=== PATIENT | male | born 1980 | race Two or more races ===

== ENCOUNTER 2017-07-24 03:05 | Emergency (ER) | payer MEDICAID ==
[2017-07-24] MEDS ORDERED: Ketorolac 60 MG/2 ML SDV IM ONE (04:07)
--- NOTE | 2017-07-24 04:10 | EDM.PDOC ---
<OfficerSean - Last Filed: 07/24/17 06:59> ED HPI GENERAL MEDICAL PROBLEM - General Chief Complaint: Lower Extremity Injury/Pain Stated Complaint: R HIP/GROIN/LOW BACK PAIN Time Seen by Provider: 07/24/17 04:04 Source of Information: Reports: Patient, RN Notes Reviewed History Limitations: Reports: No Limitations - History of Present Illness INITIAL COMMENTS - FREE TEXT/NARRATIVE: 36-year-old gentleman presents emergency department today complaint of right hip pain he does have a history of chronic hip pain he uses hydrocodone for pain control he does admit to doing a lot of walking recently however he woke up this morning out of sleep with an exacerbation of his hip pain Right Hip Pain Score (Numeric/FACES): 8 - Related Data Allergies Allergy/AdvReac Type Severity Reaction Status Date / Time gabapentin Allergy Shaking Verified 07/24/17 03:30 Penicillins Allergy Itching Verified 01/13/14 07:56 NSAIDS (Non-Steroidal AdvReac Nausea and Verified 01/14/14 15:48 Anti-Inflamma Vomiting Home Meds: Home Meds OXcarbazepine [Trileptal] 300 mg PO BID 01/10/14 [History] traMADol [Ultram] 50 mg PO Q6H PRN 01/13/14 [History] Hydrocodone/Acetaminophen [[place] 5-325 Tablet] 1 each PO ASDIRECTED 07/24/17 [ History] LORazepam 1 mg PO ASDIRECTED 07/24/17 [History] Levothyroxine 200 mcg PO ACBREAKFAST 07/24/17 [History] Lisdexamfetamine [Vyvanse] 70 mg PO DAILY 07/24/17 [History] buPROPion HCl [Wellbutrin Sr] 150 mg PO BID 07/24/17 [History] Past Medical History Musculoskeletal History: Reports: Other (See Below) Other Musculoskeletal History: right hip pain Psychiatric History: Reports: ADD, Anxiety, Bipolar - Past Surgical History GI Surgical History: Reports: Appendectomy, Cholecystectomy, Hernia Repair/Other Endocrine Surgical History: Reports: Thyroidectomy Neurological Surgical History: Reports: Discectomy, Laminectomy Other Neurological Surgeries/Procedures: partial lami/discectomy near L4 Social & Family History - Tobacco Use Smoking Status *Q: Current Every Day Smoker Years of Tobacco use: 22 Packs/Tins Daily: 1 Used Tobacco, but Quit: Yes Month Tobacco Last Used: 2 YEARS AGO Second Hand Smoke Exposure: Yes - Caffeine Use Caffeine Use: Reports: Coffee, Soda - Alcohol Use Days Per Week of Alcohol Use: 0 - Recreational Drug Use Recreational Drug Use: No Review of Systems - Review of Systems Review Of Systems: See Below Musculoskeletal: Reports: Joint Pain (Right hip pain) Skin: Reports: No Symptoms Neurological: Reports: No Symptoms ED EXAM, GENERAL - Physical Exam Exam: See Below Free Text/Narrative:: Examination of the right hip does have full range of motion I don't appreciate any erythema or edema there is some mild tenderness to palpation over the greater trochanter Exam Limited By: No Limitations General Appearance: Alert, WD/WN, No Apparent Distress Respiratory/Chest: No Respiratory Distress GI/Abdominal: Soft, Non-Tender Course - Vital Signs Last Recorded V/S: Last Vital Signs Temp 35.3 C 07/24/17 07:15 Pulse 108 H 07/24/17 07:00 Resp 15 07/24/17 07:00 BP 139/82 07/24/17 07:00 Pulse Ox 98 07/24/17 07:00 - Orders/Labs/Meds Orders: Active Orders 24 hr Category Date Time Status Peripheral IV Care [RC] . DIRECTED Care 07/24/17 05:46 Active Abdomen Pelvis w Cont [CT] Stat Exams 07/24/17 06:20 Taken Sodium Chloride 0.9% [Normal Saline] 1,000 ml Med 07/24/17 06:30 Active IV ASDIRECTED Sodium Chloride 0.9% [Saline Flush] Med 07/24/17 05:46 Active 10 ml FLUSH ASDIRECTED PRN Peripheral IV Insertion Adult [OM.PC] Urgent Oth 07/24/17 05:45 Ordered Medication Orders Sodium Chloride (Normal Saline) 1,000 mls @ 500 mls/hr IV ASDIRECTED YUSUF Last Admin: 07/24/17 06:23 Dose: 500 mls/hr Sodium Chloride (Saline Flush) 10 ml FLUSH ASDIRECTED PRN PRN Reason: Keep Vein Open Last Admin: 07/24/17 05:53 Dose: 10 ml Labs: Laboratory Tests 07/24/17 07/24/17 07/24/17 Range/Units 06:33 06:33 07:15 WBC 7.2 (4.5-11.0) K/uL RBC 4.59 (4.30-5.90) M/uL Hgb 15.2 H (12.0-15.0) g/dL Hct 43.9 (40.0-54.0) % MCV 96 (80-98) fL MCH 33 H (27-31) pg MCHC 35 (32-36) % Plt Count 273 (150-400) K/uL Neut % (Auto) 61 (36-66) % Lymph % (Auto) 26 (24-44) % [place] % (Auto) 10 H (2-6) % Eos % (Auto) 4 (2-4) % Baso % (Auto) 0 (0-1) % Sodium 143 (140-148) mmol/L Potassium 3.9 (3.6-5.2) mmol/L Chloride 106 (100-108) mmol/L Carbon Dioxide 29 (21-32) mmol/L Anion Gap 7.8 (5.0-14.0) mmol/L BUN 11 (7-18) mg/dL Creatinine 0.9 (0.8-1.3) mg/dL Est Cr Clr Drug Dosing 118.29 mL/min Estimated GFR (MDRD) > 60 (>60) Glucose 93 (74-106) mg/dL Calcium 8.5 (8.5-10.1) mg/dL Total Bilirubin 0.4 (0.2-1.0) mg/dL AST 17 (15-37) U/L ALT 34 (12-78) U/L Alkaline Phosphatase 65 (46-116) U/L Total Protein 6.7 (6.4-8.2) g/dL Albumin 3.5 (3.4-5.0) g/dL Globulin 3.2 (2.3-3.5) g/dL Albumin/Globulin Ratio 1.1 L (1.2-2.2) Urine Color Yellow Urine Appearance Cloudy Urine pH 5.0 (4.5-8.0) Ur Specific [place] 1.025 (1.008-1.030) Urine Protein Negative (NEGATIVE) mg/dL Urine Glucose (UA) Normal (NEGATIVE) mg/dL Urine Ketones Negative (NEGATIVE) mg/dL Urine Occult Blood Negative (NEGATIVE) Urine Nitrite Negative (NEGAITVE) Urine Bilirubin Small (NEGATIVE) Urine Urobilinogen 1 (NORMAL) mg/dL Ur Leukocyte Esterase Negative (NEGATIVE) Urine RBC Not seen (0-5) Urine WBC 0-5 (0-5) Ur Epithelial Cells Not seen Amorphous Sediment Not seen Urine Bacteria Not seen Urine Mucus Few Urine Opiates Screen (NEGATIVE) Ur Oxycodone Screen (NEGATIVE) Urine Methadone Screen (NEGATIVE) Ur Propoxyphene Screen (NEGATIVE) Ur Barbiturates Screen (NEGATIVE) Ur Tricyclics Screen (NEGATIVE) Ur Phencyclidine Scrn (NEGATIVE) Ur Amphetamine Screen (NEGATIVE) U Methamphetamines Scrn (NEGATIVE) Urine MDMA Screen (NEGATIVE) U Benzodiazepines Scrn (NEGATIVE) U Cocaine Metab Screen (NEGATIVE) U Marijuana (THC) Screen (NEGATIVE) 07/24/17 Range/Units 07:15 WBC (4.5-11.0) K/uL RBC (4.30-5.90) M/uL Hgb (12.0-15.0) g/dL Hct (40.0-54.0) % MCV (80-98) fL MCH (27-31) pg MCHC (32-36) % Plt Count (150-400) K/uL Neut % (Auto) (36-66) % Lymph % (Auto) (24-44) % [place] % (Auto) (2-6) % Eos % (Auto) (2-4) % Baso % (Auto) (0-1) % Sodium (140-148) mmol/L Potassium (3.6-5.2) mmol/L Chloride (100-108) mmol/L Carbon Dioxide (21-32) mmol/L Anion Gap (5.0-14.0) mmol/L BUN (7-18) mg/dL Creatinine (0.8-1.3) mg/dL Est Cr Clr Drug Dosing mL/min Estimated GFR (MDRD) (>60) Glucose (74-106) mg/dL Calcium (8.5-10.1) mg/dL Total Bilirubin (0.2-1.0) mg/dL AST (15-37) U/L ALT (12-78) U/L Alkaline Phosphatase (46-116) U/L Total Protein (6.4-8.2) g/dL Albumin (3.4-5.0) g/dL Globulin (2.3-3.5) g/dL Albumin/Globulin Ratio (1.2-2.2) Urine Color Urine Appearance Urine pH (4.5-8.0) Ur Specific [place] (1.008-1.030) Urine Protein (NEGATIVE) mg/dL Urine Glucose (UA) (NEGATIVE) mg/dL Urine Ketones (NEGATIVE) mg/dL Urine Occult Blood (NEGATIVE) Urine Nitrite (NEGAITVE) Urine Bilirubin (NEGATIVE) Urine Urobilinogen (NORMAL) mg/dL Ur Leukocyte Esterase (NEGATIVE) Urine RBC (0-5) Urine WBC (0-5) Ur Epithelial Cells Amorphous Sediment Urine Bacteria Urine Mucus Urine Opiates Screen Negative (NEGATIVE) Ur Oxycodone Screen Negative (NEGATIVE) Urine Methadone Screen Negative (NEGATIVE) Ur Propoxyphene Screen Negative (NEGATIVE) Ur Barbiturates Screen Negative (NEGATIVE) Ur Tricyclics Screen Negative (NEGATIVE) Ur Phencyclidine Scrn Negative (NEGATIVE) Ur Amphetamine Screen Positive H (NEGATIVE) U Methamphetamines Scrn Negative (NEGATIVE) Urine MDMA Screen Negative (NEGATIVE) U Benzodiazepines Scrn Positive H (NEGATIVE) U Cocaine Metab Screen Negative (NEGATIVE) U Marijuana (THC) Screen Negative (NEGATIVE) Meds: Medications Generic Name Dose Route Start Last Admin Trade Name Freq PRN Reason Stop Dose Admin Sodium Chloride 1,000 mls @ 500 mls/hr 07/24/17 06:30 07/24/17 06:23 Normal Saline IV 500 mls/hr ASDIRECTED YUSUF Administration Sodium Chloride 10 ml 07/24/17 05:46 07/24/17 05:53 Saline Flush FLUSH 10 ml ASDIRECTED PRN Administration Keep Vein Open Discontinued Medications Generic Name Dose Route Start Last Admin Trade Name Freq PRN Reason Stop Dose Admin Hydromorphone HCl 1 mg 07/24/17 04:40 07/24/17 04:45 Dilaudid IM 07/24/17 04:41 1 mg ONETIME STA Administration Hydromorphone HCl 1 mg 07/24/17 07:41 07/24/17 08:27 Dilaudid IVPUSH 07/24/17 07:42 1 mg ONETIME ONE Administration Sodium Chloride 85 mls @ 4 mls/sec 07/24/17 06:38 07/24/17 06:42 Normal Saline IV 07/24/17 06:39 4 mls/sec ASDIRECTED STA Administration Iopamidol 150 ml 07/24/17 06:38 07/24/17 06:42 Isovue-300 (61%) IV 07/24/17 06:39 150 ml . DIRECTED STA Administration Ketorolac Tromethamine 60 mg 07/24/17 04:07 07/24/17 04:15 Toradol IM 07/24/17 04:08 60 mg ONETIME ONE Administration Lorazepam 1 mg 07/24/17 05:32 07/24/17 06:08 Ativan IM 07/24/17 05:33 Not Given ONETIME ONE Lorazepam 1 mg 07/24/17 05:46 07/24/17 05:53 Ativan IVPUSH 07/24/17 05:47 1 mg ONETIME ONE Administration - Re-Assessments/Exams Free Text/Narrative Re-Assessment/Exam: 07/24/17 06:22 He continues to have pain he rates the pain 8 out of 10 he received no relief from combination 60 mg Toradol IM, 1 mg Dilaudid IM and 1 mg Ativan IV, I did review the [place] prescription drug monitoring site which does show he has multiple fills of hydrocodone at several cities throughout the [facility]. He is now complaining of right flank pain right lower quadrant pain, I have added blood work of CBC, CMP and urinalysis as well as a CT scan the abdomen and pelvis Departure - Departure Disposition: Home, Self-Care 01 Clinical Impression: Degenerative tear of acetabular labrum of right hip - Discharge Information Referrals: PCP,None [Primary Care Provider] - Forms: ED Department Discharge Care Plan Goals: Pt needs to establish care with a primary care provider at either [facility] or [facility], KEEP APPT WITH DR KUNZ AT [facility] AUG 2AT 1 pm--orthopedic dept. pt was given a 5 day course of pedisone as an a antinflamitory since he is allergic to nonsteroidals.. norco 5/325 1 tab q6h prn for pain--# 12 <Lorin Montes - Last Filed: 07/24/17 10:10> Course - Re-Assessments/Exams Free Text/Narrative Re-Assessment/Exam: 07/24/17 09:56 The care of the pt was taken over from Dr Officer. The pt was asking for a advocate when I took him over because he was not being cared for right. We did get the reading of the cat scan of the abdoman which was neg. Records were obtained from [facility] in [place]. He has been seen multiple times for his hip and back pain. He also has been seen for migraines. He has received pain meds for the hip pain. He had an MRI of the hip in Apr which showed a possible tear in the labrum. He also had an MRI in Jun of The lumbar spine which was neg. He is post laminectomy. He is having alot of pain when he walks on the rt leg. He did have normal lab work. He will be refered to Dr Kunz-- Ortho for the labrum tear-- [facility]. An appt was set up for Aug 04 in [place]. He has had relieve of the pain with the last dilaudid. d Departure - Departure Time of Disposition: 10:02 Condition: Fair
[2017-07-24] MEDS ORDERED: HYDROmorphone 1 MG/ML Syringe IM STA (04:40)
[2017-07-24] MEDS ORDERED: LORazepam 2 MG/ML SDV IM ONE (05:32)
[2017-07-24] MEDS ORDERED: Sodium Chloride 0.9% 10 ML Syringe FLUSH PRN (05:46)
[2017-07-24] MEDS ORDERED: LORazepam 2 MG/ML SDV IVPUSH ONE (05:46)
[2017-07-24] MEDS ORDERED: Sodium Chloride 0.9% 1,000 ML IV SCH (06:30)
[2017-07-24] MEDS ORDERED: Iopamidol 612 MG/ML 150 ML Bottle IV STA (06:38)
[2017-07-24] MEDS ORDERED: HYDROmorphone 1 MG/ML Syringe IVPUSH ONE (07:41)
[2017-07-25] MEDS ORDERED: Levothyroxine 100 MCG Tab PO SCH (07:30)
== END 2017-07-24 11:34 | disposition home or self-care (01) ==
LOC: JP.ED 03:05
DX: M25.851 Other specified joint disorders, right hip (principal); F17.210 Nicotine dependence, cigarettes, uncomplicated; F31.9 Bipolar disorder, unspecified; F41.9 Anxiety disorder, unspecified; Z79.899 Other long term (current) drug therapy; Z88.0 Allergy status to penicillin; Z88.8 Allergy status to other drugs, medicaments and biological substances
CPT/HCPCS: 36415; 74177; 80053; 80305; 81001; 85025; 96361; 96372; 96374; 96375; 99284; J1170; J1885; J2060; J7030; J7040; J7050; 99283

== ENCOUNTER 2017-09-05 15:54 | Emergency (ER) | payer MEDICAID ==
--- NOTE | 2017-09-05 16:42 | EDM.PDOC ---
ED HPI GENERAL MEDICAL PROBLEM - General Chief Complaint: Lower Extremity Injury/Pain Stated Complaint: R HIP PAIN Time Seen by Provider: 09/05/17 16:25 Source of Information: Reports: Patient, Family History Limitations: Reports: No Limitations - History of Present Illness INITIAL COMMENTS - FREE TEXT/NARRATIVE: 36-year-old male with chronic right hip pain claims he "fell" 2 days ago and has an increase in his pain in the right hip down into the right groin and right lower abdomen. This is very similar to the complaint that he had when he had a complete workup last month including a CT scan of the abdomen and pelvis. At that time they set him up with a autism motor specialist regarding his hip on August 04, he did not make the appointment he can't remember why. He did go to a clinic that day here in town for a rash. His said last time he came home from his ER visit he probably didn't remember his appointment because he was so "unsteady from the medication" as he received several shots of Dilaudid and Ativan. He does have chemical dependency in his chart history. 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 Now he claims he can't even roll over in bed. Onset: Unknown/Unsure Location: Reports: Lower Extremity, Right Severity: Moderate Worsens with: Reports: Other (Weightbearing), Movement Associated Symptoms: Denies: Chest Pain, Cough, Fever/Chills, Nausea/Vomiting, Shortness of Breath Right Hip Pain Score (Numeric/FACES): 8 - Related Data Allergies Allergy/AdvReac Type Severity Reaction Status Date / Time gabapentin Allergy Shaking Verified 09/05/17 16:16 Penicillins Allergy Itching Verified 09/05/17 16:16 NSAIDS (Non-Steroidal AdvReac Nausea and Verified 09/05/17 16:16 Anti-Inflamma Vomiting Home Meds: Home Meds OXcarbazepine [Trileptal] 300 mg PO BID 01/10/14 [History] Hydrocodone/Acetaminophen [[place] 5-325 Tablet] 1 each PO ASDIRECTED 07/24/17 [ History] LORazepam 1 mg PO ASDIRECTED 07/24/17 [History] Levothyroxine 200 mcg PO ACBREAKFAST 07/24/17 [History] buPROPion HCl [Wellbutrin Sr] 150 mg PO BID 07/24/17 [History] Past Medical History HEENT History: Reports: Impaired Vision Musculoskeletal History: Reports: Other (See Below) Other Musculoskeletal History: right hip pain Psychiatric History: Reports: ADD, Anxiety, Bipolar Oncologic (Cancer) History: Reports: Thyroid - Infectious Disease History Infectious Disease History: Reports: Chicken Pox - Past Surgical History GI Surgical History: Reports: Appendectomy, Cholecystectomy, Hernia Repair/Other Endocrine Surgical History: Reports: Thyroidectomy Neurological Surgical History: Reports: Discectomy, Laminectomy Other Neurological Surgeries/Procedures: partial lami/discectomy near L4 Social & Family History - Tobacco Use Smoking Status *Q: Current Every Day Smoker Years of Tobacco use: 22 Packs/Tins Daily: 1 Used Tobacco, but Quit: Yes Month Tobacco Last Used: august Second Hand Smoke Exposure: Yes - Caffeine Use Caffeine Use: Reports: Coffee, Soda - Alcohol Use Days Per Week of Alcohol Use: 0 - Recreational Drug Use Recreational Drug Use: No Review of Systems - Review of Systems Review Of Systems: See Below Constitutional: Denies: Fever Respiratory: Denies: Shortness of Breath Cardiovascular: Denies: Chest Pain GI/Abdominal: Reports: Other (Complains of some deep groin pain) Genitourinary: Denies: Dysuria Skin: Denies: Bruising ED EXAM, GENERAL - Physical Exam Exam: See Below Exam Limited By: No Limitations General Appearance: Alert, No Apparent Distress (Seems fairly comfortable when lying supine) Head: Atraumatic Respiratory/Chest: No Respiratory Distress GI/Abdominal: Soft, Non-Tender Extremities: Other (Patient does have some pulling sensation to the right buttock with passive flexion of the hip, however there is very little discomfort with passive internal and external rotation of the hip. His palpation tenderness is more along the right iliac crest and buttock area that it is lateral hip. There is no bruising.) Course - Vital Signs Last Recorded V/S: Last Vital Signs Temp 96.7 F 09/05/17 17:18 Pulse 76 09/05/17 17:18 Resp 16 09/05/17 17:18 BP 120/90 09/05/17 17:18 Pulse Ox 99 09/05/17 17:18 - Orders/Labs/Meds Meds: Medications Discontinued Medications Generic Name Dose Route Start Last Admin Trade Name Freq PRN Reason Stop Dose Admin Ketorolac Tromethamine 60 mg 09/05/17 16:43 09/05/17 16:49 Toradol IM 09/05/17 16:44 60 mg ONETIME ONE Administration - Re-Assessments/Exams Free Text/Narrative Re-Assessment/Exam: 09/05/17 17:04 Patient was given an injection of Toradol 60 mg IM followed by a pelvis x-ray. 09/05/17 17:27 A pelvis x-ray looks completely normal. The Toradol injection didn't "help at all". When I questioned him further about consultations, physical therapy etc. he admitted he had an autism motor specialist in [place] in July recommend a possible surgery. When I asked why he didn't get the surgery he said he referred him to another doctor in [place]. I don't think he mentioned any of this on his last visit. When I asked him what the other doctor said he said he wanted to try physical therapy first, he's been waiting for a call to get that started. The just came back into the room then and when I told her all this she acted surprised that this was going on. I did agree to give him 10 Vicodin to use sparingly over the next couple of days, he should increase activity as tolerated and get a hold of the [place] provider to work out the physical therapy appointment. Departure - Departure Time of Disposition: 17:43 Disposition: Home, Self-Care 01 Condition: Good Clinical Impression: Contusion of hip, right Qualifiers: Encounter type: initial encounter Qualified Code(s): S70.01XA - Contusion of right hip, initial encounter - Discharge Information Instructions: Hip Pain Referrals: Cassy Hardy MD [Primary Care Provider] - Forms: ED Department Discharge Care Plan Goals: Take pain medication sparingly if needed. Increase activity as tolerated and contact your provider in [place] for physical therapy instructions as soon as possible. Keep your appointment on as scheduled.
[2017-09-05] MEDS ORDERED: Ketorolac 60 MG/2 ML SDV IM ONE (16:43)
--- NOTE | 2017-09-06 08:37 | CR ---
PELVIS AP Clinical History: Pain, fall Findings: No acute fracture or dislocation is noted. No destructive changes are present.There is mi nimal acetabular spurring. Impression: No fracture Mild acetabular spurring bilaterally
== END 2017-09-05 17:43 | disposition home or self-care (01) ==
LOC: JP.ED 15:54
DX: S70.01XA Contusion of right hip, initial encounter (principal); R05 Cough; R11.2 Nausea with vomiting, unspecified; R06.02 Shortness of breath; R07.9 Chest pain, unspecified; F98.8 Other specified behavioral and emotional disorders with onset usually occurring in childhood and adolescence; F31.9 Bipolar disorder, unspecified; F17.210 Nicotine dependence, cigarettes, uncomplicated; Z88.8 Allergy status to other drugs, medicaments and biological substances; Z88.0 Allergy status to penicillin; Z88.6 Allergy status to analgesic agent; Z79.899 Other long term (current) drug therapy; Z98.890 Other specified postprocedural states; W19.XXXA Unspecified fall, initial encounter
CPT/HCPCS: 72170; 96372; 99284; J1885; 99283

== ENCOUNTER 2017-09-08 18:09 | Emergency (ER) | payer MEDICAID ==
[2017-09-08] MEDS ORDERED: HYDROmorphone 1 MG/ML Syringe IM ONE (19:07)
--- NOTE | 2017-09-08 19:11 | EDM.PDOC ---
ED HPI GENERAL MEDICAL PROBLEM - General Chief Complaint: General Stated Complaint: PAIN Time Seen by Provider: 09/08/17 18:41 Source of Information: Reports: Patient, Family, Old Records, RN Notes Reviewed History Limitations: Reports: No Limitations - History of Present Illness INITIAL COMMENTS - FREE TEXT/NARRATIVE: 36-year-old gentleman presents to the emergency department day complaint of right hip pain he has a known history of a labrum tear in the right hip has been evaluated both at [facility] and the [facility] diagnosis was made on April 2017 he has not followed up with physical therapy or orthopedic surgery consultations has been evaluated at multiple facilities for complaints of pain in the right hip had called the [facility] clinic asking for pain unfortunately his primary care provider was not present therefore he was directed to the emergency department. Review of [place] prescription drug monitoring program shows that he has received hydrocodone from multiple providers, I was able to find the original MRI from [facility] which shows the possible labrum tear. He was evaluated in the emergency department on 05 September I received 10 hydrocodone at the time follow-up with primary care yesterday started on Diflucan acute which he states he cannot tolerate he is currently out of the hydrocodone. States that he is unable to bear weight cannot lay in the bed without excruciating pain. - Related Data Allergies Allergy/AdvReac Type Severity Reaction Status Date / Time gabapentin Allergy Shaking Verified 09/08/17 18:33 Penicillins Allergy Itching Verified 09/08/17 18:33 Home Meds: Home Meds OXcarbazepine [Trileptal] 300 mg PO BID 01/10/14 [History] Hydrocodone/Acetaminophen [[place] 5-325 Tablet] 1 each PO ASDIRECTED 07/24/17 [ History] LORazepam 1 mg PO ASDIRECTED 07/24/17 [History] Levothyroxine 200 mcg PO ACBREAKFAST 07/24/17 [History] buPROPion HCl [Wellbutrin Sr] 150 mg PO BID 07/24/17 [History] Cyclobenzaprine [Flexeril] 09/08/17 [History] Diclofenac Sodium [Voltaren] 09/08/17 [History] Past Medical History HEENT History: Reports: Impaired Vision Musculoskeletal History: Reports: Other (See Below) Other Musculoskeletal History: right hip pain Psychiatric History: Reports: ADD, Anxiety, Bipolar Oncologic (Cancer) History: Reports: Thyroid - Infectious Disease History Infectious Disease History: Reports: Chicken Pox - Past Surgical History GI Surgical History: Reports: Appendectomy, Cholecystectomy, Hernia Repair/Other Endocrine Surgical History: Reports: Thyroidectomy Neurological Surgical History: Reports: Discectomy, Laminectomy Other Neurological Surgeries/Procedures: partial lami/discectomy near L4 Social & Family History - Tobacco Use Smoking Status *Q: Current Every Day Smoker Years of Tobacco use: 10 Packs/Tins Daily: 1 Used Tobacco, but Quit: Yes Month Tobacco Last Used: august Second Hand Smoke Exposure: Yes - Caffeine Use Caffeine Use: Reports: Coffee, Soda - Alcohol Use Days Per Week of Alcohol Use: 0 - Recreational Drug Use Recreational Drug Use: No ED ROS GENERAL - Review of Systems Review Of Systems: See Below Constitutional: Reports: No Symptoms Respiratory: Reports: No Symptoms Cardiovascular: Reports: No Symptoms GI/Abdominal: Reports: Abdominal Pain : Reports: Flank Pain Musculoskeletal: Reports: Joint Pain (Right hip pain), Muscle Pain Skin: Reports: No Symptoms Neurological: Reports: No Symptoms ED EXAM, GENERAL - Physical Exam Exam: See Below Free Text/Narrative:: Attempt to examine the right hip does not tolerate any exam whatsoever slightest palpitation over the greatest trochanter elicits pain cannot move flexion or extension of the hip without exacerbating pain Exam Limited By: No Limitations General Appearance: Alert, Mild Distress Course - Vital Signs Last Recorded V/S: Last Vital Signs Temp 98.6 F 09/08/17 18:39 Pulse 112 H 09/08/17 18:39 Resp 18 09/08/17 18:39 BP 150/104 H 09/08/17 18:39 Pulse Ox 96 09/08/17 18:39 - Orders/Labs/Meds Meds: Medications Discontinued Medications Generic Name Dose Route Start Last Admin Trade Name Freq PRN Reason Stop Dose Admin Hydromorphone HCl 1 mg 09/08/17 19:07 09/08/17 19:37 Dilaudid IM 09/08/17 19:08 1 mg ONETIME ONE Administration Departure - Departure Time of Disposition: 20:03 Disposition: Home, Self-Care 01 Condition: Fair Clinical Impression: Degenerative tear of acetabular labrum of right hip - Discharge Information Referrals: Cassy Hardy MD [Primary Care Provider] - Forms: ED Department Discharge Additional Instructions: Use ibuprofen for baseline pain control, use hydrocodone as needed for breakthrough pain, please call to the orthopedic clinic on Monday for follow-up appointment - Assessment/Plan Plan: Assessment Acuity = chronic Site and laterality = labrum tear right hip Etiology = unclear etiology Manifestations = chronic pain Location of injury = Home Lab values = none Plan He received an injection of Dilaudid 1 mg IM which provided some relief discharged home with hydrocodone 5/325 one tablet by mouth 3 times a day when necessary he does have an appointment with orthopedics that is ordered he was evaluated by orthopedic PA in [place] today, I recommended that he contact orthopedics department for follow-up time on his appointment, counseled him on the importance of follow-up and recommendations per orthopedics This note was dictated using [employer] voice recognition software please call with any questions on syntax or mikel.
== END 2017-09-08 20:26 | disposition home or self-care (01) ==
LOC: JP.ED 18:09
DX: S73.101D Unspecified sprain of right hip, subsequent encounter (principal); F17.210 Nicotine dependence, cigarettes, uncomplicated; Z88.0 Allergy status to penicillin; Z88.8 Allergy status to other drugs, medicaments and biological substances; X58.XXXD Exposure to other specified factors, subsequent encounter
CPT/HCPCS: 96372; 99283-25; J1170

== ENCOUNTER 2017-10-18 10:42 | Emergency (ER) | payer MEDICAID ==
--- NOTE | 2017-10-18 11:28 | EDM.PDOC ---
ED HPI GENERAL MEDICAL PROBLEM - General Chief Complaint: General Stated Complaint: MAYBE A REACTION TO HIS MEDS Time Seen by Provider: 10/18/17 11:11 Source of Information: Reports: Patient, Family, RN Notes Reviewed History Limitations: Reports: No Limitations - History of Present Illness INITIAL COMMENTS - FREE TEXT/NARRATIVE: 36-year-old gentleman presents to the emergency department day complaint of dizziness upset stomach some slurred speech problems with concentration, he states is been ongoing for the last 2 days he was recently started on medication diclofenac neck which she's been taking for about a month, Abdomen Pain Score (Numeric/FACES): 6 - Related Data Allergies Allergy/AdvReac Type Severity Reaction Status Date / Time gabapentin Allergy Shaking Verified 10/18/17 11:01 Penicillins Allergy Itching Verified 10/18/17 11:01 Home Meds: Home Meds OXcarbazepine [Trileptal] 300 mg PO BID 01/10/14 [History] LORazepam 1 mg PO QID PRN 07/24/17 [History] Levothyroxine 200 mcg PO ACBREAKFAST 07/24/17 [History] buPROPion HCl [Wellbutrin Sr] 150 mg PO BID 07/24/17 [History] Cyclobenzaprine [Flexeril] 10 mg PO BID PRN 09/08/17 [History] Diclofenac Sodium [Voltaren] 75 mg PO BIDMEALS 10/18/17 [History] Past Medical History HEENT History: Reports: Impaired Vision Gastrointestinal History: Reports: Cholelithiasis Musculoskeletal History: Reports: Other (See Below) Other Musculoskeletal History: right hip pain Psychiatric History: Reports: ADD, Anxiety, Bipolar Oncologic (Cancer) History: Reports: Thyroid - Infectious Disease History Infectious Disease History: Reports: Chicken Pox - Past Surgical History GI Surgical History: Reports: Appendectomy, Cholecystectomy, Hernia Repair/Other Endocrine Surgical History: Reports: Thyroidectomy Neurological Surgical History: Reports: Discectomy, Laminectomy Other Neurological Surgeries/Procedures: partial lami/discectomy near L4 Social & Family History - Tobacco Use Smoking Status *Q: Current Every Day Smoker Years of Tobacco use: 1 Packs/Tins Daily: 0.1 Used Tobacco, but Quit: Yes Month/Year Tobacco Last Used: august Second Hand Smoke Exposure: Yes - Caffeine Use Caffeine Use: Reports: None - Alcohol Use Days Per Week of Alcohol Use: 0 - Recreational Drug Use Recreational Drug Use: No ED ROS GENERAL - Review of Systems Review Of Systems: See Below Constitutional: Reports: Other HEENT: Reports: No Symptoms (Confusion) Respiratory: Reports: No Symptoms Cardiovascular: Reports: No Symptoms GI/Abdominal: Reports: Abdominal Pain, Nausea : Reports: No Symptoms Musculoskeletal: Reports: Joint Pain (Right hip pain) Skin: Reports: No Symptoms Neurological: Reports: Confusion, Dizziness ED EXAM, GENERAL - Physical Exam Exam: See Below Free Text/Narrative:: General: Male, not in any distress speech of adequate rate tone and volume, alert and oriented x3 HEENT: head is atraumatic normocephalic, eyes pupils equal round reactive to light, sclera clear no conjunctivitis appreciated. Ears tympanic membranes clear and harrison landmarks and light reflex are present bilaterally canals are clear. Nose no septal deviation, nares are clear, no blood present. Mouth mucosa is moist and pink no erythema or exudate noted in soft palate, tongue is midline uvula is midline, dentition is intact. Neck: Supple no thyromegaly no tracheal deviation. Nodes: Cervical nodes subclavicular nodes nontender no palpable lymphadenopathy noted. Lungs: clear to auscultation bilaterally with symmetrical respirations, no adventitious noise appreciated. CV: Regular rate and rhythm S1 and S2 appreciated no murmurs rubs or gallops noted. Abdomen: Soft, nontender, no palpable masses or organomegaly appreciated, no distention no guarding bowel sounds are present, [scars ]. Neuro: Cranial nerves II through XII grossly intact, power is 5 out 5 in upper and lower extremities, patellar reflex, biceps reflex +2 can do finger to nose without difficulty no dysdiadochokinesis no difficulty with rapid alternating movements can do [id number] without difficulty Romberg is negative, has adequate gait can do heel to toe, can toe walk and heel walk no cerebellar dysfunction no focal neurologic deficit Skin: Warm and dry, intact Extremities: No lower extremity edema appreciated, pedal pulse is +2. Course - Vital Signs Last Recorded V/S: Last Vital Signs Temp 96.5 F 10/18/17 11:06 Pulse 99 10/18/17 11:06 Resp 18 10/18/17 11:06 BP 139/86 10/18/17 11:06 Pulse Ox 99 10/18/17 11:06 - Orders/Labs/Meds Orders: Active Orders 24 hr Category Date Time Status DRUG SCREEN, URINE [URCHEM] Stat Lab 10/18/17 11:38 Ordered UA W/MICROSCOPIC [URIN] Urgent Lab 10/18/17 11:38 Ordered Labs: Laboratory Tests 10/18/17 10/18/17 10/18/17 Range/Units 11:34 11:34 11:38 WBC 6.5 (4.5-11.0) K/uL RBC 4.48 (4.30-5.90) M/uL Hgb 14.3 (12.0-15.0) g/dL Hct 41.3 (40.0-54.0) % MCV 92 (80-98) fL MCH 32 H (27-31) pg MCHC 35 (32-36) % Plt Count 276 (150-400) K/uL Neut % (Auto) 66 (36-66) % Lymph % (Auto) 21 L (24-44) % [place] % (Auto) 9 H (2-6) % Eos % (Auto) 4 (2-4) % Baso % (Auto) 0 (0-1) % Sodium 143 (140-148) mmol/L Potassium 4.1 (3.6-5.2) mmol/L Chloride 104 (100-108) mmol/L Carbon Dioxide 28 (21-32) mmol/L Anion Gap 10.8 (5.0-14.0) mmol/L BUN 10 (7-18) mg/dL Creatinine 0.9 (0.8-1.3) mg/dL Est Cr Clr Drug Dosing 118.29 mL/min Estimated GFR (MDRD) > 60 (>60) Glucose 71 L (74-106) mg/dL Calcium 8.2 L (8.5-10.1) mg/dL Urine Color Other Urine Appearance Cloudy Urine pH 6.0 (4.5-8.0) Ur Specific [place] 1.020 (1.008-1.030) Urine Protein Negative (NEGATIVE) mg/dL Urine Glucose (UA) Normal (NEGATIVE) mg/dL Urine Ketones Negative (NEGATIVE) mg/dL Urine Occult Blood Negative (NEGATIVE) Urine Nitrite Negative (NEGAITVE) Urine Bilirubin Small (NEGATIVE) Urine Urobilinogen 4 (NORMAL) mg/dL Ur Leukocyte Esterase Negative (NEGATIVE) Urine RBC Not seen (0-5) Urine WBC Not seen (0-5) Ur Epithelial Cells Few Amorphous Sediment Not seen Urine Bacteria Not seen Urine Mucus Moderate Urine Opiates Screen (NEGATIVE) Ur Oxycodone Screen (NEGATIVE) Urine Methadone Screen (NEGATIVE) Ur Propoxyphene Screen (NEGATIVE) Ur Barbiturates Screen (NEGATIVE) Ur Tricyclics Screen (NEGATIVE) Ur Phencyclidine Scrn (NEGATIVE) Ur Amphetamine Screen (NEGATIVE) U Methamphetamines Scrn (NEGATIVE) Urine MDMA Screen (NEGATIVE) U Benzodiazepines Scrn (NEGATIVE) U Cocaine Metab Screen (NEGATIVE) U Marijuana (THC) Screen (NEGATIVE) 10/18/17 Range/Units 11:38 WBC (4.5-11.0) K/uL RBC (4.30-5.90) M/uL Hgb (12.0-15.0) g/dL Hct (40.0-54.0) % MCV (80-98) fL MCH (27-31) pg MCHC (32-36) % Plt Count (150-400) K/uL Neut % (Auto) (36-66) % Lymph % (Auto) (24-44) % [place] % (Auto) (2-6) % Eos % (Auto) (2-4) % Baso % (Auto) (0-1) % Sodium (140-148) mmol/L Potassium (3.6-5.2) mmol/L Chloride (100-108) mmol/L Carbon Dioxide (21-32) mmol/L Anion Gap (5.0-14.0) mmol/L BUN (7-18) mg/dL Creatinine (0.8-1.3) mg/dL Est Cr Clr Drug Dosing mL/min Estimated GFR (MDRD) (>60) Glucose (74-106) mg/dL Calcium (8.5-10.1) mg/dL Urine Color Urine Appearance Urine pH (4.5-8.0) Ur Specific [place] (1.008-1.030) Urine Protein (NEGATIVE) mg/dL Urine Glucose (UA) (NEGATIVE) mg/dL Urine Ketones (NEGATIVE) mg/dL Urine Occult Blood (NEGATIVE) Urine Nitrite (NEGAITVE) Urine Bilirubin (NEGATIVE) Urine Urobilinogen (NORMAL) mg/dL Ur Leukocyte Esterase (NEGATIVE) Urine RBC (0-5) Urine WBC (0-5) Ur Epithelial Cells Amorphous Sediment Urine Bacteria Urine Mucus Urine Opiates Screen Negative (NEGATIVE) Ur Oxycodone Screen Negative (NEGATIVE) Urine Methadone Screen Negative (NEGATIVE) Ur Propoxyphene Screen Negative (NEGATIVE) Ur Barbiturates Screen Negative (NEGATIVE) Ur Tricyclics Screen Positive H (NEGATIVE) Ur Phencyclidine Scrn Negative (NEGATIVE) Ur Amphetamine Screen Negative (NEGATIVE) U Methamphetamines Scrn Negative (NEGATIVE) Urine MDMA Screen Negative (NEGATIVE) U Benzodiazepines Scrn Positive H (NEGATIVE) U Cocaine Metab Screen Negative (NEGATIVE) U Marijuana (THC) Screen Negative (NEGATIVE) Departure - Departure Time of Disposition: 12:53 Disposition: Home, Self-Care 01 Condition: Good Clinical Impression: Reaction, drug, adverse Qualifiers: Encounter type: initial encounter Qualified Code(s): T88.7XXA - Unspecified adverse effect of drug or medicament, initial encounter - Discharge Information Referrals: Cassy Hardy MD [Primary Care Provider] - Forms: ED Department Discharge Additional Instructions: Please followup with your primary care provider in 3-5 days if not better, please call return to the emergency department with worsening of symptoms. - My Orders Last 24 Hours: My Active Orders 10/18/17 11:38 DRUG SCREEN, URINE [URCHEM] Stat UA W/MICROSCOPIC [URIN] Urgent - Assessment/Plan Last 24 Hours: My Active Orders 10/18/17 11:38 DRUG SCREEN, URINE [URCHEM] Stat UA W/MICROSCOPIC [URIN] Urgent Plan: Assessment Acuity = acute Site and laterality = dyspepsia Etiology = probably secondary to diclofenac Manifestations = none Location of injury = Home Lab values = CBC, CMP, urinalysis unremarkable urine drug screen positive for tricyclics and benzodiazepines Plan I did review lab work EKG results with him, he is to follow-up with his primary care provider for further pain medication for his right hip pain he does have follow-up with orthopedic surgery recommended he stop the diclofenac at this time This note was dictated using [employer] voice recognition software please call with any questions on syntax or mikel.
== END 2017-10-18 13:00 | disposition home or self-care (01) ==
LOC: JP.ED 10:42
DX: K30 Functional dyspepsia (principal); R42 Dizziness and giddiness; R47.81 Slurred speech; T39.395A Adverse effect of other nonsteroidal anti-inflammatory drugs [NSAID], initial encounter; Z88.0 Allergy status to penicillin; Z79.899 Other long term (current) drug therapy; F31.9 Bipolar disorder, unspecified; Z90.49 Acquired absence of other specified parts of digestive tract; F17.210 Nicotine dependence, cigarettes, uncomplicated; Z88.8 Allergy status to other drugs, medicaments and biological substances
CPT/HCPCS: 36415; 80048; 80305; 81001; 85025; 99283; 99284

== ENCOUNTER 2017-11-11 18:56 | Emergency (ER) | payer MEDICAID ==
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
== END 2017-11-11 19:51 | disposition home or self-care (01) ==
LOC: JP.ED 18:56
DX: T23.251A Burn of second degree of right palm, initial encounter (principal); F17.210 Nicotine dependence, cigarettes, uncomplicated; F41.9 Anxiety disorder, unspecified; F31.9 Bipolar disorder, unspecified; Z79.899 Other long term (current) drug therapy; Z88.0 Allergy status to penicillin; Z88.8 Allergy status to other drugs, medicaments and biological substances
CPT/HCPCS: 99283

== ENCOUNTER 2017-11-13 10:02 | Emergency (ER) | payer MEDICAID ==
[2017-11-13] MEDS ORDERED: Ketorolac 60 MG/2 ML SDV IM ONE (10:44)
--- NOTE | 2017-11-13 10:49 | EDM.PDOC ---
ED HPI GENERAL MEDICAL PROBLEM - General Chief Complaint: General Stated Complaint: HURT HIP Time Seen by Provider: 11/13/17 10:35 Source of Information: Reports: Patient, Old Records, RN Notes Reviewed History Limitations: Reports: No Limitations - History of Present Illness INITIAL COMMENTS - FREE TEXT/NARRATIVE: 36-year-old gentleman presents to the emergency department day with complaint of right hip pain. He has a known history of a right hip labrum tear diagnosed April 2017 at [facility] he has been scheduled multiple times to follow- up with orthopedic surgery at [facility] but has failed appointments. 2 weeks ago he heard a pop in his hip he has ongoing pain he is now developed some numbness and tingling going down his leg intermittent, he is very frustrated with the ongoing hip pain and does not know what to do Right Hip Pain Score (Numeric/FACES): 7 - Related Data Allergies Allergy/AdvReac Type Severity Reaction Status Date / Time gabapentin Allergy Shaking Verified 11/13/17 10:22 Penicillins Allergy Itching Verified 11/13/17 10:22 Home Meds: Home Meds OXcarbazepine [Trileptal] 300 mg PO BID 01/10/14 [History] LORazepam 1 mg PO QID PRN 07/24/17 [History] Levothyroxine 200 mcg PO ACBREAKFAST 07/24/17 [History] buPROPion HCl [Wellbutrin Sr] 150 mg PO BID 07/24/17 [History] Cyclobenzaprine [Flexeril] 10 mg PO BID PRN 09/08/17 [History] Past Medical History HEENT History: Reports: Impaired Vision Gastrointestinal History: Reports: Cholelithiasis Musculoskeletal History: Reports: Back Pain, Chronic, Other (See Below) Other Musculoskeletal History: right hip pain with labrum tear Psychiatric History: Reports: ADD, Anxiety, Bipolar, Panic Attack, Psych Hospitalization(s) Endocrine/Metabolic History: Reports: Obesity/BMI 30+ Oncologic (Cancer) History: Reports: Thyroid - Infectious Disease History Infectious Disease History: Reports: Chicken Pox - Past Surgical History GI Surgical History: Reports: Appendectomy, Cholecystectomy, Hernia Repair/Other Endocrine Surgical History: Reports: Thyroidectomy, Other (See Below) Other Endocrine Surgeries/Procedures: 9 lymphnodes on left side removed Neurological Surgical History: Reports: Discectomy, Laminectomy Other Neurological Surgeries/Procedures: partial lami/discectomy near L4 Social & Family History - Tobacco Use Smoking Status *Q: Current Every Day Smoker Years of Tobacco use: 20 Packs/Tins Daily: 2 - Caffeine Use Caffeine Use: Reports: Coffee, Soda - Recreational Drug Use Recreational Drug Use: No ED ROS GENERAL - Review of Systems Review Of Systems: See Below Constitutional: Reports: No Symptoms Musculoskeletal: Reports: Joint Pain (Right hip pain) Neurological: Reports: Numbness (Right leg), Tingling ED EXAM, GENERAL - Physical Exam Exam: See Below Free Text/Narrative:: Examination the back and on appreciate any specific point tenderness spinally or paraspinally he does have pain with flexion and extension as well as rotation of the right hip pain is also elicited with pressure on the iliac crest right side Exam Limited By: No Limitations General Appearance: Alert, WD/WN, No Apparent Distress Respiratory/Chest: No Respiratory Distress Course - Vital Signs Last Recorded V/S: Last Vital Signs Temp 206.2 F H 11/13/17 10:24 Pulse 98 11/13/17 10:24 Resp 18 11/13/17 10:24 BP 119/91 H 11/13/17 10:24 Pulse Ox 97 11/13/17 10:24 - Orders/Labs/Meds Meds: Medications Discontinued Medications Generic Name Dose Route Start Last Admin Trade Name Davis PRN Reason Stop Dose Admin Hydromorphone HCl 1 mg 11/13/17 11:50 11/13/17 11:57 Dilaudid IM 11/13/17 11:51 1 mg ONETIME ONE Administration Ketorolac Tromethamine 60 mg 11/13/17 10:44 11/13/17 10:52 Toradol IM 11/13/17 10:45 60 mg ONETIME ONE Administration Lorazepam 1 mg 11/13/17 11:16 11/13/17 11:20 Ativan PO 11/13/17 11:17 1 mg ONETIME ONE Administration Departure - Departure Time of Disposition: 12:25 Disposition: Home, Self-Care 01 Condition: Fair Clinical Impression: Degenerative tear of acetabular labrum of right hip - Discharge Information Referrals: Shara Jarrell MD [Primary Care Provider] - Forms: ED Department Discharge Additional Instructions: Please follow-up with orthopedics this week - Assessment/Plan Plan: Assessment Acuity = chronic Site and laterality = right labrum tear Etiology = unclear etiology Manifestations = pain Location of injury = Home Lab values = x-ray shows stable changes to the hip nothing acute per radiology Plan He received 1 injection Toradol and one injection of Dilaudid as well as milligram Ativan provided some relief he has appointment with orthopedics on Monday This note was dictated using [employer] voice recognition software please call with any questions on syntax or grammar.
[2017-11-13] MEDS ORDERED: LORazepam 1 MG Tab PO ONE (11:16)
--- NOTE | 2017-11-13 11:32 | CR ---
Right hip Comparison: August 2017. There are mild hypertrophic changes involving the lateral margin of the acetabulum. There is no signi ficant joint space loss. There are no post traumatic findings. The soft tissues are unremarkable. Impression: 1. Stable exam. No acute findings.
[2017-11-13] MEDS ORDERED: HYDROmorphone 1 MG/ML Syringe IM ONE (11:50)
== END 2017-11-13 12:46 | disposition home or self-care (01) ==
LOC: JP.ED 10:02
DX: S73.191A Other sprain of right hip, initial encounter (principal); F17.210 Nicotine dependence, cigarettes, uncomplicated; Z88.0 Allergy status to penicillin; Z88.8 Allergy status to other drugs, medicaments and biological substances; Z79.899 Other long term (current) drug therapy; X58.XXXA Exposure to other specified factors, initial encounter
CPT/HCPCS: 73502; 96372; 99284; A9270; J1170; J1885

== ENCOUNTER 2018-01-19 16:09 | Emergency (ER) | payer MEDICAID ==
[2018-01-19] MEDS ORDERED: Ketorolac 60 MG/2 ML SDV IM ONE (17:21)
--- NOTE | 2018-01-19 17:21 | EDM.PDOC ---
<Roberta Jacinto N - Last Filed: 01/19/18 17:15> ED HPI GENERAL MEDICAL PROBLEM - General Chief Complaint: Upper Extremity Injury/Pain Stated Complaint: L SHOULDER PAIN Time Seen by Provider: 01/19/18 17:13 - History of Present Illness INITIAL COMMENTS - FREE TEXT/NARRATIVE: Elmo is a 37-year-old male who presents to the ER with complaints of left shoulder pain which began this morning. States he awoke with a mild pain in his shoulder, which has progressively worsened throughout the day. The pain is constant at a 6/10, with periods of worsening that become unbearable. States the pain feels stabbing in nature, and he reports a burning sensation down his arm. Reports tingling of his fingers when his arm is in the dependent position. He tried 800 mg Ibuprofen and ice packs at home without relief. Denies any trauma or known precipitating activities. ROM is limited only by pain. CMS intact. No current fevers or chills, although he reports a recent ongoing sinus infection. Improves with: Reports: Cold Therapy - Related Data Allergies Allergy/AdvReac Type Severity Reaction Status Date / Time gabapentin Allergy Shaking Verified 01/19/18 16:50 Penicillins Allergy Itching Verified 01/19/18 16:50 Home Meds: Home Meds OXcarbazepine [Trileptal] 300 mg PO BID 01/10/14 [History] LORazepam 1 mg PO QID PRN 07/24/17 [History] Levothyroxine 200 mcg PO ACBREAKFAST 07/24/17 [History] Cyclobenzaprine [Flexeril] 10 mg PO BID PRN 09/08/17 [History] Past Medical History HEENT History: Reports: Impaired Vision Gastrointestinal History: Reports: Cholelithiasis Musculoskeletal History: Reports: Back Pain, Chronic, Other (See Below) Other Musculoskeletal History: right hip pain with labrum tear Psychiatric History: Reports: ADD, Anxiety, Bipolar, Panic Attack, Psych Hospitalization(s) Endocrine/Metabolic History: Reports: Obesity/BMI 30+ Oncologic (Cancer) History: Reports: Thyroid - Infectious Disease History Infectious Disease History: Reports: Chicken Pox - Past Surgical History GI Surgical History: Reports: Appendectomy, Cholecystectomy, Hernia Repair/Other Endocrine Surgical History: Reports: Thyroidectomy, Other (See Below) Other Endocrine Surgeries/Procedures: 9 lymphnodes on left side removed Neurological Surgical History: Reports: Discectomy, Laminectomy Other Neurological Surgeries/Procedures: partial lami/discectomy near L4 Social & Family History - Caffeine Use Caffeine Use: Reports: Coffee, Soda Review of Systems - Review of Systems Constitutional: Reports: No Symptoms Respiratory: Reports: No Symptoms GI/Abdominal: Reports: No Symptoms Musculoskeletal: Reports: Shoulder Pain Skin: Reports: No Symptoms Neurological: Reports: Tingling (Left hand). Denies: Numbness Psychiatric: Reports: No Symptoms ED EXAM, GENERAL - Physical Exam Exam: See Below Exam Limited By: No Limitations General Appearance: Alert, Other (Appears to be in obvious discomfort) Respiratory/Chest: No Respiratory Distress, Lungs Clear Cardiovascular: Regular Rate, Rhythm, No Murmur, No Rub Peripheral Pulses: 2+: Brachial (L), Radial (L) GI/Abdominal: Soft, Non-Tender Extremities: Normal Inspection, Other (Pain ) Neurological: Alert (Pain with palpation over joint capsule), Oriented Psychiatric: Normal Affect Skin Exam: Warm, Dry, Intact, No Rash Course - Vital Signs Last Recorded V/S: Last Vital Signs Temp 97.2 F 01/19/18 16:57 Pulse 101 H 01/19/18 16:57 Resp 16 01/19/18 16:57 BP 143/94 H 01/19/18 16:57 Pulse Ox 94 L 01/19/18 16:57 - Orders/Labs/Meds Orders: Active Orders 24 hr Category Date Time Status Shoulder Comp Lt [CR] Stat Exams 01/19/18 17:21 Taken Labs: Laboratory Tests 01/19/18 01/19/18 01/19/18 Range/Units 18:00 18:00 18:00 WBC 7.3 (4.5-11.0) K/uL RBC 4.71 (4.30-5.90) M/uL Hgb 15.3 H (12.0-15.0) g/dL Hct 42.9 (40.0-54.0) % MCV 91 (80-98) fL MCH 33 H (27-31) pg MCHC 36 (32-36) % Plt Count 258 (150-400) K/uL D-Dimer, Quantitative < 100 (0.0-400.0) ng/mL Sodium 141 (140-148) mmol/L Potassium 3.9 (3.6-5.2) mmol/L Chloride 104 (100-108) mmol/L Carbon Dioxide 28 (21-32) mmol/L Anion Gap 8.7 (5.0-14.0) mmol/L BUN 9 (7-18) mg/dL Creatinine 0.9 (0.8-1.3) mg/dL Est Cr Clr Drug Dosing 117.16 mL/min Estimated GFR (MDRD) > 60 (>60) Glucose 82 (74-106) mg/dL Calcium 8.3 L (8.5-10.1) mg/dL C-Reactive Protein (0.0-0.3) mg/dL 01/19/18 Range/Units 18:00 WBC (4.5-11.0) K/uL RBC (4.30-5.90) M/uL Hgb (12.0-15.0) g/dL Hct (40.0-54.0) % MCV (80-98) fL MCH (27-31) pg MCHC (32-36) % Plt Count (150-400) K/uL D-Dimer, Quantitative (0.0-400.0) ng/mL Sodium (140-148) mmol/L Potassium (3.6-5.2) mmol/L Chloride (100-108) mmol/L Carbon Dioxide (21-32) mmol/L Anion Gap (5.0-14.0) mmol/L BUN (7-18) mg/dL Creatinine (0.8-1.3) mg/dL Est Cr Clr Drug Dosing mL/min Estimated GFR (MDRD) (>60) Glucose (74-106) mg/dL Calcium (8.5-10.1) mg/dL C-Reactive Protein 0.43 H (0.0-0.3) mg/dL Meds: Medications Discontinued Medications Generic Name Dose Route Start Last Admin Trade Name Freq PRN Reason Stop Dose Admin Ketorolac Tromethamine 60 mg 01/19/18 17:21 01/19/18 17:49 Toradol IM 01/19/18 17:22 60 mg ONETIME ONE Administration Departure - Departure Disposition: Home, Self-Care 01 Clinical Impression: Left shoulder pain Qualifiers: Chronicity: acute Qualified Code(s): M25.512 - Pain in left shoulder - Discharge Information Referrals: Cassy Hardy MD [Primary Care Provider] - Forms: ED Department Discharge Additional Instructions: Use hydrocodone as needed for pain control, Please followup with your primary care provider in 2-3 days if not better, please call return to the emergency department with worsening of symptoms. Resident/PA IDX Provider #_ * Sean Lew MD was personally available for consultation in the ED. I have reviewed the chart and agree with the documentation as recorded by the TRANSMISSION CALIBRATION ENGINEER, including the assessment, treatment plan and disposition. * Sean Lew MD personally saw and examined the patient. I have reviewed and agree with the TRANSMISSION CALIBRATION ENGINEER's findings. <Sean Hu - Last Filed: 01/19/18 18:47> ED HPI GENERAL MEDICAL PROBLEM - General Source of Information: Reports: Patient History Limitations: Reports: No Limitations Review of Systems - Review of Systems Review Of Systems: See Below Cardiovascular: Reports: No Symptoms ED EXAM, GENERAL - Physical Exam Exam: See Below Free Text/Narrative:: Examination of the left upper extremity he is point tender over the before meals joint there is pain with both flexion and extension and rotation radial pulse is +2 Lungs are clear to auscultation bilaterally cardiovascular regular rate and rhythm S1-S2, Neck is nontender to palpation supple no thyromegaly however he has tenderness with active movement with rotation to the right Departure - Departure Time of Disposition: 18:46 Condition: Fair - Assessment/Plan Plan: Assessment Acuity = acute Site and laterality = left shoulder pain Etiology = unclear etiology Manifestations = none Location of injury = Home Lab values = CBC, CMP d-dimer all negative, x-ray I did review films myself I cannot appreciate any acute process, the official read from radiology is pending Plan Did review lab results and x-ray results with him he received no relief from muscle relaxant or Toradol injection, prescription written for hydrocodone 5/ 325 one tab by mouth 3 times a day when necessary total #10 and follow-up with his primary care in 3-5 days for reevaluation or return to the emergency department worsening of symptoms This note was dictated using [employer] voice recognition software please call with any questions on syntax or grammar.
--- NOTE | 2018-01-22 08:39 | CR ---
Shoulder Comp Lt CLINICAL HISTORY: Shoulder pain FINDINGS: There is no acute fracture or dislocation in the left shoulder. Articular surfaces are smoo th. Impression: No fracture or subluxation
== END 2018-01-19 18:58 | disposition home or self-care (01) ==
LOC: JP.ED 16:09
DX: M25.512 Pain in left shoulder (principal); Z88.0 Allergy status to penicillin; Z88.8 Allergy status to other drugs, medicaments and biological substances
CPT/HCPCS: 36415; 73030; 80048; 85027; 85379; 86140; 96372; 99284; J1885

== ENCOUNTER 2018-12-19 19:55 | Emergency (ER) | payer MEDICAID | END 2018-12-19 21:15 | disposition left against medical advice (07) | LOC: JP.ED 19:55 | DX: Z53.21 Procedure and treatment not carried out due to patient leaving prior to being seen by health care provider (principal) ==

== ENCOUNTER 2018-12-25 02:11 | Emergency (ER) | payer MEDICAID ==
[2018-12-25] MEDS ORDERED: Albuterol 0.083% 2.5 MG/3 ML Neb Soln NEB ONE (02:51)
--- NOTE | 2018-12-25 02:59 | EDM.PDOC ---
ED HPI GENERAL MEDICAL PROBLEM - General Chief Complaint: Respiratory Problem Stated Complaint: SOB/COUGHING Time Seen by Provider: 12/25/18 02:45 Source of Information: Reports: Patient, Old Records, RN History Limitations: Reports: No Limitations - History of Present Illness INITIAL COMMENTS - FREE TEXT/NARRATIVE: 37 yo smoking male presents with a frequent cough that is keeping him awake. He was in the clinic yesterday and given Cipro and Tessalon without benefit so far. He denies a hx of asthma, but yet has an albuterol MDI he has used without benefit. he does have some nasal congestion and sinus pressure. His nasal discharge is getting clearer. Onset: Gradual Duration: Week(s):, Getting Worse Location: Reports: Face, Chest Quality: Reports: Other (no pain reported) Severity: Moderate Improves with: Reports: None Worsens with: Reports: Other (time) Context: Reports: Other (see HPI) Associated Symptoms: Reports: Cough, Shortness of Breath (at times). 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: Other (see below) (See HPI) Lower Back Pain Score (Numeric/FACES): 6 - Related Data Allergies Allergy/AdvReac Type Severity Reaction Status Date / Time gabapentin Allergy Shaking Verified 05/14/18 10:31 Penicillins Allergy Itching Verified 05/14/18 10:31 Home Meds: Home Meds OXcarbazepine [Trileptal] 300 mg PO BID 01/10/14 [History] Levothyroxine 200 mcg PO ACBREAKFAST 07/24/17 [History] ALPRAZolam [Xanax] 1 tab PO QID PRN 05/14/18 [History] Dextroamphetamine/Amphetamine [Adderall 20 mg Tablet] 1 tab PO BID 05/14/18 [ History] Ciprofloxacin [Cipro XR] 500 mg PO BID #14 tab.er 05/15/18 [Rx] Past Medical History HEENT History: Reports: Impaired Vision Gastrointestinal History: Reports: Cholelithiasis Musculoskeletal History: Reports: Back Pain, Chronic, Other (See Below) Other Musculoskeletal History: right hip pain with labrum tear Psychiatric History: Reports: ADD, Anxiety, Bipolar, Panic Attack, Psych Hospitalization(s) Endocrine/Metabolic History: Reports: Hypothyroidism, Obesity/BMI 30+ Oncologic (Cancer) History: Reports: Thyroid - Infectious Disease History Infectious Disease History: Reports: Chicken Pox - Past Surgical History HEENT Surgical History: Reports: Other (See Below) Other HEENT Surgeries/Procedures: barretts esophagus surgery GI Surgical History: Reports: Appendectomy, Cholecystectomy, Hernia Repair/Other Endocrine Surgical History: Reports: Thyroidectomy, Other (See Below) Other Endocrine Surgeries/Procedures: 9 lymphnodes on left side removed Neurological Surgical History: Reports: Discectomy, Laminectomy Other Neurological Surgeries/Procedures: partial lami/discectomy near L4 Musculoskeletal Surgical History: Reports: None Social & Family History - Tobacco Use Smoking Status *Q: Current Some Day Smoker Years of Tobacco use: 15 Packs/Tins Daily: 0.2 - Caffeine Use Caffeine Use: Reports: Coffee - Recreational Drug Use Recreational Drug Use: Yes Drug Use in Last 12 Months: Yes Recreational Drug Type: Reports: Marijuana/Hashish Recreational Drug Use Frequency: Monthly ED ROS GENERAL - Review of Systems Review Of Systems: See Below Constitutional: Reports: No Symptoms HEENT: Reports: Rhinitis (and nasal congestion) Respiratory: Reports: Shortness of Breath, Cough. Denies: Pleuritic Chest Pain , Hemoptysis Cardiovascular: Reports: No Symptoms GI/Abdominal: Reports: No Symptoms : Reports: No Symptoms Musculoskeletal: Reports: No Symptoms Skin: Reports: No Symptoms Neurological: Reports: No Symptoms ED EXAM, GENERAL - Physical Exam Exam: See Below Exam Limited By: No Limitations General Appearance: Alert, WD/WN, No Apparent Distress Eye Exam: Bilateral Eye: Normal Inspection Ears: Normal External Exam, Normal Canal, Hearing Grossly Normal, Normal TMs Ear Exam: Bilateral Ear: Auricle Normal, Canal Normal, TM normal Nose: Other (yellow tinged nasal discharge) Throat/Mouth: Normal Inspection, Normal Lips, Normal Oropharynx, Normal Voice, No Airway Compromise Head: Atraumatic, Normocephalic Neck: Normal Inspection Respiratory/Chest: No Respiratory Distress, No Accessory Muscle Use, Wheezing ( faint). No: Rales, Rhonchi Cardiovascular: Regular Rate, Rhythm, No Edema GI/Abdominal: Normal Bowel Sounds, Soft, Non-Tender, No Distention Back Exam: Normal Inspection. No: CVA Tenderness (R), CVA Tenderness (L) Extremities: Normal Inspection, Normal Range of Motion, Non-Tender, No Pedal Edema Neurological: Alert, Oriented, CN II-XII Intact, Normal Cognition, No Motor/ Sensory Deficits Psychiatric: Normal Affect, Normal Mood Skin Exam: Warm, Dry, Intact, Normal Color, No Rash Course - Vital Signs Text/Narrative:: Minimal benefit with albuterol neb. Last Recorded V/S: Last Vital Signs Temp 36.2 C 12/25/18 02:34 Pulse 97 12/25/18 02:34 Resp 18 12/25/18 02:34 BP 127/80 12/25/18 02:34 Pulse Ox 94 L 12/25/18 02:34 - Orders/Labs/Meds Orders: Active Orders 24 hr Category Date Time Status RT Aerosol Therapy [RC] ASDIRECTED Care 12/25/18 02:51 Active Meds: Medications Discontinued Medications Generic Name Dose Route Start Last Admin Trade Name Freq PRN Reason Stop Dose Admin Albuterol 2.5 mg 12/25/18 02:51 12/25/18 02:57 Proventil Neb Soln NEB 12/25/18 02:52 2.5 mg ONETIME ONE Administration Departure - Departure Time of Disposition: 03:14 Disposition: Home, Self-Care 01 Condition: Fair Clinical Impression: Cough - Discharge Information *PRESCRIPTION DRUG MONITORING PROGRAM REVIEWED*: No *COPY OF PRESCRIPTION DRUG MONITORING REPORT IN PATIENT MIN: No Instructions: Cough, Adult, [id number] Referrals: PCP,None [Primary Care Provider] - Forms: ED Department Discharge Additional Instructions: Continue your current medications. No smoking. Add Robitussin AC at night only for cough. Recheck in the clinic if you are still coughing when you finish your antibiotic or if you develop a fever. - My Orders Last 24 Hours: My Active Orders 12/25/18 02:51 RT Aerosol Therapy [RC] ASDIRECTED - Assessment/Plan Last 24 Hours: My Active Orders 12/25/18 02:51 RT Aerosol Therapy [RC] ASDIRECTED
== END 2018-12-25 03:18 | disposition home or self-care (01) ==
LOC: JP.ED 02:11
DX: R05 Cough (principal); F17.210 Nicotine dependence, cigarettes, uncomplicated; F41.9 Anxiety disorder, unspecified; F31.9 Bipolar disorder, unspecified; E03.9 Hypothyroidism, unspecified; E66.9 Obesity, unspecified; Z68.39 Body mass index [BMI] 39.0-39.9, adult; Z88.8 Allergy status to other drugs, medicaments and biological substances; Z79.899 Other long term (current) drug therapy
CPT/HCPCS: 94640; 99283-25

== ENCOUNTER 2019-01-02 14:41 | Emergency (ER) | payer MEDICAID | END 2019-01-02 16:24 | disposition home or self-care (01) | LOC: JP.ED 14:41 | DX: Z53.21 Procedure and treatment not carried out due to patient leaving prior to being seen by health care provider (principal) ==

== ENCOUNTER 2019-01-02 18:05 | Emergency (ER) | payer MEDICAID ==
[2019-01-02] MEDS ORDERED: Cyclobenzaprine 10 MG Tab PO ONE (19:53)
[2019-01-02] MEDS ORDERED: Ketorolac 60 MG/2 ML SDV IM ONE (19:54)
--- NOTE | 2019-01-02 19:57 | EDM.PDOC ---
ED HPI GENERAL MEDICAL PROBLEM - General Chief Complaint: Back Pain or Injury Stated Complaint: LOWER BACK/HIP PAIN Time Seen by Provider: 01/02/19 19:42 Source of Information: Reports: Patient History Limitations: Reports: No Limitations - History of Present Illness INITIAL COMMENTS - FREE TEXT/NARRATIVE: 38 yo male presents to ER with lumbar back pain radiating into right leg. denies new injury to back. He is poor historian of MRI results or if he has had this test. He is currently in physical therapy. Pain has become intolerable over the last few days. Right Lower Back Pain Score (Numeric/FACES): 7 - Related Data Allergies Allergy/AdvReac Type Severity Reaction Status Date / Time gabapentin Allergy Shaking Verified 01/02/19 19:36 Penicillins Allergy Itching Verified 01/02/19 19:36 Home Meds: Home Meds OXcarbazepine [Trileptal] 300 mg PO BID 01/10/14 [History] Levothyroxine 200 mcg PO ACBREAKFAST 07/24/17 [History] ALPRAZolam [Xanax] 1 tab PO QID PRN 05/14/18 [History] Dextroamphetamine/Amphetamine [Adderall 20 mg Tablet] 1 tab PO BID 05/14/18 [ History] Pregabalin [Lyrica] 75 mg PO BID 01/02/19 [History] Past Medical History HEENT History: Reports: Impaired Vision Gastrointestinal History: Reports: Cholelithiasis, GERD Musculoskeletal History: Reports: Back Pain, Chronic, Other (See Below) Other Musculoskeletal History: right hip pain with labrum tear Psychiatric History: Reports: ADD, Anxiety, Bipolar, Panic Attack, Psych Hospitalization(s) Endocrine/Metabolic History: Reports: Hypothyroidism, Obesity/BMI 30+ Oncologic (Cancer) History: Reports: Thyroid - Infectious Disease History Infectious Disease History: Reports: Chicken Pox - Past Surgical History HEENT Surgical History: Reports: Other (See Below) Other HEENT Surgeries/Procedures: barretts esophagus surgery GI Surgical History: Reports: Appendectomy, Cholecystectomy, Hernia Repair/Other Other GI Surgeries/Procedures: ablations to the esphagus Endocrine Surgical History: Reports: Thyroidectomy, Other (See Below) Other Endocrine Surgeries/Procedures: 9 lymphnodes on left side removed Neurological Surgical History: Reports: Discectomy, Laminectomy Other Neurological Surgeries/Procedures: partial lami/discectomy near L4 Musculoskeletal Surgical History: Reports: None Social & Family History - Tobacco Use Smoking Status *Q: Former Smoker Used Tobacco, but Quit: Yes Month/Year Tobacco Last Used: 1 year - Caffeine Use Caffeine Use: Reports: Coffee, Tea - Recreational Drug Use Recreational Drug Use: No ED ROS GENERAL - Review of Systems Review Of Systems: See Below Constitutional: Denies: Fever, Chills Respiratory: Denies: Shortness of Breath, Wheezing Cardiovascular: Denies: Chest Pain ED EXAM,LOWER BACK PAIN/INJURY - Physical Exam Exam: See Below Exam Limited By: No Limitations General Appearance: Alert, WD/WN, No Apparent Distress Respiratory/Chest: No Respiratory Distress, Lungs Clear, Normal Breath Sounds, Chest Non-Tender. No: Crackles, Rhonchi, Wheezing Cardiovascular: Regular Rate, Rhythm, No Murmur Back Exam: Decreased Range of Motion (pain), Muscle Spasm, Paraspinal Tenderness (right lumbar). No: CVA Tenderness (R), CVA Tenderness (L), Vertebral Tenderness Extremities: Normal Inspection, Normal Range of Motion, Non-Tender, No Pedal Edema, Normal Capillary Refill Neurological: Alert DTR - Lower Extremities: 2+: Knee (R), Knee (L) Psychiatric: Normal Affect, Normal Mood Skin Exam: Warm, Dry, Intact Course - Vital Signs Last Recorded V/S: Last Vital Signs Temp 36.7 C 01/02/19 19:31 Pulse 88 01/02/19 19:31 Resp 16 01/02/19 19:31 BP 128/93 H 01/02/19 19:31 Pulse Ox 96 01/02/19 19:31 - Orders/Labs/Meds Meds: Medications Discontinued Medications Generic Name Dose Route Start Last Admin Trade Name Davis PRN Reason Stop Dose Admin Cyclobenzaprine HCl 10 mg 01/02/19 19:53 01/02/19 20:01 Flexeril PO 01/02/19 19:54 10 mg ONETIME ONE Administration Ketorolac Tromethamine 60 mg 01/02/19 19:54 01/02/19 20:00 Toradol IM 01/02/19 19:55 60 mg ONETIME ONE Administration - Re-Assessments/Exams Free Text/Narrative Re-Assessment/Exam: 01/02/19 20:53 pain improved but not resolved after IM and oral medication Departure - Departure Time of Disposition: 20:54 Disposition: Home, Self-Care 01 Condition: Good Clinical Impression: Lumbar back pain with radiculopathy affecting right lower extremity - Discharge Information *PRESCRIPTION DRUG MONITORING PROGRAM REVIEWED*: Not Applicable *COPY OF PRESCRIPTION DRUG MONITORING REPORT IN PATIENT MIN: Not Applicable Instructions: Lumbosacral Radiculopathy Referrals: Rhett Anderson MD [Primary Care Provider] - Forms: ED Department Discharge Additional Instructions: medrol pack norco for severe pain do not drink alcohol when taking this pain medication or you could stop breathing. do not operate a motor vehicle or do any activity that cloudy headedness could cause injury to yourself or others stretching and activity as tolerated work note given
== END 2019-01-02 21:17 | disposition home or self-care (01) ==
LOC: JP.ED 18:05
DX: M54.16 Radiculopathy, lumbar region (principal); K21.9 Gastro-esophageal reflux disease without esophagitis; F41.9 Anxiety disorder, unspecified; F31.9 Bipolar disorder, unspecified; E66.9 Obesity, unspecified; Z68.39 Body mass index [BMI] 39.0-39.9, adult; Z88.0 Allergy status to penicillin; Z88.8 Allergy status to other drugs, medicaments and biological substances; Z79.899 Other long term (current) drug therapy; Z87.891 Personal history of nicotine dependence
CPT/HCPCS: 96372; 99283; A9270; J1885

== ENCOUNTER 2019-03-21 21:44 | Emergency (ER) | payer MEDICAID ==
--- NOTE | 2019-03-21 22:41 | EDM.PDOC ---
ED HPI GENERAL MEDICAL PROBLEM - General Chief Complaint: General Stated Complaint: HIGH BP, HAVING HARD SPEAKING Time Seen by Provider: 03/21/19 22:00 Source of Information: Reports: Patient History Limitations: Reports: No Limitations - History of Present Illness INITIAL COMMENTS - FREE TEXT/NARRATIVE: 38-year-old male was in for a psychiatric appointment today when his diastolic blood pressure was 115, he has been experiencing some headaches so the phone nurse recommended he come in to be seen. He is on thyroid medication and has not been keeping up to date with his thyroid monitoring. The headaches are daily , tend to be posterior, without vision changes. He also has persistent tinnitus. No nausea or vomiting. On arrival to the emergency room his blood pressure was 136/90. He is on no special diet, does not watch salt intake, and is overweight. He is also smoking. Onset: Unknown/Unsure Associated Symptoms: Reports: Headaches, Other (Tinnitis). Denies: Cough, Nausea/Vomiting, Syncope - Related Data Allergies Allergy/AdvReac Type Severity Reaction Status Date / Time gabapentin Allergy Shaking Verified 03/21/19 22:04 Penicillins Allergy Itching Verified 03/21/19 22:04 Home Meds: Home Meds OXcarbazepine [Trileptal] 300 mg PO BID 01/10/14 [History] Levothyroxine 200 mcg PO ACBREAKFAST 07/24/17 [History] ALPRAZolam [Xanax] 1 tab PO QID PRN 05/14/18 [History] Dextroamphetamine/Amphetamine [Adderall 20 mg Tablet] 1 tab PO BID 05/14/18 [ History] Pregabalin [Lyrica] 75 mg PO BID 01/02/19 [History] Past Medical History HEENT History: Reports: Impaired Vision Gastrointestinal History: Reports: Cholelithiasis, GERD Musculoskeletal History: Reports: Back Pain, Chronic, Other (See Below) Other Musculoskeletal History: right hip pain with labrum tear Psychiatric History: Reports: ADD, Anxiety, Bipolar, Panic Attack, Psych Hospitalization(s) Endocrine/Metabolic History: Reports: Hypothyroidism, Obesity/BMI 30+ Oncologic (Cancer) History: Reports: Thyroid - Infectious Disease History Infectious Disease History: Reports: Chicken Pox - Past Surgical History HEENT Surgical History: Reports: Other (See Below) Other HEENT Surgeries/Procedures: barretts esophagus surgery GI Surgical History: Reports: Appendectomy, Cholecystectomy, Hernia Repair/Other Other GI Surgeries/Procedures: ablations to the esphagus Endocrine Surgical History: Reports: Thyroidectomy, Other (See Below) Other Endocrine Surgeries/Procedures: 9 lymphnodes on left side removed Neurological Surgical History: Reports: Discectomy, Laminectomy Other Neurological Surgeries/Procedures: partial lami/discectomy near L4 Musculoskeletal Surgical History: Reports: None Social & Family History - Tobacco Use Smoking Status *Q: Current Every Day Smoker Years of Tobacco use: 15 Packs/Tins Daily: 0.2 - Caffeine Use Caffeine Use: Reports: Coffee, Tea ED ROS GENERAL - Review of Systems Review Of Systems: See Below Constitutional: Reports: Malaise. Denies: Fever, Chills HEENT: Denies: Vision Change Respiratory: Reports: Shortness of Breath (Only with activity and intermittent) Cardiovascular: Denies: Chest Pain GI/Abdominal: Denies: Nausea, Vomiting Skin: Reports: No Symptoms Neurological: Reports: Headache Psychiatric: Reports: Depression ED EXAM, GENERAL - Physical Exam Exam: See Below Exam Limited By: No Limitations General Appearance: Alert, No Apparent Distress Eye Exam: Bilateral Eye: Normal Inspection Ears: Normal TMs Head: Atraumatic Neck: Supple Respiratory/Chest: No Respiratory Distress, Lungs Clear Cardiovascular: Regular Rate, Rhythm, Other (Initial vitals reveal tachycardia, on exam his rate was under 100) GI/Abdominal: Non-Tender Extremities: Normal Inspection. No: Pedal Edema Neurological: Alert, Oriented Psychiatric: Normal Affect, Normal Mood Skin Exam: Warm, Dry Course - Vital Signs Last Recorded V/S: Last Vital Signs Temp 98.6 F 03/21/19 22:11 Pulse 117 H 03/21/19 22:11 Resp 16 03/21/19 22:11 BP 141/93 H 03/21/19 22:11 Pulse Ox 99 03/21/19 22:11 - Re-Assessments/Exams Free Text/Narrative Re-Assessment/Exam: 03/21/19 22:48 This patient needs to monitor his blood pressure over a period of time and follow-up with his primary provider to discuss whether medication or further workup is necessary. He also needs to recheck sooner to make sure his thyroid treatment is appropriate. I strongly encouraged him to decrease salt intake, decrease smoking and start thinking of ways to lose some weight. I do think an antihypertensive medication may be beneficial for his chronic headaches. Blood work was offered tonight. He would rather follow up with his primary provider, I did tell him that I would not start blood pressure medication tonight especially considering his blood pressure is relatively normal at this time. Departure - Departure Time of Disposition: 23:02 Disposition: Home, Self-Care 01 Clinical Impression: Intermittent hypertension, Headache, chronic daily - Discharge Information Instructions: General Headache Without Cause Referrals: Rhett Anderson MD [Primary Care Provider] - Forms: ED Department Discharge Care Plan Goals: Consider checking her blood pressure on a regular basis for 1-2 weeks, decrease salt intake and smoking, and follow up with your primary provider to discuss treatment possibilities for your blood pressure and headaches. Some additional evaluation will probably be necessary especially considering your thyroid treatment.
== END 2019-03-21 23:02 | disposition home or self-care (01) ==
LOC: JP.ED 21:44
DX: I10 Essential (primary) hypertension (principal); R51 Headache; F17.210 Nicotine dependence, cigarettes, uncomplicated; K21.9 Gastro-esophageal reflux disease without esophagitis; F31.9 Bipolar disorder, unspecified; F41.9 Anxiety disorder, unspecified; E03.9 Hypothyroidism, unspecified; E66.9 Obesity, unspecified; Z68.41 Body mass index [BMI] 40.0-44.9, adult; Z79.899 Other long term (current) drug therapy; Z88.0 Allergy status to penicillin; Z88.8 Allergy status to other drugs, medicaments and biological substances
CPT/HCPCS: 99283

== ENCOUNTER 2019-04-26 18:52 | Emergency (ER) | payer MEDICAID ==
[2019-04-26] MEDS ORDERED: HYDROmorphone 1 MG/ML Syringe IM ONE (19:54)
--- NOTE | 2019-04-26 20:00 | EDM.PDOC ---
ED HPI GENERAL MEDICAL PROBLEM - General Chief Complaint: Back Pain or Injury Stated Complaint: LOW BACK PAIN/RT LEG WEAKNESS Time Seen by Provider: 04/26/19 19:40 Source of Information: Reports: Patient, Old Records History Limitations: Reports: No Limitations - History of Present Illness INITIAL COMMENTS - FREE TEXT/NARRATIVE: 38 yo obese male with chronic low back pain presents with worsening over the past week. 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 Has an appt to seen his primary this coming Monday and they are discussing a referral for a spinal corticosteroid injection. Pain is usually on the R, now also includes the back. Denies any obvious recent injuries to cause this increase in pain. Mentions that is seems he is having more difficulty emptying his bladder lately , no dysuria or hematuria. His female aircrewman and he also mention that he has a more tender R testicle over the past week and they think there might be a bulge that is new. Onset: Gradual Onset Date: 04/19/19 Duration: Week(s): (1), Getting Worse Location: Reports: Back, Pelvis Quality: Reports: Ache Severity: Moderate Improves with: Reports: Rest Worsens with: Reports: Movement Context: Reports: Other (See HPI) Associated Symptoms: Denies: Confusion, Diaphoresis, Fever/Chills, Nausea/ Vomiting, Rash, Shortness of Breath Treatments EQUIPMENT SPECIALIST: Reports: Other (see below) (Usual home meds) Bilateral Back Pain Score (Numeric/FACES): 7 - Related Data Allergies Allergy/AdvReac Type Severity Reaction Status Date / Time gabapentin Allergy Shaking Verified 03/21/19 22:04 NSAIDS (Non-Steroidal Allergy Other Verified 04/26/19 19:26 Anti-Inflamma Penicillins Allergy Itching Verified 03/21/19 22:04 Home Meds: Home Meds OXcarbazepine [Trileptal] 1,200 mg PO BID 01/10/14 [History] Levothyroxine 250 mcg PO ACBREAKFAST 07/24/17 [History] Dextroamphetamine/Amphetamine [Adderall 20 mg Tablet] 1 tab PO BID 05/14/18 [ History] Pregabalin [Lyrica] 150 mg PO BID 01/02/19 [History] buPROPion HCl [Wellbutrin Xl] 150 mg PO DAILY 04/26/19 [History] clonazePAM [Clonazepam] 1 mg PO QID PRN 04/26/19 [History] Past Medical History HEENT History: Reports: Impaired Vision Cardiovascular History: Reports: None Gastrointestinal History: Reports: Cholelithiasis, GERD Musculoskeletal History: Reports: Back Pain, Chronic, Other (See Below) Other Musculoskeletal History: right hip pain with labrum tear Neurological History: Reports: None Psychiatric History: Reports: ADD, ADHD, Anxiety, Bipolar, Panic Attack, Psych Hospitalization(s), PTSD Other Psychiatric History: bipolar 2 Endocrine/Metabolic History: Reports: Hypothyroidism, Obesity/BMI 30+ Oncologic (Cancer) History: Reports: Thyroid Other Oncologic History: pappulary with focal variant - Infectious Disease History Infectious Disease History: Reports: Chicken Pox - Past Surgical History HEENT Surgical History: Reports: Other (See Below) Other HEENT Surgeries/Procedures: barretts esophagus surgery Cardiovascular Surgical History: Reports: None GI Surgical History: Reports: Appendectomy, Cholecystectomy, Hernia Repair/Other Other GI Surgeries/Procedures: ablations to the esphagus Endocrine Surgical History: Reports: Thyroidectomy, Other (See Below) Other Endocrine Surgeries/Procedures: 9 lymphnodes on left side removed Neurological Surgical History: Reports: Discectomy, Laminectomy Other Neurological Surgeries/Procedures: partial lami/discectomy near L4 Musculoskeletal Surgical History: Reports: None Social & Family History - Family History Family Medical History: Noncontributory - Tobacco Use Smoking Status *Q: Current Every Day Smoker Years of Tobacco use: 15 Packs/Tins Daily: 1 Used Tobacco, but Quit: No Second Hand Smoke Exposure: Yes - Caffeine Use Caffeine Use: Reports: Coffee, Energy Drinks - Recreational Drug Use Recreational Drug Use: No ED ROS GENERAL - Review of Systems Review Of Systems: See Below Constitutional: Reports: No Symptoms HEENT: Reports: No Symptoms Respiratory: Reports: No Symptoms Cardiovascular: Reports: No Symptoms GI/Abdominal: Reports: No Symptoms : Reports: Urinary Retention (thinks he might be having trouble emptying his bladder), Other (tender R testicle and ? bulge in R groin area. ) Musculoskeletal: Reports: Back Pain (acute exacerbation of chronic low back pain. ) Skin: Reports: No Symptoms Neurological: Reports: Other (nothing new) ED EXAM,LOWER BACK PAIN/INJURY - Physical Exam Exam: See Below Exam Limited By: No Limitations General Appearance: Alert, WD/WN, No Apparent Distress, Obese (moves very slowly in the ER) (Male) Exam: No Hernia, Normal Inspection, Other (R testicle mildly tender, ? subtle enlargement. ) Back Exam: Normal Inspection, Decreased Range of Motion, Paraspinal Tenderness ( bilat.). No: Full Range of Motion, CVA Tenderness (R), CVA Tenderness (L) Extremities: Normal Inspection, Normal Range of Motion, Non-Tender, No Pedal Edema DTR - Lower Extremities: 1+: Knee (R), Knee (L), Ankle (R), Ankle (L) Psychiatric: Normal Mood, Flat Affect Skin Exam: Warm, Dry, Intact, Normal Color, No Rash Course - Vital Signs Text/Narrative:: Bladder scan, [id number] ml Last Recorded V/S: Last Vital Signs Temp 36.9 C 04/26/19 20:13 Pulse 78 04/26/19 20:13 Resp 14 04/26/19 20:13 BP 137/87 04/26/19 20:13 Pulse Ox 97 04/26/19 20:13 - Orders/Labs/Meds Orders: Active Orders 24 hr Category Date Time Status Bladder Scan [RC] ASDIRECTED Care 04/26/19 19:54 Active Meds: Medications Discontinued Medications Generic Name Dose Route Start Last Admin Trade Name Freq PRN Reason Stop Dose Admin Hydromorphone HCl 1 mg 04/26/19 19:54 04/26/19 20:05 Dilaudid IM 04/26/19 19:55 1 mg ONETIME ONE Administration Departure - Departure Time of Disposition: 20:30 Disposition: Home, Self-Care 01 Condition: Fair Clinical Impression: Acute exacerbation of chronic low back pain, Epididymo-orchitis - Discharge Information *PRESCRIPTION DRUG MONITORING PROGRAM REVIEWED*: No *COPY OF PRESCRIPTION DRUG MONITORING REPORT IN PATIENT MIN: No Instructions: Chronic Back Pain, [id number] Referrals: Rhett Anderson MD [Primary Care Provider] - Forms: ED Department Discharge Additional Instructions: Take [place] as needed for pain relief. Continue your regular medications. Don't use [place] for 3 hrs before and during work shifts. Keep your appt with Dr. Anderson for this coming Monday. Avoid lifting, bending or twisting. Take doxycycline as directed until gone for your testicle problem. - My Orders Last 24 Hours: My Active Orders 04/26/19 19:54 Bladder Scan [RC] ASDIRECTED - Assessment/Plan Last 24 Hours: My Active Orders 04/26/19 19:54 Bladder Scan [RC] ASDIRECTED
== END 2019-04-26 20:45 | disposition home or self-care (01) ==
LOC: JP.ED 18:52
DX: G89.29 Other chronic pain (principal); M54.5 Low back pain; N45.3 Epididymo-orchitis; E66.9 Obesity, unspecified; E03.9 Hypothyroidism, unspecified; F17.210 Nicotine dependence, cigarettes, uncomplicated; Z88.6 Allergy status to analgesic agent; Z88.0 Allergy status to penicillin; Z88.8 Allergy status to other drugs, medicaments and biological substances; Z68.41 Body mass index [BMI] 40.0-44.9, adult; Z79.899 Other long term (current) drug therapy
CPT/HCPCS: 51798; 99283; J1170

== ENCOUNTER 2019-05-24 06:13 | Emergency (ER) | payer MEDICAID ==
[2019-05-24] MEDS ORDERED: HYDROmorphone 1 MG/ML Syringe IM ONE (07:15)
--- NOTE | 2019-05-24 07:21 | EDM.PDOC ---
ED HPI GENERAL MEDICAL PROBLEM - General Chief Complaint: Abdominal Pain Stated Complaint: ABD/GROIN PAIN Time Seen by Provider: 05/24/19 07:00 Source of Information: Reports: Patient, Family History Limitations: Reports: No Limitations - History of Present Illness INITIAL COMMENTS - FREE TEXT/NARRATIVE: 38-year-old male with left lower quadrant pain for the past 6 hours. He felt okay yesterday but woke up this morning with a dull ache and over the past 6 hours it has gotten worse. It hurts to move or lift his left leg. It's very similar to pain he had a year ago when he was diagnosed with diverticulitis. No fevers or chills, no nausea or vomiting, no bowel changes. Onset: Gradual Duration: Hour(s): (6 hours) Location: Reports: Abdomen (Left lower quadrant) Worsens with: Reports: Movement groin Pain Score (Numeric/FACES): 7 - Related Data Allergies Allergy/AdvReac Type Severity Reaction Status Date / Time gabapentin Allergy Shaking Verified 05/24/19 06:27 NSAIDS (Non-Steroidal Allergy Other Verified 05/24/19 06:27 Anti-Inflamma Penicillins Allergy Itching Verified 05/24/19 06:27 Home Meds: Home Meds OXcarbazepine [Trileptal] 1,200 mg PO BID 01/10/14 [History] Levothyroxine 250 mcg PO ACBREAKFAST 07/24/17 [History] Dextroamphetamine/Amphetamine [Adderall 20 mg Tablet] 1 tab PO BID 05/14/18 [ History] Pregabalin [Lyrica] 150 mg PO BID 01/02/19 [History] clonazePAM [Clonazepam] 1 mg PO QID PRN 04/26/19 [History] FLUoxetine [PROzac] 10 mg PO BEDTIME 05/24/19 [History] Past Medical History HEENT History: Reports: Impaired Vision Cardiovascular History: Reports: None Gastrointestinal History: Reports: Cholelithiasis, GERD Musculoskeletal History: Reports: Back Pain, Chronic, Other (See Below) Other Musculoskeletal History: right hip pain with labrum tear Neurological History: Reports: None Psychiatric History: Reports: ADD, ADHD, Anxiety, Bipolar, Panic Attack, Psych Hospitalization(s), PTSD Other Psychiatric History: bipolar 2 Endocrine/Metabolic History: Reports: Hypothyroidism, Obesity/BMI 30+ Oncologic (Cancer) History: Reports: Thyroid Other Oncologic History: pappulary with focal variant - Infectious Disease History Infectious Disease History: Reports: Chicken Pox - Past Surgical History HEENT Surgical History: Reports: Other (See Below) Other HEENT Surgeries/Procedures: barretts esophagus surgery Cardiovascular Surgical History: Reports: None GI Surgical History: Reports: Appendectomy, Cholecystectomy, Hernia Repair/Other Other GI Surgeries/Procedures: ablations to the esphagus Endocrine Surgical History: Reports: Thyroidectomy, Other (See Below) Other Endocrine Surgeries/Procedures: 9 lymphnodes on left side removed Neurological Surgical History: Reports: Discectomy, Laminectomy Other Neurological Surgeries/Procedures: partial lami/discectomy near L4 Musculoskeletal Surgical History: Reports: None Social & Family History - Family History Family Medical History: Noncontributory - Tobacco Use Smoking Status *Q: Current Every Day Smoker Years of Tobacco use: 20 Packs/Tins Daily: 0.5 - Caffeine Use Caffeine Use: Reports: Coffee, Energy Drinks, Soda - Recreational Drug Use Recreational Drug Use: No ED ROS GENERAL - Review of Systems Review Of Systems: See Below Constitutional: Denies: Fever, Chills HEENT: Reports: No Symptoms Respiratory: Denies: Shortness of Breath Cardiovascular: Denies: Chest Pain GI/Abdominal: Reports: Abdominal Pain. Denies: Constipation, Diarrhea, Nausea, Vomiting Skin: Reports: No Symptoms Neurological: Denies: Headache Psychiatric: Reports: No Symptoms ED EXAM, GI/ABD - Physical Exam Exam: See Below Exam Limited By: No Limitations General Appearance: Alert, No Apparent Distress Eyes: Bilateral: Normal Appearance (No jaundice) Respiratory/Chest: No Respiratory Distress, Lungs Clear Cardiovascular: Regular Rate, Rhythm GI/Abdominal Exam: Other (Patient has tenderness in the left lower quadrant with mild guarding and rebound) Course - Vital Signs Last Recorded V/S: Last Vital Signs Temp 96.4 F 05/24/19 06:26 Pulse 77 05/24/19 07:26 Resp 16 05/24/19 07:26 BP 127/93 H 05/24/19 07:26 Pulse Ox 95 05/24/19 07:26 - Orders/Labs/Meds Meds: Medications Discontinued Medications Generic Name Dose Route Start Last Admin Trade Name Freq PRN Reason Stop Dose Admin Hydromorphone HCl 1 mg 05/24/19 07:15 05/24/19 07:23 Dilaudid IM 05/24/19 07:16 1 mg ONETIME ONE Administration - Re-Assessments/Exams Free Text/Narrative Re-Assessment/Exam: 05/24/19 07:18 The presentation and physical exam are so typical of diverticulitis that I think just treatment is warranted. I reviewed his case from a year ago and he was placed on metronidazole and Bactrim along with some hydrocodone and responded nicely. He was given 1 mg of IM Dilaudid, encouraged to use stool softeners and get plenty of fluids, and placed on metronidazole 500 mg 3 times a day and Bactrim DS twice daily for at least 7 days. Also given 10 hydrocodone to use sparingly. Return if worsening despite treatment, especially vomiting the medication or increased pain or fever. Departure - Departure Time of Disposition: 07:40 Disposition: Home, Self-Care 01 Clinical Impression: Abdominal pain Qualifiers: Abdominal location: left lower quadrant Qualified Code(s): R10.32 - Left lower quadrant pain Diverticulitis large intestine Qualifiers: Diverticulitis bleeding: without bleeding Diverticulitis complication: without perforation or abscess Qualified Code(s): K57.32 - Diverticulitis of large intestine without perforation or abscess without bleeding - Discharge Information Instructions: Diverticulitis, [id number] Referrals: Rhett Anderson MD [Primary Care Provider] - Forms: ED Department Discharge Care Plan Goals: Take antibiotic as directed for at least 7 days, take for 10 days if still having any symptoms after the first 7. Drink lots of water, consider a stool softener like FiberCon, and use pain control as prescribed. Increase activity as tolerated, he'll should be able to return to work in 2 days. Return if worsening despite treatment such as fever or increased pain.
== END 2019-05-24 07:40 | disposition home or self-care (01) ==
LOC: JP.ED 06:13
DX: K57.32 Diverticulitis of large intestine without perforation or abscess without bleeding (principal); E66.9 Obesity, unspecified; E03.9 Hypothyroidism, unspecified; F41.9 Anxiety disorder, unspecified; F17.210 Nicotine dependence, cigarettes, uncomplicated; Z88.8 Allergy status to other drugs, medicaments and biological substances; Z88.6 Allergy status to analgesic agent; Z88.0 Allergy status to penicillin; Z79.84 Long term (current) use of oral hypoglycemic drugs; Z68.1 Body mass index [BMI] 19.9 or less, adult; Z79.899 Other long term (current) drug therapy
CPT/HCPCS: 96372; 99284; J1170; 99283

== ENCOUNTER 2019-05-25 23:06 | Emergency (ER) | payer MEDICAID ==
[2019-05-25] MEDS ORDERED: fentaNYL 100 MCG/2 ML SDV IVPUSH ONE ×2 (23:10→23:45)
[2019-05-25] MEDS ORDERED: Sodium Chloride 0.9% 10 ML Syringe FLUSH PRN (23:10)
--- NOTE | 2019-05-25 23:14 | EDM.PDOC ---
ED HPI GENERAL MEDICAL PROBLEM - General Stated Complaint: RI SIDE PAIN Time Seen by Provider: 05/25/19 23:09 Source of Information: Reports: Patient, RN Notes Reviewed History Limitations: Reports: No Limitations - History of Present Illness INITIAL COMMENTS - FREE TEXT/NARRATIVE: 38-year-old gentleman presents emergency department a complaint of sudden onset of right testicular pain, he denies any trauma pain is excruciating with movement, currently being treated for diverticulitis right testicle Pain Score (Numeric/FACES): 8 - Related Data Allergies Allergy/AdvReac Type Severity Reaction Status Date / Time gabapentin Allergy Shaking Verified 05/25/19 23:21 NSAIDS (Non-Steroidal Allergy Other Verified 05/25/19 23:21 Anti-Inflamma Penicillins Allergy Itching Verified 05/25/19 23:21 Home Meds: Home Meds OXcarbazepine [Trileptal] 1,200 mg PO BID 01/10/14 [History] Levothyroxine 250 mcg PO ACBREAKFAST 07/24/17 [History] Dextroamphetamine/Amphetamine [Adderall 20 mg Tablet] 1 tab PO BID 05/14/18 [ History] Pregabalin [Lyrica] 150 mg PO BID 01/02/19 [History] clonazePAM [Clonazepam] 1 mg PO QID PRN 04/26/19 [History] FLUoxetine [PROzac] 10 mg PO BEDTIME 05/24/19 [History] Hydrocodone/Acetaminophen [Hydrocodon-Acetaminophen 5-325] 1 each PO QID [History] Sulfamethoxazole/Trimethoprim [Bactrim Ds Tablet] 1 each PO BID 05/25/19 [ History] metroNIDAZOLE [Flagyl] 500 mg PO Q8H 05/25/19 [History] Past Medical History HEENT History: Reports: Impaired Vision Cardiovascular History: Reports: None Gastrointestinal History: Reports: Cholelithiasis, GERD Musculoskeletal History: Reports: Back Pain, Chronic, Other (See Below) Other Musculoskeletal History: right hip pain with labrum tear Neurological History: Reports: None Psychiatric History: Reports: ADD, ADHD, Anxiety, Bipolar, Panic Attack, Psych Hospitalization(s), PTSD Other Psychiatric History: bipolar 2 Endocrine/Metabolic History: Reports: Hypothyroidism, Obesity/BMI 30+ Oncologic (Cancer) History: Reports: Thyroid Other Oncologic History: pappulary with focal variant - Infectious Disease History Infectious Disease History: Reports: Chicken Pox - Past Surgical History HEENT Surgical History: Reports: Other (See Below) Other HEENT Surgeries/Procedures: barretts esophagus surgery Cardiovascular Surgical History: Reports: None GI Surgical History: Reports: Appendectomy, Cholecystectomy, Hernia Repair/Other Other GI Surgeries/Procedures: ablations to the esphagus Endocrine Surgical History: Reports: Thyroidectomy, Other (See Below) Other Endocrine Surgeries/Procedures: 9 lymphnodes on left side removed Neurological Surgical History: Reports: Discectomy, Laminectomy Other Neurological Surgeries/Procedures: partial lami/discectomy near L4 Musculoskeletal Surgical History: Reports: None Social & Family History - Family History Family Medical History: Noncontributory - Caffeine Use Caffeine Use: Reports: Coffee, Energy Drinks, Soda ED ROS GENERAL - Review of Systems Review Of Systems: See Below Constitutional: Reports: No Symptoms Respiratory: Reports: No Symptoms Cardiovascular: Reports: No Symptoms GI/Abdominal: Reports: Nausea : Reports: Other ED EXAM, RENAL/ - Physical Exam Exam: See Below Text/Narrative:: Examination of the genitalia the right testicle does appear larger than the left it does appear discolored compared to the left exquisite tenderness to palpation to both testicles, no tenderness in the inguinal canal Exam Limited By: No Limitations General Appearance: Alert, Moderate Distress Respiratory/Chest: No Respiratory Distress, Lungs Clear, Normal Breath Sounds, No Accessory Muscle Use, Chest Non-Tender Cardiovascular: Regular Rate, Rhythm, No Murmur Course - Vital Signs Last Recorded V/S: Last Vital Signs Temp 100.2 F 05/25/19 23:28 Pulse 108 H 05/25/19 23:28 Resp 24 H 05/25/19 23:28 BP 135/85 05/25/19 23:28 Pulse Ox 94 L 05/25/19 23:28 - Orders/Labs/Meds Orders: Active Orders 24 hr Category Date Time Status Peripheral IV Care [RC] . DIRECTED Care 05/25/19 23:11 Active Abdomen 1V Upright [CR] Stat Exams 05/25/19 23:37 Taken Scrotum and Contents [US] Stat Exams 05/25/19 23:10 Ordered CHLAMYDIA/GC AMPLIFICATION Urgent Lab 05/26/19 00:27 Ordered Sodium Chloride 0.9% [Saline Flush] Med 05/25/19 23:10 Active 10 ml FLUSH ASDIRECTED PRN Peripheral IV Insertion Adult [OM.PC] Urgent Oth 05/25/19 23:10 Ordered Medication Orders Sodium Chloride (Saline Flush) 10 ml FLUSH ASDIRECTED PRN PRN Reason: Keep Vein Open Last Admin: 05/25/19 23:22 Dose: 10 ml Labs: Laboratory Tests 05/25/19 05/25/19 Range/Units 23:15 23:15 WBC 12.3 H (4.5-11.0) K/uL RBC 4.95 (4.30-5.90) M/uL Hgb 16.0 H D (12.0-15.0) g/dL Hct 46.6 (40.0-54.0) % MCV 94 (80-98) fL MCH 32 H (27-31) pg MCHC 34 (32-36) % Plt Count 260 (150-400) K/uL Neut % (Auto) 74 H (36-66) % Lymph % (Auto) 15 L (24-44) % [place] % (Auto) 9 H (2-6) % Eos % (Auto) 2 (2-4) % Baso % (Auto) 0 (0-1) % Sodium 138 L (140-148) mmol/L Potassium 3.7 (3.6-5.2) mmol/L Chloride 102 (100-108) mmol/L Carbon Dioxide 26 (21-32) mmol/L Anion Gap 13.7 (5.0-14.0) mmol/L BUN 13 (7-18) mg/dL Creatinine 1.0 (0.8-1.3) mg/dL Est Cr Clr Drug Dosing 104.43 mL/min Estimated GFR (MDRD) > 60 (>60) Glucose 133 H (74-106) mg/dL Calcium 8.4 L (8.5-10.1) mg/dL Meds: Medications Generic Name Dose Route Start Last Admin Trade Name Freq PRN Reason Stop Dose Admin Sodium Chloride 10 ml 05/25/19 23:10 05/25/19 23:22 Saline Flush FLUSH 10 ml ASDIRECTED PRN Administration Keep Vein Open Discontinued Medications Generic Name Dose Route Start Last Admin Trade Name Freq PRN Reason Stop Dose Admin Ceftriaxone Sodium 250 mg 05/26/19 00:29 Rocephin IM 05/26/19 00:30 ONETIME ONE Fentanyl 50 mcg 05/25/19 23:10 05/25/19 23:22 Sublimaze IVPUSH 05/25/19 23:11 50 mcg ONETIME ONE Administration Fentanyl 100 mcg 05/25/19 23:45 05/25/19 23:50 Sublimaze IVPUSH 05/25/19 23:46 100 mcg ONETIME ONE Administration Fentanyl Confirm 05/25/19 23:47 05/26/19 00:04 Sublimaze Administered 05/25/19 23:48 Not Given Dose 100 mcg .ROUTE .STK-MED ONE Departure - Departure Time of Disposition: 00:38 Disposition: Home, Self-Care 01 Condition: Fair Clinical Impression: Epididymitis - Discharge Information Referrals: Rhett Anderson MD [Primary Care Provider] - Additional Instructions: Continue with your antibiotics that you are taking for your diverticulitis, continue with your hydrocodone, please followup with your primary care provider in 3-5 days if not better, please call return to the emergency department with worsening of symptoms. - My Orders Last 24 Hours: My Active Orders 05/25/19 23:10 Scrotum and Contents [US] Stat Sodium Chloride 0.9% [Saline Flush] 10 ml FLUSH ASDIRECTED PRN Peripheral IV Insertion Adult [OM.PC] Urgent 05/25/19 23:11 Peripheral IV Care [RC] . DIRECTED 05/25/19 23:37 Abdomen 1V Upright [CR] Stat 05/26/19 00:27 CHLAMYDIA/GC AMPLIFICATION Urgent - Assessment/Plan Last 24 Hours: My Active Orders 05/25/19 23:10 Scrotum and Contents [US] Stat Sodium Chloride 0.9% [Saline Flush] 10 ml FLUSH ASDIRECTED PRN Peripheral IV Insertion Adult [OM.PC] Urgent 05/25/19 23:11 Peripheral IV Care [RC] . DIRECTED 05/25/19 23:37 Abdomen 1V Upright [CR] Stat 05/26/19 00:27 CHLAMYDIA/GC AMPLIFICATION Urgent Plan: Assessment Acuity = acute Site and laterality = epididymitis complicated the patient with known history of diverticulitis currently on Bactrim and Flagyl Etiology = concern for underlying STD Manifestations = testicular pain Location of injury = Home Lab values = WBC elevated 12.3 consistent leukocytosis ultrasound consistent with epididymitis official read radiologist pending no torsion Plan Good relief with the fentanyl provided he was given 250 mg IM Rocephin prior to departure collection of GC and chlamydia was also obtained This note was dictated using [employer] voice recognition software please call with any questions on syntax or grammar.
[2019-05-25] MEDS ORDERED: fentaNYL 100 MCG/2 ML SDV ONE (23:47)
[2019-05-26] MEDS ORDERED: cefTRIAXone 500 MG Vial IM ONE (00:29)
[2019-05-26] MEDS ORDERED: cefTRIAXone 250 MG, Lidocaine 1% 0.5 ML IM ONE ×2 (00:42)
--- NOTE | 2019-05-26 00:50 | CRLCR ---
Indication: Pain Technique: Two views of the abdomen Comparison: None Findings/Impression: : A nonobstructive bowel gas pattern. Prominent right colonic stool. Cholecystectomy clips. Right pelvic coils. A 7 mm ovoid calcific density projecting over the periphery of the right renal upper pole, although possibly related to a costochondral calcification. A 2-3 mm calcific density adjacent to the lateral aspect of the right S1 segment, which could be developmental osseous, although a right ureteral calculus is considered. Correlate clinically. No suspicious osseous abnormalities seen. Dictated by Esau Zayas MD @ 05/26/2019 12:49:56 AM Dictated by: Esau Zayas MD @ 05/26/2019 00:50:21 (Electronically Signed)
--- NOTE | 2019-05-26 01:21 | CRLUS ---
INDICATION: Right scrotal pain TECHNIQUE: Ultrasound of the scrotum and contents. Sonographic harrison-scale images were obtained with spectral and color Doppler waveform and spectral waveform analysis of the testicles. COMPARISON: None available FINDINGS: Right testicle: 4.5 x 2.6 x 3.3 cm. Unremarkable echotexture. No masses. No suspicious calcifications. Normal arterial blood flow using Doppler and spectral waveform analysis. Left testicle: 4.5 x 3.6 x 2.8 cm. Unremarkable echotexture. No masses. No suspicious calcifications. Normal arterial blood flow using Doppler and spectral waveform analysis. Epididymis: Prominence and heterogeneity of the visualized right epididymal head compared to the left, with increased color Doppler flow. Other: A very small right hydrocele. IMPRESSION: A prominent, heterogeneous right epididymal head, demonstrating increased Doppler flow, concerning for right epididymitis. Correlate clinically. Bilateral testicular Doppler flow documented. Dictated by Esau Zayas MD @ 05/26/2019 1:18:53 AM Dictated by: Esau Zayas MD @ 05/26/2019 01:19:34 (Electronically Signed)
[2019-05-30 02:07] LABS: CHLAMYDIA TRACHOMATIS, NAA Negative (Negative); NEISSERIA GONORRHOEAE, NAA Negative (Negative)
== END 2019-05-26 01:06 | disposition home or self-care (01) ==
LOC: JP.ED 23:06
DX: N45.1 Epididymitis (principal); F32.9 Major depressive disorder, single episode, unspecified; E66.9 Obesity, unspecified; E03.9 Hypothyroidism, unspecified; Z88.8 Allergy status to other drugs, medicaments and biological substances; Z88.6 Allergy status to analgesic agent; Z88.0 Allergy status to penicillin; Z79.899 Other long term (current) drug therapy; Z68.41 Body mass index [BMI] 40.0-44.9, adult; Z79.890 Hormone replacement therapy
CPT/HCPCS: 36415; 74018; 76870; 80048; 85025; 87491; 87591; 96372; 96374; 99284; J0696; J2001; J3010

== ENCOUNTER 2019-06-06 01:01 | Emergency (ER) | payer MEDICAID ==
[2019-06-06] MEDS ORDERED: HYDROmorphone 0.5 MG/0.5 ML Syringe IVPUSH ONE (01:44)
[2019-06-06] MEDS ORDERED: Sodium Chloride 0.9% 1,000 ML IV SCH (01:45)
[2019-06-06] MEDS ORDERED: Ondansetron 4 MG/2 ML SDV IVPUSH ONE (01:47)
--- NOTE | 2019-06-06 01:50 | EDM.PDOC ---
ED HPI GENERAL MEDICAL PROBLEM - General Chief Complaint: Abdominal Pain Stated Complaint: ABD PAIN Time Seen by Provider: 06/06/19 01:45 Source of Information: Reports: Patient History Limitations: Reports: No Limitations - History of Present Illness INITIAL COMMENTS - FREE TEXT/NARRATIVE: pt arrived with very low left sided abdomanal pain. He is vomting tonight. He has been having about 4 loose stools daily. Onset: Gradual Duration: Day(s):, Getting Worse Location: Reports: Abdomen Associated Symptoms: Reports: Nausea/Vomiting Left Pelvic Pain Score (Numeric/FACES): 7 - Related Data Allergies Allergy/AdvReac Type Severity Reaction Status Date / Time gabapentin Allergy Shaking Verified 06/06/19 01:08 NSAIDS (Non-Steroidal Allergy Other Verified 06/06/19 01:08 Anti-Inflamma Penicillins Allergy Itching Verified 06/06/19 01:08 Home Meds: Home Meds OXcarbazepine [Trileptal] 1,200 mg PO BID 01/10/14 [History] Levothyroxine 250 mcg PO ACBREAKFAST 07/24/17 [History] Dextroamphetamine/Amphetamine [Adderall 20 mg Tablet] 1 tab PO BID 05/14/18 [ History] Pregabalin [Lyrica] 150 mg PO BID 01/02/19 [History] clonazePAM [Clonazepam] 1 mg PO QID PRN 04/26/19 [History] FLUoxetine [PROzac] 10 mg PO BEDTIME 05/24/19 [History] Past Medical History HEENT History: Reports: Impaired Vision Cardiovascular History: Reports: None Gastrointestinal History: Reports: Cholelithiasis, GERD Musculoskeletal History: Reports: Back Pain, Chronic, Other (See Below) Other Musculoskeletal History: right hip pain with labrum tear Neurological History: Reports: None Psychiatric History: Reports: ADD, ADHD, Anxiety, Bipolar, Panic Attack, Psych Hospitalization(s), PTSD Other Psychiatric History: bipolar 2 Endocrine/Metabolic History: Reports: Hypothyroidism, Obesity/BMI 30+ Oncologic (Cancer) History: Reports: Thyroid Other Oncologic History: pappulary with focal variant - Infectious Disease History Infectious Disease History: Reports: Chicken Pox - Past Surgical History HEENT Surgical History: Reports: Other (See Below) Other HEENT Surgeries/Procedures: barretts esophagus surgery GI Surgical History: Reports: Appendectomy, Cholecystectomy, Hernia Repair/Other Other GI Surgeries/Procedures: ablations to the esphagus Endocrine Surgical History: Reports: Thyroidectomy, Other (See Below) Other Endocrine Surgeries/Procedures: 9 lymphnodes on left side removed Neurological Surgical History: Reports: Discectomy, Laminectomy Other Neurological Surgeries/Procedures: partial lami/discectomy near L4 Social & Family History - Family History Family Medical History: Noncontributory - Tobacco Use Smoking Status *Q: Light Tobacco Smoker Years of Tobacco use: 20 Packs/Tins Daily: 0.5 - Caffeine Use Caffeine Use: Reports: Coffee, Energy Drinks, Soda - Recreational Drug Use Recreational Drug Use: No ED ROS GENERAL - Review of Systems Review Of Systems: See Below Constitutional: Reports: Fever, Chills, Malaise, Decreased Appetite HEENT: Reports: No Symptoms Respiratory: Reports: No Symptoms Cardiovascular: Reports: No Symptoms Endocrine: Reports: No Symptoms GI/Abdominal: Reports: Abdominal Pain, Diarrhea, Decreased Appetite, Nausea, Vomiting Musculoskeletal: Reports: No Symptoms ED EXAM, GI/ABD - Physical Exam Exam: See Below Text/Narrative:: pt arrived with pain in the left lower abdoman. This has been going on for the past week Exam Limited By: No Limitations General Appearance: Alert, Moderate Distress Ears: Normal TMs Throat/Mouth: Normal Inspection Head: Atraumatic Neck: Normal Inspection Respiratory/Chest: No Respiratory Distress Cardiovascular: Regular Rate, Rhythm GI/Abdominal Exam: Other (pt has tenderness in the left lower abdoman. This is not real guarded. ) (Male) Exam: Deferred Rectal (Males) Exam: Deferred Back Exam: Normal Inspection Extremities: Normal Inspection Neurological: Alert, Oriented, Normal Cognition Psychiatric: Anxious Course - Vital Signs Last Recorded V/S: Last Vital Signs Temp 37.3 C 06/06/19 01:21 Pulse 87 06/06/19 03:15 Resp 14 06/06/19 01:57 BP 126/80 06/06/19 03:15 Pulse Ox 96 06/06/19 01:57 - Orders/Labs/Meds Labs: Laboratory Tests 06/06/19 06/06/19 06/06/19 Range/Units 01:30 01:30 02:31 WBC 9.3 (4.5-11.0) K/uL RBC 4.65 (4.30-5.90) M/uL Hgb 15.2 H (12.0-15.0) g/dL Hct 44.0 (40.0-54.0) % MCV 95 (80-98) fL MCH 33 H (27-31) pg MCHC 35 (32-36) % Plt Count 323 (150-400) K/uL Neut % (Auto) 61 (36-66) % Lymph % (Auto) 28 (24-44) % [place] % (Auto) 7 H (2-6) % Eos % (Auto) 4 (2-4) % Baso % (Auto) 1 (0-1) % Sodium 142 (140-148) mmol/L Potassium 3.6 (3.6-5.2) mmol/L Chloride 105 (100-108) mmol/L Carbon Dioxide 26 (21-32) mmol/L Anion Gap 11.5 (5.0-14.0) mmol/L BUN 9 (7-18) mg/dL Creatinine 0.8 (0.8-1.3) mg/dL Est Cr Clr Drug Dosing 130.54 mL/min Estimated GFR (MDRD) > 60 (>60) BUN/Creatinine Ratio Not Reportable Glucose 136 H (74-106) mg/dL Calcium 7.5 L (8.5-10.1) mg/dL Total Bilirubin 0.1 L D (0.2-1.0) mg/dL AST 23 (15-37) U/L ALT 57 D (12-78) U/L Alkaline Phosphatase 78 (46-116) U/L C-Reactive Protein 0.35 H (0.0-0.3) mg/dL Total Protein 6.8 (6.4-8.2) g/dL Albumin 3.2 L (3.4-5.0) g/dL Globulin 3.6 H (2.3-3.5) g/dL Albumin/Globulin Ratio 0.9 L (1.2-2.2) Urine Color Yellow (YELLOW) Urine Appearance Clear (CLEAR) Urine pH 6.0 (5.0-8.0) Ur Specific [place] 1.015 (1.008-1.030) Urine Protein Negative (NEGATIVE) mg/dL Urine Glucose (UA) Negative (NEGATIVE) mg/dL Urine Ketones Negative (NEGATIVE) mg/dL Urine Occult Blood Negative (NEGATIVE) Urine Nitrite Negative (NEGATIVE) Urine Bilirubin Negative (NEGATIVE) Urine Urobilinogen 0.2 (0.2-1.0) EU/dL Ur Leukocyte Esterase Negative (NEGATIVE) Urine RBC 0-5 (0-5) Urine WBC 0-5 (0-5) Ur Epithelial Cells Not seen Amorphous Sediment Not seen Urine Bacteria Not seen Urine Mucus Not seen Meds: Medications Discontinued Medications Generic Name Dose Route Start Last Admin Trade Name Freq PRN Reason Stop Dose Admin Hydromorphone HCl 0.5 mg 06/06/19 01:44 06/06/19 01:52 Dilaudid IVPUSH 06/06/19 01:45 0.5 mg ONETIME ONE Administration Hydromorphone HCl 1 mg 06/06/19 02:31 06/06/19 02:40 Dilaudid IVPUSH 06/06/19 02:32 1 mg ONETIME ONE Administration Sodium Chloride 1,000 mls @ 999 mls/hr 06/06/19 01:45 06/06/19 01:56 Normal Saline IV 999 mls/hr ASDIRECTED YUSUF Administration Sodium Chloride 85 mls @ 3.5 mls/sec 06/06/19 01:58 06/06/19 02:06 Normal Saline IV 06/06/19 01:59 3.5 mls/sec ASDIRECTED STA Administration Levofloxacin/Dextrose 500 mg/ 100 mls @ 100 mls/hr 06/06/19 02:44 06/06/19 02 :51 Premix IV 06/06/19 03:43 100 mls/hr ONETIME ONE Administration Iopamidol 150 ml 06/06/19 01:58 06/06/19 02:05 Isovue-300 (61%) IV 06/06/19 01:59 150 ml . DIRECTED STA Administration Metronidazole 500 mg 06/06/19 02:55 06/06/19 03:31 Metronidazole PO 06/06/19 02:56 500 mg ONETIME ONE Administration Ondansetron HCl 4 mg 06/06/19 01:47 06/06/19 01:52 Zofran IVPUSH 06/06/19 01:48 4 mg ONETIME ONE Administration - Re-Assessments/Exams Free Text/Narrative Re-Assessment/Exam: 06/06/19 02:51 pt has a normal wbc, crp is only mildly elevated, his electrolytes look good. He had a cat scan of the abdoman and this revealed diverticulitis with out abcess formation. Departure - Departure Time of Disposition: 04:05 Disposition: Home, Self-Care 01 Condition: Fair Clinical Impression: Diverticulitis - Discharge Information Instructions: Diverticulitis, [id number] Referrals: PCP,None [Primary Care Provider] - Forms: ED Department Discharge Care Plan Goals: cipro 500mg twice daily, flagyl 500mg three times daily, push fluids, use probiotic when on the antibiotic, eat alot of yogurt, appt with Dr Chahal in 4- 5 days. #10 norco 5/325 every 6 hours as needed for severe pain in between use tylenol 650mg four times daily or every 6 hours.
[2019-06-06] MEDS ORDERED: Iopamidol 612 MG/ML 150 ML Bottle IV STA (01:58)
[2019-06-06] MEDS ORDERED: HYDROmorphone 1 MG/ML Syringe IVPUSH ONE (02:31)
--- NOTE | 2019-06-06 02:43 | CRLCT ---
INDICATION: Left lower abdominal pain TECHNIQUE: CT abdomen and pelvis acquired with 150 cc Isovue 300 IV contrast. COMPARISON: May 14, 2018 FINDINGS: Lower chest: Calcified granuloma left lower lobe. Liver: Simple cyst in the liver. Spleen: Calcified splenic granulomata. Pancreas: Unremarkable. Gallbladder and bile ducts: S/p cholecystectomy. Adrenal glands: Unremarkable. Kidneys: Unremarkable. GI tract: Colonic diverticulosis. Short segment of wall thickening of the proximal sigmoid colon with mild pericolonic fat stranding. No extraluminal air or abscess. The appendix appears to be surgically absent. Vascular structures: Unremarkable. Lymph nodes: Unremarkable. Miscellaneous: Unremarkable. No free air or significant free fluid. Pelvic Organs: Unremarkable. Bones: Unremarkable for age. IMPRESSION: Acute diverticulitis of the proximal sigmoid colon. No extraluminal air or abscess. Status post cholecystectomy. The appendix appears to be surgically absent. Please note that all CT scans at this facility use dose modulation, iterative reconstruction, and/or weight-based dosing when appropriate to reduce radiation dose to as low as reasonably achievable. Dictated by Marisel Chaidez MD @ Jun 06 2019 2:42AM Signed by Dr. Marisel Chaidez @ Jun 06 2019 2:42AM
[2019-06-06] MEDS ORDERED: Levofloxacin/Dextrose 5%-Water 500 MG in Premix Bag 1 BAG IV ONE (02:44)
[2019-06-06] MEDS ORDERED: metroNIDAZOLE 250 MG Tab PO ONE (02:55)
== END 2019-06-06 04:19 | disposition home or self-care (01) ==
LOC: JP.ED 01:01
DX: K57.32 Diverticulitis of large intestine without perforation or abscess without bleeding (principal); K21.9 Gastro-esophageal reflux disease without esophagitis; E03.9 Hypothyroidism, unspecified; F31.9 Bipolar disorder, unspecified; F41.9 Anxiety disorder, unspecified; E66.9 Obesity, unspecified; F17.210 Nicotine dependence, cigarettes, uncomplicated; Z88.8 Allergy status to other drugs, medicaments and biological substances; Z88.0 Allergy status to penicillin; Z79.899 Other long term (current) drug therapy; Z68.41 Body mass index [BMI] 40.0-44.9, adult
CPT/HCPCS: 36415; 74177; 80053; 81001; 85025; 86140; 96361; 96365; 96375; 96376; 99284; A9270; J1170; J1956; J2405; J7030; Q9967; J7050

== ENCOUNTER 2019-06-18 20:31 | Emergency (ER) | payer MEDICAID ==
[2019-06-18] MEDS ORDERED: oxyCODONE 5 MG Tab PO ONE (21:16)
--- NOTE | 2019-06-18 21:18 | EDM.PDOC ---
ED HPI GENERAL MEDICAL PROBLEM - General Chief Complaint: Back Pain or Injury Stated Complaint: hurt back Time Seen by Provider: 06/18/19 21:00 Source of Information: Reports: Patient History Limitations: Reports: No Limitations - History of Present Illness INITIAL COMMENTS - FREE TEXT/NARRATIVE: 38-year-old male with history of chronic low back pain presents with acute on chronic low back pain. Reports that he had increased pain in his back and pelvis since she started working with PT last week. It is particularly bad today. He was getting out of bed at home today when he felt a pop in his back, reports a sharp pain in the right lower back which shoots down his right leg. Pain is worse when he tries to ambulate. He has no weakness or loss of sensation in the extremity. No saddle anesthesia. Lower Back Pain Score (Numeric/FACES): 7 - Related Data Allergies Allergy/AdvReac Type Severity Reaction Status Date / Time gabapentin Allergy Shaking Verified 06/18/19 20:55 NSAIDS (Non-Steroidal Allergy Other Verified 06/18/19 20:55 Anti-Inflamma Penicillins Allergy Itching Verified 06/18/19 20:55 Home Meds: Home Meds OXcarbazepine [Trileptal] 1,200 mg PO BID 01/10/14 [History] Levothyroxine 250 mcg PO ACBREAKFAST 07/24/17 [History] Dextroamphetamine/Amphetamine [Adderall 20 mg Tablet] 1 tab PO BID 05/14/18 [ History] Pregabalin [Lyrica] 150 mg PO BID 01/02/19 [History] clonazePAM [Clonazepam] 1 mg PO QID PRN 04/26/19 [History] FLUoxetine [PROzac] 10 mg PO BEDTIME 05/24/19 [History] Acetaminophen [Tylenol Extra Strength] 1,000 mg PO Q6H PRN 06/18/19 [History] Past Medical History HEENT History: Reports: Impaired Vision Cardiovascular History: Reports: None Gastrointestinal History: Reports: Cholelithiasis, GERD Musculoskeletal History: Reports: Back Pain, Chronic, Other (See Below) Other Musculoskeletal History: right hip pain with labrum tear Neurological History: Reports: None Psychiatric History: Reports: ADD, ADHD, Anxiety, Bipolar, Panic Attack, Psych Hospitalization(s), PTSD Other Psychiatric History: bipolar 2 Endocrine/Metabolic History: Reports: Hypothyroidism, Obesity/BMI 30+ Oncologic (Cancer) History: Reports: Thyroid Other Oncologic History: pappulary with focal variant - Infectious Disease History Infectious Disease History: Reports: Chicken Pox - Past Surgical History HEENT Surgical History: Reports: Other (See Below) Other HEENT Surgeries/Procedures: barretts esophagus surgery GI Surgical History: Reports: Appendectomy, Cholecystectomy, Hernia Repair/Other Other GI Surgeries/Procedures: ablations to the esphagus Endocrine Surgical History: Reports: Thyroidectomy, Other (See Below) Other Endocrine Surgeries/Procedures: 9 lymphnodes on left side removed Neurological Surgical History: Reports: Discectomy, Laminectomy Other Neurological Surgeries/Procedures: partial lami/discectomy near L4 Social & Family History - Family History Family Medical History: Noncontributory - Tobacco Use Smoking Status *Q: Current Every Day Smoker Years of Tobacco use: 20 Packs/Tins Daily: 0.5 Used Tobacco, but Quit: No - Caffeine Use Caffeine Use: Reports: Coffee, Energy Drinks, Soda - Recreational Drug Use Recreational Drug Use: No ED ROS GENERAL - Review of Systems Review Of Systems: See Below Constitutional: Reports: No Symptoms HEENT: Reports: No Symptoms Respiratory: Reports: No Symptoms Cardiovascular: Reports: No Symptoms Endocrine: Reports: No Symptoms GI/Abdominal: Reports: No Symptoms : Reports: No Symptoms Musculoskeletal: Reports: Back Pain Skin: Reports: No Symptoms Neurological: Reports: No Symptoms Psychiatric: Reports: No Symptoms Hematologic/Lymphatic: Reports: No Symptoms Immunologic: Reports: No Symptoms ED EXAM,LOWER BACK PAIN/INJURY - Physical Exam Exam: See Below Exam Limited By: No Limitations General Appearance: Alert, Mild Distress Ears: Normal External Exam Nose: Normal Inspection Throat/Mouth: Normal Inspection Head: Atraumatic, Normocephalic Respiratory/Chest: No Respiratory Distress Cardiovascular: Regular Rate, Rhythm GI/Abdominal: Soft, No Distention Back Exam: Normal Inspection. No: CVA Tenderness (R), CVA Tenderness (L), Muscle Spasm Extremities: Normal Inspection Neurological: Alert, Normal Dorsiflexion, Normal Plantar Flexion, No Motor/ Sensory Deficits, Straight Leg Raise (R) Psychiatric: Normal Affect, Normal Mood Skin Exam: Warm, Dry Course - Vital Signs Last Recorded V/S: Last Vital Signs Temp 36.2 C 06/18/19 21:00 Pulse 88 06/18/19 21:00 Resp 18 06/18/19 21:00 BP 137/82 06/18/19 21:00 Pulse Ox 96 06/18/19 21:00 - Orders/Labs/Meds Meds: Medications Discontinued Medications Generic Name Dose Route Start Last Admin Trade Name Davis PRN Reason Stop Dose Admin Oxycodone HCl 10 mg 06/18/19 21:16 Oxycodone PO 06/18/19 21:17 ONETIME ONE - Re-Assessments/Exams Free Text/Narrative Re-Assessment/Exam: 38-year-old with history of chronic low back pain presents with acute on chronic low back pain. On exam does have positive right-sided straight leg raise. No significant trauma. No red flags. He is neuro intact. Normal for imaging. We discussed symptomatic treatment. We will provide 10 mg of by mouth oxycodone and a prescription for #6 vicodin from the [facility]. He has follow-up with PT tomorrow, and working with PCP for further workup and management of his back pain. Discharged 06/18/19 21:23 Departure - Departure Time of Disposition: 21:17 Disposition: Home, Self-Care 01 Clinical Impression: Low back pain Qualifiers: Chronicity: acute Back pain laterality: right Sciatica presence: with sciatica Sciatica laterality: sciatica of right side Qualified Code(s): M54.41 - Lumbago with sciatica, right side - Discharge Information *PRESCRIPTION DRUG MONITORING PROGRAM REVIEWED*: Yes *COPY OF PRESCRIPTION DRUG MONITORING REPORT IN PATIENT MIN: No Instructions: Acute Back Pain, Adult, What You Need to Know About Chronic Back Pain Referrals: Rhett Anderson MD [Primary Care Provider] - Forms: ED Department Discharge Additional Instructions: Please use the prescribed pain medication and ibuprofen It is important that you continue to work with PT and your PCP to find a solution for your back pain Sepsis Event Note - Evaluation Sepsis Screening Result: No Definite Risk - Focused Exam Vital Signs: Vital Signs Temp Pulse Resp BP Pulse Ox 06/18/19 21:00 36.2 C 88 18 137/82 96 Date Exam was Performed: 06/18/19 Time Exam was Performed: 21:21
== END 2019-06-18 21:47 | disposition home or self-care (01) ==
LOC: JP.ED 20:31
DX: M54.41 Lumbago with sciatica, right side (principal); Z88.0 Allergy status to penicillin; Z88.6 Allergy status to analgesic agent
CPT/HCPCS: 99283; A9270

== ENCOUNTER 2019-07-07 15:40 | Emergency (ER) | payer MEDICAID ==
[2019-07-07] MEDS ORDERED: traMADol 50 MG Tab PO ONE (16:27)
--- NOTE | 2019-07-07 16:43 | EDM.PDOC ---
ED HPI GENERAL MEDICAL PROBLEM - General Chief Complaint: Fever Stated Complaint: COUGH, FEVER, SOB Time Seen by Provider: 07/07/19 16:15 Source of Information: Reports: Patient History Limitations: Reports: No Limitations - History of Present Illness INITIAL COMMENTS - FREE TEXT/NARRATIVE: pt arrived with a cough, fever and body aches. He has been sick for about 1.5 days. Onset: Other ( started yesterday. ) Duration: Hour(s): Location: Reports: Chest, Generalized Associated Symptoms: Reports: Cough, Diaphoresis, Fever/Chills, Loss of Appetite Generalized Pain Score (Numeric/FACES): 7 - Related Data Allergies Allergy/AdvReac Type Severity Reaction Status Date / Time gabapentin Allergy Shaking Verified 07/07/19 16:01 NSAIDS (Non-Steroidal Allergy Other Verified 07/07/19 16:01 Anti-Inflamma Penicillins Allergy Itching Verified 07/07/19 16:01 Home Meds: Home Meds OXcarbazepine [Trileptal] 1,200 mg PO BID 01/10/14 [History] Levothyroxine 250 mcg PO ACBREAKFAST 07/24/17 [History] Dextroamphetamine/Amphetamine [Adderall 20 mg Tablet] 1 tab PO BID 05/14/18 [ History] Pregabalin [Lyrica] 150 mg PO BID 01/02/19 [History] clonazePAM [Clonazepam] 1 mg PO QID PRN 04/26/19 [History] FLUoxetine [PROzac] 10 mg PO BEDTIME 05/24/19 [History] Acetaminophen [Tylenol Extra Strength] 1,000 mg PO Q6H PRN 06/18/19 [History] Past Medical History HEENT History: Reports: Impaired Vision Cardiovascular History: Reports: None Respiratory History: Reports: None Gastrointestinal History: Reports: Cholelithiasis, GERD Musculoskeletal History: Reports: Back Pain, Chronic, Other (See Below) Other Musculoskeletal History: right hip pain with labrum tear Neurological History: Reports: None Psychiatric History: Reports: ADD, ADHD, Anxiety, Bipolar, Panic Attack, Psych Hospitalization(s), PTSD, Suicide Attempt, Suicidal Ideation Other Psychiatric History: bipolar 2 Endocrine/Metabolic History: Reports: Hypothyroidism, Obesity/BMI 30+ Oncologic (Cancer) History: Reports: Thyroid Other Oncologic History: pappulary with focal variant - Infectious Disease History Infectious Disease History: Reports: Chicken Pox, Influenza - Past Surgical History HEENT Surgical History: Reports: Other (See Below) Other HEENT Surgeries/Procedures: barretts esophagus surgery GI Surgical History: Reports: Appendectomy, Cholecystectomy, Hernia Repair/Other Other GI Surgeries/Procedures: ablations to the esphagus Endocrine Surgical History: Reports: Thyroidectomy, Other (See Below) Other Endocrine Surgeries/Procedures: 9 lymphnodes on left side removed Neurological Surgical History: Reports: Discectomy, Laminectomy Other Neurological Surgeries/Procedures: partial lami/discectomy near L4 Social & Family History - Family History Family Medical History: Noncontributory - Tobacco Use Smoking Status *Q: Current Every Day Smoker Years of Tobacco use: 20 Packs/Tins Daily: 0.5 - Caffeine Use Caffeine Use: Reports: Coffee, Energy Drinks, Soda - Recreational Drug Use Recreational Drug Use: No ED ROS GENERAL - Review of Systems Review Of Systems: See Below Constitutional: Reports: Fever, Chills, Malaise HEENT: Reports: Other (pt has been hoarse. ) Respiratory: Reports: Shortness of Breath, Cough Cardiovascular: Reports: No Symptoms Endocrine: Reports: No Symptoms GI/Abdominal: Reports: No Symptoms : Reports: No Symptoms Musculoskeletal: Reports: Muscle Pain ED EXAM, GENERAL - Physical Exam Exam: See Below Free Text/Narrative:: pt arrived with body aches and fever. He has a signifcant cough. Exam Limited By: No Limitations General Appearance: Alert, Anxious, Moderate Distress Ears: Normal TMs Nose: Normal Inspection Throat/Mouth: Normal Inspection Head: Atraumatic Neck: Normal Inspection Respiratory/Chest: Other (pt is coughing and his chest is uncomfortable from the coughing. ) Cardiovascular: Regular Rate, Rhythm GI/Abdominal: Soft, Non-Tender (Male) Exam: Deferred Rectal (Males) Exam: Deferred Back Exam: Normal Inspection Extremities: Normal Inspection Neurological: Alert, Oriented, Normal Cognition Psychiatric: Normal Affect Course - Vital Signs Last Recorded V/S: Last Vital Signs Temp 35.8 C 07/07/19 16:00 Pulse 92 07/07/19 16:00 Resp 20 07/07/19 16:00 BP 158/96 H 07/07/19 16:00 Pulse Ox 96 07/07/19 16:00 - Orders/Labs/Meds Labs: Laboratory Tests 07/07/19 Range/Units 16:22 WBC 4.8 (4.5-11.0) K/uL RBC 5.07 (4.30-5.90) M/uL Hgb 16.5 H (12.0-15.0) g/dL Hct 47.2 (40.0-54.0) % MCV 93 (80-98) fL MCH 33 H (27-31) pg MCHC 35 (32-36) % Plt Count 231 (150-400) K/uL Neut % (Auto) 55 (36-66) % Lymph % (Auto) 20 L (24-44) % [place] % (Auto) 21 H (2-6) % Eos % (Auto) 4 (2-4) % Baso % (Auto) 0 (0-1) % Meds: Medications Discontinued Medications Generic Name Dose Route Start Last Admin Trade Name Freq PRN Reason Stop Dose Admin Tramadol HCl 50 mg 07/07/19 16:27 07/07/19 16:34 Ultram PO 07/07/19 16:28 50 mg ONETIME ONE Administration - Re-Assessments/Exams Free Text/Narrative Re-Assessment/Exam: 07/10/19 07:15 pt was complaining of pain in his chest and he was given tramodol. Departure - Departure Time of Disposition: 16:44 Disposition: Home, Self-Care 01 Condition: Fair Clinical Impression: Influenza B - Discharge Information Instructions: Influenza, Adult, [id number] Referrals: PCP,None [Primary Care Provider] - Forms: ED Department Discharge Care Plan Goals: cool mist humidifier at the bedside, tylenol and motrin for body aches and fever , tamaflu 75 1 tab bid for 5 days, robitussin ac 2 tsp q6h prn for cough, Sepsis Event Note - Evaluation Sepsis Screening Result: Possible Sepsis Risk - Focused Exam Date Exam was Performed: 07/10/19 Time Exam was Performed: 07:10
== END 2019-07-07 16:55 | disposition home or self-care (01) ==
LOC: JP.ED 15:40
DX: J10.1 Influenza due to other identified influenza virus with other respiratory manifestations (principal); F41.9 Anxiety disorder, unspecified; E66.9 Obesity, unspecified; E03.9 Hypothyroidism, unspecified; F17.210 Nicotine dependence, cigarettes, uncomplicated; Z90.49 Acquired absence of other specified parts of digestive tract; Z88.0 Allergy status to penicillin; Z88.8 Allergy status to other drugs, medicaments and biological substances; Z79.899 Other long term (current) drug therapy
CPT/HCPCS: 36415; 85025; 87804; 99283; A9270

== ENCOUNTER 2019-07-22 15:35 | Emergency (ER) | payer BC ==
--- NOTE | 2019-07-22 17:28 | EDM.PDOC ---
ED HPI GENERAL MEDICAL PROBLEM - General Chief Complaint: General Stated Complaint: SOB L SI OF BODY SWOLLEN CHEST PAINS Time Seen by Provider: 07/22/19 16:50 Source of Information: Reports: Patient, Family History Limitations: Reports: No Limitations - History of Present Illness INITIAL COMMENTS - FREE TEXT/NARRATIVE: 38-year-old male arrives with left-sided paresthesias, left arm weakness, left face and left neck weakness and pain with hyperventilation. 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 No recent trauma or falls. No fevers or chills. Some nausea but no vomiting. He is extremely anxious. Onset: Gradual Duration: Day(s): (24 hours) Location: Reports: Head, Face, Neck, Chest, Upper Extremity, Left, Lower Extremity, Left Associated Symptoms: Reports: Chest Pain, Diaphoresis, Headaches, Malaise, Nausea/Vomiting, Weakness. Denies: Confusion, Cough l thumb Pain Score (Numeric/FACES): 10 - Related Data Allergies Allergy/AdvReac Type Severity Reaction Status Date / Time gabapentin Allergy Shaking Verified 07/22/19 17:01 NSAIDS (Non-Steroidal Allergy Other Verified 07/22/19 17:01 Anti-Inflamma Penicillins Allergy Itching Verified 07/22/19 17:01 Home Meds: Home Meds OXcarbazepine [Trileptal] 1,200 mg PO BID 01/10/14 [History] Levothyroxine 250 mcg PO ACBREAKFAST 07/24/17 [History] Dextroamphetamine/Amphetamine [Adderall 20 mg Tablet] 1 tab PO BID 05/14/18 [ History] Pregabalin [Lyrica] 150 mg PO BID 01/02/19 [History] Acetaminophen [Tylenol Extra Strength] 1,000 mg PO Q6H PRN 06/18/19 [History] ALPRAZolam [Alprazolam] 1 tab PO Q4H PRN 07/22/19 [History] Past Medical History HEENT History: Reports: Impaired Vision Cardiovascular History: Reports: None Respiratory History: Reports: None Gastrointestinal History: Reports: Cholelithiasis, GERD Musculoskeletal History: Reports: Back Pain, Chronic, Other (See Below) Other Musculoskeletal History: right hip pain with labrum tear Neurological History: Reports: None Psychiatric History: Reports: ADD, ADHD, Anxiety, Bipolar, Panic Attack, Psych Hospitalization(s), PTSD, Suicide Attempt, Suicidal Ideation Other Psychiatric History: bipolar 2 Endocrine/Metabolic History: Reports: Hypothyroidism, Obesity/BMI 30+ Oncologic (Cancer) History: Reports: Thyroid Other Oncologic History: pappulary with focal variant - Infectious Disease History Infectious Disease History: Reports: Chicken Pox - Past Surgical History HEENT Surgical History: Reports: Other (See Below) Other HEENT Surgeries/Procedures: barretts esophagus surgery GI Surgical History: Reports: Appendectomy, Cholecystectomy, Hernia Repair/Other Other GI Surgeries/Procedures: ablations to the esphagus Endocrine Surgical History: Reports: Thyroidectomy, Other (See Below) Other Endocrine Surgeries/Procedures: 9 lymphnodes on left side removed Neurological Surgical History: Reports: Discectomy, Laminectomy Other Neurological Surgeries/Procedures: partial lami/discectomy near L4 Social & Family History - Family History Family Medical History: Noncontributory - Tobacco Use Smoking Status *Q: Current Every Day Smoker Years of Tobacco use: 20 Packs/Tins Daily: 0.5 Used Tobacco, but Quit: No - Caffeine Use Caffeine Use: Reports: Coffee, Energy Drinks, Soda - Alcohol Use Days Per Week of Alcohol Use: 7 Number of Drinks Per Day: 5 Total Drinks Per Week: 35 - Recreational Drug Use Recreational Drug Use: No ED ROS GENERAL - Review of Systems Review Of Systems: See Below (2) Constitutional: Reports: Malaise. Denies: Fever, Chills HEENT: Reports: Other (Left facial pain, no weakness) Respiratory: Denies: Shortness of Breath Cardiovascular: Reports: Chest Pain (Left side) GI/Abdominal: Reports: Nausea. Denies: Vomiting Musculoskeletal: Reports: Neck Pain (Left-sided neck pain, left facial pain) Skin: Reports: No Symptoms Neurological: Reports: Paresthesia (Paresthesia of the left face left arm and left leg with weakness of the left arm) Psychiatric: Reports: Anxiety ED EXAM, GENERAL - Physical Exam Exam: See Below Exam Limited By: No Limitations General Appearance: Alert, Anxious (Patient is extremely anxious and hyperventilating), Moderate Distress Eye Exam: Bilateral Eye: EOMI, PERRL Head: Atraumatic Neck: Other (There is tenderness to palpation along the trapezius of the left neck, no asymmetry of the strength of the facial muscles and his speech is clear ) Respiratory/Chest: No Respiratory Distress, Lungs Clear Cardiovascular: Regular Rate, Rhythm, Extra Beats (A few ectopic beats), Other ( No reproducible chest pain with palpation) GI/Abdominal: Soft, Non-Tender Extremities: Other (Grasp strength of the left arm is weaker than the right). No: Pedal Edema Neurological: Alert, Oriented, Sensory/Motor Deficit (Left arm grasp is weaker, no weakness of the lower extremities or facial muscles) Psychiatric: Anxious Skin Exam: Warm, Dry Course - Vital Signs Last Recorded V/S: Last Vital Signs Temp 97.8 F 07/22/19 16:59 Pulse 91 07/22/19 16:59 Resp 20 07/22/19 16:59 BP 118/78 07/22/19 16:59 Pulse Ox 94 L 07/22/19 16:59 - Orders/Labs/Meds Meds: Medications Discontinued Medications Generic Name Dose Route Start Last Admin Trade Name Freq PRN Reason Stop Dose Admin Hydromorphone HCl 1 mg 07/22/19 18:27 Dilaudid IVPUSH 07/22/19 18:28 ONETIME ONE Sodium Chloride 100 mls @ 3.5 mls/sec 07/22/19 17:45 07/22/19 18:09 Normal Saline IV 4 mls/sec ASDIRECTED YUSUF Administration Iopamidol 100 ml 07/22/19 17:45 07/22/19 18:09 Isovue-370 (76%) IV 100 ml . DIRECTED YUSUF Administration Lorazepam 1 mg 07/22/19 17:42 07/22/19 17:50 Ativan IVPUSH 07/22/19 17:43 1 mg ONETIME ONE Administration Ondansetron HCl 4 mg 07/22/19 18:27 Zofran IVPUSH 07/22/19 18:28 ONETIME ONE Sodium Chloride 10 ml 07/22/19 17:31 07/22/19 18:09 Saline Flush FLUSH 07/22/19 17:32 10 ml ONETIME ONE Administration - Re-Assessments/Exams Free Text/Narrative Re-Assessment/Exam: 07/22/19 18:36 CT angiogram of the head was performed, patient was given 1 mg of IV Ativan prior to the scan. After the scan the patient was given 1 mg of IV Dilaudid and 4 of Zofran IV. 07/22/19 18:46 CT angiogram was negative, and patient symptoms improved after the Ativan. He also improved more after the IV Dilaudid and Zofran. 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 Wrote a work note for today and tomorrow. Increase activity as tolerated and return if worsening. Departure - Departure Time of Disposition: 19:02 Disposition: Home, Self-Care 01 Clinical Impression: Paresthesia of left upper and lower extremity, Cervical neuropathy - Discharge Information Instructions: Neuropathic Pain Referrals: Rhett Anderson MD [Primary Care Provider] - Forms: ED Department Discharge Care Plan Goals: Increase activity slowly over the next 48 hours and return to work on Monday if possible. Recheck on Monday if not improved enough to return to work. Use pain control as prescribed if needed. Sepsis Event Note - Evaluation Sepsis Screening Result: No Definite Risk - Focused Exam Date Exam was Performed: 07/23/19 Time Exam was Performed: 11:40
[2019-07-22] MEDS ORDERED: Sodium Chloride 0.9% 10 ML Syringe FLUSH ONE (17:31)
[2019-07-22] MEDS ORDERED: LORazepam 2 MG/ML SDV IVPUSH ONE (17:42)
[2019-07-22] MEDS ORDERED: Iopamidol 755 Mg/ML 100 ML Bottle IV SCH (17:45)
[2019-07-22] MEDS ORDERED: Sodium Chloride 0.9% 100 ML IV SCH (17:45)
[2019-07-22] MEDS ORDERED: Ondansetron 4 MG/2 ML SDV IVPUSH ONE (18:27)
[2019-07-22] MEDS ORDERED: HYDROmorphone 1 MG/ML Syringe IVPUSH ONE (18:27)
--- NOTE | 2019-07-22 18:32 | CRLCT ---
INDICATION: Left-sided numbness. TECHNIQUE: High resolution axial CT images acquired through the head following rapid intravenous administration of iodinated contrast. Multiplanar MIPS of cranial vasculature performed. FINDINGS: There is normal filling of the intracranial vasculature; i.e. there is no large vessel occlusion or significant intracranial stenosis. There is no cerebral aneurysm or evidence for vascular malformation. IMPRESSION: Unremarkable CTA head. Mio Vo MD [employer] [facility] Please note that all CT scans at this facility use dose modulation, iterative reconstruction, and/or weight-based dosing when appropriate to reduce radiation dose to as low as reasonably achievable. Dictated by Mio Vo MD @ Jul 23 2019 9:01AM Signed by Dr. Mio Vo @ Jul 23 2019 9:34AM
== END 2019-07-22 19:02 | disposition home or self-care (01) ==
LOC: JP.ED 15:35
DX: G62.9 Polyneuropathy, unspecified (principal); F45.8 Other somatoform disorders; R20.2 Paresthesia of skin; E66.9 Obesity, unspecified; E03.9 Hypothyroidism, unspecified; F17.210 Nicotine dependence, cigarettes, uncomplicated; Z88.0 Allergy status to penicillin; Z88.6 Allergy status to analgesic agent; Z88.8 Allergy status to other drugs, medicaments and biological substances; Z79.899 Other long term (current) drug therapy
CPT/HCPCS: 70496; 96374; 96375; 99285-25; J2060; J7050; Q9967

== ENCOUNTER 2019-07-28 12:40 | Emergency (ER) | payer BC ==
--- NOTE | 2019-07-28 13:10 | EDM.PDOC ---
ED HPI GENERAL MEDICAL PROBLEM - General Chief Complaint: Upper Extremity Injury/Pain Stated Complaint: left arm swollen/pain Time Seen by Provider: 07/28/19 13:09 Source of Information: Reports: Patient, Old Records, RN History Limitations: Reports: No Limitations - History of Present Illness INITIAL COMMENTS - FREE TEXT/NARRATIVE: 38 yo male returns to the ER for an ongoing issue with a likely pinched nerve in his neck. Now has L arm puffiness from allowing the arm to hand at his side. Doesn't feel he can return to work yet. Has a neurology appt pending. Did see his primary a few days ago for this. 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) (usual meds) - Related Data Allergies Allergy/AdvReac Type Severity Reaction Status Date / Time gabapentin Allergy Shaking Verified 07/22/19 17:01 NSAIDS (Non-Steroidal Allergy Other Verified 07/22/19 17:01 Anti-Inflamma Penicillins Allergy Itching Verified 07/22/19 17:01 Home Meds: Home Meds OXcarbazepine [Trileptal] 1,200 mg PO BID 01/10/14 [History] Levothyroxine 250 mcg PO ACBREAKFAST 07/24/17 [History] Dextroamphetamine/Amphetamine [Adderall 20 mg Tablet] 1 tab PO BID 05/14/18 [ History] Pregabalin [Lyrica] 150 mg PO BID 01/02/19 [History] Acetaminophen [Tylenol Extra Strength] 1,000 mg PO Q6H PRN 06/18/19 [History] ALPRAZolam [Alprazolam] 1 tab PO Q4H PRN 07/22/19 [History] Past Medical History HEENT History: Reports: Impaired Vision Cardiovascular History: Reports: None Respiratory History: Reports: None Gastrointestinal History: Reports: Cholelithiasis, GERD Musculoskeletal History: Reports: Back Pain, Chronic, Other (See Below) Other Musculoskeletal History: right hip pain with labrum tear Neurological History: Reports: None Psychiatric History: Reports: ADD, ADHD, Anxiety, Bipolar, Panic Attack, Psych Hospitalization(s), PTSD, Suicide Attempt, Suicidal Ideation Other Psychiatric History: bipolar 2 Endocrine/Metabolic History: Reports: Hypothyroidism, Obesity/BMI 30+ Oncologic (Cancer) History: Reports: Thyroid Other Oncologic History: pappulary with focal variant - Infectious Disease History Infectious Disease History: Reports: Chicken Pox - Past Surgical History HEENT Surgical History: Reports: Other (See Below) Other HEENT Surgeries/Procedures: barretts esophagus surgery GI Surgical History: Reports: Appendectomy, Cholecystectomy, Hernia Repair/Other Other GI Surgeries/Procedures: ablations to the esphagus Endocrine Surgical History: Reports: Thyroidectomy, Other (See Below) Other Endocrine Surgeries/Procedures: 9 lymphnodes on left side removed Neurological Surgical History: Reports: Discectomy, Laminectomy Other Neurological Surgeries/Procedures: partial lami/discectomy near L4 Social & Family History - Family History Family Medical History: Noncontributory - Tobacco Use Smoking Status *Q: Current Every Day Smoker Years of Tobacco use: 15 Packs/Tins Daily: 0.5 - Caffeine Use Caffeine Use: Reports: Coffee - Alcohol Use Days Per Week of Alcohol Use: 7 Number of Drinks Per Day: 5 Total Drinks Per Week: 35 - Recreational Drug Use Recreational Drug Use: No Review of Systems - Review of Systems Review Of Systems: See Below Musculoskeletal: Reports: Neck Pain, Other (L arm puffiness from dysuse) Skin: Reports: No Symptoms Neurological: Reports: Numbness (L arm) Psychiatric: Reports: No Symptoms ED EXAM, GENERAL - Physical Exam Exam: See Below Exam Limited By: No Limitations General Appearance: Alert, WD/WN, No Apparent Distress Extremities: Pedal Edema (L arm slightly puffy). No: No Pedal Edema Psychiatric: Normal Affect, Normal Mood Skin Exam: Warm, Dry, Intact, Normal Color, No Rash Course - Vital Signs Last Recorded V/S: Last Vital Signs Temp 36.3 C 07/28/19 13:06 Pulse 104 H 07/28/19 13:06 Resp 18 07/28/19 13:06 BP 139/94 H 07/28/19 13:06 Pulse Ox 95 07/28/19 13:06 Departure - Departure Time of Disposition: 13:14 Disposition: Home, Self-Care 01 Condition: Good Clinical Impression: Dependent edema - Discharge Information *PRESCRIPTION DRUG MONITORING PROGRAM REVIEWED*: No *COPY OF PRESCRIPTION DRUG MONITORING REPORT IN PATIENT MIN: No Referrals: Rhett Anderson MD [Primary Care Provider] - Forms: ED Department Discharge Additional Instructions: Use the sling during the day to help keep your arm up and reduce swelling. Follow up with your provider if you have further needs while awaiting your neurology appt. Continue current meds. Sepsis Event Note - Evaluation Sepsis Screening Result: No Definite Risk - Focused Exam Vital Signs: Vital Signs Temp Pulse Resp BP Pulse Ox 07/28/19 13:06 36.3 C 104 H 18 139/94 H 95 07/28/19 13:03 36.3 C 104 H 18 139/94 H 95 Date Exam was Performed: 07/28/19 Time Exam was Performed: 13:11
== END 2019-07-28 13:27 | disposition home or self-care (01) ==
LOC: JP.ED 12:40
DX: R60.0 Localized edema (principal); K21.9 Gastro-esophageal reflux disease without esophagitis; F41.9 Anxiety disorder, unspecified; F31.9 Bipolar disorder, unspecified; E03.9 Hypothyroidism, unspecified; E66.9 Obesity, unspecified; F17.210 Nicotine dependence, cigarettes, uncomplicated; Z88.0 Allergy status to penicillin; Z88.8 Allergy status to other drugs, medicaments and biological substances; Z79.899 Other long term (current) drug therapy; Z90.49 Acquired absence of other specified parts of digestive tract; Z68.41 Body mass index [BMI] 40.0-44.9, adult
CPT/HCPCS: 99283

== ENCOUNTER 2019-08-04 02:07 | Observation (INO) | payer BC, MEDICAID ==
[2019-08-04] MEDS ORDERED: HYDROmorphone 1 MG/ML Syringe IVPUSH ONE ×3 (03:04→06:07)
[2019-08-04] MEDS ORDERED: Ondansetron 4 MG/2 ML SDV IVPUSH ONE (03:04)
--- NOTE | 2019-08-04 03:13 | EDM.PDOC ---
ED HPI GENERAL MEDICAL PROBLEM - General Chief Complaint: Abdominal Pain Stated Complaint: POSSIBLE DIVERTICULITIS Time Seen by Provider: 08/04/19 03:12 Source of Information: Reports: Patient History Limitations: Reports: No Limitations - History of Present Illness INITIAL COMMENTS - FREE TEXT/NARRATIVE: pt arrived with left lower abdomanal pain He is voiding but the urine is very dark. He had a loose bm this am with no blood in the stool. . He does have a past history of diverticulitis. Onset: Today, Other ( started this afternoon and it has gotten progrssively worse. ) Duration: Hour(s): Location: Reports: Abdomen, Other (left lower abdomanal pain. ) Associated Symptoms: Reports: Loss of Appetite Left Lower Abdomen Pain Score (Numeric/FACES): 8 - Related Data Allergies Allergy/AdvReac Type Severity Reaction Status Date / Time gabapentin Allergy Shaking Verified 08/04/19 02:50 NSAIDS (Non-Steroidal Allergy Other Verified 08/04/19 02:50 Anti-Inflamma Penicillins Allergy Itching Verified 08/04/19 02:50 Home Meds: Home Meds OXcarbazepine [Trileptal] 1,200 mg PO BID 01/10/14 [History] Levothyroxine 250 mcg PO ACBREAKFAST 07/24/17 [History] Dextroamphetamine/Amphetamine [Adderall 20 mg Tablet] 1 tab PO BID 05/14/18 [ History] Pregabalin [Lyrica] 150 mg PO BID 01/02/19 [History] Acetaminophen [Tylenol Extra Strength] 1,000 mg PO Q6H PRN 06/18/19 [History] ALPRAZolam [Alprazolam] 1 tab PO Q4H PRN 07/22/19 [History] Past Medical History HEENT History: Reports: Impaired Vision Cardiovascular History: Reports: None Respiratory History: Reports: None Gastrointestinal History: Reports: Cholelithiasis, Diverticulosis, GERD Musculoskeletal History: Reports: Back Pain, Chronic, Other (See Below) Other Musculoskeletal History: right hip pain with labrum tear Neurological History: Reports: None Psychiatric History: Reports: ADD, ADHD, Anxiety, Bipolar, Panic Attack, Psych Hospitalization(s), PTSD, Suicide Attempt, Suicidal Ideation Other Psychiatric History: bipolar 2 Endocrine/Metabolic History: Reports: Hypothyroidism, Obesity/BMI 30+ Oncologic (Cancer) History: Reports: Thyroid Other Oncologic History: pappulary with focal variant - Infectious Disease History Infectious Disease History: Reports: Chicken Pox - Past Surgical History HEENT Surgical History: Reports: Other (See Below) Other HEENT Surgeries/Procedures: barretts esophagus surgery GI Surgical History: Reports: Appendectomy, Cholecystectomy, Hernia Repair/Other Other GI Surgeries/Procedures: ablations to the esphagus Endocrine Surgical History: Reports: Thyroidectomy, Other (See Below) Other Endocrine Surgeries/Procedures: 9 lymphnodes on left side removed Neurological Surgical History: Reports: Discectomy, Laminectomy Other Neurological Surgeries/Procedures: partial lami/discectomy near L4 Social & Family History - Family History Family Medical History: Noncontributory - Tobacco Use Smoking Status *Q: Current Every Day Smoker Years of Tobacco use: 20 Packs/Tins Daily: 0.5 - Caffeine Use Caffeine Use: Reports: Coffee, Energy Drinks, Soda - Recreational Drug Use Recreational Drug Use: No ED ROS GENERAL - Review of Systems Review Of Systems: See Below Constitutional: Reports: Diaphoresis HEENT: Reports: No Symptoms Respiratory: Reports: No Symptoms Cardiovascular: Reports: No Symptoms Endocrine: Reports: No Symptoms GI/Abdominal: Reports: Abdominal Pain, Diarrhea, Other (pt had one loose stool. ) : Reports: No Symptoms, Other (pt has noted that the urine is very dark. ) Musculoskeletal: Reports: No Symptoms Neurological: Reports: No Symptoms Psychiatric: Reports: Anxiety ED EXAM, GI/ABD - Physical Exam Exam: See Below Text/Narrative:: pt arrived very uncomfortable with left lower abdomanal pain. He has a past history of diverticulitis. Exam Limited By: No Limitations General Appearance: Alert, Anxious, Moderate Distress Ears: Normal TMs Nose: Normal Inspection Throat/Mouth: Normal Inspection Head: Atraumatic Neck: Normal Inspection Respiratory/Chest: No Respiratory Distress Cardiovascular: Regular Rate, Rhythm, Tachycardia GI/Abdominal Exam: Other (pt is tender in the left lower abdoman. ) (Male) Exam: Deferred Rectal (Males) Exam: Deferred Back Exam: Normal Inspection Extremities: Normal Inspection Neurological: Alert, Oriented, Normal Cognition Psychiatric: Anxious Course - Vital Signs Last Recorded V/S: Last Vital Signs Temp 36.9 C 08/04/19 02:10 Pulse 95 08/04/19 04:45 Resp 16 08/04/19 04:45 BP 117/71 08/04/19 04:45 Pulse Ox 93 L 08/04/19 04:45 - Orders/Labs/Meds Orders: Active Orders 24 hr Category Date Time Status CULTURE URINE [RM] Stat Lab 08/04/19 05:13 Received Sodium Chloride 0.9% [Normal Saline] 1,000 ml Med 08/04/19 03:15 Active IV ASDIRECTED Sodium Chloride 0.9% [Normal Saline] 1,000 ml Med 08/04/19 03:45 Active IV ASDIRECTED Medication Orders Sodium Chloride (Normal Saline) 1,000 mls @ 999 mls/hr IV ASDIRECTED YUSUF Last Admin: 08/04/19 03:17 Dose: 999 mls/hr Sodium Chloride (Normal Saline) 1,000 mls @ 999 mls/hr IV ASDIRECTED YUSUF Last Admin: 08/04/19 04:19 Dose: 999 mls/hr Labs: Laboratory Tests 08/04/19 08/04/19 08/04/19 Range/Units 03:05 03:05 03:10 WBC 11.7 H (4.5-11.0) K/uL RBC 5.18 (4.30-5.90) M/uL Hgb 16.6 H (12.0-15.0) g/dL Hct 47.6 (40.0-54.0) % MCV 92 (80-98) fL MCH 32 H (27-31) pg MCHC 35 (32-36) % Plt Count 282 (150-400) K/uL Neut % (Auto) 67 H (36-66) % Lymph % (Auto) 21 L (24-44) % Power % (Auto) 9 H (2-6) % Eos % (Auto) 3 (2-4) % Baso % (Auto) 0 (0-1) % Sodium 142 (140-148) mmol/L Potassium 4.2 (3.6-5.2) mmol/L Chloride 104 (100-108) mmol/L Carbon Dioxide 27 (21-32) mmol/L Anion Gap 10.7 (5.0-14.0) mmol/L BUN 21 H D (7-18) mg/dL Creatinine 1.1 (0.8-1.3) mg/dL Est Cr Clr Drug Dosing 94.94 mL/min Estimated GFR (MDRD) > 60 (>60) Glucose 115 H (74-106) mg/dL Calcium 9.0 D (8.5-10.1) mg/dL Total Bilirubin 0.2 D (0.2-1.0) mg/dL AST 22 (15-37) U/L ALT 64 (12-78) U/L Alkaline Phosphatase 83 (46-116) U/L C-Reactive Protein 0.48 H (0.0-0.3) mg/dL Total Protein 7.3 (6.4-8.2) g/dL Albumin 3.6 (3.4-5.0) g/dL Globulin 3.7 H (2.3-3.5) g/dL Albumin/Globulin Ratio 1.0 L (1.2-2.2) Urine Color (YELLOW) Urine Appearance (CLEAR) Urine pH (5.0-8.0) Ur Specific [place] (1.008-1.030) Urine Protein (NEGATIVE) mg/dL Urine Glucose (UA) (NEGATIVE) mg/dL Urine Ketones (NEGATIVE) mg/dL Urine Occult Blood (NEGATIVE) Urine Nitrite (NEGATIVE) Urine Bilirubin (NEGATIVE) Urine Urobilinogen (0.2-1.0) EU/dL Ur Leukocyte Esterase (NEGATIVE) Urine RBC (0-5) Urine WBC (0-5) Ur Epithelial Cells Amorphous Sediment Urine Bacteria Urine Mucus 08/04/19 Range/Units 04:00 WBC (4.5-11.0) K/uL RBC (4.30-5.90) M/uL Hgb (12.0-15.0) g/dL Hct (40.0-54.0) % MCV (80-98) fL MCH (27-31) pg MCHC (32-36) % Plt Count (150-400) K/uL Neut % (Auto) (36-66) % Lymph % (Auto) (24-44) % Power % (Auto) (2-6) % Eos % (Auto) (2-4) % Baso % (Auto) (0-1) % Sodium (140-148) mmol/L Potassium (3.6-5.2) mmol/L Chloride (100-108) mmol/L Carbon Dioxide (21-32) mmol/L Anion Gap (5.0-14.0) mmol/L BUN (7-18) mg/dL Creatinine (0.8-1.3) mg/dL Est Cr Clr Drug Dosing mL/min Estimated GFR (MDRD) (>60) Glucose (74-106) mg/dL Calcium (8.5-10.1) mg/dL Total Bilirubin (0.2-1.0) mg/dL AST (15-37) U/L ALT (12-78) U/L Alkaline Phosphatase (46-116) U/L C-Reactive Protein (0.0-0.3) mg/dL Total Protein (6.4-8.2) g/dL Albumin (3.4-5.0) g/dL Globulin (2.3-3.5) g/dL Albumin/Globulin Ratio (1.2-2.2) Urine Color Yellow (YELLOW) Urine Appearance Clear (CLEAR) Urine pH 5.0 (5.0-8.0) Ur Specific [place] >= 1.030 (1.008-1.030) Urine Protein Trace H (NEGATIVE) mg/dL Urine Glucose (UA) Negative (NEGATIVE) mg/dL Urine Ketones Negative (NEGATIVE) mg/dL Urine Occult Blood Trace-intact H (NEGATIVE) Urine Nitrite Negative (NEGATIVE) Urine Bilirubin Small H (NEGATIVE) Urine Urobilinogen 0.2 (0.2-1.0) EU/dL Ur Leukocyte Esterase Negative (NEGATIVE) Urine RBC 5-10 H (0-5) Urine WBC 0-5 (0-5) Ur Epithelial Cells Few Amorphous Sediment Not seen Urine Bacteria Moderate Urine Mucus Few Meds: Medications Generic Name Dose Route Start Last Admin Trade Name Freq PRN Reason Stop Dose Admin Sodium Chloride 1,000 mls @ 999 mls/hr 08/04/19 03:15 08/04/19 03:17 Normal Saline IV 999 mls/hr ASDIRECTED YUSUF Administration Sodium Chloride 1,000 mls @ 999 mls/hr 08/04/19 03:45 08/04/19 04:19 Normal Saline IV 999 mls/hr ASDIRECTED YUSUF Administration Discontinued Medications Generic Name Dose Route Start Last Admin Trade Name Freq PRN Reason Stop Dose Admin Hydromorphone HCl 1 mg 08/04/19 03:04 08/04/19 03:19 Dilaudid IVPUSH 08/04/19 03:05 1 mg ONETIME ONE Administration Hydromorphone HCl 0.5 mg 08/04/19 03:50 08/04/19 04:03 Dilaudid IVPUSH 08/04/19 03:51 0.5 mg ONETIME ONE Administration Hydromorphone HCl 1 mg 08/04/19 04:54 08/04/19 05:11 Dilaudid IVPUSH 08/04/19 04:55 1 mg ONETIME ONE Administration Sodium Chloride 85 mls @ 4 mls/sec 08/04/19 04:15 08/04/19 04:37 Normal Saline IV 08/04/19 04:16 4 mls/sec ASDIRECTED STA Administration Iopamidol 150 ml 08/04/19 04:15 08/04/19 04:36 Isovue-300 (61%) IV 08/04/19 04:16 150 ml . DIRECTED STA Administration Ondansetron HCl 4 mg 08/04/19 03:04 08/04/19 03:18 Zofran IVPUSH 08/04/19 03:05 4 mg ONETIME ONE Administration - Re-Assessments/Exams Free Text/Narrative Re-Assessment/Exam: 08/04/19 05:29 cat scan reveals a sigmoid diverticulitis. He has required a fair amount for pain. This is his third episode of diverticulitis in the past 4-5 mothes. His wbc is mildly elevated. Departure - Departure Time of Disposition: 05:31 Disposition: Admitted As Inpatient 67 Condition: Fair Clinical Impression: Sigmoid diverticulitis, Dehydration - Discharge Information Referrals: PCP,None [Primary Care Provider] - Forms: ED Department Discharge Care Plan Goals: [facility] to [facility] Sepsis Event Note - Evaluation Sepsis Screening Result: No Definite Risk - Focused Exam Vital Signs: Vital Signs Temp Pulse Resp BP Pulse Ox 08/04/19 04:45 95 16 117/71 93 L 08/04/19 04:05 105 H 16 115/57 L 95 08/04/19 02:10 36.9 C 116 H 18 137/76 95 Date Exam was Performed: 08/04/19 Time Exam was Performed: 05:29 - My Orders Last 24 Hours: My Active Orders 08/04/19 03:15 Sodium Chloride 0.9% [Normal Saline] 1,000 ml IV ASDIRECTED 08/04/19 03:45 Sodium Chloride 0.9% [Normal Saline] 1,000 ml IV ASDIRECTED 08/04/19 05:13 CULTURE URINE [RM] Stat - Assessment/Plan Last 24 Hours: My Active Orders 08/04/19 03:15 Sodium Chloride 0.9% [Normal Saline] 1,000 ml IV ASDIRECTED 08/04/19 03:45 Sodium Chloride 0.9% [Normal Saline] 1,000 ml IV ASDIRECTED 08/04/19 05:13 CULTURE URINE [RM] Stat
[2019-08-04] MEDS ORDERED: Sodium Chloride 0.9% 1,000 ML IV SCH ×3 (03:15→07:57)
[2019-08-04] MEDS ORDERED: HYDROmorphone 0.5 MG/0.5 ML Syringe IVPUSH ONE (03:50)
[2019-08-04] MEDS ORDERED: Iopamidol 612 MG/ML 150 ML Bottle IV STA (04:15)
--- NOTE | 2019-08-04 05:22 | CRLCT ---
INDICATION: Left lower quadrant pain TECHNIQUE: CT abdomen and pelvis acquired with 150 cc Isovue 300 IV contrast. COMPARISON: June 06, 2019 FINDINGS: Lower chest: Unremarkable. Liver: Simple cyst in the liver. Spleen: Unremarkable. Pancreas: Unremarkable. Gallbladder and bile ducts: S/p cholecystectomy. Adrenal glands: Unremarkable. Kidneys: Unremarkable. GI tract: Colonic diverticulosis. Mild fat stranding and wall thickening of the proximal sigmoid colon no extraluminal air or abscess. Appendix is surgically absent. Vascular structures: Unremarkable. Lymph nodes: Unremarkable. Miscellaneous: Unremarkable. No free air or significant free fluid. Pelvic Organs: Unremarkable. Bones: Unremarkable for age. IMPRESSION: Acute sigmoid diverticulitis. No extraluminal air or abscess. Status post cholecystectomy and appendectomy. Please note that all CT scans at this facility use dose modulation, iterative reconstruction, and/or weight-based dosing when appropriate to reduce radiation dose to as low as reasonably achievable. Dictated by Marisel Chaidez MD @ Aug 04 2019 5:16AM Signed by Dr. Marisel Chaidez @ Aug 04 2019 5:20AM
[2019-08-04] MEDS ORDERED: metroNIDAZOLE/Normal Saline 500 MG in Premix Bag 1 BAG IV ONE (05:46)
[2019-08-04] MEDS ORDERED: Levofloxacin/Dextrose 5%-Water 500 MG in Premix Bag 1 BAG IV ONE (05:46)
--- NOTE | 2019-08-04 06:30 | PCM.HP.2 ---
H&P History of Present Illness - General Date of Service: 08/04/19 Admit Problem/Dx: Admission Diagnosis/Problem Admission Diagnosis/Problem Diverticulitis Source of Information: Patient, Provider, RN History Limitations: Reports: No Limitations - History of Present Illness Initial Comments - Free Text/Narative: This is a 38 year old male presents to ER for evaluation of abdominal pain. He reports vomiting - dry heaves, nausea, feels hungry. Onset of Symptoms: Reports: Today Duration of Symptoms: Reports: Day(s): (24 hours) Location: Reports: Abdomen Quality: Reports: Ache, Sharp, Stabbing Severity: Severe Improves with: Reports: None Worsens with: Reports: Eating Context: Reports: Other (history of diverticulitis) Associated Symptoms: Reports: Fever/Chills, Loss of Appetite, Nausea/Vomiting Left Lower Abdomen Pain Score (Numeric/FACES): 8 - Related Data Allergies/Adverse Reactions: Allergies Allergy/AdvReac Type Severity Reaction Status Date / Time gabapentin Allergy Shaking Verified 08/04/19 02:50 NSAIDS (Non-Steroidal Allergy Other Verified 08/04/19 02:50 Anti-Inflamma Penicillins Allergy Itching Verified 08/04/19 02:50 Home Medications: Home Meds OXcarbazepine [Trileptal] 1,200 mg PO BID 01/10/14 [History] Levothyroxine 250 mcg PO ACBREAKFAST 07/24/17 [History] Dextroamphetamine/Amphetamine [Adderall 20 mg Tablet] 1 tab PO BID 05/14/18 [ History] Pregabalin [Lyrica] 150 mg PO BID PRN 01/02/19 [History] Acetaminophen [Tylenol Extra Strength] 1,000 mg PO Q6H PRN 06/18/19 [History] ALPRAZolam [Alprazolam] 1 tab PO Q4H PRN 07/22/19 [History] Past Medical History HEENT History: Reports: Impaired Vision Cardiovascular History: Reports: None Respiratory History: Reports: None Gastrointestinal History: Reports: Cholelithiasis, Diverticulosis, GERD Musculoskeletal History: Reports: Back Pain, Chronic, Other (See Below) Other Musculoskeletal History: right hip pain with labrum tear Neurological History: Reports: None Psychiatric History: Reports: ADD, ADHD, Anxiety, Bipolar, Panic Attack, Psych Hospitalization(s), PTSD, Suicide Attempt, Suicidal Ideation Other Psychiatric History: bipolar 2 Endocrine/Metabolic History: Reports: Hypothyroidism, Obesity/BMI 30+ Oncologic (Cancer) History: Reports: Thyroid Other Oncologic History: pappulary with focal variant - Infectious Disease History Infectious Disease History: Reports: Chicken Pox - Past Surgical History HEENT Surgical History: Reports: Other (See Below) Other HEENT Surgeries/Procedures: barretts esophagus surgery GI Surgical History: Reports: Appendectomy, Cholecystectomy, Hernia Repair/Other Other GI Surgeries/Procedures: ablations to the esphagus Endocrine Surgical History: Reports: Thyroidectomy, Other (See Below) Other Endocrine Surgeries/Procedures: 9 lymphnodes on left side removed Neurological Surgical History: Reports: Discectomy, Laminectomy Other Neurological Surgeries/Procedures: partial lami/discectomy near L4 Social & Family History - Family History Family Medical History: Noncontributory - Tobacco Use Smoking Status *Q: Current Every Day Smoker Years of Tobacco use: 20 Packs/Tins Daily: 0.5 - Caffeine Use Caffeine Use: Reports: Coffee, Energy Drinks, Soda - Recreational Drug Use Recreational Drug Use: No - Living Situation & Occupation Living situation: Reports: with Significant Other Occupation: Employed (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 Amna, 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[employer]) H&P Review of Systems - Review of Systems: Review Of Systems: See Below General: Reports: Fever, Chills, Decreased Appetite HEENT: Reports: No Symptoms Pulmonary: Reports: No Symptoms Cardiovascular: Reports: No Symptoms Gastrointestinal: Reports: Abdominal Pain, Nausea Genitourinary: Reports: Urgency Musculoskeletal: Reports: Other (chronic back and shoulder pain) Skin: Reports: No Symptoms Psychiatric: Reports: No Symptoms Neurological: Reports: No Symptoms Hematologic/Lymphatic: Reports: No Symptoms Immunologic: Reports: No Symptoms Exam - Exam Exam: See Below - Vital Signs Vital Signs: Last Vital Signs Temp 36.9 C 08/04/19 02:10 Pulse 90 08/04/19 05:32 Resp 18 08/04/19 05:32 BP 110/70 08/04/19 05:32 Pulse Ox 93 L 08/04/19 05:32 Weight: 138.799 kg - Exam General: Alert, Oriented, Cooperative, Mild Distress (has had multi doses of Dilaudid- comfortable) HEENT: PERRLA, Hearing Intact, Mucosa Moist & [place], Nares Patent, Normal Nasal Septum, Posterior Pharynx Clear, Conjunctiva Clear, EOMI, EACs Clear, TMs Clear Neck: Supple, Trachea Midline, 2 Lungs: Clear to Auscultation, Normal Respiratory Effort Cardiovascular: Regular Rate, Regular Rhythm GI/Abdominal Exam: Normal Bowel Sounds, Soft, Tender (left side) (Male) Exam: Deferred Rectal (Males) Exam: Deferred Back Exam: Normal Inspection, Full Range of Motion Extremities: Normal Inspection, Normal Range of Motion, Non-Tender, No Pedal Edema, Normal Capillary Refill Skin: Warm, Dry, Intact Neurological: Reflexes Equal Bilateral, Strength Equal Bilateral Neuro Extensive - Mental Status: Alert, Oriented x3, Normal Mood/Affect, Normal Cognition Psychiatric: Alert, Normal Affect, Normal Mood - Patient Data Lab Results Last 24 hrs: Laboratory Results - last 24 hr 08/04/19 08/04/19 08/04/19 Range/Units 03:05 03:05 03:10 WBC 11.7 H (4.5-11.0) K/uL RBC 5.18 (4.30-5.90) M/uL Hgb 16.6 H (12.0-15.0) g/dL Hct 47.6 (40.0-54.0) % MCV 92 (80-98) fL MCH 32 H (27-31) pg MCHC 35 (32-36) % Plt Count 282 (150-400) K/uL Neut % (Auto) 67 H (36-66) % Lymph % (Auto) 21 L (24-44) % [place] % (Auto) 9 H (2-6) % Eos % (Auto) 3 (2-4) % Baso % (Auto) 0 (0-1) % Sodium 142 (140-148) mmol/L Potassium 4.2 (3.6-5.2) mmol/L Chloride 104 (100-108) mmol/L Carbon Dioxide 27 (21-32) mmol/L Anion Gap 10.7 (5.0-14.0) mmol/L BUN 21 H D (7-18) mg/dL Creatinine 1.1 (0.8-1.3) mg/dL Est Cr Clr Drug Dosing 94.94 mL/min Estimated GFR (MDRD) > 60 (>60) Glucose 115 H (74-106) mg/dL Calcium 9.0 D (8.5-10.1) mg/dL Total Bilirubin 0.2 D (0.2-1.0) mg/dL AST 22 (15-37) U/L ALT 64 (12-78) U/L Alkaline Phosphatase 83 (46-116) U/L C-Reactive Protein 0.48 H (0.0-0.3) mg/dL Total Protein 7.3 (6.4-8.2) g/dL Albumin 3.6 (3.4-5.0) g/dL Globulin 3.7 H (2.3-3.5) g/dL Albumin/Globulin Ratio 1.0 L (1.2-2.2) Urine Color (YELLOW) Urine Appearance (CLEAR) Urine pH (5.0-8.0) Ur Specific [employer] [place] (1.008-1.030) Urine Protein (NEGATIVE) mg/dL Urine Glucose (UA) (NEGATIVE) mg/dL Urine Ketones (NEGATIVE) mg/dL Urine Occult Blood (NEGATIVE) Urine Nitrite (NEGATIVE) Urine Bilirubin (NEGATIVE) Urine Urobilinogen (0.2-1.0) EU/dL Ur Leukocyte Esterase (NEGATIVE) Urine RBC (0-5) Urine WBC (0-5) Ur Epithelial Cells Amorphous Sediment Urine Bacteria Urine Mucus 08/04/19 Range/Units 04:00 WBC (4.5-11.0) K/uL RBC (4.30-5.90) M/uL Hgb (12.0-15.0) g/dL Hct (40.0-54.0) % MCV (80-98) fL MCH (27-31) pg MCHC (32-36) % Plt Count (150-400) K/uL Neut % (Auto) (36-66) % Lymph % (Auto) (24-44) % [place] % (Auto) (2-6) % Eos % (Auto) (2-4) % Baso % (Auto) (0-1) % Sodium (140-148) mmol/L Potassium (3.6-5.2) mmol/L Chloride (100-108) mmol/L Carbon Dioxide (21-32) mmol/L Anion Gap (5.0-14.0) mmol/L BUN (7-18) mg/dL Creatinine (0.8-1.3) mg/dL Est Cr Clr Drug Dosing mL/min Estimated GFR (MDRD) (>60) Glucose (74-106) mg/dL Calcium (8.5-10.1) mg/dL Total Bilirubin (0.2-1.0) mg/dL AST (15-37) U/L ALT (12-78) U/L Alkaline Phosphatase (46-116) U/L C-Reactive Protein (0.0-0.3) mg/dL Total Protein (6.4-8.2) g/dL Albumin (3.4-5.0) g/dL Globulin (2.3-3.5) g/dL Albumin/Globulin Ratio (1.2-2.2) Urine Color Yellow (YELLOW) Urine Appearance Clear (CLEAR) Urine pH 5.0 (5.0-8.0) Ur Specific [employer] [place] >= 1.030 (1.008-1.030) Urine Protein Trace H (NEGATIVE) mg/dL Urine Glucose (UA) Negative (NEGATIVE) mg/dL Urine Ketones Negative (NEGATIVE) mg/dL Urine Occult Blood Trace-intact H (NEGATIVE) Urine Nitrite Negative (NEGATIVE) Urine Bilirubin Small H (NEGATIVE) Urine Urobilinogen 0.2 (0.2-1.0) EU/dL Ur Leukocyte Esterase Negative (NEGATIVE) Urine RBC 5-10 H (0-5) Urine WBC 0-5 (0-5) Ur Epithelial Cells Few Amorphous Sediment Not seen Urine Bacteria Moderate Urine Mucus Few Result Diagrams: 08/04/19 03:10 08/04/19 03:05 Sepsis Event Note - Evaluation Sepsis Screening Result: No Definite Risk - Focused Exam Vital Signs: Vital Signs Temp Pulse Resp BP Pulse Ox 08/04/19 05:32 90 18 110/70 93 L 08/04/19 04:45 95 16 117/71 93 L 08/04/19 04:05 105 H 16 115/57 L 95 08/04/19 02:10 36.9 C 116 H 18 137/76 95 Date Exam was Performed: 08/04/19 Time Exam was Performed: 07:10 - Problem List (1) Sigmoid diverticulitis SNOMED Code(s): 470465477 ICD Code: K57.32 - DVTRCLI OF LG INT W/O PERFORATION OR ABSCESS W/O BLEEDING Status: Acute Priority: High Current Visit: Yes (2) Bipolar disorder SNOMED Code(s): 92565231 ICD Code: F31.9 - BIPOLAR DISORDER, UNSPECIFIED Status: Chronic Priority : Low Current Visit: Yes Qualifiers: Active/Remission status: remission status unspecified Qualified Code(s): F31.9 - Bipolar disorder, unspecified (3) Nicotine dependence SNOMED Code(s): 73277183 ICD Code: F17.200 - NICOTINE DEPENDENCE, UNSPECIFIED, UNCOMPLICATED Status : Acute Priority: High Current Visit: Yes Qualifiers: Nicotine product type: cigarettes Substance use status: in withdrawal Qualified Code(s): F17.213 - Nicotine dependence, cigarettes, with withdrawal Problem List Initiated/Reviewed/Updated: Yes Orders Last 24hrs: Active Orders 24 hr Category Date Time Status Patient Status Manage Transfer [TRANSFER] Routine ADT 08/04/19 06:09 Active CULTURE URINE [RM] Stat Lab 08/04/19 05:13 Received Levofloxacin/Dextrose 5%-Water [Levaquin in D5W 500 MG/ Med 08/04/19 05:46 Active 100 ML] 500 mg Premix Bag 1 bag IV ONETIME Sodium Chloride 0.9% [Normal Saline] 1,000 ml Med 08/04/19 03:15 Active IV ASDIRECTED Sodium Chloride 0.9% [Normal Saline] 1,000 ml Med 08/04/19 03:45 Active IV ASDIRECTED metroNIDAZOLE/Normal Saline [Flagyl 500 MG in NS 100 ML Med 08/04/19 05:46 Active ] 500 mg Premix Bag 1 bag IV ONETIME Resuscitation Status Routine Resus Stat 08/04/19 06:11 Ordered Medication Orders Sodium Chloride (Normal Saline) 1,000 mls @ 999 mls/hr IV ASDIRECTED [facility] Last Admin: 08/04/19 03:17 Dose: 999 mls/hr Sodium Chloride (Normal Saline) 1,000 mls @ 999 mls/hr IV ASDIRECTED [facility] Last Admin: 08/04/19 04:19 Dose: 999 mls/hr Levofloxacin/Dextrose 500 mg/ (Premix) 100 mls @ 100 mls/hr IV ONETIME ONE Stop: 08/04/19 06:45 Metronidazole 500 mg/ Premix 100 mls @ 100 mls/hr IV ONETIME ONE Stop: 08/04/19 06:45 Last Admin: 08/04/19 06:14 Dose: 100 mls/hr Assessment/Plan Comment:: ASSESSMENT AND PLAN OF CARE: ACUTE SIGMOID DIVERTICULITIS pt arrived with left lower abdominal pain He is voiding but the urine is very dark. He had a loose bowel movement this am with no blood in the stool. He does have a past history of diverticulitis. Symptoms started this afternoon and it has gotten progressively worse. Abdominal pain left lower abdomen with nausea vomiting. ER work-up labs normal, CT scan of abdomen -pelvis shows colonic diverticulosis , no extraluminal air or abscess, acute sigmoid diverticulitis. WBC 11.7 In ER given IV Flagyl, IV Dilaudid for pain control, IV Zofran for nausea and vomiting, IV fluids. will admit observation status for further care and treatment. ACUTE SIGMOID DIVERTICULITIS -Clear liquid diet -IV Cipro 400mg every 8 hours -IV Flagyl 500mg every 8 hours -IV fluids for hydration Normal Saline 125ml/hr -Medication for pain and nausea -Protonix 40 mg IV every 12 hours Bi-polar, General anxiety order -Outpatient medications ordered MAINTENANCE ISSUES -DVT Prophylaxis SCD -GI prophylaxis- Protonix as above -Anderson catheter not indicated -Nutrition Clear Liquids -Nicotine dependence 21 mg patch daily CODE STATUS FULL ADMISSION This patient will be admitted to observation status, expect no more than one night hospital stay for evaluation and management of problems outline above. DISPOSITION anticipate discharge to home after the hospital stay PRIMARY CARE PROVIDER Dr. VIRGENIST Dr. Gonzalez - Mortality Measure Prognosis:: Good
[2019-08-04] MEDS ORDERED: LEVOTHYROXINE PO SCH (07:57)
[2019-08-04] MEDS ORDERED: oxyCODONE 5 MG Tab PO PRN (07:57)
[2019-08-04] MEDS ORDERED: Acetaminophen 325 MG Tab PO PRN (07:57)
[2019-08-04] MEDS ORDERED: Ondansetron 4 MG/2 ML SDV IV PRN (07:57)
[2019-08-04] MEDS ORDERED: Docusate Sodium 100 MG Cap PO PRN (07:57)
[2019-08-04] MEDS ORDERED: Albuterol 0.083% 2.5 MG/3 ML Neb Soln NEB PRN (07:57)
[2019-08-04] MEDS ORDERED: Pregabalin 75 MG Cap PO PRN (07:57)
[2019-08-04] MEDS ORDERED: Ciprofloxacin in D5W 400 MG in Premix Bag 1 BAG IV SCH ×2 (07:57)
[2019-08-04] MEDS ORDERED: Ondansetron 4 MG Tab.DIS PO PRN (07:57)
[2019-08-04] MEDS: Amphetamine/Dextroamphetamine Salts 10 MG Tab PO SCH ×2 (08:49→13:23)
[2019-08-04] MEDS: HYDROmorphone 1 MG/ML Syringe IVPUSH PRN (08:50)
[2019-08-04] MEDS: OXcarbazepine 300 MG Tab PO SCH ×3 (09:11→20:24)
[2019-08-04] MEDS: Ciprofloxacin in D5W 400 MG in Premix Bag 1 BAG IV SCH ×4 (09:12→20:21)
[2019-08-04] MEDS: Pantoprazole 40 MG Vial IVPUSH SCH ×2 (09:13→20:24)
[2019-08-04] MEDS: Nicotine 21 MG/24 Hr Patch TRDERM SCH (09:13)
[2019-08-04] MEDS: metroNIDAZOLE/Normal Saline 500 MG in Premix Bag 1 BAG IV SCH ×2 (13:18→21:47)
[2019-08-04] MEDS ORDERED: methylPREDNISolone Sodium Succinate 125 MG/2 ML SDV IVPUSH ONE (14:00)
[2019-08-04] MEDS: oxyCODONE 5 MG Tab PO PRN ×3 (14:13→21:51)
[2019-08-04] MEDS: ALPRAZolam 0.5 MG Tab PO PRN (19:27)
[2019-08-05] MEDS: HYDROmorphone 1 MG/ML Syringe IVPUSH PRN ×2 (01:05→07:33)
[2019-08-05] MEDS: metroNIDAZOLE/Normal Saline 500 MG in Premix Bag 1 BAG IV SCH ×2 (05:31→14:31)
[2019-08-05] MEDS: Amphetamine/Dextroamphetamine Salts 10 MG Tab PO SCH ×2 (09:13→14:31)
[2019-08-05] MEDS: Ciprofloxacin in D5W 400 MG in Premix Bag 1 BAG IV SCH ×2 (09:14)
[2019-08-05] MEDS: Nicotine 21 MG/24 Hr Patch TRDERM SCH (09:14)
[2019-08-05] MEDS: Pantoprazole 40 MG Vial IVPUSH SCH (09:15)
[2019-08-05] MEDS: oxyCODONE 5 MG Tab PO PRN ×2 (09:15→14:18)
[2019-08-05] MEDS: OXcarbazepine 300 MG Tab PO SCH (09:16)
[2019-08-05] MEDS ORDERED: Lactobacillus Rhamnosus GG (Probiotic) Cap PO SCH (10:30)
[2019-08-05] MEDS: ALPRAZolam 0.5 MG Tab PO PRN (13:11)
--- NOTE | 2019-08-05 13:22 | PCM.DCSUM1 ---
Discharge Summary - Hospital Course Brief History: 38-year-old with multiple chronic medical problems and recent diverticulitis who presented with left lower quadrant abdominal pain. He was admitted for management of recurrent diverticulitis. Diagnosis: Stroke: No - Discharge Data Discharge Date: 08/05/19 Discharge Disposition: Home, Self-Care 01 Condition: Good - Referral to Home Health Primary Care Physician: PCP None - Discharge Diagnosis/Problem(s) (1) Sigmoid diverticulitis SNOMED Code(s): 058477650 ICD Code: K57.32 - DVTRCLI OF LG INT W/O PERFORATION OR ABSCESS W/O BLEEDING Status: Acute Priority: High Current Visit: Yes - Patient Summary/Data Hospital Course: Elmo presented to the emergency room with left lower quadrant abdominal pain and some nausea. CT scan in the emergency room suggested acute sigmoid diverticulitis without perforation or abscess. He was recently treated for diverticulitis but had improved. He was started on ciprofloxacin and metronidazole and admitted to the hospital mostly because of the significant pain that he was experiencing. Over the next 24 hours he made steady progress towards improvement. His pain has improved significantly and he is able to control it using only pills at this time. Initially he was managed with clear liquids but has tolerated a full diet without any significant increase in his pain or nausea. He has not had any fevers or nausea. I believe he is safe for outpatient management. He will complete a total of 10 days of antibiotic therapy. He did receive a prescription for a few days worth of pain pills as he continues to improve. I encouraged him to discuss the possibility of a colonoscopy if he can have a 4 to 6-week period without infection. This would be useful to look for underlying lesion that could be causing his recurrent diverticulitis. He is stable and safe for discharge at this time. - Patient Instructions Diet: Regular Diet as Tolerated Activity: As Tolerated Showering/Bathing: May Shower Notify Provider of: Fever, Increased Pain, Nausea and/or Vomiting Other/Special Instructions: 1. Take ciprofloxacin 500 mg twice daily for 17 more doses. Your first dose is due tonight. Take Metronidazole (Flagyl) 500 mg three times daily for 26 more doses. Your first dose is due this afternoon. 2. Consider colonoscopy after 4-6 weeks if you remain infection free to further evaluate the lining of the colon. Take to your primary care about this. - Discharge Plan *PRESCRIPTION DRUG MONITORING PROGRAM REVIEWED*: Not Applicable *COPY OF PRESCRIPTION DRUG MONITORING REPORT IN PATIENT MIN: Not Applicable Prescriptions/Med Rec: Ciprofloxacin [Ciprofloxacin HCl] 500 mg PO BID #17 tab metroNIDAZOLE [Metronidazole] 500 mg PO TID #26 tablet oxyCODONE HCl [Oxycodone HCl] 10 mg PO Q4H PRN #15 tablet PRN Reason: Pain Home Medications: Home Meds OXcarbazepine [Trileptal] 1,200 mg PO BID 01/10/14 [History] Levothyroxine 250 mcg PO ACBREAKFAST 07/24/17 [History] Dextroamphetamine/Amphetamine [Adderall 20 mg Tablet] 1 tab PO BID 05/14/18 [ History] Pregabalin [Lyrica] 150 mg PO BID PRN 01/02/19 [History] Acetaminophen [Tylenol Extra Strength] 1,000 mg PO Q6H PRN 06/18/19 [History] ALPRAZolam [Alprazolam] 1 tab PO Q4H PRN 07/22/19 [History] Ciprofloxacin [Ciprofloxacin HCl] 500 mg PO BID #17 tab 08/05/19 [Rx] metroNIDAZOLE [Metronidazole] 500 mg PO TID #26 tablet 08/05/19 [Rx] oxyCODONE HCl [Oxycodone HCl] 10 mg PO Q4H PRN #15 tablet 08/05/19 [Rx] Oxygen Therapy Mode: Room Air Patient Handouts: Diverticulitis Referrals: Rhett Anderson MD [Physician] - 08/13/19 11:00 am (Please arrive 15 minutes early to register for your appointment.) - Discharge Summary/Plan Comment DC Time >30 min.: No - Patient Data Vitals - Most Recent: Last Vital Signs Temp 36.3 C 08/05/19 13:09 Pulse 83 08/05/19 13:09 Resp 16 08/05/19 13:09 BP 141/64 H 08/05/19 13:09 Pulse Ox 98 08/05/19 13:09 Weight - Most Recent: 138.799 kg I&O - Last 24 hours: Intake & Output 08/04/19 08/05/19 08/05/19 22:59 06:59 14:59 Intake Total 1842 1410 1000 Balance 1842 1410 1000 KIERRA Results - Last 24 hrs: Microbiology 08/04/19 05:13 Urine Culture - Preliminary Urine, Bladder NO GROWTH AFTER 1 DAY Med Orders - Current: Current Medications Acetaminophen (Tylenol) 650 mg PO Q4H PRN PRN Reason: Pain (Mild 1-3)/fever Last Admin: 08/04/19 14:13 Dose: 650 mg Albuterol (Proventil Neb Soln) 2.5 mg NEB Q4H PRN PRN Reason: Shortness Of Breath/wheezing Alprazolam (Xanax) 1 mg PO Q4H PRN PRN Reason: Anxiety Last Admin: 08/05/19 13:11 Dose: 1 mg Amphetamine/Dextroamphetamine (Adderall) 20 mg PO BID@0800,1400 [facility] Last Admin: 08/05/19 09:13 Dose: 20 mg Docusate Sodium (Colace) 100 mg PO BID PRN PRN Reason: Constipation Metronidazole 500 mg/ Premix 100 mls @ 100 mls/hr IV Q8H [facility] Last Admin: 08/05/19 05:31 Dose: 100 mls/hr Ciprofloxacin/Dextrose 400 mg/ (Premix) 200 mls @ 200 mls/hr IV Q12H [facility] Last Admin: 08/05/19 09:14 Dose: 200 mls/hr Lactobacillus Rhamnosus (Culturelle) 1 cap PO BID [facility] Last Admin: 08/05/19 13:11 Dose: 1 cap Levothyroxine Sodium 200 mcg/ (Levothyroxine Sodium 50 mcg) 250 mcg PO DAILY@ 0730 [facility] Last Admin: 08/05/19 07:40 Dose: 250 mcg Nicotine (Habitrol) 21 mg TRDERM DAILY [facility] Last Admin: 08/05/19 09:14 Dose: 21 mg Ondansetron HCl (Zofran Odt) 4 mg PO Q6H PRN PRN Reason: Nausea able to take PO Ondansetron HCl (Zofran) 4 mg IV Q4H PRN PRN Reason: Nausea/Vomiting Oxcarbazepine (Trileptal) 1,200 mg PO BID [facility] Last Admin: 08/05/19 09:16 Dose: 1,200 mg Oxycodone HCl (Oxycodone) 10 mg PO Q3H PRN PRN Reason: Pain (moderate 4-6) Last Admin: 08/05/19 09:15 Dose: 10 mg Pantoprazole Sodium (Protonix Iv) 40 mg IVPUSH Q12H [facility] Last Admin: 08/05/19 09:15 Dose: 40 mg Pregabalin (Lyrica) 150 mg PO BID PRN PRN Reason: Pain Discontinued Medications Hydromorphone HCl (Dilaudid) 1 mg IVPUSH ONETIME ONE Stop: 08/04/19 03:05 Last Admin: 08/04/19 03:19 Dose: 1 mg Hydromorphone HCl (Dilaudid) 0.5 mg IVPUSH ONETIME ONE Stop: 08/04/19 03:51 Last Admin: 08/04/19 04:03 Dose: 0.5 mg Hydromorphone HCl (Dilaudid) 1 mg IVPUSH ONETIME ONE Stop: 08/04/19 04:55 Last Admin: 08/04/19 05:11 Dose: 1 mg Hydromorphone HCl (Dilaudid) 1 mg IVPUSH ONETIME ONE Stop: 08/04/19 06:08 Last Admin: 08/04/19 06:13 Dose: 1 mg Hydromorphone HCl (Dilaudid) 1 mg IVPUSH Q2H PRN PRN Reason: Abdominal Pain Last Admin: 08/05/19 07:33 Dose: 1 mg Sodium Chloride (Normal Saline) 1,000 mls @ 999 mls/hr IV ASDIRECTED [facility] Last Admin: 08/04/19 03:17 Dose: 999 mls/hr Sodium Chloride (Normal Saline) 1,000 mls @ 999 mls/hr IV ASDIRECTED [facility] Last Admin: 08/04/19 04:19 Dose: 999 mls/hr Sodium Chloride (Normal Saline) 85 mls @ 4 mls/sec IV ASDIRECTED [facility] Stop: 08/04/19 04:16 Last Admin: 08/04/19 04:37 Dose: 4 mls/sec Levofloxacin/Dextrose 500 mg/ (Premix) 100 mls @ 100 mls/hr IV ONETIME ONE Stop: 08/04/19 06:45 Last Admin: 08/04/19 08:45 Dose: Not Given Metronidazole 500 mg/ Premix 100 mls @ 100 mls/hr IV ONETIME ONE Stop: 08/04/19 06:45 Last Admin: 08/04/19 06:14 Dose: 100 mls/hr Sodium Chloride (Normal Saline) 1,000 mls @ 25 mls/hr IV ASDIRECTED [facility] Last Admin: 08/04/19 08:13 Dose: 125 mls/hr Iopamidol (Isovue-300 (61%)) 150 ml IV . DIRECTED [facility] Stop: 08/04/19 04:16 Last Admin: 08/04/19 04:36 Dose: 150 ml Methylprednisolone Sodium Succinate (Solu-Medrol) 125 mg IVPUSH ONETIME ONE Stop: 08/04/19 14:01 Last Admin: 08/04/19 14:58 Dose: 125 mg Ondansetron HCl (Zofran) 4 mg IVPUSH ONETIME ONE Stop: 08/04/19 03:05 Last Admin: 08/04/19 03:18 Dose: 4 mg Oxycodone HCl (Oxycodone) 10 mg PO Q4H PRN PRN Reason: Pain (moderate 4-6) Last Admin: 08/04/19 10:00 Dose: 10 mg
== END 2019-08-05 14:43 | disposition home or self-care (01) ==
LOC: JP.ED 02:07 → JP.ICU 06:09 → UNDOADMIN 06:09 → JP.MS 06:09 → JP.ICU 13:30 → JP.MS 13:30 → UNDODISIN 08-05 14:30
PROVIDERS: ADMIT Internal Medicine; ATTEND Internal Medicine
DX: K57.32 Diverticulitis of large intestine without perforation or abscess without bleeding (principal); F31.9 Bipolar disorder, unspecified; K21.9 Gastro-esophageal reflux disease without esophagitis; F41.9 Anxiety disorder, unspecified; F43.10 Post-traumatic stress disorder, unspecified; E03.9 Hypothyroidism, unspecified; F17.210 Nicotine dependence, cigarettes, uncomplicated; E66.9 Obesity, unspecified; Z68.41 Body mass index [BMI] 40.0-44.9, adult; Z88.0 Allergy status to penicillin; Z88.6 Allergy status to analgesic agent; Z88.8 Allergy status to other drugs, medicaments and biological substances; Z79.899 Other long term (current) drug therapy
CPT/HCPCS: 36415; 74177; 80053; 81001; 85025; 86140; 87086; 96361; 96365; 96366; 96367; 96375; 96376; 99285; A9270; C9113; G0378; J0744; J1170; J2405; J2930; J3490; J7030; J7050; Q9967

== ENCOUNTER 2019-08-29 23:42 | Emergency (ER) | payer BC, MEDICAID ==
[2019-08-30] MEDS ORDERED: Ketorolac 30 MG/ML SDV IVPUSH ONE (00:28)
[2019-08-30] MEDS ORDERED: Sodium Chloride 0.9% 10 ML Syringe FLUSH PRN (00:28)
[2019-08-30] MEDS ORDERED: Cyclobenzaprine 10 MG Tab PO ONE (00:29)
[2019-08-30] MEDS ORDERED: HYDROmorphone 1 MG/ML Syringe IVPUSH ONE (00:29)
[2019-08-30] MEDS ORDERED: Ondansetron 4 MG/2 ML SDV IVPUSH ONE (00:34)
--- NOTE | 2019-08-30 00:35 | EDM.PDOC ---
ED HPI GENERAL MEDICAL PROBLEM - General Chief Complaint: Lower Extremity Injury/Pain Stated Complaint: LOWER RIGHT BACK PAIN Time Seen by Provider: 08/30/19 00:20 Source of Information: Reports: Patient, Old Records, RN History Limitations: Reports: No Limitations - History of Present Illness INITIAL COMMENTS - FREE TEXT/NARRATIVE: 38 yo morbidly obese male with a pHx of back surgery for herniated discs was walking around [facility] just before midnight and developed abrupt onset of severe R low back pain with radiation to his R buttocks. There was no lifting or falling before this pain began. Came straight here from [facility] to be seen. Dr. Anderson is his primary. Has degenerative issues with his neck as well. 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 ) right hip/right lower back Pain Score (Numeric/FACES): 7 - Related Data Allergies Allergy/AdvReac Type Severity Reaction Status Date / Time diclofenac Allergy Dizziness Verified 08/30/19 00:28 NSAIDS (Non-Steroidal Allergy Other Verified 08/30/19 00:22 Anti-Inflamma Penicillins Allergy Itching Verified 08/30/19 00:22 gabapentin AdvReac Shaking Verified 08/30/19 00:22 Home Meds: Home Meds OXcarbazepine [Trileptal] 1,200 mg PO BID 01/10/14 [History] Levothyroxine 250 mcg PO ACBREAKFAST 07/24/17 [History] Dextroamphetamine/Amphetamine [Adderall 20 mg Tablet] 20 mg PO BID 05/14/18 [ History] Acetaminophen [Tylenol Extra Strength] 1,000 mg PO Q6H PRN 06/18/19 [History] ALPRAZolam [Alprazolam] 1 tab PO Q4H PRN 07/22/19 [History] Cariprazine Hydrochloride [Vraylar] 1.5 mg PO DAILY 08/30/19 [History] Past Medical History HEENT History: Reports: Impaired Vision Cardiovascular History: Reports: None Respiratory History: Reports: None Gastrointestinal History: Reports: Cholelithiasis, Diverticulosis, GERD Musculoskeletal History: Reports: Back Pain, Chronic, Other (See Below) Other Musculoskeletal History: right hip pain with labrum tear Neurological History: Reports: None Psychiatric History: Reports: ADD, ADHD, Anxiety, Bipolar, Panic Attack, Psych Hospitalization(s), PTSD, Suicide Attempt, Suicidal Ideation Other Psychiatric History: bipolar 2 Endocrine/Metabolic History: Reports: Hypothyroidism, Obesity/BMI 30+ Oncologic (Cancer) History: Reports: Thyroid Other Oncologic History: pappulary with focal variant - Infectious Disease History Infectious Disease History: Reports: Chicken Pox - Past Surgical History HEENT Surgical History: Reports: Other (See Below) Other HEENT Surgeries/Procedures: barretts esophagus surgery GI Surgical History: Reports: Appendectomy, Cholecystectomy, Hernia Repair/Other Other GI Surgeries/Procedures: ablations to the esphagus Endocrine Surgical History: Reports: Thyroidectomy, Other (See Below) Other Endocrine Surgeries/Procedures: 9 lymphnodes on left side removed Neurological Surgical History: Reports: Discectomy, Laminectomy, Other (See Below) Other Neurological Surgeries/Procedures: partial lami/discectomy near L4 Social & Family History - Family History Family Medical History: Noncontributory - Tobacco Use Smoking Status *Q: Current Every Day Smoker Years of Tobacco use: 20 Packs/Tins Daily: 0.5 - Caffeine Use Caffeine Use: Reports: Coffee, Soda - Recreational Drug Use Recreational Drug Use: No - Living Situation & Occupation Living situation: Reports: with Significant Other Occupation: Employed (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 Amna, 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 Constitutional: Reports: No Symptoms Musculoskeletal: Reports: Back Pain (R low back) Skin: Reports: No Symptoms Neurological: Reports: No Symptoms ED EXAM, GENERAL - Physical Exam Exam: See Below Exam Limited By: No Limitations General Appearance: Alert, WD/WN, No Apparent Distress, Obese Eye Exam: Bilateral Eye: Normal Inspection Ears: Normal External Exam, Normal Canal, Hearing Grossly Normal Ear Exam: Bilateral Ear: Auricle Normal, Canal Normal Nose: Normal Inspection, No Blood Throat/Mouth: Normal Inspection, Normal Oropharynx, Normal Voice, No Airway Compromise Head: Atraumatic, Normocephalic Neck: Normal Inspection Respiratory/Chest: No Respiratory Distress, No Accessory Muscle Use Cardiovascular: Regular Rate, Rhythm, No Edema Back Exam: Normal Inspection, Decreased Range of Motion, Other (most of his tenderness is in the R paraspinous region of his lumbar spine. Some modest pain in the R sciatic notch. ). No: CVA Tenderness (R), CVA Tenderness (L) Extremities: Normal Inspection, Normal Range of Motion, Non-Tender, No Pedal Edema Neurological: Alert, Oriented, CN II-XII Intact, Normal Cognition, No Motor/ Sensory Deficits Psychiatric: Normal Affect, Normal Mood Skin Exam: Warm, Dry, Intact, Normal Color, No Rash Course - Vital Signs Last Recorded V/S: Last Vital Signs Temp 35.7 C L 08/30/19 00:08 Pulse 88 08/30/19 00:08 Resp 20 08/30/19 00:08 BP 142/81 H 08/30/19 00:08 Pulse Ox 96 08/30/19 00:08 - Orders/Labs/Meds Orders: Active Orders 24 hr Category Date Time Status Sodium Chloride 0.9% [Saline Flush] Med 08/30/19 00:28 Active 10 ml FLUSH ASDIRECTED PRN Saline Lock Insert [OM.PC] Routine Oth 08/30/19 00:28 Ordered Medication Orders Sodium Chloride (Saline Flush) 10 ml FLUSH ASDIRECTED PRN PRN Reason: Keep Vein Open Last Admin: 08/30/19 00:54 Dose: 10 ml Meds: Medications Generic Name Dose Route Start Last Admin Trade Name Freq PRN Reason Stop Dose Admin Sodium Chloride 10 ml 08/30/19 00:28 08/30/19 00:54 Saline Flush FLUSH 10 ml ASDIRECTED PRN Administration Keep Vein Open Discontinued Medications Generic Name Dose Route Start Last Admin Trade Name Freq PRN Reason Stop Dose Admin Cyclobenzaprine HCl 10 mg 08/30/19 00:29 08/30/19 00:45 Flexeril PO 08/30/19 00:30 Not Given ONETIME ONE Hydromorphone HCl 1 mg 08/30/19 00:29 08/30/19 00:54 Dilaudid IVPUSH 08/30/19 00:30 1 mg ONETIME ONE Administration Ketorolac Tromethamine 30 mg 08/30/19 00:28 08/30/19 00:51 Toradol IVPUSH 08/30/19 00:29 30 mg ONETIME ONE Administration Ondansetron HCl 4 mg 08/30/19 00:34 08/30/19 00:48 Zofran IVPUSH 08/30/19 00:35 4 mg ONETIME ONE Administration - Re-Assessments/Exams Free Text/Narrative Re-Assessment/Exam: 08/30/19 01:23 Feeling better, would like to go home. Departure - Departure Time of Disposition: 01:30 Disposition: Home, Self-Care 01 Condition: Fair Clinical Impression: Low back pain Qualifiers: Chronicity: acute Back pain laterality: right Sciatica presence: with sciatica Sciatica laterality: sciatica of right side Qualified Code(s): M54.41 - Lumbago with sciatica, right side - Discharge Information *PRESCRIPTION DRUG MONITORING PROGRAM REVIEWED*: No *COPY OF PRESCRIPTION DRUG MONITORING REPORT IN PATIENT MIN: No Instructions: Acute Back Pain, Adult Referrals: PCP,None [Primary Care Provider] - Forms: ED Department Discharge Additional Instructions: Take Percocet as directed for back pain. No lifting, bending or twisting. See your doctor for recheck leeann. Sepsis Event Note - Evaluation Sepsis Screening Result: No Definite Risk - Focused Exam Vital Signs: Vital Signs Temp Pulse Resp BP Pulse Ox 08/30/19 00:08 35.7 C L 88 20 142/81 H 96 08/30/19 00:06 35.7 C L 88 20 142/81 H 96 Date Exam was Performed: 08/30/19 Time Exam was Performed: 01:23 - My Orders Last 24 Hours: My Active Orders 08/30/19 00:28 Sodium Chloride 0.9% [Saline Flush] 10 ml FLUSH ASDIRECTED PRN Saline Lock Insert [OM.PC] Routine - Assessment/Plan Last 24 Hours: My Active Orders 08/30/19 00:28 Sodium Chloride 0.9% [Saline Flush] 10 ml FLUSH ASDIRECTED PRN Saline Lock Insert [OM.PC] Routine
== END 2019-08-30 01:34 | disposition home or self-care (01) ==
LOC: JP.ED 23:42
DX: M54.41 Lumbago with sciatica, right side (principal); F17.210 Nicotine dependence, cigarettes, uncomplicated; F31.9 Bipolar disorder, unspecified; F41.9 Anxiety disorder, unspecified; Z79.899 Other long term (current) drug therapy; Z88.0 Allergy status to penicillin; Z88.8 Allergy status to other drugs, medicaments and biological substances
CPT/HCPCS: 96374; 96375; 99283; J1170; J1885; J2405

== ENCOUNTER 2019-09-08 21:16 | Emergency (ER) | payer BC, MEDICAID | END 2019-09-08 21:50 | disposition left against medical advice (07) | LOC: JP.ED 21:16 | DX: Z53.21 Procedure and treatment not carried out due to patient leaving prior to being seen by health care provider (principal) ==

== ENCOUNTER 2019-09-10 02:35 | Emergency (ER) | payer BC, MEDICAID ==
[2019-09-10] MEDS ORDERED: HYDROmorphone 1 MG/ML Syringe IM ONE (03:07)
--- NOTE | 2019-09-10 03:13 | EDM.PDOC ---
ED HPI GENERAL MEDICAL PROBLEM - General Chief Complaint: Upper Extremity Injury/Pain Stated Complaint: NECK PAIN Time Seen by Provider: 09/10/19 02:55 Source of Information: Reports: Patient History Limitations: Reports: No Limitations - History of Present Illness INITIAL COMMENTS - FREE TEXT/NARRATIVE: 38-year-old male with an ongoing paresthesia and cervical radiculopathy into the left arm with left neck pain arise with intense neck pain and spasm and inability to sleep. He has an appointment for steroid injection in 2 weeks and a neurosurgical consultation in a month. He has had symptoms for several months , and after an MRI done at [place] which I do not have the results available, he has been told he needs a "fusion". I am not sure why the delay. He is currently on prednisone. Onset: Other (Months ago) Location: Reports: Neck, Upper Extremity, Left Worsens with: Reports: Other (Trying to lift something causes increased pain), Movement Associated Symptoms: Denies: Chest Pain, Cough, Malaise, Nausea/Vomiting, Shortness of Breath Left Arm Pain Score (Numeric/FACES): 7 - Related Data Allergies Allergy/AdvReac Type Severity Reaction Status Date / Time diclofenac Allergy Dizziness Verified 08/30/19 00:28 NSAIDS (Non-Steroidal Allergy Other Verified 08/30/19 00:22 Anti-Inflamma Penicillins Allergy Itching Verified 08/30/19 00:22 gabapentin AdvReac Shaking Verified 08/30/19 00:22 Home Meds: Home Meds OXcarbazepine [Trileptal] 1,200 mg PO BID 01/10/14 [History] Levothyroxine 250 mcg PO ACBREAKFAST 07/24/17 [History] Dextroamphetamine/Amphetamine [Adderall 20 mg Tablet] 20 mg PO BID 05/14/18 [ History] Acetaminophen [Tylenol Extra Strength] 1,000 mg PO Q6H PRN 06/18/19 [History] ALPRAZolam [Alprazolam] 1 tab PO Q4H PRN 07/22/19 [History] Cariprazine Hydrochloride [Vraylar] 1.5 mg PO DAILY 08/30/19 [History] Past Medical History HEENT History: Reports: Impaired Vision Cardiovascular History: Reports: None Respiratory History: Reports: None Gastrointestinal History: Reports: Cholelithiasis, Diverticulosis, GERD, Other ( See Below) Other Gastrointestinal History: barrets esphogeal Musculoskeletal History: Reports: Back Pain, Chronic, Neck Pain, Chronic, Other (See Below) Other Musculoskeletal History: right hip pain with labrum tear Neurological History: Reports: Headaches, Chronic Psychiatric History: Reports: ADD, ADHD, Anxiety, Bipolar, Panic Attack, Psych Hospitalization(s), PTSD, Suicide Attempt, Suicidal Ideation Other Psychiatric History: bipolar 2 Endocrine/Metabolic History: Reports: Hypothyroidism, Obesity/BMI 30+ Oncologic (Cancer) History: Reports: Thyroid Other Oncologic History: pappulary with focal variant - Infectious Disease History Infectious Disease History: Reports: C-Difficile, Chicken Pox, Influenza - Past Surgical History HEENT Surgical History: Reports: Other (See Below) Other HEENT Surgeries/Procedures: barretts esophagus surgery GI Surgical History: Reports: Appendectomy, Cholecystectomy, Hernia Repair/Other , Other (See Below) Other GI Surgeries/Procedures: ablations to the esphagus Endocrine Surgical History: Reports: Thyroidectomy, Other (See Below) Other Endocrine Surgeries/Procedures: 9 lymphnodes on left side removed Neurological Surgical History: Reports: Discectomy, Laminectomy, Other (See Below) Social & Family History - Family History Family Medical History: Noncontributory - Tobacco Use Smoking Status *Q: Current Every Day Smoker Years of Tobacco use: 20 Packs/Tins Daily: 0.5 - Caffeine Use Caffeine Use: Reports: Coffee, Soda - Living Situation & Occupation Living situation: Reports: with Significant Other 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 Denies: Headache ED EXAM, GENERAL - Physical Exam Exam: See Below Exam Limited By: No Limitations General Appearance: Alert, Mild Distress (Patient looks significantly uncomfortable, holding his arm to his body and tilting his head slightly to the right his most comfortable position) Head: Atraumatic Neck: Other (Does react with tenderness to palpation of the paraspinous muscles on the left side) Respiratory/Chest: No Respiratory Distress Extremities: Other (Grasp strength is weaker on the left, his effort is questionable) Neurological: Alert, Oriented Psychiatric: Depressed Mood Skin Exam: Warm, Dry Course - Vital Signs Last Recorded V/S: Last Vital Signs Temp 96.8 F L 09/10/19 02:52 Pulse 97 09/10/19 02:52 Resp 15 09/10/19 02:52 BP 165/109 H 09/10/19 02:52 Pulse Ox 97 09/10/19 02:52 - Orders/Labs/Meds Meds: Medications Discontinued Medications Generic Name Dose Route Start Last Admin Trade Name Davis PRN Reason Stop Dose Admin Hydromorphone HCl 2 mg 09/10/19 03:07 09/10/19 03:12 Dilaudid IM 09/10/19 03:08 2 mg ONETIME ONE Administration - Re-Assessments/Exams Free Text/Narrative Re-Assessment/Exam: 09/10/19 03:13 Patient was given 2 mg of IM Dilaudid and 10 doses of Percocet for extra pain control. He needs to go to [place] possibly through the emergency room to speed up his treatments and surgical consultation if symptoms are worsening unless this can be arranged through his primary provider. Departure - Departure Time of Disposition: 03:30 Disposition: Home, Self-Care 01 Clinical Impression: Radiculopathy affecting upper extremity - Discharge Information Instructions: Radicular Pain Referrals: Rhett Anderson MD [Primary Care Provider] - Forms: ED Department Discharge Care Plan Goals: Continue your current medications and add stronger pain medications as needed over the next few days. Discuss moving up your appointment with your primary provider or neurosurgery or even consider going to [place] to be seen through the emergency room. Sepsis Event Note - Evaluation Sepsis Screening Result: No Definite Risk - Focused Exam Date Exam was Performed: 09/12/19 Time Exam was Performed: 17:08
== END 2019-09-10 03:31 | disposition home or self-care (01) ==
LOC: JP.ED 02:35
DX: M54.12 Radiculopathy, cervical region (principal); F41.9 Anxiety disorder, unspecified; Z88.0 Allergy status to penicillin; Z88.8 Allergy status to other drugs, medicaments and biological substances; K21.9 Gastro-esophageal reflux disease without esophagitis; E66.9 Obesity, unspecified; Z68.42 Body mass index [BMI] 45.0-49.9, adult; F17.210 Nicotine dependence, cigarettes, uncomplicated
CPT/HCPCS: 96372; 99284; J1170

== ENCOUNTER 2019-09-12 21:28 | Emergency (ER) | payer BC, MEDICAID ==
[2019-09-12] MEDS ORDERED: HYDROmorphone 1 MG/ML Syringe IM ONE (22:18)
--- NOTE | 2019-09-12 22:22 | EDM.PDOC ---
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 neck pain Pain Score (Numeric/FACES): 6 - Related Data Allergies Allergy/AdvReac Type Severity Reaction Status Date / Time diclofenac Allergy Dizziness Verified 09/12/19 21:44 NSAIDS (Non-Steroidal Allergy Other Verified 09/12/19 21:44 Anti-Inflamma Penicillins Allergy Itching Verified 09/12/19 21:44 gabapentin AdvReac Shaking Verified 09/12/19 21:44 Home Meds: Home Meds OXcarbazepine [Trileptal] 1,200 mg PO BID 01/10/14 [History] Levothyroxine 250 mcg PO ACBREAKFAST 07/24/17 [History] Dextroamphetamine/Amphetamine [Adderall 20 mg Tablet] 20 mg PO BID 05/14/18 [ History] Acetaminophen [Tylenol Extra Strength] 1,000 mg PO Q6H PRN 06/18/19 [History] ALPRAZolam [Alprazolam] 1 tab PO Q4H PRN 07/22/19 [History] Cariprazine Hydrochloride [Vraylar] 1.5 mg PO DAILY 08/30/19 [History] Past Medical History HEENT History: Reports: Impaired Vision Cardiovascular History: Reports: None Respiratory History: Reports: None Gastrointestinal History: Reports: Cholelithiasis, Diverticulosis, GERD, Other ( See Below) Other Gastrointestinal History: barrets esphogeal Musculoskeletal History: Reports: Back Pain, Chronic, Neck Pain, Chronic, Other (See Below) Other Musculoskeletal History: right hip pain with labrum tear Neurological History: Reports: Headaches, Chronic Psychiatric History: Reports: ADD, ADHD, Anxiety, Bipolar, Panic Attack, Psych Hospitalization(s), PTSD, Suicide Attempt, Suicidal Ideation Other Psychiatric History: bipolar 2 Endocrine/Metabolic History: Reports: Hypothyroidism, Obesity/BMI 30+ Oncologic (Cancer) History: Reports: Thyroid Other Oncologic History: pappulary with focal variant - Infectious Disease History Infectious Disease History: Reports: C-Difficile, Chicken Pox, Influenza - Past Surgical History HEENT Surgical History: Reports: Other (See Below) Other HEENT Surgeries/Procedures: barretts esophagus surgery GI Surgical History: Reports: Appendectomy, Cholecystectomy, Hernia Repair/Other , Other (See Below) Other GI Surgeries/Procedures: ablations to the esphagus Endocrine Surgical History: Reports: Thyroidectomy, Other (See Below) Other Endocrine Surgeries/Procedures: 9 lymphnodes on left side removed Neurological Surgical History: Reports: Discectomy, Laminectomy, Other (See Below) Social & Family History - Family History Family Medical History: Noncontributory - Tobacco Use Smoking Status *Q: Light Tobacco Smoker Years of Tobacco use: 20 Packs/Tins Daily: 0.1 - Caffeine Use Caffeine Use: Reports: Coffee, Soda - Recreational Drug Use Recreational Drug Use: No - Living Situation & Occupation Living situation: Reports: with Significant Other 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: 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 (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 Amna, 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[employer].) ED ROS GENERAL - Review of Systems Review Of Systems: See Below Constitutional: Reports: Weakness (left arm) HEENT: Reports: No Symptoms Respiratory: Reports: No Symptoms Cardiovascular: Reports: No Symptoms Endocrine: Reports: No Symptoms GI/Abdominal: Reports: No Symptoms Musculoskeletal: Reports: Neck Pain, Arm Pain (left) Skin: Reports: No Symptoms Neurological: Reports: No Symptoms Psychiatric: Reports: No Symptoms Hematologic/Lymphatic: Reports: No Symptoms Immunologic: Reports: No Symptoms ED EXAM, GENERAL - Physical Exam Exam: See Below Exam Limited By: No Limitations General Appearance: Alert, WD/WN, Moderate Distress, Obese Neck: Limited Range of Motion (increased pain with rotation to left . pain and spasms to neck. ) Respiratory/Chest: No Respiratory Distress, Lungs Clear, Normal Breath Sounds, No Accessory Muscle Use Cardiovascular: Regular Rate, Rhythm Extremities: Normal Inspection, Other (left with decreased change manager and grasps to the right hand) Neurological: Alert, Oriented, Sensory/Motor Deficit (left arm weakness) Psychiatric: Depressed Mood, Flat Affect Skin Exam: Warm, Dry, Intact, Normal Color, No Rash Lymphatic: No Adenopathy Course - Vital Signs Last Recorded V/S: Last Vital Signs Temp 37.2 C 09/12/19 21:45 Pulse 116 H 09/12/19 21:45 Resp 16 09/12/19 21:45 BP 144/95 H 09/12/19 21:45 Pulse Ox 96 09/12/19 21:45 - Orders/Labs/Meds Meds: Medications Discontinued Medications Generic Name Dose Route Start Last Admin Trade Name Davis PRN Reason Stop Dose Admin Hydromorphone HCl 2 mg 09/12/19 22:18 09/12/19 22:26 Dilaudid IM 09/12/19 22:19 2 mg ONETIME ONE Administration - Re-Assessments/Exams Free Text/Narrative Re-Assessment/Exam: 09/12/19 22:34 will given Dilaudid 2 mg IM home medication Percocet 5-325mg one every 4 to 6 hours as needed for pain #10 advise to contact his Primary Care Provider in am. to transport to home. Departure - Departure Time of Disposition: 22:36 Disposition: Home, Self-Care 01 Condition: Good Clinical Impression: Radiculopathy affecting upper extremity - Discharge Information *PRESCRIPTION DRUG MONITORING PROGRAM REVIEWED*: Yes *COPY OF PRESCRIPTION DRUG MONITORING REPORT IN PATIENT MIN: No Instructions: Pain Medicine Instructions, [id number], Cervical Radiculopathy , [id number] Referrals: Rhett Anderson MD [Primary Care Provider] - Forms: ED Department Discharge Care Plan Goals: Neck-radiculopathy affecting upper extremity -pain medication injection given in the ER -Percocet one every 4 to 6 hours as needed for pain -call Primary Care Provider in am Return to ER if not improved or symptoms worsen. to transport to home. Sepsis Event Note - Evaluation Sepsis Screening Result: No Definite Risk - Focused Exam Vital Signs: Vital Signs Temp Pulse Resp BP Pulse Ox 09/12/19 21:45 37.2 C 116 H 16 144/95 H 96 09/12/19 21:44 37.2 C 116 H 16 144/95 H 96 Date Exam was Performed: 09/12/19 Time Exam was Performed: 22:30 - Problem List & Annotations (1) Radiculopathy affecting upper extremity SNOMED Code(s): 53193470, 389744805 Code(s): M54.10 - RADICULOPATHY, SITE UNSPECIFIED Status: Acute Priority : High Current Visit: Yes - Problem List Review Problem List Initiated/Reviewed/Updated: Yes - Assessment/Plan Plan: Neck-radiculopathy affecting upper extremity -pain medication injection given in the ER -Percocet one every 4 to 6 hours as needed for pain -call Primary Care Provider in am Return to ER if not improved or symptoms worsen. to transport to home.
== END 2019-09-12 22:45 | disposition home or self-care (01) ==
LOC: JP.ED 21:28
DX: M54.10 Radiculopathy, site unspecified (principal); K21.9 Gastro-esophageal reflux disease without esophagitis; F31.9 Bipolar disorder, unspecified; E66.9 Obesity, unspecified; E03.9 Hypothyroidism, unspecified; F17.210 Nicotine dependence, cigarettes, uncomplicated; Z88.8 Allergy status to other drugs, medicaments and biological substances; Z88.0 Allergy status to penicillin; Z79.899 Other long term (current) drug therapy; Z68.42 Body mass index [BMI] 45.0-49.9, adult
CPT/HCPCS: 96372; 99284; J1170

== ENCOUNTER 2019-09-17 14:38 | Emergency (ER) | payer BC, MEDICAID ==
[2019-09-17] MEDS ORDERED: Ketorolac 60 MG/2 ML SDV IM ONE (15:59)
[2019-09-17] MEDS ORDERED: Acetaminophen/oxyCODONE 325-5 MG Tab PO ONE (16:00)
--- NOTE | 2019-09-17 16:06 | EDM.PDOC ---
ED HPI GENERAL MEDICAL PROBLEM - General Chief Complaint: General Stated Complaint: RIGHT FLANK,BACK,HIP PAIN Time Seen by Provider: 09/17/19 16:02 Source of Information: Reports: Patient History Limitations: Reports: No Limitations - History of Present Illness INITIAL COMMENTS - FREE TEXT/NARRATIVE: pt arrived with pain in the left hip and flank area. He has had a MRI of the lumbar area in the last year. His regular Dr is doing a orthopedic referal. Onset: Gradual, Other ( This has been bad for the last 2-3 days. ) Duration: Hour(s): Location: Reports: Back, Lower Extremity, Right Associated Symptoms: Reports: No Other Symptoms Right Hip Pain Score (Numeric/FACES): 8 - Related Data Allergies Allergy/AdvReac Type Severity Reaction Status Date / Time diclofenac Allergy Dizziness Verified 09/12/19 21:44 NSAIDS (Non-Steroidal Allergy Other Verified 09/12/19 21:44 Anti-Inflamma Penicillins Allergy Itching Verified 09/12/19 21:44 gabapentin AdvReac Shaking Verified 09/12/19 21:44 Home Meds: Home Meds OXcarbazepine [Trileptal] 1,200 mg PO BID 01/10/14 [History] Levothyroxine 250 mcg PO ACBREAKFAST 07/24/17 [History] Dextroamphetamine/Amphetamine [Adderall 20 mg Tablet] 20 mg PO BID 05/14/18 [ History] Acetaminophen [Tylenol Extra Strength] 1,000 mg PO Q6H PRN 06/18/19 [History] ALPRAZolam [Alprazolam] 1 tab PO Q4H PRN 07/22/19 [History] Cariprazine Hydrochloride [Vraylar] 1.5 mg PO DAILY 08/30/19 [History] Past Medical History HEENT History: Reports: Impaired Vision Cardiovascular History: Reports: None Respiratory History: Reports: None Gastrointestinal History: Reports: Cholelithiasis, Diverticulosis, GERD, Other ( See Below) Other Gastrointestinal History: barrets esphogeal Musculoskeletal History: Reports: Back Pain, Chronic, Neck Pain, Chronic, Other (See Below) Other Musculoskeletal History: right hip pain with labrum tear Neurological History: Reports: Headaches, Chronic Psychiatric History: Reports: ADD, ADHD, Anxiety, Bipolar, Panic Attack, Psych Hospitalization(s), PTSD, Suicide Attempt, Suicidal Ideation Other Psychiatric History: bipolar 2 Endocrine/Metabolic History: Reports: Hypothyroidism, Obesity/BMI 30+ Oncologic (Cancer) History: Reports: Thyroid Other Oncologic History: pappulary with focal variant - Infectious Disease History Infectious Disease History: Reports: Chicken Pox - Past Surgical History HEENT Surgical History: Reports: Other (See Below) Other HEENT Surgeries/Procedures: barretts esophagus surgery GI Surgical History: Reports: Appendectomy, Cholecystectomy, Hernia Repair/Other , Other (See Below) Other GI Surgeries/Procedures: ablations to the esphagus Endocrine Surgical History: Reports: Thyroidectomy, Other (See Below) Other Endocrine Surgeries/Procedures: 9 lymphnodes on left side removed Neurological Surgical History: Reports: Discectomy, Laminectomy, Other (See Below) Social & Family History - Family History Family Medical History: Noncontributory - Tobacco Use Smoking Status *Q: Current Some Day Smoker Years of Tobacco use: 20 Packs/Tins Daily: 1 Used Tobacco, but Quit: Yes Month/Year Tobacco Last Used: september 2019 - Caffeine Use Caffeine Use: Reports: Coffee, Soda, Tea - Recreational Drug Use Recreational Drug Use: No - Living Situation & Occupation Living situation: Reports: with Significant Other Occupation: Employed (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 Amna, 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 ) Neurological: Reports: No Symptoms ED EXAM, GENERAL - Physical Exam Exam: See Below Free Text/Narrative:: pt arrived with pauin in rt flank area and over the rt hip Pt had a MRI in 2019 which showed forminal narrowing l5-s1. Exam Limited By: No Limitations General Appearance: Alert, Anxious Ears: Normal TMs Nose: Normal Inspection Throat/Mouth: Normal Inspection Head: Atraumatic Neck: Normal Inspection Respiratory/Chest: No Respiratory Distress Cardiovascular: Regular Rate, Rhythm Back Exam: Other (pt is having pain in rt flank area. He is not tender to palpate. ) Neurological: Alert, Oriented, Normal Cognition Psychiatric: Anxious Course - Vital Signs Last Recorded V/S: Last Vital Signs Temp 35.9 C L 09/17/19 15:24 Pulse 86 09/17/19 17:32 Resp 16 09/17/19 15:24 BP 151/83 H 09/17/19 17:32 Pulse Ox 95 09/17/19 15:24 - Orders/Labs/Meds Labs: Laboratory Tests 09/17/19 Range/Units 16:46 Urine Color Yellow (YELLOW) Urine Appearance Clear (CLEAR) Urine pH 7.0 (5.0-8.0) Ur Specific [place] 1.025 (1.008-1.030) Urine Protein Negative (NEGATIVE) mg/dL Urine Glucose (UA) Negative (NEGATIVE) mg/dL Urine Ketones Negative (NEGATIVE) mg/dL Urine Occult Blood Negative (NEGATIVE) Urine Nitrite Negative (NEGATIVE) Urine Bilirubin Negative (NEGATIVE) Urine Urobilinogen 0.2 (0.2-1.0) EU/dL Ur Leukocyte Esterase Negative (NEGATIVE) Urine RBC 0-5 (0-5) Urine WBC 0-5 (0-5) Ur Epithelial Cells Rare Amorphous Sediment Not seen Urine Bacteria Not seen Urine Mucus Rare Urine Other Meds: Medications Discontinued Medications Generic Name Dose Route Start Last Admin Trade Name Freq PRN Reason Stop Dose Admin Diphenhydramine HCl 25 mg 09/17/19 16:49 09/17/19 17:15 Benadryl PO 09/17/19 16:50 25 mg ONETIME ONE Administration Ketorolac Tromethamine 60 mg 09/17/19 15:59 09/17/19 16:09 Toradol IM 09/17/19 16:00 60 mg ONETIME ONE Administration Oxycodone/Acetaminophen 1 tab 09/17/19 16:00 09/17/19 16:08 Percocet 325-5 Mg PO 09/17/19 16:01 1 tab ONETIME ONE Administration - Re-Assessments/Exams Free Text/Narrative Re-Assessment/Exam: 09/17/19 17:38 pt was given percocet 5/325 and torodol 60 mg im. He is more comfortable. Pt had a normal UA 09/21/19 18:48 Departure - Departure Time of Disposition: 17:26 Disposition: Home, Self-Care 01 Condition: Fair Clinical Impression: Chronic hip pain, Rt flank pain - Discharge Information Instructions: Hip Pain, Flank Pain, Adult, [id number] Referrals: Rhett Anderson MD [Primary Care Provider] - Forms: ED Department Discharge Care Plan Goals: try to get Ortho appt as soon as possible from Dr Anderson, ice or heat to the area. tramodol 50 mg q6h prn for pain, percocet # 5 5/325 q6h for very severe pain Sepsis Event Note - Evaluation Sepsis Screening Result: No Definite Risk - Focused Exam Date Exam was Performed: 09/21/19 Time Exam was Performed: 18:48
[2019-09-17] MEDS ORDERED: diphenhydrAMINE 25 MG/10 ML CUP PO ONE (16:49)
--- OUTSIDE RECORDS SUMMARY | 2019-09-18 15:51 | XMSREPORT | Referral Summary ---
:[address] [facility] Address [address] [place] [address] Care Team Providers Name Role Phone Coleen, Davion Decker PT Unavailable Pcp, Karina MD Unavailable Unavailable Rafael Colindres MD Unavailable Rhett Anderson MD Primary Care Provider Rhett Anderson MD Attributed Provider Reason for Referral Transitions of Care (Routine) Status Reason Specialty Diagnoses / Referred By Referred To Procedures Contact Contact New Request Patient Diagnoses Tear of right acetabular labrum, subsequent encounter Rhett Anderson Chi Preference D, [facility], [address] [place], [place] [address] [address] AV Phone: [place] [address] Fax: Encounter Details Date Type Department Care Team Description 09/17/[address] Family Medicine acetabular labrum, [address] [place] [id number] YULIET MAHONEY (Primary Dx) [phone] [id number] [phone] Allergies Active Allergy Reactions Severity Noted Date Comments Zolpidem Tartrate Other (Specify in Comments) Sleep walking. Diclofenac Confusion, Diarrhea, 08/27/2019 Dizziness, Nausea, Nausea and Vomiting, Stomach Pain Dust Mite Extract Unknown/Not Verified 02/26/2014 Gabapentin Enacarbil Dizziness, Other (Specify in 04/02/2014 "shaky" Comments) Ibuprofen Nausea and Vomiting, Other 06/02/2014 "upset stomach" (Specify in Comments) Nsaids Nausea and Vomiting 12/25/2012 Penicillin Itching Medium 08/14/2013 Propofol Other (Specify in Comments) 08/27/2019 documented as of this encounter (statuses as of 09/17/2019) Medications Medication Sig Dispensed Refills Start Date End Date Status OXcarbazepine Take 1,200 mg by 0 Active (TRILEPTAL) 600 mg mouth 2 times a tablet day amphetamine-dextroamphet Take 20 mg by 0 08/29/2018 Active amine (ADDERALL) 10 MG mouth 2 times a tablet day levothyroxine 200 mcg TAKE 1 TABLET BY 90 tablet 3 11/16/2018 Active tabletIndications: MOUTH EVERY DAY Hypothyroidism (acquired) ALPRAzolam (XANAX) 1 mg Take 1 mg by 0 Active tablet mouth 4 times a day as needed for anxiety VRAYLAR 1.5 MG capsule 3 mg 0 08/26/2019 Active predniSONE 20 mg 3 tablets daily 21 tablet 0 08/30/2019 Active tabletIndications: for 4 days then Lumbar degenerative disc 2 tablets daily disease for 4 days then 1 tablet daily for 4 days Additional information Patient not taking. Reported on 09/12/2019 11:30 AM predniSONE 20 mg Take 1 tablet (20 mg) 3 tablet 0 09/02/2019 Active tabletIndications: Lumbar by mouth 1 time per degenerative disc disease day Additional information Patient not taking. Reported on 09/12/2019 11:30 AM levothyroxine 50 mcg TAKE 1 TABLET BY 90 tablet 1 09/09/2019 Active tabletIndications: Postsurgical MOUTH DAILY IN hypothyroidism ADDITION TO 200 MCG PILL, MAKING A TOTAL DOSE OF 250 MCG DAILY acetaminophen (TYLENOL) 500 mg Take 1,000 mg by 0 Active tablet mouth 4 times a day as needed eszopiclone (LUNESTA) 1 mg Take 1 mg by mouth at 0 Active tablet bedtime as needed methocarbamol (ROBAXIN) 500 mg Take 1-2 tablets 60 tablet 0 09/09/2019 Active tabletIndications: Left cervical (500-1,000 mg) by radiculopathy mouth 4 times a day as needed for muscle spasm documented as of this encounter (statuses as of 09/17/2019) Active Problems Problem Noted Date Cervical spondylosis 08/27/2019 Cigar smoker unmotivated to quit 12/20/2018 Bipolar 1 disorder, mixed, partial remission 07/04/2018 Tear of right acetabular labrum 06/19/2018 Fatigue 04/30/2018 Ulnar neuropathy of right upper extremity 04/30/2018 Burn of palm 01/28/2018 Shoulder pain 01/28/2018 Chronic right hip pain 07/11/2017 Last Assessment & Plan: Chronic pain and decreased ROM (internal rotation) of right hip likely related to labrum tear (found on MRI 04/07/17). Patient has not done PT or follow up with ortho specialist in [place] as recommended by ortho here Recommended patient contact ortho specialist office in [place] to reschedule his appt PT referral ordered Rx Bennet 5-325 mg 1 tab q6H prn #60; advised it is short term Rx to help him while he starts PT Papillary carcinoma of thyroid 02/20/2017 Postsurgical hypothyroidism 02/10/2017 Status post total thyroidectomy 01/31/2017 Thyroid cancer 01/30/2017 Obesity, morbid, BMI 40.0-49.9 10/14/2016 Vertebral artery dissection 06/14/2016 Vitamin D deficiency 02/05/2015 Migraine without aura 10/25/2013 Nicotine addiction 10/25/2013 DIANDRA (generalized anxiety disorder) 10/25/2013 ADHD (attention deficit hyperactivity disorder) evaluation 10/16/2013 Bipolar affective disorder 10/01/2013 documented as of this encounter (statuses as of 09/17/2019) Resolved Problems Problem Noted Date Resolved Date Viral respiratory illness 06/27/2017 07/11/2017 Last Assessment & Plan: History and exam supsicious for influenza, other possibilty is bronchitis. Given that it has been 7 days since symptoms started unable to start on Tamiflu ; discussed testing for influenza however given that it won't affect treatment plan patient declined Rx albuterol q4H prn Delayed Rx Z-pack; patient not to start unless not starting to improve in 3 days Recommended Tylenol 1000 mg q6H prn body aches Patient to send us an update on how he is doing via MyChart in 3 days Neck mass 11/29/2016 02/10/2017 Lymphadenitis 10/13/2016 02/10/2017 Mass of left side of neck 10/13/2016 02/10/2017 Lattice degeneration of left retina 04/26/2016 06/17/2016 Bilateral acute suppurative otitis media 02/10/2016 06/17/2016 Drug dependence 11/16/2015 06/17/2016 Bipolar depression 07/16/2015 06/17/2016 Attention deficit hyperactivity disorder (ADHD), predominantly 07/16/2015 inattentive type Anxiety 06/24/2015 06/17/2016 Bipolar affective disorder in remission 04/15/2015 06/17/2016 Attention-deficit hyperactivity disorder, other type 03/29/2015 06/17/2016 Social anxiety disorder 03/29/2015 06/17/2016 Insomnia 03/29/2015 06/17/2016 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 06/17/2016 Low back pain radiating to left leg 12/17/2014 06/17/2016 Migraine 09/10/2014 06/17/2016 Hypermobility syndrome 09/10/2014 06/17/2016 Osteoarthritis of lumbar spine 04/02/2014 06/17/2016 Colitis due to Clostridium difficile 03/07/2014 06/17/2016 Overview: Overview: C difficile positive by PCR 03/06/14 Diverticulosis of intestine 01/20/2014 06/17/2016 Migraine with aura 01/09/2014 06/17/2016 Tachycardia 01/09/2014 06/17/2016 Insomnia due to medical condition 01/09/2014 06/17/2016 Myofascial pain syndrome 11/07/2013 06/17/2016 Piriformis syndrome 10/25/2013 06/17/2016 Post-cholecystectomy syndrome 10/25/2013 06/17/2016 Morbid obesity 10/25/2013 06/17/2016 Sacroiliitis 10/25/2013 06/17/2016 Drug overdose 10/12/2013 10/16/2013 Pain disorder associated with psychological and physical 09/28/20132015 factors Lumbar radiculitis 09/06/2013 06/17/2016 Lower extremity pain, left 08/20/2013 06/17/2016 Low back pain 08/20/2013 06/17/2016 Bowel incontinence 08/20/2013 06/17/2016 Urinary incontinence 08/20/2013 06/17/2016 Myopia of both eyes with astigmatism 07/15/2013 06/17/2016 Retinal hole of both eyes 07/15/2013 06/17/2016 documented as of this encounter (statuses as of 09/17/2019) Immunizations Name Administration Dates Next Due FLU VACCINE TRIVALENT SINGLE 07/19/2012 DOSE(Fluvirin,Afluria) Influenza Trivalent w/preserv 03/21/2014 FLU VACCINE MULTIDOSE 06/15/2016 0.5mL(6MO+Fluzone/Flulaval,Afluria) FLU VACCINE SINGLE DOSE 04/26/2017 0.5mL(6MO+Fluzone/Flulaval/Fluarix,3YR+Af luria) FLU VACCINE SINGLE DOSE 03/21/2014 0.5mL(6MO+Fluzone/Flulaval/Fluarix/3YR+Af luria) HEP B VACCINE 11/22/1996, 08/23/1996, 07/23/1996 Influenza Vaccine,unspecified 06/08/2018, 04/28/2011 Ketorolac 60 Mg/2ml 05/13/2016 Pneumococcal Polysaccharide PPSV23 10/13/2011 Promethazine Hcl 25 Mg 05/13/2016 TD(adult)adsorbed 02/18/2010 Td 02/18/2010 Tuberculin PPD 10/14/2016 documented as of this encounter Social History Tobacco Use Types Packs/Day Years Used Date Current Some Day Smoker Cigars, Cigarettes 0.25 18 Started: 12/22/1994 Smokeless Tobacco: Never Used Comments: E cigs Alcohol Use Drinks/Week oz/Week Comments No 0 Standard drinks or equivalent 0.0 Sexually Active Control Partners Comments Yes Female Sex Assigned at Date Recorded Male 09/16/2018 10:49 PM CDT Job Start Date Occupation Industry Not on file Not on file Not on file Travel History Travel Start Travel End No recent travel history available. documented as of this encounter Functional Status Functional Status Response Date of Assessment Is the person deaf or does he/she have serious difficulty No 04/24/2017 hearing? Is this person blind or does he/she have difficulty No 04/24/2017 seeing even when wearing glasses? Do you have difficulty with walking, balance, climbing No 04/24/2017 stairs, or had a fall in the last 3 months? Does the patient have difficulty dressing or bathing? No 04/24/2017 Because of a physical, mental, or emotional condition; No 04/24/2017 does this person have difficulty doing errands alone such as visiting a doctor's office or shopping? Cognitive Status Response Date of Assessment Because of a physical, mental, or emotional condition; No 04/24/2017 does this person have serious difficulty concentrating, remembering, or making decisions? documented as of this encounter Plan of Treatment Date Type Specialty Care Team Description 09/19/2019 Office Visit Neurosurgery Lg Love MD [address] [place] [address] [phone] 09/20/2019 Appointment Radiology General Ubaldo Benito DO [address] [place], [place] [address] 10/30/2019 Office Visit Endocrinology Rony Downing MD [address] [place] [address] [phone] Name Type Priority Associated Diagnoses Order Schedule CLINIC REFERRAL Referral Routine Tear of right Ordered: 09/17/2019 ORTHOPEDICS NON ONE acetabular labrum, CHART subsequent encounter documented as of this encounter Visit Diagnoses Diagnosis Tear of right acetabular labrum, subsequent encounter - Primary documented in this encounter
== END 2019-09-17 18:11 | disposition home or self-care (01) ==
LOC: JP.ED 14:38
DX: M25.552 Pain in left hip (principal); G89.29 Other chronic pain; R10.9 Unspecified abdominal pain; F31.9 Bipolar disorder, unspecified; E03.9 Hypothyroidism, unspecified; K21.9 Gastro-esophageal reflux disease without esophagitis; F17.210 Nicotine dependence, cigarettes, uncomplicated; Z79.899 Other long term (current) drug therapy
CPT/HCPCS: 81001; 96372; 99284; A9270; J1885

== ENCOUNTER 2019-09-25 13:33 | Emergency (ER) | payer BC, MEDICAID ==
[2019-09-25] MEDS ORDERED: HYDROmorphone 1 MG/ML Syringe IM ONE (14:26)
--- NOTE | 2019-09-25 14:30 | EDM.PDOC ---
ED HPI GENERAL MEDICAL PROBLEM - General Chief Complaint: Neck Problem Stated Complaint: NECK PAIN Time Seen by Provider: 09/25/19 14:00 Source of Information: Reports: Patient, Family History Limitations: Reports: No Limitations - History of Present Illness INITIAL COMMENTS - FREE TEXT/NARRATIVE: 38-year-old male who was in with neck pain looking for pain control. According to the patient he was told he needs to come in to the emergency room if he needs stronger pain medication. This is a chronic problem. They tried to do injections in his neck last week but he did not tolerated the procedure. Onset: Gradual Duration: Chronic Location: Reports: Neck Neck Pain Score (Numeric/FACES): 10 - Related Data Allergies Allergy/AdvReac Type Severity Reaction Status Date / Time diclofenac Allergy Dizziness Verified 09/25/19 14:23 NSAIDS (Non-Steroidal Allergy Other Verified 09/25/19 14:23 Anti-Inflamma Penicillins Allergy Itching Verified 09/25/19 14:23 gabapentin AdvReac Shaking Verified 09/25/19 14:23 Home Meds: Home Meds OXcarbazepine [Trileptal] 1,200 mg PO BID 01/10/14 [History] Levothyroxine 250 mcg PO ACBREAKFAST 07/24/17 [History] Dextroamphetamine/Amphetamine [Adderall 20 mg Tablet] 20 mg PO BID 05/14/18 [ History] Acetaminophen [Tylenol Extra Strength] 1,000 mg PO Q6H PRN 06/18/19 [History] ALPRAZolam [Alprazolam] 1 tab PO Q4H PRN 07/22/19 [History] Cariprazine Hydrochloride [Vraylar] 1.5 mg PO DAILY 08/30/19 [History] Cariprazine Hydrochloride [Vraylar] 3 mg PO DAILY 09/25/19 [History] Eszopiclone 1 mg PO BEDTIME 09/25/19 [History] methocarbamoL [Methocarbamol] 500 mg PO TID 09/25/19 [History] Past Medical History HEENT History: Reports: Impaired Vision Cardiovascular History: Reports: None Respiratory History: Reports: None Gastrointestinal History: Reports: Cholelithiasis, Diverticulosis, GERD, Other ( See Below) Other Gastrointestinal History: barrets esphogeal Musculoskeletal History: Reports: Back Pain, Chronic, Neck Pain, Chronic, Other (See Below) Other Musculoskeletal History: right hip pain with labrum tear Neurological History: Reports: Headaches, Chronic Psychiatric History: Reports: ADD, ADHD, Anxiety, Bipolar, Panic Attack, Psych Hospitalization(s), PTSD, Suicide Attempt, Suicidal Ideation Other Psychiatric History: bipolar 2 Endocrine/Metabolic History: Reports: Hypothyroidism, Obesity/BMI 30+ Oncologic (Cancer) History: Reports: Thyroid Other Oncologic History: pappulary with focal variant - Infectious Disease History Infectious Disease History: Reports: C-Difficile - Past Surgical History HEENT Surgical History: Reports: Other (See Below) Other HEENT Surgeries/Procedures: barretts esophagus surgery GI Surgical History: Reports: Appendectomy, Cholecystectomy, Hernia Repair/Other , Other (See Below) Other GI Surgeries/Procedures: ablations to the esphagus Endocrine Surgical History: Reports: Thyroidectomy, Other (See Below) Other Endocrine Surgeries/Procedures: 9 lymphnodes on left side removed Neurological Surgical History: Reports: Discectomy, Laminectomy, Other (See Below) Social & Family History - Family History Family Medical History: Noncontributory - Tobacco Use Smoking Status *Q: Former Smoker Years of Tobacco use: 20 Packs/Tins Daily: 1 Used Tobacco, but Quit: Yes Month/Year Tobacco Last Used: september 2019 - Caffeine Use Caffeine Use: Reports: Coffee, Soda, Tea - Recreational Drug Use Recreational Drug Use: No - Living Situation & Occupation Living situation: Reports: with Significant Other Occupation: Employed (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 Denies: Fever, Chills HEENT: Denies: Other Respiratory: Denies: Shortness of Breath Cardiovascular: Denies: Chest Pain GI/Abdominal: Reports: Abdominal Pain (Chronic diverticulitis intermittently) Musculoskeletal: Reports: Neck Pain, Back Pain, Leg Pain Skin: Reports: No Symptoms Neurological: Reports: No Symptoms. Denies: Headache ED EXAM, UPPER BACK/NECK PAIN - Physical Exam Exam: See Below Exam Limited By: No Limitations General Appearance: Alert, No Apparent Distress Head Exam: Atraumatic Neck Exam: Paraspinous Muscle Tender (Left side) Cardiovascular/Respiratory: Regular Rate, Rhythm, Tachycardia Neurologic: No Motor/Sensory Deficits, Oriented x 3 Psychiatric: Flat Affect Course - Vital Signs Last Recorded V/S: Last Vital Signs Temp 96.7 F L 09/25/19 13:51 Pulse 100 09/25/19 15:01 Resp 16 09/25/19 15:01 BP 174/100 H 09/25/19 15:01 Pulse Ox 99 09/25/19 15:01 - Orders/Labs/Meds Meds: Medications Discontinued Medications Generic Name Dose Route Start Last Admin Trade Name Davis PRN Reason Stop Dose Admin Hydromorphone HCl 1 mg 09/25/19 14:26 09/25/19 14:36 Dilaudid IM 09/25/19 14:27 1 mg ONETIME ONE Administration - Re-Assessments/Exams Free Text/Narrative Re-Assessment/Exam: 09/25/19 14:28 His primary provider was not in the clinic today but I talked to his nurse. They are having an issue with Elmo because he calls with something else bothering him almost on a daily basis. He was unable to tolerate the neck injection because it was "too painful". He saw the neurosurgeon last week, I did call 1 call and discussed that visit and if he can stop smoking for 6 weeks they will consider surgery but he wanted to try the neck injection and get an EMG first. They also read me the MRI results which did not sound significantly dramatic, and the neurosurgeon found no neurologic deficits on his exam. I agreed to give the patient 1 mg of Dilaudid IM but no further pain control at this time, he is going to have to work this out with his primary doctor. Departure - Departure Time of Disposition: 15:05 Disposition: Home, Self-Care 01 Clinical Impression: Chronic neck pain, Cervical radiculopathy - Discharge Information Instructions: Neuropathic Pain Referrals: Rhett Anderson MD [Primary Care Provider] - Forms: ED Department Discharge Care Plan Goals: Continue your current medications including anti-inflammatories for pain. Discuss any other treatment with your regular physician. Sepsis Event Note - Evaluation Sepsis Screening Result: No Definite Risk - Focused Exam Vital Signs: Vital Signs Temp Pulse Resp BP Pulse Ox 09/25/19 15:01 100 16 174/100 H 99 09/25/19 13:51 96.7 F L 121 H 20 158/112 H 96 Date Exam was Performed: 09/25/19 Time Exam was Performed: 16:16
== END 2019-09-25 15:05 | disposition home or self-care (01) ==
LOC: JP.ED 13:33
DX: M54.12 Radiculopathy, cervical region (principal); E03.9 Hypothyroidism, unspecified; F41.9 Anxiety disorder, unspecified; E66.9 Obesity, unspecified; Z68.42 Body mass index [BMI] 45.0-49.9, adult; F31.9 Bipolar disorder, unspecified; Z79.899 Other long term (current) drug therapy; Z87.891 Personal history of nicotine dependence; Z88.0 Allergy status to penicillin; Z88.8 Allergy status to other drugs, medicaments and biological substances
CPT/HCPCS: 96372; 99283; J1170

== ENCOUNTER 2019-10-02 01:30 | Emergency (ER) | payer BC, MEDICAID ==
--- NOTE | 2019-10-02 01:39 | EDM.PDOC ---
ED HPI GENERAL MEDICAL PROBLEM - General Chief Complaint: Neck Problem Stated Complaint: WEAKNESS Time Seen by Provider: 10/02/19 01:39 Source of Information: Reports: Patient History Limitations: Reports: No Limitations - History of Present Illness INITIAL COMMENTS - FREE TEXT/NARRATIVE: 38-year-old male that has known cervical radiculopathy, had a neurosurgery telemedicine consult today and is set up for an EMG on . Tonight he was trying to ice his neck when he started getting generalized body shakes and his left arm went numb. It scared him so he called the [facility] nurse hotline and they sent him into the emergency room. The shaking seems to have slowed down but he still has numbness into his left arm and significant neck pain. No fevers or chills. 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 Middle Neck Pain Score (Numeric/FACES): 8 - Related Data Allergies Allergy/AdvReac Type Severity Reaction Status Date / Time diclofenac Allergy Dizziness Verified 09/25/19 14:23 NSAIDS (Non-Steroidal Allergy Other Verified 09/25/19 14:23 Anti-Inflamma Penicillins Allergy Itching Verified 09/25/19 14:23 gabapentin AdvReac Shaking Verified 09/25/19 14:23 Home Meds: Home Meds OXcarbazepine [Trileptal] 1,200 mg PO BID 01/10/14 [History] Levothyroxine 250 mcg PO ACBREAKFAST 07/24/17 [History] Dextroamphetamine/Amphetamine [Adderall 20 mg Tablet] 20 mg PO BID 05/14/18 [ History] Acetaminophen [Tylenol Extra Strength] 1,000 mg PO Q6H PRN 06/18/19 [History] ALPRAZolam [Alprazolam] 1 tab PO Q4H PRN 07/22/19 [History] Cariprazine Hydrochloride [Vraylar] 1.5 mg PO DAILY 08/30/19 [History] Cariprazine Hydrochloride [Vraylar] 3 mg PO DAILY 09/25/19 [History] Eszopiclone 1 mg PO BEDTIME 09/25/19 [History] methocarbamoL [Methocarbamol] 500 mg PO TID 09/25/19 [History] Past Medical History HEENT History: Reports: Impaired Vision Cardiovascular History: Reports: None Respiratory History: Reports: None Gastrointestinal History: Reports: Cholelithiasis, Diverticulosis, GERD, Other ( See Below) Other Gastrointestinal History: barrets esphogeal Musculoskeletal History: Reports: Back Pain, Chronic, Neck Pain, Chronic, Other (See Below) Other Musculoskeletal History: right hip pain with labrum tear Neurological History: Reports: Headaches, Chronic Psychiatric History: Reports: ADD, ADHD, Anxiety, Bipolar, Panic Attack, Psych Hospitalization(s), PTSD, Suicide Attempt, Suicidal Ideation Other Psychiatric History: bipolar 2 Endocrine/Metabolic History: Reports: Hypothyroidism, Obesity/BMI 30+ Oncologic (Cancer) History: Reports: Thyroid Other Oncologic History: pappulary with focal variant - Infectious Disease History Infectious Disease History: Reports: C-Difficile - Past Surgical History HEENT Surgical History: Reports: Other (See Below) Other HEENT Surgeries/Procedures: barretts esophagus surgery GI Surgical History: Reports: Appendectomy, Cholecystectomy, Hernia Repair/Other , Other (See Below) Other GI Surgeries/Procedures: ablations to the esphagus Endocrine Surgical History: Reports: Thyroidectomy, Other (See Below) Other Endocrine Surgeries/Procedures: 9 lymphnodes on left side removed Neurological Surgical History: Reports: Discectomy, Laminectomy, Other (See Below) Social & Family History - Family History Family Medical History: Noncontributory - Caffeine Use Caffeine Use: Reports: Coffee, Soda, Tea - Living Situation & Occupation Living situation: Reports: with Significant Other Occupation: Employed (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 Amna, 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 Denies: Fever, Chills HEENT: Denies: Vision Change Respiratory: Denies: Shortness of Breath Cardiovascular: Denies: Chest Pain GI/Abdominal: Denies: Abdominal Pain (History of recurring diverticulitis but no current symptoms) Musculoskeletal: Reports: Neck Pain, Arm Pain, Back Pain Skin: Reports: No Symptoms ED EXAM, UPPER BACK/NECK PAIN - Physical Exam Exam: See Below Exam Limited By: No Limitations General Appearance: Alert, Mild Distress (Looks fairly uncomfortable, holding his left arm to his body) Head Exam: Atraumatic Neck Exam: Other (Tender to palpation along the paraspinous muscles into the thoracic spine, increased pain with rotation especially to the left) Neurologic: Oriented x 3, Other (Grasp strength is slightly weaker on the left but effort is questionable) Psychiatric: Anxious Skin Exam: Normal Color Course - Vital Signs Last Recorded V/S: Last Vital Signs Temp 96.6 F L 10/02/19 01:46 Pulse 108 H 10/02/19 01:46 Resp 18 10/02/19 01:46 BP 124/88 10/02/19 01:46 Pulse Ox 96 10/02/19 01:46 - Orders/Labs/Meds Meds: Medications Discontinued Medications Generic Name Dose Route Start Last Admin Trade Name Freq PRN Reason Stop Dose Admin Hydromorphone HCl 1 mg 10/02/19 01:54 10/02/19 02:00 Dilaudid IM 10/02/19 01:55 1 mg ONETIME ONE Administration - Re-Assessments/Exams Free Text/Narrative Re-Assessment/Exam: 10/02/19 01:57 Had a long conversation with the patient about the chronicity of his symptoms, the varying symptoms and how they do not match with any specific objective physical condition. He was given 1 mg of Dilaudid IM, but I told him I would not be able to offer any pain medication in the future unless something is diagnosed. Fortunately he has his EMG on which is tomorrow, and had his neurosurgical consultation yesterday. Departure - Departure Time of Disposition: 02:17 Disposition: Home, Self-Care 01 Clinical Impression: Cervical neuropathy, Chronic neck pain - Discharge Information Instructions: Neuropathic Pain Referrals: Emily Ordoñez DO [Primary Care Provider] - Forms: ED Department Discharge Care Plan Goals: Follow-up as scheduled and continue your current regular medications. Sepsis Event Note - Focused Exam Vital Signs: Vital Signs Temp Pulse Resp BP Pulse Ox 10/02/19 01:46 96.6 F L 108 H 18 124/88 96 Date Exam was Performed: 10/02/19 Time Exam was Performed: 06:37
[2019-10-02] MEDS: HYDROmorphone 1 MG/ML Syringe IM ONE (02:00)
== END 2019-10-02 02:16 | disposition home or self-care (01) ==
LOC: JP.ED 01:30
DX: M54.12 Radiculopathy, cervical region (principal); K21.9 Gastro-esophageal reflux disease without esophagitis; F90.9 Attention-deficit hyperactivity disorder, unspecified type; E03.9 Hypothyroidism, unspecified; E66.9 Obesity, unspecified; F31.9 Bipolar disorder, unspecified; Z88.8 Allergy status to other drugs, medicaments and biological substances; Z88.0 Allergy status to penicillin; Z79.899 Other long term (current) drug therapy; Z68.42 Body mass index [BMI] 45.0-49.9, adult
CPT/HCPCS: 96372; 99284; J1170

== ENCOUNTER 2019-10-03 09:51 | Inpatient (IN) | payer BC, MEDICAID ==
[~2019-10-03 09:51] MED LIST: Bupivacaine 0.5% 50 ML MDV ONE; Lidocaine 1% with EPINEPHrine 1:100,000 50 ML MDV ONE; Meropenem 500 MG SDV ONE
[2019-10-03] MEDS ORDERED: Naloxone 0.4 MG/ML SDV IV PRN (10:16)
[2019-10-03] MEDS ORDERED: fentaNYL 250 MCG/5 ML SDV ONE ×3 (10:30→13:35)
[2019-10-03] MEDS ORDERED: Ondansetron 4 MG/2 ML SDV ONE (10:30)
[2019-10-03] MEDS ORDERED: Acetaminophen 500 MG Tab PO ONE (10:30)
[2019-10-03] MEDS ORDERED: Dexamethasone 4 MG/ML SDV ONE (10:30)
[2019-10-03] MEDS ORDERED: Neostigmine Methylsulfate 1 MG/ML 5 ML Syringe ONE (10:30)
[2019-10-03] MEDS ORDERED: Glycopyrrolate 0.2 MG/ML 5 ML MDV ONE (10:30)
[2019-10-03] MEDS ORDERED: Succinylcholine 200 MG/10 ML MDV ONE (10:30)
[2019-10-03] MEDS ORDERED: Rocuronium 50 MG/5 ML Vial ONE ×2 (10:30→13:36)
[2019-10-03] MEDS ORDERED: Propofol 200 MG/20 ML SDV ONE (10:30)
[2019-10-03] MEDS ORDERED: Lactated Ringers 1,000 ML ONE (10:33)
[2019-10-03] MEDS ORDERED: Neomycin/Polymyxin B 1 ML, Sodium Chloride 0.9% 750 ML IRR ONE ×2 (10:45)
[2019-10-03] MEDS ORDERED: Albuterol/Ipratropium 3.0-0.5 MG/3 ML Neb Soln NEB ONE (11:00)
[2019-10-03] MEDS ORDERED: Ketamine 50 MG in Sodium Chloride 0.9% 49.5 ML IV SCH (11:30)
[2019-10-03] MEDS ORDERED: Meropenem 500 MG in Sodium Chloride 0.9% 50 ML IV ONE (11:30)
[2019-10-03] MEDS ORDERED: Ketamine 500 MG/5 ML MDV IV SCH (11:30)
[2019-10-03] MEDS ORDERED: Dextrose 5%-Lactated Ringers 1,000 ML IV SCH (11:45)
[2019-10-03] MEDS: HYDROmorphone/Normal Saline 15 MG/30 ML PCA IV PRN (12:35)
[2019-10-03] MEDS ORDERED: Lidocaine 2% Jelly 10 ML Urojet ONE (13:33)
[2019-10-03] MEDS ORDERED: Meropenem 500 MG SDV ONE (14:25)
[2019-10-03] MEDS ORDERED: Ondansetron 4 MG/2 ML SDV IVPUSH PRN (16:00)
[2019-10-03] MEDS ORDERED: Albuterol/Ipratropium 3.0-0.5 MG/3 ML Neb Soln INH PRN (16:00)
[2019-10-03] MEDS: Meropenem 500 MG in Sodium Chloride 0.9% 50 ML IV SCH ×2 (17:20→23:38)
[2019-10-03] MEDS: Pantoprazole 40 MG Vial IVPUSH SCH (17:20)
[2019-10-03] MEDS: Acetaminophen 500 MG Tab PO SCH ×2 (17:20→23:40)
[2019-10-03] MEDS: Dextrose 5%-Lactated Ringers 1,000 ML IV SCH ×2 (17:29→23:36)
[2019-10-03] MEDS ORDERED: Lactated Ringers 500 ML IV ONE (20:00)
[2019-10-03] MEDS: Tamsulosin 0.4 MG Cap.ER PO SCH (20:12)
[2019-10-03] MEDS: OXcarbazepine 300 MG Tab PO SCH (20:12)
[2019-10-03] MEDS: Albuterol/Ipratropium 3.0-0.5 MG/3 ML Neb Soln INH SCH (20:18)
[2019-10-04] MEDS: Meropenem 500 MG in Sodium Chloride 0.9% 50 ML IV SCH ×4 (05:34→23:41)
[2019-10-04] MEDS: Dextrose 5%-Lactated Ringers 1,000 ML IV SCH ×2 (05:34→08:00)
[2019-10-04] MEDS: Acetaminophen 500 MG Tab PO SCH ×4 (05:35→23:38)
[2019-10-04] MEDS: hydrOXYzine HCL 100 MG/2 ML SDV IM PRN ×3 (06:10→23:37)
[2019-10-04] MEDS: Amphetamine/Dextroamphetamine Salts 10 MG Tab PO SCH ×2 (07:15→14:10)
[2019-10-04] MEDS: Albuterol/Ipratropium 3.0-0.5 MG/3 ML Neb Soln INH SCH ×4 (07:22→20:25)
[2019-10-04] MEDS: HYDROmorphone/Normal Saline 15 MG/30 ML PCA IV PRN (07:39)
[2019-10-04] MEDS: VRAYLAR 3 MG PO SCH (08:11)
[2019-10-04] MEDS: OXcarbazepine 300 MG Tab PO SCH ×2 (08:12→20:25)
[2019-10-04] MEDS: Metoclopramide 10 MG/2 ML SDV IV SCH ×3 (08:42→20:25)
[2019-10-04] MEDS: ALPRAZolam 0.5 MG Tab PO PRN ×3 (10:22→23:39)
--- NOTE | 2019-10-04 11:07 | PN ---
DATE OF SERVICE: 10/04/2019 SUBJECTIVE: Elmo is postoperative day #1. His pain has been controlled. He has been up, ambulating. Oral intake 2039. Urine output via Anderson catheter is 2094. BASILIA drain put out 105 of a light pink drainage. He has been afebrile. Vital signs have been stable. REVIEW OF SYSTEMS: Remainder of review of systems negative for any pertinent positives and negatives. OBJECTIVE: GENERAL: Elmo Romero is a 38-year-old male. He is alert and orientated. VITAL SIGNS: TPR at 07:13, 94.5; 91; 16; blood pressure 137/82. HEENT: Negative. NECK: Supple. HEART: Regular rate and rhythm. LUNGS: Clear. ABDOMEN: Dressing dry and intact. BASILIA drain as above. EXTREMITIES: Without peripheral edema. ASSESSMENT: Sigmoid colon resection for persistent sigmoid colon diverticulitis. Date of surgery: 10/03/2019. Surgeon: Robe Dietz MD. PLAN: 1. Schedule and have consent signed for delayed primary closure, 10/05/2019 at 07:30, IV local and TAP block. N.p.o. after midnight. Surgeon: Robe Dietz MD. 2. Full liquid diet. 3. N.p.o. after midnight. 4. Reglan 10 mg IV q.6 hours scheduled. 5. Leave Anderson catheter in to assure accurate intake and output. 6. We will evaluate p.r.n. or in a.m. Jenny Mcmillan PA-C /[id number]
[2019-10-04] MEDS: Pantoprazole 40 MG Vial IVPUSH SCH (17:50)
[2019-10-04] MEDS: Tamsulosin 0.4 MG Cap.ER PO SCH (20:25)
[2019-10-05] MEDS: Dextrose 5%-Lactated Ringers 1,000 ML IV SCH ×2 (02:42→17:23)
[2019-10-05] MEDS: Metoclopramide 10 MG/2 ML SDV IV SCH ×4 (04:03→20:00)
[2019-10-05] MEDS: Meropenem 500 MG in Sodium Chloride 0.9% 50 ML IV SCH ×4 (05:25→23:52)
[2019-10-05] MEDS ORDERED: Bupivacaine 0.5% 50 ML MDV ONE (06:24)
[2019-10-05] MEDS ORDERED: Meropenem 500 MG SDV ONE (06:24)
[2019-10-05] MEDS ORDERED: Lidocaine 1% with EPINEPHrine 1:100,000 50 ML MDV ONE (06:24)
[2019-10-05] MEDS ORDERED: Propofol 200 MG/20 ML SDV ONE ×5 (07:09→08:10)
[2019-10-05] MEDS ORDERED: fentaNYL 100 MCG/2 ML SDV ONE (07:09)
[2019-10-05] MEDS ORDERED: Midazolam 1 MG/ML 2 ML SDV ONE (07:09)
[2019-10-05] MEDS: Albuterol/Ipratropium 3.0-0.5 MG/3 ML Neb Soln INH SCH ×4 (07:21→20:00)
[2019-10-05] MEDS ORDERED: Labetalol 20 MG/4 ML Syringe ONE (08:16)
[2019-10-05] MEDS ORDERED: Lactated Ringers 1,000 ML ONE (08:22)
[2019-10-05] MEDS: Acetaminophen 500 MG Tab PO SCH ×4 (09:17→23:52)
[2019-10-05] MEDS: OXcarbazepine 300 MG Tab PO SCH ×2 (09:19→20:01)
[2019-10-05] MEDS: Bisacodyl 5 MG Tab PO SCH ×2 (09:20→20:00)
[2019-10-05] MEDS: Amphetamine/Dextroamphetamine Salts 10 MG Tab PO SCH ×2 (09:20→14:25)
[2019-10-05] MEDS: Docusate Sodium 100 MG Cap PO SCH ×2 (09:20→20:01)
[2019-10-05] MEDS: VRAYLAR 3 MG PO SCH (09:21)
[2019-10-05] MEDS: HYDROmorphone/Normal Saline 15 MG/30 ML PCA IV PRN (11:01)
[2019-10-05] MEDS: ALPRAZolam 0.5 MG Tab PO PRN ×2 (14:00→21:52)
[2019-10-05] MEDS: Pantoprazole 40 MG Vial IVPUSH SCH (17:23)
[2019-10-05] MEDS ORDERED: oxyCODONE 5 MG Tab PO PRN (18:00)
[2019-10-05] MEDS: Tamsulosin 0.4 MG Cap.ER PO SCH (20:00)
[2019-10-05] MEDS: HYDROmorphone 2 MG Tab PO PRN (23:51)
[2019-10-06] MEDS: Metoclopramide 10 MG/2 ML SDV IV SCH ×2 (03:54→08:05)
[2019-10-06] MEDS: HYDROmorphone 2 MG Tab PO PRN ×2 (03:54→08:03)
[2019-10-06] MEDS: Acetaminophen 500 MG Tab PO SCH (06:18)
[2019-10-06] MEDS: Meropenem 500 MG in Sodium Chloride 0.9% 50 ML IV SCH (06:20)
[2019-10-06] MEDS: Amphetamine/Dextroamphetamine Salts 10 MG Tab PO SCH (07:35)
[2019-10-06] MEDS: Albuterol/Ipratropium 3.0-0.5 MG/3 ML Neb Soln INH SCH (08:01)
[2019-10-06] MEDS: Docusate Sodium 100 MG Cap PO SCH (08:03)
[2019-10-06] MEDS: OXcarbazepine 300 MG Tab PO SCH (08:03)
[2019-10-06] MEDS: Bisacodyl 5 MG Tab PO SCH (08:05)
[2019-10-06] MEDS: VRAYLAR 3 MG PO SCH (08:05)
--- NOTE | 2019-10-07 13:40 | PN ---
DATE OF SERVICE: 10/05/2019 The patient is now 3 days status post sigmoid resection for a persistent diverticulitis with pericolonic abscess. He was noted to have fascial dehiscence at the time of his closure today that was repaired as well as delayed primary closure being completed. on regular diet today and continue bowel stimulation. We will leave the Anderson catheter in for one more day given his history and continue with Flomax and try getting the catheter out in the morning. Robe Dietz MD /[id number]
--- NOTE | 2019-10-07 13:46 | OR ---
DATE OF PROCEDURE: 10/03/2019 SURGEON: Robe Dietz MD PREOPERATIVE DIAGNOSIS: Persistent sigmoid colon diverticulitis. POSTOPERATIVE DIAGNOSES: 1. Difficult urethral catheter placement. 2. Persistent sigmoid colon diverticulitis associated with pericolonic abscess. OPERATIVE PROCEDURES: 1. Physician placement of urethral catheter (05030). 2. Exploratory laparotomy with: a. Rectosigmoid resection with low coloproctostomy (46418). b. Drainage of pericolonic abscess (29978). c. Placement of Vicryl mesh to displace pelvic and abdominal wall from underlying viscera to limit recurrent adhesion formation (04139). ANESTHESIA: General. INSULATION WORKER APPRENTICE: Jenny Mcmillan PA-C INDICATIONS FOR PROCEDURE: This is a 38-year-old who is plagued for several weeks with some recurrent diverticulitis, as he is presenting with a third episode this year. On examination in the clinic yesterday, he was noted to be strikingly tender in the left lower quadrant. He had a previous CT scan showing diverticulitis in the proximal sigmoid colon, and this location would be consistent with the present clinical exam. Plan is to proceed with an exploratory laparotomy and rectosigmoid resection. Potential risks of the procedure including bleeding, infection, leaks from GI tract closure that might require a temporary colostomy, as well as possibility of cardiopulmonary, septic, or hemorrhagic complications leading to were all discussed, and the patient wishes to proceed. Although the patient is fairly young, his morbid obesity places him at a somewhat higher risk of both infectious complications, as well as cardiopulmonary complications, and the patient is aware of this issue. DETAILS OF PROCEDURE: The patient was taken to the operating room, and after general endotracheal anesthesia was induced, he was placed in a lithotomy position. Nursing initially tried to place a Anderson catheter. The patient does have history of a bladder cyst repair and does report some difficulty initiating his urinary stream at times. Following this, the urethra was injected with some lidocaine gel, and using firm manipulation, a size 12 Anderson catheter was able to be passed into the urethra. Good urine flow was noted and the catheter was able to be inflated without undue pressure, i.e. no signs of this being within the urethra. At this point, the abdomen was prepped and draped. A midline incision from the umbilicus down to the pubis was made and carried down through the full-thickness abdominal wall. Upon entering the peritoneal cavity, the patient was noted to have an area of firmness in the more or less mid sigmoid colon. As this was elevated upward, a roughly teaspoon-sized abscess was encountered adjacent to the area of firmness in the colon wall and adjacent mesentery, consisting of a small abscess. This likely was causing the patient's persistent and recurring symptoms. Cultures of this were obtained. At this point, the junction of the proximal and mid thirds of the sigmoid colon was divided with DULCE MARIA purple loads. The bowel at this level was quite supple and soft. The underlying mesentery leading down toward the rectum was then divided with DULCE MARIA loads as well and eventually the junction of the mid and upper thirds of the rectum was encircled and divided with a DULCE MARIA curved black load, and the specimen delivered from the field. Off the field, it was inspected with opening of the bowel to confirm there is no neoplastic process ongoing, and this confirmed that this was an otherwise straightforward diverticulitis. At this point, the anvil of a 28 mm EEA stapler was placed with small opening made in the sigmoid colon. This was then re-stapled and the anvil then brought out through the most dependent portion of that segment of the bowel. The main body of the stapler was then brought rectally up to the apex of the rectal staple line and the 2 components of the stapler were united and fired, thus creating the coloproctostomy. Upon removal of the stapler, double donuts of mucosa were noted within it. With the pelvis being flooded with antibiotic-containing saline solution, the colonoscope was then passed up to the level of the anastomosis. This was found to be intact with good blood supply on each side, no air bubbles were seen, i.e. the anastomosis was confirmed to be intact. At this point, the anastomosis was reinforced with some fibrin sealant. Due to the level of the obesity, no additional sutures could be reasonably placed at the seromuscular level. A single Satinder-Deluna drain was then placed through the right mid abdomen, positioned down adjacent to the coloproctostomy and from there further into the pelvis. The patient did not have any omentum mobilized well down into the pelvis, and given this, Vicryl mesh was placed behind the urinary bladder along the pelvic sidewalls and up against the abdominal wall. The posterior peritoneum from the linea semilunaris downward was then closed with a running 2-0 Vicryl stitch and the main anterior fascia closed with a #2 Vicryl stitch. Skin and subcutaneous tissues were packed open for a planned delayed primary closure in 48 hours, to limit postoperative infection risk. The patient was taken to the recovery room in satisfactory condition. Physician clerical dentist assistant, Jenny Mcmillan, played an essential role in assisting in this case, helping to position the patient, retract structures as needed, as well as suturing and cutting sutures when indicated. Her presence improved patient safety and decreased operative time. Robe Dietz MD /[id number]
--- NOTE | 2019-10-08 09:24 | DISCH ---
FINAL DIAGNOSES: 1. Persistent sigmoid colon diverticulitis with pericolonic abscess. 2. History of cervical radiculopathy. 3. Morbid obesity. 4. Nicotine dependence. 5. Bipolar disorder. 6. Attention-deficit hyperactivity disorder. 7. History of papillary carcinoma of the thyroid. OPERATIVE PROCEDURES: 1. On 10/03/2019, exploratory laparotomy with: a. Rectosigmoid colon resection with coloproctostomy. b. Drainage of pericolonic abscess. 2. Delayed primary closure of abdominal incision along with closure of focal fascial dehiscence. SUMMARY: This is a 38-year-old presenting with several week history of persistent/recurrent sigmoid colon diverticulitis. Given the course of antibiotics he had been on and the fact that on examination at the time of consultation on 10/02/2019 he was strikingly tender in the left lower quadrant, the decision was made to proceed with a sigmoid colon resection. This was done with primary anastomosis to the rectum along with drainage of pericolonic abscess. The skin and subcutaneous tissue were left open, and at the time of delayed primary closure, he was noted to have some degree of fascial dehiscence, and this was repaired along with closure of the skin. A drain was placed due to large adipose layer, given the fluid accumulation in that area. The patient will be sent home with that drain in place. Otherwise, he is tolerating a regular diet and is moving his bowels. We will send him home with Dilaudid 2 to 4 mg p.o. q.4 hours p.r.n. pain, #42 and Tylenol 1 g p.o. q.i.d. p.r.n. pain. He needs to be on a regular diet and follow up with Dr. Dietz at [facility] on 10/16/2019.
--- NOTE | 2019-10-09 14:38 | OR ---
DATE OF PROCEDURE: 10/05/2019 SURGEON: Robe Dietz MD PREOPERATIVE DIAGNOSIS: Open abdominal incision. POSTOPERATIVE DIAGNOSES: 1. Open abdominal incision. 2. Fascial dehiscence. OPERATIVE PROCEDURE: Exploration of open abdominal wound with: 1. Closure of fascial dehiscence (95368). 2. Delayed primary closure. ANESTHESIA: Local plus IV sedation. INDICATION FOR PROCEDURE: The patient is [id number] 48 hours status post a sigmoid resection for a perforated diverticulitis and a pericolonic abscess. The skin and subcutaneous tissue were left open to avoid high risk of wound infection if a primary closure had been undertaken, and the plan is to proceed with a delayed primary closure. Potential risks of the procedure including bleeding and infection were discussed, and the patient wishes to proceed. DETAILS OF PROCEDURE: The patient was then taken to the operating room and placed in a supine position. His head was elevated roughly 30 degrees so as to limit aspiration risk. The patient is morbidly obese and the dressing was taken down. Subcutaneous tissue at level of the small bowel was very thick up to around 5 inches in depth. The patient was noted, however, to have a focal fascial dehiscence. The center point of the anterior rectus sheath had come apart along with the rectus fascia. After the area was prepped and draped and the wound edges anesthetized with 1% lidocaine, fascial dehiscence was closed with having #2-0 Vicryl stitch taking extra wide bites. This appeared to be a reasonably satisfactory closure. Given his obesity, this certainly is at risk for development of long-term hernia, however. Due to the thickness of the subcutaneous tissue, a 10-Albanian Satinder-Deluna drain was placed to the right and slightly superior to the incision and placed across the depth of incision. Incision was then closed with some 3-0 and 4-0 Vicryl stitch deep and then perry for the skin. To the lower most part of the incision was an angle as the abdominal pannus came down to the suprapubic area, which would not allow us to use skin perry and those areas were closed with some interrupted 3-0 Vicryl skin stitch. Dressing was then applied. The patient was taken to the recovery room in satisfactory condition. Robe Dietz MD /[id number]
== END 2019-10-06 10:30 | disposition home or self-care (01) | DRG 221 ==
LOC: JP.SDS 09:51 → JP.MS 09:51 → EDSTATUS 12:15 → JP.MS 15:40
PROVIDERS: ADMIT Surgery; ATTEND Surgery
PROC: 0D1N4ZP Bypass Sigmoid Colon to Rectum, Percutaneous Endoscopic Approach (ICD-10-PCS; principal; 2019-10-03)
PROC: 0D9N0ZZ Drainage of Sigmoid Colon, Open Approach (ICD-10-PCS; 2019-10-03)
PROC: 0T9B30Z Drainage of Bladder with Drainage Device, Percutaneous Approach (ICD-10-PCS; 2019-10-03)
PROC: 3E0M05Z Introduction of Adhesion Barrier into Peritoneal Cavity, Open Approach (ICD-10-PCS; 2019-10-03)
PROC: 0DBP0ZZ Excision of Rectum, Open Approach (ICD-10-PCS; 2019-10-03)
PROC: 0DBN0ZZ Excision of Sigmoid Colon, Open Approach (ICD-10-PCS; 2019-10-03)
PROC: 0JQ80ZZ Repair Abdomen Subcutaneous Tissue and Fascia, Open Approach (ICD-10-PCS; 2019-10-05)
PROC: 0WQF0ZZ Repair Abdominal Wall, Open Approach (ICD-10-PCS; 2019-10-05)
DX: K57.20 Diverticulitis of large intestine with perforation and abscess without bleeding (principal); T81.31XA Disruption of external operation (surgical) wound, not elsewhere classified, initial encounter; Z68.42 Body mass index [BMI] 45.0-49.9, adult; E66.01 Morbid (severe) obesity due to excess calories; F17.210 Nicotine dependence, cigarettes, uncomplicated; F31.9 Bipolar disorder, unspecified; F90.9 Attention-deficit hyperactivity disorder, unspecified type; G89.29 Other chronic pain; F41.1 Generalized anxiety disorder; K21.9 Gastro-esophageal reflux disease without esophagitis; E03.9 Hypothyroidism, unspecified; H54.7 Unspecified visual loss; G43.909 Migraine, unspecified, not intractable, without status migrainosus; M54.5 Low back pain; F43.10 Post-traumatic stress disorder, unspecified; M47.816 Spondylosis without myelopathy or radiculopathy, lumbar region; M47.22 Other spondylosis with radiculopathy, cervical region; R59.1 Generalized enlarged lymph nodes; Z85.850 Personal history of malignant neoplasm of thyroid
CPT/HCPCS: 36415; 80053; 83735; 84100; 85025; 87070; 87075; 87077; 87186; 87205; 88307; 94640; 94762; A9270-GY; C1781; C9113; J0171; J0330; J1100; J1170; J2020; J2185; J2250; J2405; J2704; J2710; J2765; J2795; J3010; J3410; J3490; J7050; J7120; J7121; J7620-GY

== ENCOUNTER 2019-11-01 13:40 | Emergency (ER) | payer BC, MEDICAID ==
[2019-11-01] MEDS ORDERED: Sodium Chloride 0.9% 10 ML Syringe FLUSH PRN ×2 (14:31→14:57)
[2019-11-01] MEDS ORDERED: Sodium Chloride 0.9% 1,000 ML IV STA (14:31)
[2019-11-01] MEDS ORDERED: fentaNYL 100 MCG/2 ML SDV IVPUSH ONE (14:32)
[2019-11-01] MEDS ORDERED: Ondansetron 4 MG/2 ML SDV IVPUSH ONE (14:32)
--- NOTE | 2019-11-01 14:36 | EDM.PDOC ---
ED HPI GENERAL MEDICAL PROBLEM - General Chief Complaint: Abdominal Pain Stated Complaint: R ABD PAIN Time Seen by Provider: 11/01/19 14:27 Source of Information: Reports: Patient, RN Notes Reviewed History Limitations: Reports: No Limitations - History of Present Illness INITIAL COMMENTS - FREE TEXT/NARRATIVE: 38-year-old gentleman presents emergency department a complaint of abdominal pain, he is postop about 30 days large bowel resection secondary to diverticulitis with abscess. This particular pain has been increasing over the last couple of days he has never fully recovered from his abdominal surgery but pain is worse than usual does have nausea still passing gas. - Related Data Allergies Allergy/AdvReac Type Severity Reaction Status Date / Time Penicillins Allergy Pruritis Verified 11/01/19 14:09 diclofenac AdvReac Dizziness, Verified 11/01/19 14:09 Nausea/Vomiting gabapentin AdvReac Shaking Verified 11/01/19 14:09 ibuprofen AdvReac Nausea & Verified 11/01/19 14:09 Vomiting, GI intolerance NSAIDS (Non-Steroidal AdvReac Nausea and Verified 11/01/19 14:09 Anti-Inflamma Vomiting zolpidem [From Ambien] AdvReac Sleep Verified 11/01/19 14:09 walking Dust Mite Extract Allergy Rhinitis, Uncoded 11/01/19 14:09 Cough Home Meds: Home Meds OXcarbazepine [Trileptal] 1,200 mg PO BID 01/10/14 [History] Levothyroxine 250 mcg PO ACBREAKFAST 07/24/17 [History] Dextroamphetamine/Amphetamine [Adderall 20 mg Tablet] 20 mg PO BID 05/14/18 [ History] ALPRAZolam [Alprazolam] 1 mg PO QID PRN 07/22/19 [History] Cariprazine Hydrochloride [Vraylar] 3 mg PO DAILY 09/25/19 [History] Eszopiclone 1 mg PO BEDTIME PRN 09/25/19 [History] Albuterol Sulfate [Albuterol Sulfate Hfa] 2 puff INH QID PRN 10/02/19 [History] Acetaminophen [Tylenol Extra Strength] 1,000 mg PO QID #0 10/06/19 [Rx] oxyCODONE 5 mg PO Q4HR 11/01/19 [History] Past Medical History HEENT History: Reports: Impaired Vision Gastrointestinal History: Reports: Cholelithiasis, GERD, Other (See Below) Other Gastrointestinal History: barrets esphogeal, diverticulitis Genitourinary History: Reports: Other (See Below) Other Genitourinary History: cyst present in bladder Musculoskeletal History: Reports: Back Pain, Chronic, Neck Pain, Chronic, Other (See Below) Other Musculoskeletal History: right hip pain with labrum tear Neurological History: Reports: Headaches, Chronic Psychiatric History: Reports: ADHD, Anxiety, Bipolar, Depression, Panic Attack, Psych Hospitalization(s), PTSD, Suicide Attempt, Suicidal Ideation Other Psychiatric History: bipolar 2 Endocrine/Metabolic History: Reports: Hypothyroidism, Obesity/BMI 30+ Oncologic (Cancer) History: Reports: Thyroid Other Oncologic History: pappulary with focal variant - Infectious Disease History Infectious Disease History: Reports: Chicken Pox - Past Surgical History HEENT Surgical History: Reports: Oral Surgery Other GI Surgeries/Procedures: 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 Male Surgical History: Reports: None Endocrine Surgical History: Reports: Thyroidectomy, Other (See Below) Other Endocrine Surgeries/Procedures: 9 lymphnodes on left side removed Neurological Surgical History: Reports: Discectomy, Laminectomy, Other (See Below) Musculoskeletal Surgical History: Reports: Other (See Below) Other Musculoskeletal Surgeries/Procedures:: partial discectomy back Oncologic Surgical History: Reports: None Social & Family History - Family History Family Medical History: Noncontributory HEENT: Reports: Impaired Vision Cardiac: Reports: Arrhythmia GI: Reports: Cirrhosis Psychiatric: Reports: Depression Oncologic: Reports: Cervix - Caffeine Use Caffeine Use: Reports: Coffee, Energy Drinks, Soda - Recreational Drug Use Recreational Drug Use: No - Living Situation & Occupation Living situation: Reports: with Significant Other Occupation: Employed (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 Amna, 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 Denies: Vomiting : Reports: No Symptoms ED EXAM, GI/ABD - Physical Exam Exam: See Below Exam Limited By: No Limitations General Appearance: Alert, WD/WN, No Apparent Distress Respiratory/Chest: No Respiratory Distress, Lungs Clear, Normal Breath Sounds, No Accessory Muscle Use, Chest Non-Tender Cardiovascular: Regular Rate, Rhythm, No Murmur GI/Abdominal Exam: Soft, Tender (Right upper quadrant), Abnormal Bowel Sounds ( Bowel sounds decreased), Other (Surgical wound is clean dry and intact) Course - Vital Signs Last Recorded V/S: Last Vital Signs Temp 95.6 F L 11/01/19 14:08 Pulse 90 11/01/19 15:55 Resp 16 11/01/19 15:55 BP 138/78 11/01/19 15:55 Pulse Ox 96 11/01/19 15:55 - Orders/Labs/Meds Orders: Active Orders 24 hr Category Date Time Status Peripheral IV Care [RC] . DIRECTED Care 11/01/19 14:32 Active Iopamidol [Isovue-300 (61%)] Med 11/01/19 15:00 Active 150 ml IV . DIRECTED Sodium Chloride 0.9% [Saline Flush] Med 11/01/19 14:31 Active 10 ml FLUSH ASDIRECTED PRN Sodium Chloride 0.9% [Saline Flush] Med 11/01/19 14:57 Active 10 ml FLUSH ONETIME PRN Peripheral IV Insertion Adult [OM.PC] Urgent Oth 11/01/19 14:31 Ordered Medication Orders Iopamidol (Isovue-300 (61%)) 150 ml IV . DIRECTED [facility] Last Admin: 11/01/19 15:22 Dose: 150 ml Sodium Chloride (Saline Flush) 10 ml FLUSH ASDIRECTED PRN PRN Reason: Keep Vein Open Sodium Chloride (Saline Flush) 10 ml FLUSH ONETIME PRN PRN Reason: PER RADIOLOGY PROTOCOL Last Admin: 11/01/19 15:21 Dose: 10 ml Labs: Laboratory Tests 11/01/19 11/01/19 11/01/19 Range/Units 14:40 14:40 14:40 WBC 7.2 (4.5-11.0) K/uL RBC 4.45 (4.30-5.90) M/uL Hgb 14.6 (12.0-15.0) g/dL Hct 42.3 (40.0-54.0) % MCV 95 (80-98) fL MCH 33 H (27-31) pg MCHC 35 (32-36) % Plt Count 323 (150-400) K/uL Neut % (Auto) 50 (36-66) % Lymph % (Auto) 27 (24-44) % [place] % (Auto) 14 H (2-6) % Eos % (Auto) 7 H (2-4) % Baso % (Auto) 1 (0-1) % Sodium 142 (140-148) mmol/L Potassium 3.9 (3.6-5.2) mmol/L Chloride 104 (100-108) mmol/L Carbon Dioxide 30 (21-32) mmol/L Anion Gap 8.4 (5.0-14.0) mmol/L BUN 8 (7-18) mg/dL Creatinine 0.9 (0.8-1.3) mg/dL Est Cr Clr Drug Dosing 116.03 mL/min Estimated GFR (MDRD) > 60 (>60) Glucose 77 (74-106) mg/dL Lactic Acid 2.3 H (0.4-2.0) mmol/L Calcium 7.9 L (8.5-10.1) mg/dL Total Bilirubin 0.2 (0.2-1.0) mg/dL AST 22 (15-37) U/L ALT 57 (12-78) U/L Alkaline Phosphatase 78 (46-116) U/L Total Protein 6.9 (6.4-8.2) g/dL Albumin 3.4 (3.4-5.0) g/dL Globulin 3.5 (2.3-3.5) g/dL Albumin/Globulin Ratio 1.0 L (1.2-2.2) Lipase (73-393) U/L Urine Color (YELLOW) Urine Appearance (CLEAR) Urine pH (5.0-8.0) Ur Specific [place] (1.008-1.030) Urine Protein (NEGATIVE) mg/dL Urine Glucose (UA) (NEGATIVE) mg/dL Urine Ketones (NEGATIVE) mg/dL Urine Occult Blood (NEGATIVE) Urine Nitrite (NEGATIVE) Urine Bilirubin (NEGATIVE) Urine Urobilinogen (0.2-1.0) EU/dL Ur Leukocyte Esterase (NEGATIVE) Urine RBC (0-5) Urine WBC (0-5) Ur Epithelial Cells Amorphous Sediment Urine Bacteria Urine Mucus 11/01/19 11/01/19 Range/Units 14:40 16:00 WBC (4.5-11.0) K/uL RBC (4.30-5.90) M/uL Hgb (12.0-15.0) g/dL Hct (40.0-54.0) % MCV (80-98) fL MCH (27-31) pg MCHC (32-36) % Plt Count (150-400) K/uL Neut % (Auto) (36-66) % Lymph % (Auto) (24-44) % [place] % (Auto) (2-6) % Eos % (Auto) (2-4) % Baso % (Auto) (0-1) % Sodium (140-148) mmol/L Potassium (3.6-5.2) mmol/L Chloride (100-108) mmol/L Carbon Dioxide (21-32) mmol/L Anion Gap (5.0-14.0) mmol/L BUN (7-18) mg/dL Creatinine (0.8-1.3) mg/dL Est Cr Clr Drug Dosing mL/min Estimated GFR (MDRD) (>60) Glucose (74-106) mg/dL Lactic Acid (0.4-2.0) mmol/L Calcium (8.5-10.1) mg/dL Total Bilirubin (0.2-1.0) mg/dL AST (15-37) U/L ALT (12-78) U/L Alkaline Phosphatase (46-116) U/L Total Protein (6.4-8.2) g/dL Albumin (3.4-5.0) g/dL Globulin (2.3-3.5) g/dL Albumin/Globulin Ratio (1.2-2.2) Lipase 418 H (73-393) U/L Urine Color Yellow (YELLOW) Urine Appearance Clear (CLEAR) Urine pH 6.0 (5.0-8.0) Ur Specific [place] 1.020 (1.008-1.030) Urine Protein Negative (NEGATIVE) mg/dL Urine Glucose (UA) Negative (NEGATIVE) mg/dL Urine Ketones Negative (NEGATIVE) mg/dL Urine Occult Blood Negative (NEGATIVE) Urine Nitrite Negative (NEGATIVE) Urine Bilirubin Negative (NEGATIVE) Urine Urobilinogen 0.2 (0.2-1.0) EU/dL Ur Leukocyte Esterase Negative (NEGATIVE) Urine RBC Not seen (0-5) Urine WBC Not seen (0-5) Ur Epithelial Cells Not seen Amorphous Sediment Not seen Urine Bacteria Not seen Urine Mucus Not seen Meds: Medications Generic Name Dose Route Start Last Admin Trade Name Freq PRN Reason Stop Dose Admin Iopamidol 150 ml 11/01/19 15:00 11/01/19 15:22 Isovue-300 (61%) IV 150 ml . DIRECTED YUSUF Administration Sodium Chloride 10 ml 11/01/19 14:31 Saline Flush FLUSH ASDIRECTED PRN Keep Vein Open Sodium Chloride 10 ml 11/01/19 14:57 11/01/19 15:21 Saline Flush FLUSH 10 ml ONETIME PRN Administration PER RADIOLOGY PROTOCOL Discontinued Medications Generic Name Dose Route Start Last Admin Trade Name Freq PRN Reason Stop Dose Admin Fentanyl 50 mcg 11/01/19 14:32 11/01/19 14:44 Sublimaze IVPUSH 11/01/19 14:33 50 mcg ONETIME ONE Administration Sodium Chloride 1,000 mls @ 500 mls/hr 11/01/19 14:31 11/01/19 14:45 Normal Saline IV 11/01/19 16:30 500 mls/hr .BOLUS STA Administration Sodium Chloride 85 mls @ 3 mls/sec 11/01/19 14:57 11/01/19 15:21 Normal Saline IV 11/01/19 14:58 3 mls/sec ONETIME ONE Administration Ondansetron HCl 4 mg 11/01/19 14:32 11/01/19 14:45 Zofran IVPUSH 11/01/19 14:33 4 mg ONETIME ONE Administration Departure - Departure Time of Disposition: 16:46 Disposition: Home, Self-Care 01 Condition: Fair Clinical Impression: Functional constipation - Discharge Information Instructions: Constipation, Adult Referrals: PCP,None [Primary Care Provider] - Forms: ED Department Discharge Additional Instructions: Try MiraLAX or another stool softener to get consistent bowel movements, please followup with your primary care provider in 7-10 days if not better, please call return to the emergency department with worsening of symptoms. Sepsis Event Note - Evaluation Sepsis Screening Result: No Definite Risk - Focused Exam Vital Signs: Vital Signs Temp Pulse Resp BP Pulse Ox 11/01/19 15:55 90 16 138/78 96 11/01/19 14:08 95.6 F L 104 H 20 153/94 H 97 11/01/19 14:03 95.6 F L 104 H 20 153/94 H 97 Date Exam was Performed: 11/01/19 Time Exam was Performed: 16:45 - My Orders Last 24 Hours: My Active Orders 11/01/19 14:31 Sodium Chloride 0.9% [Saline Flush] 10 ml FLUSH ASDIRECTED PRN Peripheral IV Insertion Adult [OM.PC] Urgent 11/01/19 14:32 Peripheral IV Care [RC] . DIRECTED 11/01/19 14:57 Sodium Chloride 0.9% [Saline Flush] 10 ml FLUSH ONETIME PRN 11/01/19 15:00 Iopamidol [Isovue-300 (61%)] 150 ml IV . DIRECTED - Assessment/Plan Last 24 Hours: My Active Orders 11/01/19 14:31 Sodium Chloride 0.9% [Saline Flush] 10 ml FLUSH ASDIRECTED PRN Peripheral IV Insertion Adult [OM.PC] Urgent 11/01/19 14:32 Peripheral IV Care [RC] . DIRECTED 11/01/19 14:57 Sodium Chloride 0.9% [Saline Flush] 10 ml FLUSH ONETIME PRN 11/01/19 15:00 Iopamidol [Isovue-300 (61%)] 150 ml IV . DIRECTED Plan: Assessment Acuity = acute Site and laterality = functional constipation Etiology = slow transit time Manifestations = abdominal pain intermittent Location of injury = Home Lab values = CBC, CMP, lipase, urinalysis within normal limits CT scan describes no acute process in the abdomen Plan I did review lab work CT scan results with him he is going to try MiraLAX or other stool softener to get a more consistent bowel pattern follow-up primary care 7 to 10 days if not better This note was dictated using [employer] voice recognition software please call with any questions on syntax or grammar.
[2019-11-01] MEDS ORDERED: Iopamidol 612 MG/ML 150 ML Bottle IV SCH (15:00)
--- NOTE | 2019-11-01 16:21 | CRLCT ---
INDICATION: Right upper quadrant pain. COMPARISON: 08/04/2019. TECHNIQUE: Contiguous axial CT images of the abdomen and pelvis are acquired after uneventful administration of IV contrast. Coronal sagittal reformations generated reviewed. FINDINGS: Normal heart size. Calcified granuloma in left lower lobe. No noncalcified pulmonary nodules or pulmonary opacities identified. Unchanged simple cyst in left hepatic lobe. No other liver lesions are identified. Minimal intra and extrahepatic biliary prominence is within normal limits for a cholecystectomy patient. The gallbladder is surgically absent. Patent hepatic vasculature. Spleen, adrenal glands, kidneys, and pancreas are unremarkable. The appendix is not seen. There is a suture material in the cecum that is likely from prior appendectomy. There was an interval sigmoid colon resection with a new bowel anastomosis noted in the pelvis. There is some mild wall thickening and stranding in the fat adjacent to the anastomosis which may be due to postsurgical changes versus recurrent diverticulitis. No other area of bowel wall thickening is noted. There is no bowel obstruction. There is some stranding in the abdominal midline of the lower abdomen abdominal wall and subcutaneous fat likely related to interval postsurgical changes. There is some linear dense material subjacent to the anterior abdominal wall that is new from prior and likely refer at represents mesh. There is some mild diastasis below the level of the umbilicus within an adjacent small bowel loop. This does not cause obstruction. There is an indurated fat within that area as well. Normal caliber abdominal aorta without atherosclerosis. Iliac arteries are unremarkable. Iliac veins and IVC are unremarkable. There is a circumaortic left renal vein. There is no pneumoperitoneum. No free fluid. No adenopathy. There are no acute or aggressive osseous abnormalities identified. IMPRESSION: 1. Interval resection in the sigmoid colon. There is a new bowel anastomosis in the pelvis. There is some mild wall thickening involving the adjacent colon. This could be due to postsurgical changes or recurrent diverticulitis. There is no adjacent fluid collection or free air to suggest perforation. 2. Postop changes in the anterior abdominal wall from recent midline incision. 3. Status post appendectomy and cholecystectomy. 4. No other cause of abdominal pain identified. Please note that all CT scans at this facility use dose modulation, iterative reconstruction, and/or weight-based dosing when appropriate to reduce radiation dose to as low as reasonably achievable. Dictated by Rafael Turner MD @ Nov 01 2019 3:59PM Signed by Dr. Rafael Turner @ Nov 01 2019 4:20PM
== END 2019-11-01 17:07 | disposition home or self-care (01) ==
LOC: JP.ED 13:40
DX: K59.04 Chronic idiopathic constipation (principal); F41.9 Anxiety disorder, unspecified; F31.9 Bipolar disorder, unspecified; E03.9 Hypothyroidism, unspecified; E66.9 Obesity, unspecified; Z68.42 Body mass index [BMI] 45.0-49.9, adult; Z88.0 Allergy status to penicillin; Z88.6 Allergy status to analgesic agent; Z91.048 Other nonmedicinal substance allergy status; Z79.899 Other long term (current) drug therapy
CPT/HCPCS: 36415; 74177; 80053; 81001; 83605; 83690; 85025; 96361; 96374; 96375; 99284; J2405; J3010; J7030; J7050; Q9967

== ENCOUNTER 2019-11-19 01:44 | Emergency (ER) | payer BC, MEDICAID ==
[2019-11-19] MEDS ORDERED: HYDROmorphone 0.5 MG/0.5 ML Syringe IVPUSH ONE ×2 (02:24→03:41)
[2019-11-19] MEDS ORDERED: Lactated Ringers 1,000 ML IV SCH (02:30)
--- NOTE | 2019-11-19 02:32 | EDM.PDOC ---
ED HPI GENERAL MEDICAL PROBLEM - General Chief Complaint: Abdominal Pain Stated Complaint: POST OP PAIN Time Seen by Provider: 11/19/19 02:33 Source of Information: Reports: Patient, Old Records History Limitations: Reports: No Limitations - History of Present Illness INITIAL COMMENTS - FREE TEXT/NARRATIVE: 38 yo male with hernia and sigmoid diverticulitis surgery about 6 weeks ago that involved mesh placement presents with LLQ pain that began a few days ago. Pain is worse with coughing. No vomiting. Does have diarrhea. Called Dr. Dietz' s office during the day(his surgeon) and was told to come to the ER. He decided to wait until tonight to come in. No fever. Feels like his diverticulitis and like a muscle tear? Onset: Gradual Onset Date: 11/17/19 Duration: Day(s):, Getting Worse Location: Reports: Abdomen Quality: Reports: Ache Severity: Moderate Improves with: Reports: Rest Worsens with: Reports: Movement Context: Reports: Other (See HPI) Associated Symptoms: Reports: Other (diarrhea). Denies: Fever/Chills, Nausea/ Vomiting Treatments RN X RAY: Reports: Other (see below) (none) Abdominal Pain Score (Numeric/FACES): 7 - Related Data Allergies Allergy/AdvReac Type Severity Reaction Status Date / Time Penicillins Allergy Pruritis Verified 11/19/19 01:58 diclofenac AdvReac Dizziness, Verified 11/19/19 01:58 Nausea/Vomiting gabapentin AdvReac Shaking Verified 11/19/19 01:58 ibuprofen AdvReac Nausea & Verified 11/19/19 01:58 Vomiting, GI intolerance NSAIDS (Non-Steroidal AdvReac Nausea and Verified 11/19/19 01:58 Anti-Inflamma Vomiting zolpidem [From Ambien] AdvReac Sleep Verified 11/19/19 01:58 walking Dust Mite Extract Allergy Rhinitis, Uncoded 11/19/19 01:58 Cough Home Meds: Home Meds OXcarbazepine [Trileptal] 1,200 mg PO BID 01/10/14 [History] Levothyroxine 275 mcg PO ACBREAKFAST 07/24/17 [History] Dextroamphetamine/Amphetamine [Adderall 20 mg Tablet] 20 mg PO BID 05/14/18 [ History] Cariprazine Hydrochloride [Vraylar] 3 mg PO DAILY 09/25/19 [History] Eszopiclone 1 mg PO BEDTIME PRN 09/25/19 [History] Albuterol Sulfate [Albuterol Sulfate Hfa] 2 puff INH QID PRN 10/02/19 [History] Acetaminophen [Tylenol Extra Strength] 1,000 mg PO QID #0 10/06/19 [Rx] ALPRAZolam [Alprazolam] 1 mg PO QID 11/19/19 [History] Cyclobenzaprine [Flexeril] 10 mg PO TID 11/19/19 [History] Past Medical History HEENT History: Reports: Impaired Vision Cardiovascular History: Reports: None Respiratory History: Reports: None Gastrointestinal History: Reports: Cholelithiasis, Diverticulosis, GERD, Other ( See Below) Other Gastrointestinal History: barrets esphogeal, diverticulitis Genitourinary History: Reports: Other (See Below) Other Genitourinary History: cyst present in bladder Musculoskeletal History: Reports: Back Pain, Chronic, Neck Pain, Chronic, Other (See Below) Other Musculoskeletal History: right hip pain with labrum tear Neurological History: Reports: Headaches, Chronic Psychiatric History: Reports: ADHD, Anxiety, Bipolar, Depression, Panic Attack, Psych Hospitalization(s), PTSD, Suicide Attempt, Suicidal Ideation Other Psychiatric History: bipolar 2 Endocrine/Metabolic History: Reports: Hypothyroidism, Obesity/BMI 30+ Oncologic (Cancer) History: Reports: Thyroid Other Oncologic History: pappulary with focal variant - Infectious Disease History Infectious Disease History: Reports: Chicken Pox - Past Surgical History HEENT Surgical History: Reports: Oral Surgery GI Surgical History: Reports: Colon, Colonoscopy Other GI Surgeries/Procedures: 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 Male Surgical History: Reports: None Endocrine Surgical History: Reports: Thyroidectomy, Other (See Below) Other Endocrine Surgeries/Procedures: 9 lymphnodes on left side removed Neurological Surgical History: Reports: Discectomy, Laminectomy, Other (See Below) Musculoskeletal Surgical History: Reports: Other (See Below) Other Musculoskeletal Surgeries/Procedures:: partial discectomy back Oncologic Surgical History: Reports: None Social & Family History - Family History Family Medical History: Noncontributory HEENT: Reports: Impaired Vision Cardiac: Reports: Arrhythmia GI: Reports: Cirrhosis Psychiatric: Reports: Depression Oncologic: Reports: Cervix - Tobacco Use Smoking Status *Q: Former Smoker Used Tobacco, but Quit: Yes Month/Year Tobacco Last Used: 1 month - Caffeine Use Caffeine Use: Reports: Coffee, Soda, Tea - Recreational Drug Use Recreational Drug Use: No - Living Situation & Occupation Living situation: Reports: with Significant Other Occupation: Employed (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 Amna, 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 Denies: Black Stool, Bloody Stool, Constipation, Distension, Hematochezia, Melena, Nausea, Vomiting : Reports: No Symptoms Musculoskeletal: Reports: No Symptoms Skin: Reports: No Symptoms Neurological: Reports: No Symptoms ED EXAM, GI/ABD - Physical Exam Exam: See Below Exam Limited By: No Limitations General Appearance: Alert, WD/WN, No Apparent Distress, Obese Eyes: Bilateral: Normal Appearance Ears: Normal External Exam, Normal Canal, Hearing Grossly Normal, Normal TMs Nose: Normal Inspection, No Blood Throat/Mouth: Normal Inspection, Normal Lips, Normal Oropharynx, Normal Voice, No Airway Compromise Head: Atraumatic, Normocephalic Neck: Normal Inspection Respiratory/Chest: No Respiratory Distress, Lungs Clear, Normal Breath Sounds, No Accessory Muscle Use Cardiovascular: Regular Rate, Rhythm, No Edema GI/Abdominal Exam: Normal Bowel Sounds, Soft, Tender (felicity. LLQ), Other (healing surgical scar present in the midline of his abd with vertical orientation. Morbidly obese abdomen. ) Back Exam: No: CVA Tenderness (R), CVA Tenderness (L) Extremities: Normal Inspection, Normal Range of Motion, Non-Tender, No Pedal Edema Neurological: Alert, Oriented, CN II-XII Intact, Normal Cognition, No Motor/ Sensory Deficits Psychiatric: Normal Affect, Normal Mood Skin Exam: Warm, Dry, Intact, Normal Color, No Rash Course - Vital Signs Last Recorded V/S: Last Vital Signs Temp 36.7 C 11/19/19 01:56 Pulse 113 H 11/19/19 03:11 Resp 19 11/19/19 03:11 BP 122/66 11/19/19 03:11 Pulse Ox 98 11/19/19 03:11 - Orders/Labs/Meds Orders: Active Orders 24 hr Category Date Time Status Lactated Ringers [Ringers, Lactated] 1,000 ml Med 11/19/19 02:30 Active IV ASDIRECTED Medication Orders Lactated Ringer's (Ringers, Lactated) 1,000 mls @ 500 mls/hr IV ASDIRECTED YUSUF Last Admin: 11/19/19 02:46 Dose: 500 mls/hr Labs: Laboratory Tests 11/19/19 11/19/19 11/19/19 Range/Units 02:45 02:45 03:27 WBC 7.6 (4.5-11.0) K/uL RBC 4.45 (4.30-5.90) M/uL Hgb 14.2 (12.0-15.0) g/dL Hct 42.0 (40.0-54.0) % MCV 94 (80-98) fL MCH 32 H (27-31) pg MCHC 34 (32-36) % Plt Count 310 (150-400) K/uL Sodium 142 (140-148) mmol/L Potassium 3.8 (3.6-5.2) mmol/L Chloride 106 (100-108) mmol/L Carbon Dioxide 28 (21-32) mmol/L Anion Gap 8.3 (5.0-14.0) mmol/L BUN 13 D (7-18) mg/dL Creatinine 1.0 (0.8-1.3) mg/dL Est Cr Clr Drug Dosing 104.43 mL/min Estimated GFR (MDRD) > 60 (>60) Glucose 131 H (74-106) mg/dL Calcium 8.4 L (8.5-10.1) mg/dL Urine Color Yellow (YELLOW) Urine Appearance Clear (CLEAR) Urine pH 5.0 (5.0-8.0) Ur Specific [place] >= 1.030 (1.008-1.030) Urine Protein Negative (NEGATIVE) mg/dL Urine Glucose (UA) Negative (NEGATIVE) mg/dL Urine Ketones Negative (NEGATIVE) mg/dL Urine Occult Blood Negative (NEGATIVE) Urine Nitrite Negative (NEGATIVE) Urine Bilirubin Small H (NEGATIVE) Urine Urobilinogen 0.2 (0.2-1.0) EU/dL Ur Leukocyte Esterase Negative (NEGATIVE) Urine RBC 0-5 (0-5) Urine WBC 0-5 (0-5) Ur Epithelial Cells Few Amorphous Sediment Not seen Urine Bacteria Few Urine Mucus Not seen Meds: Medications Generic Name Dose Route Start Last Admin Trade Name Freq PRN Reason Stop Dose Admin Lactated Ringer's 1,000 mls @ 500 mls/hr 11/19/19 02:30 11/19/19 02:46 Ringers, Lactated IV 500 mls/hr ASDIRECTED YUSUF Administration Discontinued Medications Generic Name Dose Route Start Last Admin Trade Name Freq PRN Reason Stop Dose Admin Hydromorphone HCl 0.5 mg 11/19/19 02:24 11/19/19 02:46 Dilaudid IVPUSH 11/19/19 02:25 0.5 mg ONETIME ONE Administration Hydromorphone HCl 0.5 mg 11/19/19 03:41 11/19/19 03:46 Dilaudid IVPUSH 11/19/19 03:42 0.5 mg ONETIME ONE Administration Sodium Chloride 85 mls @ 4 mls/sec 11/19/19 03:14 11/19/19 03:30 Normal Saline IV 11/19/19 03:15 4 mls/sec ASDIRECTED STA Administration Iopamidol 150 ml 11/19/19 03:14 11/19/19 03:29 Isovue-300 (61%) IV 11/19/19 03:15 150 ml . DIRECTED STA Administration - Radiology Interpretation Free Text/Narrative:: CT abdomen and pelvis with IV contrast-Impression: No acute process demonstrated in the abdomen and pelvis. No evidence of diverticulitis. No inflammatory changes at the sigmoid colon anastomosis site. Please note that all CT scans at this facility use dose modulation, iterative reconstruction, and/or weight-based dosing when appropriate to reduce radiation dose to as low as reasonably achievable. Dictated by Adeline Dewitt MD @ Nov 19 2019 4:06AM CT Results Date: 11/19/19 CT Results Time: 04:15 Departure - Departure Time of Disposition: 04:18 Disposition: Home, Self-Care 01 Condition: Fair Clinical Impression: Mild dehydration Abdominal pain Qualifiers: Abdominal location: left lower quadrant Qualified Code(s): R10.32 - Left lower quadrant pain - Discharge Information *PRESCRIPTION DRUG MONITORING PROGRAM REVIEWED*: No *COPY OF PRESCRIPTION DRUG MONITORING REPORT IN PATIENT MIN: No Instructions: Abdominal Pain, Adult, [id number] Referrals: Emily Ordoñez DO [Primary Care Provider] - Forms: ED Department Discharge Additional Instructions: Acetaminophen 1000 mg every 6 hrs as needed for pain relief. Drink more fluids than you have been. If your stools are not soft, then take Miralax per package instructions. F/U with Dr. Dietz if your symptoms persist. Sepsis Event Note - Evaluation Sepsis Screening Result: Possible Sepsis Risk - Focused Exam Vital Signs: Vital Signs Temp Pulse Resp BP Pulse Ox 11/19/19 03:11 113 H 19 122/66 98 11/19/19 01:56 36.7 C 117 H 24 H 132/82 98 Date Exam was Performed: 11/19/19 Time Exam was Performed: 04:18 - My Orders Last 24 Hours: My Active Orders 11/19/19 02:30 Lactated Ringers [Ringers, Lactated] 1,000 ml IV ASDIRECTED - Assessment/Plan Last 24 Hours: My Active Orders 11/19/19 02:30 Lactated Ringers [Ringers, Lactated] 1,000 ml IV ASDIRECTED
[2019-11-19] MEDS ORDERED: Iopamidol 612 MG/ML 150 ML Bottle IV STA (03:14)
--- NOTE | 2019-11-19 04:15 | CRLCT ---
Indication: Left lower quadrant pain, history of diverticulitis Technique: Contrast enhanced axial CT imaging through the abdomen and pelvis. 150 mL Isovue-300 contrast agent was administered intravenously. Sagittal and coronal reconstructions are provided. Comparison: CT abdomen pelvis with contrast 11/01/2019 Findings: Again demonstrated are surgical changes relating to partial sigmoidectomy. There is no significant wall thickening at the anastomosis site. A few diverticula are seen scattered throughout the colon. There is no colonic wall thickening or pericolonic inflammatory stranding. There is no free intraperitoneal fluid or air. Appendectomy changes are noted at the cecum. There are no abnormally distended small bowel loops. The stomach is unremarkable. Cholecystectomy clips are noted. There is no significant abnormality of the liver, spleen, pancreas, adrenal glands, and kidneys. A small benign cyst is noted in the left hepatic lobe. The portal vein and IVC are patent. There is normal caliber of the abdominal aorta. There is no abdominal lymphadenopathy. The visualized osseous structures are unremarkable. A 6 mm calcified nodule in the left lower lobe is consistent with a benign granuloma. Impression: No acute process demonstrated in the abdomen and pelvis. No evidence of diverticulitis. No inflammatory changes at the sigmoid colon anastomosis site. Please note that all CT scans at this facility use dose modulation, iterative reconstruction, and/or weight-based dosing when appropriate to reduce radiation dose to as low as reasonably achievable. Dictated by Adeline Dewitt MD @ Nov 19 2019 4:06AM Signed by Dr. Adeline Dewitt @ Nov 19 2019 4:14AM
== END 2019-11-19 04:45 | disposition home or self-care (01) ==
LOC: JP.ED 01:44
DX: R10.32 Left lower quadrant pain (principal); F41.9 Anxiety disorder, unspecified; E03.9 Hypothyroidism, unspecified; E66.9 Obesity, unspecified; Z68.42 Body mass index [BMI] 45.0-49.9, adult; E86.0 Dehydration; Z88.6 Allergy status to analgesic agent; Z88.0 Allergy status to penicillin; Z91.09 Other allergy status, other than to drugs and biological substances; Z79.899 Other long term (current) drug therapy
CPT/HCPCS: 36415; 74177; 80048; 81001; 85027; 96361; 96374; 96376; 99284; J1170; J7050; J7120; Q9967

== ENCOUNTER 2019-12-09 17:38 | Emergency (ER) | payer BC, MEDICAID ==
[2019-12-09] MEDS ORDERED: Sodium Chloride 0.9% 10 ML Syringe FLUSH PRN (19:24)
--- NOTE | 2019-12-09 19:30 | EDM.PDOC ---
ED HPI GENERAL MEDICAL PROBLEM - General Chief Complaint: Abdominal Pain Time Seen by Provider: 12/09/19 18:20 Source of Information: Reports: Patient, Old Records, RN Notes Reviewed History Limitations: Reports: No Limitations - History of Present Illness INITIAL COMMENTS - FREE TEXT/NARRATIVE: 38-year-old gentleman presents emergency department a complaint of abdominal pain, he has had abdominal pain now for over 2 months history of sigmoid resection with diverticulitis and abscess formation. He is approximately 2 months out of surgery still is having recurrent pain left lower quadrant he has been evaluated in the emergency department twice over the last month CT scans both time as well as lab work do not reveal any acute process. He has had multiple phone calls to the clinic requiring pain medication however he is continually referred to either his primary care urgent care or the emergency department, the surgery department feels this is not post surgical pain and therefore does not warrant narcotics. I did speak with the physician who has taken care of him at the last visit about 2 months ago and he has continually asked for narcotics. She does do chronic pain and is willing to evaluate him for chronic pain however he continues to fail on making appointments for an evaluation. Calls to the clinic multiple times per day asking for pain meds. At this time he states he still having nausea no vomiting he is passing gas pain is predominantly in the left lower quadrant similar to pain in the past he is having 5-6 loose stools per day Lower Abdomen Pain Score (Numeric/FACES): 6 - Related Data Allergies Allergy/AdvReac Type Severity Reaction Status Date / Time Penicillins Allergy Pruritis Verified 12/09/19 19:03 diclofenac AdvReac Dizziness, Verified 12/09/19 19:03 Nausea/Vomiting gabapentin AdvReac Shaking Verified 12/09/19 19:03 ibuprofen AdvReac Nausea & Verified 12/09/19 19:03 Vomiting, GI intolerance NSAIDS (Non-Steroidal AdvReac Nausea and Verified 12/09/19 19:03 Anti-Inflamma Vomiting zolpidem [From Ambien] AdvReac Sleep Verified 12/09/19 19:03 walking Dust Mite Extract Allergy Rhinitis, Uncoded 12/09/19 19:03 Cough Home Meds: Home Meds OXcarbazepine [Trileptal] 1,200 mg PO BID 01/10/14 [History] Levothyroxine 275 mcg PO ACBREAKFAST 07/24/17 [History] Dextroamphetamine/Amphetamine [Adderall 20 mg Tablet] 20 mg PO BID 05/14/18 [ History] Cariprazine Hydrochloride [Vraylar] 4.5 mg PO DAILY 09/25/19 [History] Eszopiclone 1 mg PO BEDTIME PRN 09/25/19 [History] Albuterol Sulfate [Albuterol Sulfate Hfa] 2 puff INH QID PRN 10/02/19 [History] Cyclobenzaprine [Flexeril] 10 mg PO TID 11/19/19 [History] Acetaminophen [Tylenol Extra Strength] 1,000 mg PO TID 12/09/19 [History] clonazePAM [Clonazepam] 1 tab PO QID PRN 12/09/19 [History] Past Medical History HEENT History: Reports: Impaired Vision Gastrointestinal History: Reports: Cholelithiasis, Diverticulosis, GERD, Other ( See Below) Other Gastrointestinal History: barrets esphogeal, diverticulitis Genitourinary History: Reports: Other (See Below) Other Genitourinary History: cyst present in bladder Musculoskeletal History: Reports: Back Pain, Chronic, Neck Pain, Chronic, Other (See Below) Other Musculoskeletal History: right hip pain with labrum tear Neurological History: Reports: Headaches, Chronic Psychiatric History: Reports: ADHD, Anxiety, Bipolar, Depression, Panic Attack, Psych Hospitalization(s), PTSD, Suicide Attempt, Suicidal Ideation Other Psychiatric History: bipolar 2 Endocrine/Metabolic History: Reports: Hypothyroidism, Obesity/BMI 30+ Oncologic (Cancer) History: Reports: Thyroid Other Oncologic History: pappulary with focal variant - Infectious Disease History Infectious Disease History: Reports: Chicken Pox - Past Surgical History HEENT Surgical History: Reports: Oral Surgery GI Surgical History: Reports: Colon, Colonoscopy Other GI Surgeries/Procedures: 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 colon resection in October2019 Endocrine Surgical History: Reports: Thyroidectomy, Other (See Below) Other Endocrine Surgeries/Procedures: 9 lymphnodes on left side removed Neurological Surgical History: Reports: Discectomy, Laminectomy Musculoskeletal Surgical History: Reports: Other (See Below) Other Musculoskeletal Surgeries/Procedures:: partial discectomy back Oncologic Surgical History: Reports: None Social & Family History - Family History Family Medical History: Noncontributory HEENT: Reports: Impaired Vision Cardiac: Reports: Arrhythmia GI: Reports: Cirrhosis Psychiatric: Reports: Depression Oncologic: Reports: Cervix - Tobacco Use Smoking Status *Q: Never Smoker Second Hand Smoke Exposure: No - Caffeine Use Caffeine Use: Reports: Coffee, Energy Drinks, Soda, Tea - Alcohol Use Days Per Week of Alcohol Use: 0 - Recreational Drug Use Recreational Drug Use: No - Living Situation & Occupation Living situation: Reports: with Significant Other Occupation: Employed (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 Amna, 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 Denies: Vomiting : Reports: No Symptoms Musculoskeletal: Reports: No Symptoms ED EXAM, GI/ABD - Physical Exam Exam: See Below Exam Limited By: No Limitations General Appearance: Alert, WD/WN, No Apparent Distress Head: Atraumatic, Normocephalic Neck: Normal Inspection, Supple, Non-Tender, Full Range of Motion Respiratory/Chest: No Respiratory Distress, Lungs Clear, Normal Breath Sounds, No Accessory Muscle Use, Chest Non-Tender Cardiovascular: Regular Rate, Rhythm, No Murmur GI/Abdominal Exam: Normal Bowel Sounds, Soft, No Organomegaly, No Distention, No Abnormal Bruit, No Mass, Tender (Left lower quadrant) Course - Vital Signs Last Recorded V/S: Last Vital Signs Temp 97.3 F 12/09/19 19:14 Pulse 99 12/09/19 19:14 Resp 20 12/09/19 19:14 BP 159/102 H 12/09/19 19:14 Pulse Ox 97 12/09/19 19:14 - Orders/Labs/Meds Orders: Active Orders 24 hr Category Date Time Status Peripheral IV Care [RC] . DIRECTED Care 12/09/19 19:24 Active Abdomen 1V Upright [CR] Urgent Exams 12/09/19 19:24 Taken Lactated Ringers [Ringers, Lactated] 1,000 ml Med 12/09/19 19:30 Active IV ASDIRECTED Sodium Chloride 0.9% [Saline Flush] Med 12/09/19 19:24 Active 10 ml FLUSH ASDIRECTED PRN Peripheral IV Insertion Adult [OM.PC] Urgent Oth 12/09/19 19:24 Ordered Medication Orders Lactated Ringer's (Ringers, Lactated) 1,000 mls @ 999 mls/hr IV ASDIRECTED YUSUF Last Admin: 12/09/19 20:18 Dose: 999 mls/hr Sodium Chloride (Saline Flush) 10 ml FLUSH ASDIRECTED PRN PRN Reason: Keep Vein Open Labs: Laboratory Tests 12/09/19 12/09/19 12/09/19 Range/Units 19:30 19:30 19:30 WBC 7.6 (4.5-11.0) K/uL RBC 4.77 (4.30-5.90) M/uL Hgb 15.4 H (12.0-15.0) g/dL Hct 44.8 (40.0-54.0) % MCV 94 (80-98) fL MCH 32 H (27-31) pg MCHC 34 (32-36) % Plt Count 269 (150-400) K/uL Neut % (Auto) 60 (36-66) % Lymph % (Auto) 23 L (24-44) % [place] % (Auto) 12 H (2-6) % Eos % (Auto) 4 (2-4) % Baso % (Auto) 1 (0-1) % Sodium 141 (140-148) mmol/L Potassium 4.1 (3.6-5.2) mmol/L Chloride 104 (100-108) mmol/L Carbon Dioxide 28 (21-32) mmol/L Anion Gap 8.6 (5.0-14.0) mmol/L BUN 14 (7-18) mg/dL Creatinine 0.9 (0.8-1.3) mg/dL Est Cr Clr Drug Dosing 116.03 mL/min Estimated GFR (MDRD) > 60 (>60) Glucose 110 H (74-106) mg/dL Lactic Acid 0.8 (0.4-2.0) mmol/L Calcium 8.7 (8.5-10.1) mg/dL Total Bilirubin 0.2 (0.2-1.0) mg/dL AST 19 (15-37) U/L ALT 52 (12-78) U/L Alkaline Phosphatase 80 (46-116) U/L Total Protein 7.3 (6.4-8.2) g/dL Albumin 3.5 (3.4-5.0) g/dL Globulin 3.8 H (2.3-3.5) g/dL Albumin/Globulin Ratio 0.9 L (1.2-2.2) TSH, Ultra Sensitive (0.358-3.740) uIU/mL Urine Color (YELLOW) Urine Appearance (CLEAR) Urine pH (5.0-8.0) Ur Specific [place] (1.008-1.030) Urine Protein (NEGATIVE) mg/dL Urine Glucose (UA) (NEGATIVE) mg/dL Urine Ketones (NEGATIVE) mg/dL Urine Occult Blood (NEGATIVE) Urine Nitrite (NEGATIVE) Urine Bilirubin (NEGATIVE) Urine Urobilinogen (0.2-1.0) EU/dL Ur Leukocyte Esterase (NEGATIVE) Urine RBC (0-5) Urine WBC (0-5) Ur Epithelial Cells Amorphous Sediment Urine Bacteria Urine Mucus 12/09/19 12/09/19 Range/Units 19:47 19:56 WBC (4.5-11.0) K/uL RBC (4.30-5.90) M/uL Hgb (12.0-15.0) g/dL Hct (40.0-54.0) % MCV (80-98) fL MCH (27-31) pg MCHC (32-36) % Plt Count (150-400) K/uL Neut % (Auto) (36-66) % Lymph % (Auto) (24-44) % [place] % (Auto) (2-6) % Eos % (Auto) (2-4) % Baso % (Auto) (0-1) % Sodium (140-148) mmol/L Potassium (3.6-5.2) mmol/L Chloride (100-108) mmol/L Carbon Dioxide (21-32) mmol/L Anion Gap (5.0-14.0) mmol/L BUN (7-18) mg/dL Creatinine (0.8-1.3) mg/dL Est Cr Clr Drug Dosing mL/min Estimated GFR (MDRD) (>60) Glucose (74-106) mg/dL Lactic Acid (0.4-2.0) mmol/L Calcium (8.5-10.1) mg/dL Total Bilirubin (0.2-1.0) mg/dL AST (15-37) U/L ALT (12-78) U/L Alkaline Phosphatase (46-116) U/L Total Protein (6.4-8.2) g/dL Albumin (3.4-5.0) g/dL Globulin (2.3-3.5) g/dL Albumin/Globulin Ratio (1.2-2.2) TSH, Ultra Sensitive 1.188 (0.358-3.740) uIU/mL Urine Color Yellow (YELLOW) Urine Appearance Clear (CLEAR) Urine pH 6.0 (5.0-8.0) Ur Specific [place] > 1.030 (1.008-1.030) Urine Protein Negative (NEGATIVE) mg/dL Urine Glucose (UA) Normal (NEGATIVE) mg/dL Urine Ketones Negative (NEGATIVE) mg/dL Urine Occult Blood Negative (NEGATIVE) Urine Nitrite Negative (NEGATIVE) Urine Bilirubin Negative (NEGATIVE) Urine Urobilinogen 0.2 (0.2-1.0) EU/dL Ur Leukocyte Esterase Negative (NEGATIVE) Urine RBC 0-5 (0-5) Urine WBC 0-5 (0-5) Ur Epithelial Cells Few Amorphous Sediment Not seen Urine Bacteria Few Urine Mucus Not seen Meds: Medications Generic Name Dose Route Start Last Admin Trade Name Freq PRN Reason Stop Dose Admin Lactated Ringer's 1,000 mls @ 999 mls/hr 12/09/19 19:30 12/09/19 20:18 Ringers, Lactated IV 999 mls/hr ASDIRECTED YUSUF Administration Sodium Chloride 10 ml 12/09/19 19:24 Saline Flush FLUSH ASDIRECTED PRN Keep Vein Open Discontinued Medications Generic Name Dose Route Start Last Admin Trade Name Freq PRN Reason Stop Dose Admin Acetaminophen 1,000 mg/ Premix 100 mls @ 400 mls/hr 12/09/19 19:26 12/09/19 20:26 IV 12/09/19 19:40 400 mls/hr NOW ONE Administration Ondansetron HCl 4 mg 12/09/19 19:25 12/09/19 20:19 Zofran IVPUSH 12/09/19 19:26 4 mg ONETIME ONE Administration Departure - Departure Time of Disposition: 20:35 Disposition: Home, Self-Care 01 Condition: Fair Clinical Impression: Abdominal pain Qualifiers: Abdominal location: left lower quadrant Qualified Code(s): R10.32 - Left lower quadrant pain - Discharge Information Instructions: Abdominal Pain, Adult Referrals: Emily Ordoñez DO [Primary Care Provider] - Forms: ED Department Discharge Additional Instructions: Please followup with your primary care provider in 3-5 days if not better, please call return to the emergency department with worsening of symptoms. Sepsis Event Note - Evaluation Sepsis Screening Result: No Definite Risk - Focused Exam Vital Signs: Vital Signs Temp Pulse Resp BP Pulse Ox 12/09/19 19:14 97.3 F 99 20 159/102 H 97 12/09/19 18:24 97.3 F 99 20 159/102 H 97 Date Exam was Performed: 12/09/19 Time Exam was Performed: 20:33 - My Orders Last 24 Hours: My Active Orders 12/09/19 19:24 Peripheral IV Care [RC] . DIRECTED Abdomen 1V Upright [CR] Urgent Sodium Chloride 0.9% [Saline Flush] 10 ml FLUSH ASDIRECTED PRN Peripheral IV Insertion Adult [OM.PC] Urgent 12/09/19 19:30 Lactated Ringers [Ringers, Lactated] 1,000 ml IV ASDIRECTED - Assessment/Plan Last 24 Hours: My Active Orders 12/09/19 19:24 Peripheral IV Care [RC] . DIRECTED Abdomen 1V Upright [CR] Urgent Sodium Chloride 0.9% [Saline Flush] 10 ml FLUSH ASDIRECTED PRN Peripheral IV Insertion Adult [OM.PC] Urgent 12/09/19 19:30 Lactated Ringers [Ringers, Lactated] 1,000 ml IV ASDIRECTED Plan: Assessment Acuity = cronic Site and laterality = abdominal pain Etiology = unknown Manifestations = none Location of injury = Home Lab values = CBC, CMP, urinalysis unremarkable plain film of the abdomen does show stool, I did review films myself I cannot appreciate any acute process, the official read from radiology is pending Plan I did review lab work and x-ray results with him he had some relief from the Tylenol and fluids provided I have asked him to follow-up with his primary care consider a colonoscopy for his ongoing diarrhea and abdominal pain he states he did complete colonoscopy prep a month ago and got no relief from that, I have also asked him to consider consultation with a GI specialist for his ongoing abdominal pain. This note was dictated using [employer] voice recognition software please call with any questions on syntax or grammar.
[2019-12-09] MEDS: Lactated Ringers 1,000 ML IV SCH (20:18)
[2019-12-09] MEDS: Ondansetron 4 MG/2 ML SDV IVPUSH ONE (20:19)
[2019-12-09] MEDS: Acetaminophen 1,000 MG in Premix Bag 1 BAG IV ONE (20:26)
--- NOTE | 2019-12-10 12:17 | CR ---
Abdomen 1V Upright CLINICAL HISTORY: Left lower quadrant pain FINDINGS: Study is limited due to patient's large body habitus and breathing motion. The there is a density in the right upper quadrant. This may be perry or suture from previous gallbladder surgery. Small intestinal configuration is nonacute. No free air is identified. There is gas and feces throughout the colon IMPRESSION: Limited study Nonacute intestinal gas pattern
== END 2019-12-09 20:53 | disposition home or self-care (01) ==
LOC: JP.ED 17:38
DX: R10.32 Left lower quadrant pain (principal); F31.9 Bipolar disorder, unspecified; F41.9 Anxiety disorder, unspecified; E03.9 Hypothyroidism, unspecified; E66.9 Obesity, unspecified; Z68.43 Body mass index [BMI] 50.0-59.9, adult; Z88.6 Allergy status to analgesic agent; Z88.0 Allergy status to penicillin; Z88.8 Allergy status to other drugs, medicaments and biological substances; Z91.09 Other allergy status, other than to drugs and biological substances; Z79.899 Other long term (current) drug therapy
CPT/HCPCS: 36415; 74018; 80053; 81001; 83605; 84443; 85025; 96365; 96375; 99284; J0131; J2405; J7120

== ENCOUNTER 2019-12-23 03:43 | Emergency (ER) | payer BC, MEDICAID ==
[2019-12-23] MEDS ORDERED: Acetaminophen/HYDROcodone 325-5 MG Tab PO ONE (04:26)
--- NOTE | 2019-12-23 04:33 | EDM.PDOC ---
ED HPI GENERAL MEDICAL PROBLEM - General Chief Complaint: General Stated Complaint: CAN'T SLEEP/WALK Time Seen by Provider: 12/23/19 04:15 Source of Information: Reports: Patient, Old Records, RN History Limitations: Reports: No Limitations - History of Present Illness INITIAL COMMENTS - FREE TEXT/NARRATIVE: 38 yo male presents with bilateral hip/pelvis pain that has been present for some time now, but is worse since falling in the bathtub on Monday or Monday. Is struggling with walking. Also, mentions chronic SOB that is worse since his last surgical procedure. He comes to the ER often, but has not been to the clinic for over a month(according to Dr. Gutierrezr's last note he has missed several appts). 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) (none) Generalized Pain Score (Numeric/FACES): 10 - Related Data Allergies Allergy/AdvReac Type Severity Reaction Status Date / Time Penicillins Allergy Pruritis Verified 12/09/19 19:03 diclofenac AdvReac Dizziness, Verified 12/09/19 19:03 Nausea/Vomiting gabapentin AdvReac Shaking Verified 12/09/19 19:03 ibuprofen AdvReac Nausea & Verified 12/09/19 19:03 Vomiting, GI intolerance NSAIDS (Non-Steroidal AdvReac Nausea and Verified 12/09/19 19:03 Anti-Inflamma Vomiting zolpidem [From Ambien] AdvReac Sleep Verified 12/09/19 19:03 walking Dust Mite Extract Allergy Rhinitis, Uncoded 12/09/19 19:03 Cough Home Meds: Home Meds OXcarbazepine [Trileptal] 1,200 mg PO BID 01/10/14 [History] Levothyroxine 275 mcg PO ACBREAKFAST 07/24/17 [History] Dextroamphetamine/Amphetamine [Adderall 20 mg Tablet] 20 mg PO BID 05/14/18 [History] Cariprazine Hydrochloride [Vraylar] 4.5 mg PO DAILY 09/25/19 [History] Eszopiclone 1 mg PO BEDTIME PRN 09/25/19 [History] Albuterol Sulfate [Albuterol Sulfate Hfa] 2 puff INH QID PRN 10/02/19 [History] Cyclobenzaprine [Flexeril] 10 mg PO TID 11/19/19 [History] Acetaminophen [Tylenol Extra Strength] 1,000 mg PO TID 12/09/19 [History] clonazePAM [Clonazepam] 1 tab PO QID PRN 12/09/19 [History] Acetaminophen/HYDROcodone [[place] 325-5 MG] 1 tab PO Q4H PRN #7 tab 12/23/19 [Rx] Past Medical History HEENT History: Reports: Impaired Vision Cardiovascular History: Reports: Other (See Below) Other Cardiovascular History: "EKG showed partially enlarged left something" Respiratory History: Reports: Asthma, SOB Gastrointestinal History: Reports: Cholelithiasis, Diverticulosis, GERD, Other (See Below) Other Gastrointestinal History: barrets esphogeal, diverticulitis Genitourinary History: Reports: Other (See Below) Other Genitourinary History: cyst present in bladder Musculoskeletal History: Reports: Back Pain, Chronic, Neck Pain, Chronic, Other (See Below) Other Musculoskeletal History: right hip pain with labrum tear Neurological History: Reports: Headaches, Chronic Psychiatric History: Reports: ADHD, Anxiety, Bipolar, Depression, Panic Attack, Psych Hospitalization(s), PTSD, Suicide Attempt, Suicidal Ideation Other Psychiatric History: bipolar 2 Endocrine/Metabolic History: Reports: Hypothyroidism, Obesity/BMI 30+ Oncologic (Cancer) History: Reports: Thyroid Other Oncologic History: pappulary with focal variant - Infectious Disease History Infectious Disease History: Reports: Chicken Pox - Past Surgical History HEENT Surgical History: Reports: Oral Surgery GI Surgical History: Reports: Colon Other GI Surgeries/Procedures: 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 colon resection in October2019 Endocrine Surgical History: Reports: Thyroidectomy, Other (See Below) Other Endocrine Surgeries/Procedures: 9 lymphnodes on left side removed Neurological Surgical History: Reports: Discectomy, Laminectomy Musculoskeletal Surgical History: Reports: Other (See Below) Other Musculoskeletal Surgeries/Procedures:: partial discectomy back Social & Family History - Family History Family Medical History: Noncontributory HEENT: Reports: Impaired Vision Cardiac: Reports: Arrhythmia GI: Reports: Cirrhosis Psychiatric: Reports: Depression Oncologic: Reports: Cervix - Tobacco Use Smoking Status *Q: Former Smoker Used Tobacco, but Quit: Yes Month/Year Tobacco Last Used: november 2019 Second Hand Smoke Exposure: Yes - Caffeine Use Caffeine Use: Reports: Coffee, Energy Drinks, Soda - Alcohol Use Date of Last Drink: 12/22/19 - Recreational Drug Use Recreational Drug Use: No - Living Situation & Occupation Living situation: Reports: with Significant Other 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: 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 (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 Amna, 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[employer]) ED ROS GENERAL - Review of Systems Review Of Systems: See Below Constitutional: Reports: No Symptoms HEENT: Reports: No Symptoms Respiratory: Reports: Shortness of Breath Cardiovascular: Reports: No Symptoms Endocrine: Reports: No Symptoms GI/Abdominal: Reports: No Symptoms Musculoskeletal: Reports: Other (posterior hip pain bilaterally and groin pain.) Skin: Reports: No Symptoms Neurological: Reports: No Symptoms ED EXAM, GENERAL - Physical Exam Exam: See Below Exam Limited By: No Limitations General Appearance: Alert, WD/WN, No Apparent Distress, Obese Eye Exam: Bilateral Eye: Normal Inspection Ears: Normal External Exam, Normal Canal, Hearing Grossly Normal Ear Exam: Bilateral Ear: Auricle Normal, Canal Normal Nose: Normal Inspection, No Blood Throat/Mouth: Normal Inspection, Normal Lips, Normal Oropharynx, Normal Voice, No Airway Compromise Head: Atraumatic, Normocephalic Neck: Normal Inspection, Supple, Non-Tender Respiratory/Chest: No Respiratory Distress, Lungs Clear, Normal Breath Sounds, No Accessory Muscle Use, Other (mild passive tachypnea) Cardiovascular: Regular Rate, Rhythm, No Edema, Tachycardia GI/Abdominal: Normal Bowel Sounds, Soft, Non-Tender, No Distention Back Exam: Normal Inspection. No: CVA Tenderness (R), CVA Tenderness (L) Extremities: Normal Inspection, Normal Range of Motion, Non-Tender, No Pedal Edema, Other (Able to lift both legs off the bed.). No: Increased Warmth Neurological: Alert, Oriented, CN II-XII Intact, Normal Cognition, No Motor/Sensory Deficits Psychiatric: Normal Affect, Normal Mood Skin Exam: Warm, Dry, Intact, Normal Color, No Rash Course - Vital Signs Last Recorded V/S: Last Vital Signs Temp 36.4 C 12/23/19 04:28 Pulse 103 H 12/23/19 04:28 Resp 28 H 12/23/19 04:28 BP 126/93 H 12/23/19 04:28 Pulse Ox 97 12/23/19 04:28 - Orders/Labs/Meds Orders: Active Orders 24 hr Category Date Time Status Pelvis 1V or 2V [CR] Stat Exams 12/23/19 04:26 Taken Labs: Laboratory Tests 12/23/19 Range/Units 04:30 D-Dimer, Quantitative < 100 (0.0-400.0) ng/mL Meds: Medications Discontinued Medications Generic Name Dose Route Start Last Admin Trade Name Freq PRN Reason Stop Dose Admin Hydrocodone Bitart/Acetaminophen 1 tab 12/23/19 04:26 12/23/19 04:33 [place] 325-5 Mg PO 12/23/19 04:27 1 tab ONETIME ONE Administration - Radiology Interpretation Free Text/Narrative:: Pelvis X-ray-neg Departure - Departure Time of Disposition: 05:10 Disposition: Home, Self-Care 01 Condition: Fair Clinical Impression: Sacral back pain, Morbid obesity - Discharge Information *PRESCRIPTION DRUG MONITORING PROGRAM REVIEWED*: No *COPY OF PRESCRIPTION DRUG MONITORING REPORT IN PATIENT MIN: No Prescriptions: Acetaminophen/HYDROcodone [[place] 325-5 MG] 1 tab PO Q4H PRN #7 tab PRN Reason: Pain Instructions: Sacroiliac Joint Dysfunction Referrals: Emily Ordoñez DO [Primary Care Provider] - Forms: ED Department Discharge Additional Instructions: Use your walker to make walking easier for you. Take acetaminophen OR [place] for pain relief. Follow up with Dr. Ordoñez for recheck. A referral has been placed for you to see orthopedics, someone will call you to set up an appt. Sepsis Event Note (ED) - Focused Exam Vital Signs: Vital Signs Temp Pulse Resp BP Pulse Ox 12/23/19 04:28 36.4 C 103 H 28 H 126/93 H 97 12/23/19 04:03 36.4 C 103 H 28 H 126/93 H 97 - My Orders Last 24 Hours: My Active Orders 12/23/19 04:26 Pelvis 1V or 2V [CR] Stat - Assessment/Plan Last 24 Hours: My Active Orders 12/23/19 04:26 Pelvis 1V or 2V [CR] Stat
--- NOTE | 2019-12-23 13:21 | CR ---
Pelvis 1V or 2V CLINICAL HISTORY: Bilateral hip pain FINDINGS: There is no fracture or osseous lesion. Joint spaces are fairly well maintained. Detail is obscured by patient's large body habitus IMPRESSION: No fracture or dislocation
== END 2019-12-23 05:15 | disposition home or self-care (01) ==
LOC: JP.ED 03:43
DX: M54.5 Low back pain (principal); E66.01 Morbid (severe) obesity due to excess calories; Z68.42 Body mass index [BMI] 45.0-49.9, adult; J45.909 Unspecified asthma, uncomplicated; F31.9 Bipolar disorder, unspecified; F41.9 Anxiety disorder, unspecified; E03.9 Hypothyroidism, unspecified; Z88.0 Allergy status to penicillin; Z88.6 Allergy status to analgesic agent; Z88.8 Allergy status to other drugs, medicaments and biological substances; Z91.09 Other allergy status, other than to drugs and biological substances; Z87.891 Personal history of nicotine dependence
CPT/HCPCS: 36415; 72170; 85379; 99283; A9270

== ENCOUNTER 2019-12-27 01:29 | Emergency (ER) | payer BC ==
[2019-12-27] MEDS ORDERED: Acetaminophen/HYDROcodone 325-5 MG Tab PO ONE ×2 (02:47→02:55)
--- NOTE | 2019-12-27 03:01 | EDM.PDOC ---
ED HPI GENERAL MEDICAL PROBLEM - General Chief Complaint: Back Pain or Injury Stated Complaint: RIGHT LEG/LOW BACK PAIN Time Seen by Provider: 12/27/19 02:45 Source of Information: Reports: Patient, Old Records, RN History Limitations: Reports: No Limitations - History of Present Illness INITIAL COMMENTS - FREE TEXT/NARRATIVE: 38 yo obese male with chronic low back pain presents with an acute worsening that occurred about 3 hrs before arrival at home while lying in bed. He has more pain down his legs than usual. No bowel or bladder incontinence. Says he can't walk, but arrives in the ER via private vehicle. Says when he was seen in the clinic 2 days ago he had none of this pain. Onset: Today, Sudden Onset Date: 12/27/19 Onset Time: 00:00 Duration: Hour(s): (3), Constant Location: Reports: Back (low) Quality: Reports: Ache Severity: Severe Improves with: Reports: Rest Worsens with: Reports: Movement Context: Reports: Other (See HPI) Associated Symptoms: Reports: Weakness (both legs weak). Denies: Fever/Chills Treatments MOTION PICTURE SET GRIP: Reports: Other (see below) (none) lower middle back Pain Score (Numeric/FACES): 8 right hip/thigh Pain Score (Numeric/FACES): 6 left hip/thigh Pain Score (Numeric/FACES): 4 - Related Data Allergies Allergy/AdvReac Type Severity Reaction Status Date / Time adhesive Allergy Burning Verified 12/27/19 02:21 Penicillins Allergy Pruritis Verified 12/27/19 02:21 propofol Allergy Bronchospas Verified 12/27/19 02:21 ms diclofenac AdvReac Dizziness, Verified 12/27/19 02:21 Nausea/Vomiting gabapentin AdvReac Shaking Verified 12/27/19 02:21 ibuprofen AdvReac Nausea & Verified 12/27/19 02:21 Vomiting, GI intolerance NSAIDS (Non-Steroidal AdvReac Nausea and Verified 12/27/19 02:21 Anti-Inflamma Vomiting zolpidem [From Ambien] AdvReac Sleep Verified 12/27/19 02:21 walking Dust Mite Extract Allergy Rhinitis, Uncoded 12/27/19 02:21 Cough Home Meds: Home Meds OXcarbazepine [Trileptal] 1,200 mg PO BID 01/10/14 [History] Levothyroxine 275 mcg PO ACBREAKFAST 07/24/17 [History] Dextroamphetamine/Amphetamine [Adderall 20 mg Tablet] 25 mg PO BID 05/14/18 [History] Cariprazine Hydrochloride [Vraylar] 4.5 mg PO DAILY 09/25/19 [History] Eszopiclone 1 mg PO BEDTIME PRN 09/25/19 [History] Albuterol Sulfate [Albuterol Sulfate Hfa] 2 puff INH QID PRN 10/02/19 [History] Cyclobenzaprine [Flexeril] 10 mg PO TID 11/19/19 [History] Acetaminophen [Tylenol Extra Strength] 1,000 mg PO TID 12/09/19 [History] ALPRAZolam [Alprazolam] 1 mg PO QID PRN 12/27/19 [History] lisinopriL [Lisinopril] 0 mg PO DAILY 12/27/19 [History] Past Medical History HEENT History: Reports: Impaired Vision Cardiovascular History: Reports: Other (See Below) Other Cardiovascular History: "EKG showed partially enlarged left something" Respiratory History: Reports: Asthma, SOB Gastrointestinal History: Reports: Cholelithiasis, Diverticulosis, GERD, Other (See Below) Other Gastrointestinal History: barrets esphogeal, diverticulitis Genitourinary History: Reports: Other (See Below) Other Genitourinary History: cyst present in bladder Musculoskeletal History: Reports: Back Pain, Chronic, Neck Pain, Chronic, Other (See Below) Other Musculoskeletal History: right hip pain with labrum tear. left elbow pain Neurological History: Reports: Headaches, Chronic Psychiatric History: Reports: ADHD, Anxiety, Bipolar, Depression, Panic Attack, Psych Hospitalization(s), PTSD, Suicide Attempt, Suicidal Ideation Other Psychiatric History: bipolar 2 Endocrine/Metabolic History: Reports: Hypothyroidism, Obesity/BMI 30+ Oncologic (Cancer) History: Reports: Thyroid Other Oncologic History: pappulary with focal variant - Infectious Disease History Infectious Disease History: Reports: Chicken Pox - Past Surgical History Head Surgeries/Procedures: Reports: None HEENT Surgical History: Reports: Oral Surgery GI Surgical History: Reports: Colon Other GI Surgeries/Procedures: 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 colon resection in October2019 Endocrine Surgical History: Reports: Thyroidectomy, Other (See Below) Other Endocrine Surgeries/Procedures: 9 lymphnodes on left side removed Neurological Surgical History: Reports: Discectomy, Laminectomy Musculoskeletal Surgical History: Reports: Other (See Below) Other Musculoskeletal Surgeries/Procedures:: partial discectomy back Social & Family History - Family History Family Medical History: Noncontributory HEENT: Reports: Impaired Vision Cardiac: Reports: Arrhythmia GI: Reports: Cirrhosis Psychiatric: Reports: Depression Oncologic: Reports: Cervix - Tobacco Use Smoking Status *Q: Never Smoker - Caffeine Use Caffeine Use: Reports: Coffee, Soda - Recreational Drug Use Recreational Drug Use: No - Living Situation & Occupation Living situation: Reports: with Significant Other Occupation: Employed (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 Amna, works at [employer] in [employer] for [employer]) ED ROS GENERAL - Review of Systems Review Of Systems: See Below Constitutional: Reports: No Symptoms : Denies: Incontinence Musculoskeletal: Reports: Back Pain (low) Skin: Reports: No Symptoms Neurological: Reports: Numbness (some to both legs.) ED EXAM,LOWER BACK PAIN/INJURY - Physical Exam Exam: See Below Exam Limited By: No Limitations General Appearance: Alert, WD/WN, No Apparent Distress, Obese Eye Exam: Bilateral Eye: Normal Inspection Back Exam: Normal Inspection, Other (pain low lumbar and sacrum in the midline). No: CVA Tenderness (R), CVA Tenderness (L), Muscle Spasm Extremities: Normal Inspection, Limited Range of Motion (due to increased low back pain with hip movement. ) Neurological: Alert, Normal Mood/Affect, CN II-XII Intact, No Motor/Sensory Deficits, Oriented x 3 Psychiatric: Normal Affect, Normal Mood Skin Exam: Warm, Dry, Intact, Normal Color, No Rash Course - Vital Signs Last Recorded V/S: Last Vital Signs Temp 37.1 C 12/27/19 02:11 Pulse 109 H 12/27/19 02:11 Resp 16 12/27/19 02:11 BP 156/88 H 12/27/19 02:11 Pulse Ox 97 12/27/19 02:11 - Orders/Labs/Meds Meds: Medications Discontinued Medications Generic Name Dose Route Start Last Admin Trade Name Freq PRN Reason Stop Dose Admin Hydrocodone Bitart/Acetaminophen 1 tab 12/27/19 02:47 12/27/19 03:10 [place] 325-5 Mg PO 12/27/19 02:48 1 tab ONETIME ONE Administration Hydrocodone Bitart/Acetaminophen 1 tab 12/27/19 02:55 12/27/19 03:10 [place] 325-5 Mg PO 12/27/19 02:56 1 tab ONETIME ONE Administration Lidocaine 700 mg 12/27/19 03:16 12/27/19 03:37 Lidoderm 5% TOP 12/27/19 03:17 700 mg ONETIME ONE Administration Departure - Departure Time of Disposition: 03:45 Disposition: Home, Self-Care 01 Condition: Fair Clinical Impression: Acute exacerbation of chronic low back pain - Discharge Information *PRESCRIPTION DRUG MONITORING PROGRAM REVIEWED*: No *COPY OF PRESCRIPTION DRUG MONITORING REPORT IN PATIENT MIN: No Instructions: Chronic Back Pain, [id number] Referrals: Emily Ordoñez DO [Primary Care Provider] - Forms: ED Department Discharge Additional Instructions: See your provider today regarding further treatment and testing for your low back pain. Use the [place] and Lidoderm patches as directed. Avoid lifting, bending or twisting. Sepsis Event Note (ED) - Evaluation Sepsis Screening Result: No Definite Risk - Focused Exam Vital Signs: Vital Signs Temp Pulse Resp BP Pulse Ox 12/27/19 02:11 37.1 C 109 H 16 156/88 H 97 12/27/19 01:52 37.1 C 109 H 16 156/88 H 97
[2019-12-27] MEDS ORDERED: Lidocaine 5% 700 MG Patch TOP ONE (03:16)
== END 2019-12-27 03:59 | disposition home or self-care (01) ==
LOC: JP.ED 01:29
DX: G89.29 Other chronic pain (principal); M54.5 Low back pain; J45.909 Unspecified asthma, uncomplicated; F90.9 Attention-deficit hyperactivity disorder, unspecified type; E03.9 Hypothyroidism, unspecified; E66.9 Obesity, unspecified; Z68.43 Body mass index [BMI] 50.0-59.9, adult; Z91.048 Other nonmedicinal substance allergy status; Z88.0 Allergy status to penicillin; Z88.6 Allergy status to analgesic agent; Z88.8 Allergy status to other drugs, medicaments and biological substances; Z91.09 Other allergy status, other than to drugs and biological substances; Z79.899 Other long term (current) drug therapy
CPT/HCPCS: 99283; A9270

== ENCOUNTER 2019-12-30 19:11 | Emergency (ER) | payer BC, MEDICAID | END 2019-12-30 20:55 | disposition left against medical advice (07) | LOC: JP.ED 19:11 | DX: Z53.21 Procedure and treatment not carried out due to patient leaving prior to being seen by health care provider (principal) ==

== ENCOUNTER → 2020-01-08 | Day surgery (SDC) | payer BC, MEDICAID ==
[~2020-01-08] MED LIST changes: +Acetaminophen/oxyCODONE 325-5 MG Tab PO PRN; +Bupivacaine 0.5% 30 ML SDV ONE; -Bupivacaine 0.5% 50 ML MDV ONE; +Dexamethasone 4 MG/ML SDV ONE; +Etomidate 2 MG/ML 10 ML SDV ONE; +Glycopyrrolate 0.2 MG/ML 5 ML MDV ONE; -Lidocaine 1% with EPINEPHrine 1:100,000 50 ML MDV ONE; -Meropenem 500 MG SDV ONE; +Morphine 2 MG/ML SYRINGE IVPUSH ONE; +Neostigmine Methylsulfate 1 MG/ML 5 ML Syringe ONE; +Nozin Nasal Sanitizer NASBOTH ONE; +Ondansetron 4 MG/2 ML SDV ONE; +Propofol 200 MG/20 ML SDV ONE; +Rocuronium 50 MG/5 ML Vial ONE; +Succinylcholine 200 MG/10 ML MDV ONE; +ceFAZolin 2 GM in Premix Bag 1 BAG IV ONE; +fentaNYL 100 MCG/2 ML SDV IVPUSH ONE; +fentaNYL 250 MCG/5 ML SDV ONE
[2020-01-08] MEDS: Lactated Ringers 1,000 ML IV SCH ×2 (10:16→13:52)
--- NOTE | 2020-01-21 11:27 | OR ---
DATE OF PROCEDURE: 01/08/2020 SURGEON: Dre Arevalo MD PREOPERATIVE DIAGNOSIS: Cubital tunnel syndrome, left elbow. POSTOPERATIVE DIAGNOSIS: Cubital tunnel syndrome, left elbow. PROCEDURES: Release of ulnar nerve at cubital tunnel and medial epicondylectomy. ANESTHESIA: General. INDICATIONS: Elmo is a 39-year-old male with a history of progressive numbness and weakness, left hand ulnar 2 digits with a Tinel sign at the cubital tunnel and EMGs noting abnormality of the ulnar nerve at the elbow. He now presents for release of the ulnar nerve and possible transposition. Risks, benefits, and potential complications were discussed. DESCRIPTION OF PROCEDURE: After adequate anesthesia was obtained, patient was placed supine and a tourniquet was placed about the left upper arm. Arm was prepped and draped in a sterile fashion. Arm was exsanguinated and tourniquet inflated to 250 mmHg pressure. A curvilinear incision was made over the medial epicondyle and carried down to the subcutaneous tissues. Medial epicondyle was identified and the ulnar nerve was then identified proximal to the cubital tunnel. Ulnar nerve was dissected free from the tunnel under direct visualization. This did have an indentation as it entered the tunnel. The release was carried down distally until the ulnar nerve started dividing into the flexor mass. After this was complete, the elbow was taken through range of motion, the nerve did not show a tendency for subluxation, but did impinge against the medial epicondyle. Consideration was given for anterior subcutaneous transposition versus epicondylectomy. A decision was made to proceed with the epicondylectomy rather than the full transposition. Soft tissue was peeled back up from the epicondyle and the ulnar nerve was completely protected and epicondylectomy was performed with a combination of osteotome and rongeur. Once this was completed, the edges were smoothed and the ulnar nerve sat in position with no evidence of any compression and no subluxation with flexion and extension. This was irrigated and the exposed bone was covered with bone wax. Skin was closed with 2-0 Vicryl and a running 3-0 Monocryl. Steri-Strips were applied. Light compressive dressing was then applied. The patient tolerated procedure well. There were no complications. Taken from the operating room in stable condition. Dre Arevalo MD /[id number] [facility]
== END ==
LOC: JP.SDS 09:14
PROVIDERS: ATTEND Specialist
DX: G56.22 Lesion of ulnar nerve, left upper limb (principal); I10 Essential (primary) hypertension; E66.01 Morbid (severe) obesity due to excess calories; F41.1 Generalized anxiety disorder; E89.0 Postprocedural hypothyroidism; F31.77 Bipolar disorder, in partial remission, most recent episode mixed; F43.10 Post-traumatic stress disorder, unspecified; Z88.8 Allergy status to other drugs, medicaments and biological substances; Z88.0 Allergy status to penicillin; Z79.899 Other long term (current) drug therapy; Z88.6 Allergy status to analgesic agent; Z68.43 Body mass index [BMI] 50.0-59.9, adult; Z79.890 Hormone replacement therapy
CPT/HCPCS: 64718; A9270; J0330; J0690; J1100; J2270; J2405; J2710; J3010; J3490; J7120; J2704

== ENCOUNTER 2020-01-19 16:11 | Emergency (ER) | payer BC, MEDICAID ==
--- NOTE | 2020-01-19 16:57 | EDM.PDOC ---
ED HPI GENERAL MEDICAL PROBLEM - General Chief Complaint: Upper Extremity Injury/Pain Stated Complaint: LT ELBOW PAIN Time Seen by Provider: 01/19/20 16:40 Source of Information: Reports: Patient History Limitations: Reports: No Limitations - History of Present Illness INITIAL COMMENTS - FREE TEXT/NARRATIVE: 39-year-old male complaining of left elbow pain. He recently had a surgery, he ran out of his Dilaudid and he was changing a tire and jerked the elbow and now is having pain. He said he called the orthopedic surgeon and he told him to come in to get his pain under control and to check his elbow. He can move and feel his fingers, he just cannot "put any weight on his elbow". Onset: Other (Reinjury supposedly happened 48 hours ago) Associated Symptoms: Reports: No Other Symptoms - Related Data Allergies Allergy/AdvReac Type Severity Reaction Status Date / Time adhesive Allergy Burning Verified 01/19/20 16:24 Penicillins Allergy Pruritis Verified 01/19/20 16:24 propofol Allergy Bronchospas Verified 01/19/20 16:24 ms diclofenac AdvReac Dizziness, Verified 01/19/20 16:24 Nausea/Vomiting gabapentin AdvReac Shaking Verified 01/19/20 16:24 ibuprofen AdvReac Nausea & Verified 01/19/20 16:24 Vomiting, GI intolerance NSAIDS (Non-Steroidal AdvReac Nausea and Verified 01/19/20 16:24 Anti-Inflamma Vomiting zolpidem [From Ambien] AdvReac Sleep Verified 01/19/20 16:24 walking Dust Mite Extract Allergy Rhinitis, Uncoded 01/19/20 16:24 Cough Home Meds: Home Meds OXcarbazepine [Trileptal] 1,200 mg PO BID 01/10/14 [History] Levothyroxine 275 mcg PO ACBREAKFAST 07/24/17 [History] Dextroamphetamine/Amphetamine [Adderall 20 mg Tablet] 20 mg PO BID 05/14/18 [History] Cariprazine Hydrochloride [Vraylar] 4.5 mg PO DAILY 09/25/19 [History] Eszopiclone 1 mg PO BEDTIME PRN 09/25/19 [History] Albuterol Sulfate [Albuterol Sulfate Hfa] 2 puff INH QID PRN 10/02/19 [History] Cyclobenzaprine [Flexeril] 10 mg PO TID 11/19/19 [History] Acetaminophen [Tylenol Extra Strength] 1,000 mg PO TID 12/09/19 [History] ALPRAZolam [Alprazolam] 1 mg PO QID PRN 12/27/19 [History] Lidocaine 5% [Lidoderm 5%] 1 patch TOP DAILY #6 patch 12/27/19 [Rx] lisinopriL [Lisinopril] 20 mg PO DAILY 12/27/19 [History] HYDROmorphone [Dilaudid] 2 mg PO Q4H PRN #40 tab 01/13/20 [Rx] Past Medical History HEENT History: Reports: Impaired Vision Cardiovascular History: Reports: Other (See Below) Other Cardiovascular History: "EKG showed partially enlarged left something" Respiratory History: Reports: Asthma, SOB Gastrointestinal History: Reports: Cholelithiasis, Diverticulosis, GERD, Other (See Below) Other Gastrointestinal History: barrets esphogeal, diverticulitis Genitourinary History: Reports: Other (See Below) Other Genitourinary History: cyst present in bladder Musculoskeletal History: Reports: Back Pain, Chronic, Neck Pain, Chronic, Other (See Below) Other Musculoskeletal History: right hip pain with labrum tear. left elbow pain Neurological History: Reports: Headaches, Chronic Psychiatric History: Reports: ADHD, Anxiety, Bipolar, Depression, Panic Attack, Psych Hospitalization(s), PTSD, Suicide Attempt, Suicidal Ideation Other Psychiatric History: bipolar 2 Endocrine/Metabolic History: Reports: Hypothyroidism, Obesity/BMI 30+ Hematologic History: Reports: None Immunologic History: Reports: None Oncologic (Cancer) History: Reports: Thyroid Other Oncologic History: pappulary with focal variant Dermatologic History: Reports: None - Infectious Disease History Infectious Disease History: Reports: C-Difficile, Chicken Pox, Influenza - Past Surgical History Head Surgeries/Procedures: Reports: None HEENT Surgical History: Reports: Oral Surgery Cardiovascular Surgical History: Reports: None Respiratory Surgical History: Reports: None Other GI Surgeries/Procedures: 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 COLON RESECTION Male Surgical History: Reports: None Endocrine Surgical History: Reports: Thyroidectomy, Other (See Below) Other Endocrine Surgeries/Procedures: 9 lymphnodes on left side removed Neurological Surgical History: Reports: Discectomy, Laminectomy Musculoskeletal Surgical History: Reports: Other (See Below) Other Musculoskeletal Surgeries/Procedures:: partial discectomy back Oncologic Surgical History: Reports: Other (See Below) Other Oncologic Surgeries/Procedures: PT HAD THYROIDECTOMY Dermatological Surgical History: Reports: None Social & Family History - Family History Family Medical History: Noncontributory HEENT: Reports: Impaired Vision Cardiac: Reports: Arrhythmia GI: Reports: Cirrhosis Psychiatric: Reports: Depression Oncologic: Reports: Cervix - Tobacco Use Smoking Status *Q: Never Smoker - Caffeine Use Caffeine Use: Reports: Coffee, Energy Drinks, Soda - Living Situation & Occupation Living situation: Reports: with Significant Other Occupation: Employed (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 Amna, 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 Sling was removed and shows a well- healing incision. There is minimal if any swelling. He can grasp and feels fingers, circulation is normal.) Course - Vital Signs Last Recorded V/S: Last Vital Signs Temp 204.8 F H 01/19/20 16:33 Pulse 90 01/19/20 16:33 Resp 20 01/19/20 16:33 BP 113/71 01/19/20 16:33 Pulse Ox 95 01/19/20 16:33 - Re-Assessments/Exams Free Text/Narrative Re-Assessment/Exam: 01/19/20 16:56 A ROLL REPAIRER search was done and the patient has taken 40 2 mg Dilaudid pills in the last 6 days. This is been a recurring problem with various pain syndromes with this patient, I do not feel comfortable refilling with more narcotics. His elbow looks good, he should recheck on Monday as scheduled. Departure - Departure Time of Disposition: 17:04 Disposition: Home, Self-Care 01 Clinical Impression: Left elbow pain - Discharge Information Instructions: Musculoskeletal Pain Referrals: Dre Arevalo MD [Primary Care Provider] - Forms: ED Department Discharge Care Plan Goals: Recheck Monday as scheduled. Full strength Tylenol should work for pain. Sepsis Event Note (ED) - Evaluation Sepsis Screening Result: No Definite Risk - Focused Exam Vital Signs: Vital Signs Temp Pulse Resp BP Pulse Ox 01/19/20 16:33 204.8 F H 90 20 113/71 95 01/19/20 16:21 96 F L 90 20 113/71 95
== END 2020-01-19 17:04 | disposition home or self-care (01) ==
LOC: JP.ED 16:11
DX: M25.522 Pain in left elbow (principal); F41.0 Panic disorder [episodic paroxysmal anxiety]; F31.9 Bipolar disorder, unspecified; E03.9 Hypothyroidism, unspecified; E66.9 Obesity, unspecified; J45.909 Unspecified asthma, uncomplicated; Z88.0 Allergy status to penicillin; Z88.8 Allergy status to other drugs, medicaments and biological substances; Z88.6 Allergy status to analgesic agent; Z88.4 Allergy status to anesthetic agent; Z91.09 Other allergy status, other than to drugs and biological substances; Z79.899 Other long term (current) drug therapy; Z68.43 Body mass index [BMI] 50.0-59.9, adult
CPT/HCPCS: 99283-25

== ENCOUNTER 2020-02-03 17:39 | Emergency (ER) | payer BC, MEDICAID ==
--- NOTE | 2020-02-03 18:02 | EDM.PDOC ---
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 Headache Pain Score (Numeric/FACES): 5 - Related Data Allergies Allergy/AdvReac Type Severity Reaction Status Date / Time adhesive Allergy Burning Verified 01/19/20 16:24 Penicillins Allergy Pruritis Verified 01/19/20 16:24 propofol Allergy Bronchospas Verified 01/19/20 16:24 ms diclofenac AdvReac Dizziness, Verified 01/19/20 16:24 Nausea/Vomiting gabapentin AdvReac Shaking Verified 01/19/20 16:24 ibuprofen AdvReac Nausea & Verified 01/19/20 16:24 Vomiting, GI intolerance NSAIDS (Non-Steroidal AdvReac Nausea and Verified 01/19/20 16:24 Anti-Inflamma Vomiting zolpidem [From Ambien] AdvReac Sleep Verified 01/19/20 16:24 walking Dust Mite Extract Allergy Rhinitis, Uncoded 01/19/20 16:24 Cough Home Meds: Home Meds OXcarbazepine [Trileptal] 1,200 mg PO BID 01/10/14 [History] Levothyroxine 275 mcg PO ACBREAKFAST 07/24/17 [History] Dextroamphetamine/Amphetamine [Adderall 20 mg Tablet] 20 mg PO BID 05/14/18 [History] Eszopiclone 1 mg PO BEDTIME PRN 09/25/19 [History] Albuterol Sulfate [Albuterol Sulfate Hfa] 2 puff INH QID PRN 10/02/19 [History] Acetaminophen [Tylenol Extra Strength] 1,000 mg PO TID 12/09/19 [History] ALPRAZolam [Alprazolam] 1 mg PO QID PRN 12/27/19 [History] lisinopriL [Lisinopril] 20 mg PO DAILY 12/27/19 [History] Acetaminophen/oxyCODONE [Percocet 325-5 MG] 1 - 2 each PO Q8HR PRN #40 tab 01/21/20 [Rx] Past Medical History HEENT History: Reports: Impaired Vision Cardiovascular History: Reports: Other (See Below) Other Cardiovascular History: "EKG showed partially enlarged left something" Respiratory History: Reports: Asthma, SOB Gastrointestinal History: Reports: Cholelithiasis, Diverticulosis, GERD, Other (See Below) Other Gastrointestinal History: barrets esphogeal, diverticulitis Genitourinary History: Reports: Other (See Below) Other Genitourinary History: cyst present in bladder Musculoskeletal History: Reports: Back Pain, Chronic, Neck Pain, Chronic, Other (See Below) Other Musculoskeletal History: right hip pain with labrum tear. L ulnar nerve transposition 01/08/20 Neurological History: Reports: Headaches, Chronic Psychiatric History: Reports: ADHD, Anxiety, Bipolar, Depression, Panic Attack, Psych Hospitalization(s), PTSD, Suicide Attempt, Suicidal Ideation Other Psychiatric History: bipolar 2 Endocrine/Metabolic History: Reports: Hypothyroidism, Obesity/BMI 30+ Hematologic History: Reports: None Immunologic History: Reports: None Oncologic (Cancer) History: Reports: Thyroid Other Oncologic History: pappulary with focal variant Dermatologic History: Reports: None - Infectious Disease History Infectious Disease History: Reports: C-Difficile, Chicken Pox, Influenza - Past Surgical History Head Surgeries/Procedures: Reports: None HEENT Surgical History: Reports: Oral Surgery Cardiovascular Surgical History: Reports: None Respiratory Surgical History: Reports: None Other GI Surgeries/Procedures: 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 COLON RESECTION Male Surgical History: Reports: None Endocrine Surgical History: Reports: Thyroidectomy, Other (See Below) Other Endocrine Surgeries/Procedures: 9 lymphnodes on left side removed Neurological Surgical History: Reports: Discectomy, Laminectomy Musculoskeletal Surgical History: Reports: Other (See Below) Other Musculoskeletal Surgeries/Procedures:: partial discectomy back Oncologic Surgical History: Reports: Other (See Below) Other Oncologic Surgeries/Procedures: PT HAD THYROIDECTOMY Dermatological Surgical History: Reports: None Social & Family History - Family History Family Medical History: Noncontributory HEENT: Reports: Impaired Vision Cardiac: Reports: Arrhythmia GI: Reports: Cirrhosis Psychiatric: Reports: Depression Oncologic: Reports: Cervix - Caffeine Use Caffeine Use: Reports: Coffee, Energy Drinks, Soda - Living Situation & Occupation Living situation: Reports: with Significant Other 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: 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 (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 Amna, 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[employer]) ED ROS GENERAL - Review of Systems Review Of Systems: See Below Constitutional: Reports: Fever, Chills, Malaise, Weakness HEENT: Reports: Rhinitis, Sinus Problem Respiratory: Reports: Shortness of Breath, Wheezing, Cough Endocrine: Reports: Fatigue Musculoskeletal: Reports: Muscle Pain Neurological: Reports: No Symptoms Psychiatric: Reports: Depression ED EXAM, GENERAL - Physical Exam Exam: See Below Exam Limited By: No Limitations General Appearance: Alert, Obese Ears: Normal External Exam Nose: Nasal Drainage, Clear Rhinorrhea Throat/Mouth: Normal Inspection, Normal Lips Neck: Normal Inspection, Supple Respiratory/Chest: Respiratory Distress, Rales (RLL), Other (tachypnea) Cardiovascular: Normal Peripheral Pulses, Regular Rate, Rhythm GI/Abdominal: Soft, Non-Tender Neurological: Alert, Oriented EKG INTERPRETATION EKG Date: 02/03/20 Time: 18:45 Rhythm: Other (sinus tachycardia) P-Wave: Present Course - Vital Signs Text/Narrative:: Deff Dx: URI, asthma exac. pneumonia, Covid, sinusitis. normal WBC but elevated Lactic acid. CXR w/slt increase in R side markings. +opacification of maxillary sinuses. Last Recorded V/S: Last Vital Signs Temp 36.3 C 02/03/20 18:05 Pulse 93 02/03/20 19:36 Resp 26 H 02/03/20 18:27 BP 146/92 H 02/03/20 19:36 Pulse Ox 93 L 02/03/20 19:36 - Orders/Labs/Meds Orders: Active Orders 24 hr Category Date Time Status EKG Documentation Completion [RC] ASDIRECTED Care 02/03/20 18:28 Active RT Aerosol Therapy [RC] ASDIRECTED Care 02/03/20 18:30 Active RT Post Treatment Assessment [RC] Click to Edit Care 02/03/20 18:53 Active Chest 2V [CR] Stat Exams 02/03/20 18:28 Taken Sinus Less 3V [CR] Stat Exams 02/03/20 18:36 Taken CORONAVIRUS COVID-19, NATHALY Urgent Lab 02/03/20 18:30 Ordered Albuterol/Ipratropium [Combivent Respimat] Med 02/03/20 18:50 Active 3 gm INH Q4H PRN EKG 12 Lead [EK] Urgent Ther 02/03/20 18:28 Ordered Medication Orders Albuterol/Ipratropium (Combivent Respimat) 3 gm INH Q4H PRN PRN Reason: Dyspnea Last Admin: 02/03/20 18:59 Dose: 3 gm Documented by: MARGO Labs: Laboratory Tests 02/03/20 02/03/20 02/03/20 Range/Units 18:35 18:35 18:35 WBC 8.1 (4.5-11.0) K/uL RBC 4.90 (4.30-5.90) M/uL Hgb 15.5 H (12.0-15.0) g/dL Hct 45.4 (40.0-54.0) % MCV 93 (80-98) fL MCH 32 H (27-31) pg MCHC 34 (32-36) % Plt Count 330 (150-400) K/uL Puncture Site ABG pH (7.350-7.450) ABG pCO2 (35.0-42.0) mmHg ABG pO2 (75.0-100.0) mmHg ABG HCO3 (22.0-26.0) mmol/L ABG Total CO2 (23.0-27.0) mmol/L ABG O2 Saturation (95.0-98.0) % ABG O2 Content (15.0-23.0) %vol ABG Base Excess mm/L ABG Hemoglobin (13.5-18.0) g/dL ABG Oxyhemoglobin % ABG Carboxyhemoglobin (0.0-1.6) % ABG Methemoglobin % Ramon Test O2 Delivery Device Sodium 142 (140-148) mmol/L Potassium 3.6 (3.6-5.2) mmol/L Chloride 104 (100-108) mmol/L Carbon Dioxide 28 (21-32) mmol/L Anion Gap 10.3 (5.0-14.0) mmol/L BUN 10 (7-18) mg/dL Creatinine 1.1 (0.8-1.3) mg/dL Est Cr Clr Drug Dosing 94.02 mL/min Estimated GFR (MDRD) > 60 (>60) Glucose 102 (74-106) mg/dL Lactic Acid (0.4-2.0) mmol/L Calcium 8.4 L (8.5-10.1) mg/dL Total Bilirubin 0.2 (0.2-1.0) mg/dL AST 18 (15-37) U/L ALT 47 (12-78) U/L Alkaline Phosphatase 81 (46-116) U/L Troponin I < 0.017 (0.000-0.056) ng/mL NT-Pro-B Natriuret Pep (5-125) pg/mL Total Protein 7.5 (6.4-8.2) g/dL Albumin 3.6 (3.4-5.0) g/dL Globulin 3.9 H (2.3-3.5) g/dL Albumin/Globulin Ratio 0.9 L (1.2-2.2) 02/03/20 02/03/20 02/03/20 Range/Units 18:35 18:45 19:00 WBC (4.5-11.0) K/uL RBC (4.30-5.90) M/uL Hgb (12.0-15.0) g/dL Hct (40.0-54.0) % MCV (80-98) fL MCH (27-31) pg MCHC (32-36) % Plt Count (150-400) K/uL Puncture Site Lt radial ABG pH 7.405 (7.350-7.450) ABG pCO2 44.9 H (35.0-42.0) mmHg ABG pO2 84.8 (75.0-100.0) mmHg ABG HCO3 27.6 H (22.0-26.0) mmol/L ABG Total CO2 23.8 (23.0-27.0) mmol/L ABG O2 Saturation 96.3 (95.0-98.0) % ABG O2 Content 19.4 (15.0-23.0) %vol ABG Base Excess 2.8 mm/L ABG Hemoglobin 15.2 (13.5-18.0) g/dL ABG Oxyhemoglobin 90.6 % ABG Carboxyhemoglobin 4.9 H (0.0-1.6) % ABG Methemoglobin 1.0 % Ramon Test Pass O2 Delivery Device Room air Sodium (140-148) mmol/L Potassium (3.6-5.2) mmol/L Chloride (100-108) mmol/L Carbon Dioxide (21-32) mmol/L Anion Gap (5.0-14.0) mmol/L BUN (7-18) mg/dL Creatinine (0.8-1.3) mg/dL Est Cr Clr Drug Dosing mL/min Estimated GFR (MDRD) (>60) Glucose (74-106) mg/dL Lactic Acid 2.5 H (0.4-2.0) mmol/L Calcium (8.5-10.1) mg/dL Total Bilirubin (0.2-1.0) mg/dL AST (15-37) U/L ALT (12-78) U/L Alkaline Phosphatase (46-116) U/L Troponin I (0.000-0.056) ng/mL NT-Pro-B Natriuret Pep 6 (5-125) pg/mL Total Protein (6.4-8.2) g/dL Albumin (3.4-5.0) g/dL Globulin (2.3-3.5) g/dL Albumin/Globulin Ratio (1.2-2.2) Meds: Medications Generic Name Dose Route Start Last Admin Trade Name Freq PRN Reason Stop Dose Admin Albuterol/Ipratropium 3 gm 02/03/20 18:50 02/03/20 18:59 Combivent Respimat INH 3 gm Q4H PRN Administration Dyspnea Discontinued Medications Generic Name Dose Route Start Last Admin Trade Name Freq PRN Reason Stop Dose Admin Albuterol/Ipratropium 3 ml 02/03/20 18:30 Duoneb 3.0-0.5 Mg/3 Ml NEB 02/03/20 18:31 ONETIME ONE Departure - Departure Time of Disposition: 20:35 Disposition: Home, Self-Care 01 Clinical Impression: Morbid obesity Acute sinusitis Qualifiers: Sinusitis location: maxillary - Discharge Information Instructions: Sinusitis, Adult, [id number] Referrals: Emily Ordoñez DO [Primary Care Provider] - Forms: ED Department Discharge Additional Instructions: Rest at home. You will be called if Covid test is +. Rx provided for azithromycin and tessalon. Sepsis Event Note (ED) - Focused Exam Vital Signs: Vital Signs Temp Pulse Resp BP Pulse Ox 02/03/20 19:36 93 146/92 H 93 L 02/03/20 18:27 103 H 26 H 123/78 96 02/03/20 18:05 36.3 C 105 H 28 H 142/83 H 97 02/03/20 17:50 36.3 C 105 H 28 H 142/83 H 97 - My Orders Last 24 Hours: My Active Orders 02/03/20 18:28 EKG Documentation Completion [RC] ASDIRECTED Chest 2V [CR] Stat EKG 12 Lead [EK] Urgent 02/03/20 18:30 RT Aerosol Therapy [RC] ASDIRECTED CORONAVIRUS COVID-19, NATHALY Urgent 02/03/20 18:36 Sinus Less 3V [CR] Stat 02/03/20 18:50 Albuterol/Ipratropium [Combivent Respimat] 3 gm INH Q4H PRN 02/03/20 18:53 RT Post Treatment Assessment [RC] Click to Edit - Assessment/Plan Last 24 Hours: My Active Orders 02/03/20 18:28 EKG Documentation Completion [RC] ASDIRECTED Chest 2V [CR] Stat EKG 12 Lead [EK] Urgent 02/03/20 18:30 RT Aerosol Therapy [RC] ASDIRECTED CORONAVIRUS COVID-19, NATHALY Urgent 02/03/20 18:36 Sinus Less 3V [CR] Stat 02/03/20 18:50 Albuterol/Ipratropium [Combivent Respimat] 3 gm INH Q4H PRN 02/03/20 18:53 RT Post Treatment Assessment [RC] Click to Edit
[2020-02-03] MEDS ORDERED: Albuterol/Ipratropium 3.0-0.5 MG/3 ML Neb Soln NEB ONE (18:30)
[2020-02-03] MEDS ORDERED: Albuterol/Ipratropium 4 GM Inhalation Spray INH PRN (18:50)
--- NOTE | 2020-02-04 09:25 | CR ---
CHEST: 2 view CLINICAL HISTORY:SOB COMPARISON:2018 FINDINGS: Heart size and pulmonary vascularity are normal. There are atherosclerotic changes in the aorta.. There is some patchy density in the left perihilar region. Lung markings are exaggerated by patient body habitus Impression: Patchy left perihilar density may represent pneumonic infiltrate. Chest 2V, Sinus Less 3V CLINICAL HISTORY: Headache and fevers FINDINGS: The paranasal sinuses are clear. There are no air-fluid levels. The visualized airway is patent. There is some soft tissue fullness suggested in the region of the adenoids. This may represent some superimposition. Patient is moderately obese IMPRESSION: Possible adenoidal prominence versus superimposed density .
== END 2020-02-03 20:58 | disposition home or self-care (01) ==
LOC: JP.ED 17:39
DX: J01.00 Acute maxillary sinusitis, unspecified (principal); E66.01 Morbid (severe) obesity due to excess calories; J45.909 Unspecified asthma, uncomplicated; K21.9 Gastro-esophageal reflux disease without esophagitis; F41.0 Panic disorder [episodic paroxysmal anxiety]; F31.9 Bipolar disorder, unspecified; E03.9 Hypothyroidism, unspecified; Z88.0 Allergy status to penicillin; Z91.09 Other allergy status, other than to drugs and biological substances; Z88.8 Allergy status to other drugs, medicaments and biological substances; Z79.899 Other long term (current) drug therapy; Z88.6 Allergy status to analgesic agent; Z91.048 Other nonmedicinal substance allergy status; Z98.890 Other specified postprocedural states; Z68.43 Body mass index [BMI] 50.0-59.9, adult; Z20.828 Contact with and (suspected) exposure to other viral communicable diseases
CPT/HCPCS: 36415; 36600; 70210; 71046; 80053; 82803; 83605; 83880; 84484; 85027; 87635; 93005; 93010; 94640; 99283; 99284; A9270; U0002

== ENCOUNTER 2020-02-19 21:19 | Emergency (ER) | payer BC, MEDICAID ==
--- NOTE | 2020-02-19 21:55 | EDM.PDOC ---
ED HPI GENERAL MEDICAL PROBLEM - General Chief Complaint: Lower Extremity Injury/Pain Stated Complaint: SHORT OF BREATH Time Seen by Provider: 02/19/20 21:40 Source of Information: Reports: Patient, Old Records, RN History Limitations: Reports: No Limitations - History of Present Illness INITIAL COMMENTS - FREE TEXT/NARRATIVE: Elmo is a 39yo male that presents to ED with right lower leg/ calf pain. The pain started 3-4 days ago and he described it as mild. This evening (30 minutes prior to arrival) Elmo states that he felt a "pop" in his posterior right calf and the pain became severe. He also noticed that he became increasingly short of breath. He is diaphoretic upon arrival. Onset: Sudden Onset Date: 02/19/20 Onset Time: 21:00 Duration: Minutes: (30 min prior to arrival), Constant Location: Reports: Lower Extremity, Right (posterior calf) Quality: Reports: Sharp Severity: Severe Improves with: Reports: None Worsens with: Reports: Movement Context: Reports: Activity Associated Symptoms: Reports: Diaphoresis, Shortness of Breath. Denies: Chest Pain, Cough Treatments ADMINISTRATION DEAN: Reports: Acetaminophen Right Leg Pain Score (Numeric/FACES): 7 - Related Data Allergies Allergy/AdvReac Type Severity Reaction Status Date / Time adhesive Allergy Burning Verified 02/19/20 21:32 Penicillins Allergy Pruritis Verified 02/19/20 21:32 propofol Allergy Bronchospas Verified 02/19/20 21:32 ms diclofenac AdvReac Dizziness, Verified 02/19/20 21:32 Nausea/Vomiting gabapentin AdvReac Shaking Verified 02/19/20 21:32 ibuprofen AdvReac Nausea & Verified 02/19/20 21:32 Vomiting, GI intolerance NSAIDS (Non-Steroidal AdvReac Nausea and Verified 02/19/20 21:32 Anti-Inflamma Vomiting zolpidem [From Ambien] AdvReac Sleep Verified 02/19/20 21:32 walking Dust Mite Extract Allergy Rhinitis, Uncoded 01/19/20 16:24 Cough Home Meds: Home Meds OXcarbazepine [Trileptal] 1,200 mg PO BID 01/10/14 [History] Levothyroxine 275 mcg PO ACBREAKFAST 07/24/17 [History] Dextroamphetamine/Amphetamine [Adderall 20 mg Tablet] 30 mg PO BID 05/14/18 [History] Eszopiclone 1 mg PO BEDTIME PRN 09/25/19 [History] Albuterol Sulfate [Albuterol Sulfate Hfa] 2 puff INH QID PRN 10/02/19 [History] Acetaminophen [Tylenol Extra Strength] 1,000 mg PO TID 12/09/19 [History] ALPRAZolam [Alprazolam] 1 mg PO QID PRN 12/27/19 [History] lisinopriL [Lisinopril] 20 mg PO DAILY 12/27/19 [History] Guaifen/Dextromethorphan/PE [Tussin Cf Cough-Cold Syrup] 1 tsp PO Q6HR PRN 02/04/20 [History] oxyCODONE HCl/Acetaminophen [Percocet 5-325 mg Tablet] 1 - 2 each PO Q8HR PRN #40 tablet 02/04/20 [Rx] Past Medical History HEENT History: Reports: Impaired Vision Cardiovascular History: Reports: Other (See Below) Other Cardiovascular History: "EKG showed partially enlarged left something" Respiratory History: Reports: Asthma, SOB Gastrointestinal History: Reports: Cholelithiasis, Diverticulosis, GERD, Other (See Below) Other Gastrointestinal History: barrets esphogeal, diverticulitis Genitourinary History: Reports: Other (See Below) Other Genitourinary History: cyst present in bladder Musculoskeletal History: Reports: Back Pain, Chronic, Neck Pain, Chronic, Other (See Below) Other Musculoskeletal History: right hip pain with labrum tear. L ulnar nerve transposition 01/08/20 Neurological History: Reports: Headaches, Chronic Psychiatric History: Reports: ADHD, Anxiety, Bipolar, Depression, Panic Attack, Psych Hospitalization(s), PTSD, Suicide Attempt, Suicidal Ideation Other Psychiatric History: bipolar 2 Endocrine/Metabolic History: Reports: Hypothyroidism, Obesity/BMI 30+ Hematologic History: Reports: None Immunologic History: Reports: None Oncologic (Cancer) History: Reports: Thyroid Other Oncologic History: pappulary with focal variant Dermatologic History: Reports: None - Infectious Disease History Infectious Disease History: Reports: C-Difficile, Chicken Pox, Influenza - Past Surgical History Head Surgeries/Procedures: Reports: None HEENT Surgical History: Reports: Oral Surgery Other GI Surgeries/Procedures: 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 COLON RESECTION Endocrine Surgical History: Reports: Thyroidectomy, Other (See Below) Other Endocrine Surgeries/Procedures: 9 lymphnodes on left side removed Neurological Surgical History: Reports: Discectomy, Laminectomy Musculoskeletal Surgical History: Reports: Other (See Below) Other Musculoskeletal Surgeries/Procedures:: partial discectomy back Oncologic Surgical History: Reports: Other (See Below) Other Oncologic Surgeries/Procedures: PT HAD THYROIDECTOMY Social & Family History - Family History Family Medical History: Noncontributory HEENT: Reports: Impaired Vision Cardiac: Reports: Arrhythmia GI: Reports: Cirrhosis Psychiatric: Reports: Depression Oncologic: Reports: Cervix - Tobacco Use Smoking Status *Q: Former Smoker Used Tobacco, but Quit: Yes Month/Year Tobacco Last Used: 10/2019 - Caffeine Use Caffeine Use: Reports: Coffee - Recreational Drug Use Recreational Drug Use: No - Living Situation & Occupation Living situation: Reports: with Significant Other 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 Denies: Pleuritic Chest Pain, Cough Cardiovascular: Reports: Edema (bilat pedal edema), Lightheadedness. Denies: Chest Pain, Irregular Heart Rate GI/Abdominal: Reports: No Symptoms Genitourinary: Reports: No Symptoms Musculoskeletal: Reports: Leg Pain (right posterior calf) Skin: Reports: No Symptoms Neurological: Reports: No Symptoms Psychiatric: Reports: No Symptoms ED EXAM, GENERAL - Physical Exam Exam: See Below General Appearance: Alert, Moderate Distress, Obese Eye Exam: Bilateral Eye: Normal Inspection Ears: Normal External Exam Head: Atraumatic, Normocephalic Respiratory/Chest: Lungs Clear, Normal Breath Sounds, Chest Non-Tender, Respiratory Distress (moderate) Cardiovascular: Regular Rate, Rhythm, Tachycardia (rate 130) Peripheral Pulses: 1+: Dorsalis Pedis (L), Dorsalis Pedis (R) GI/Abdominal: Non-Tender (Male) Exam: Deferred Rectal (Males) Exam: Deferred Back Exam: Normal Inspection, Full Range of Motion Extremities: Normal Inspection, Normal Capillary Refill, Pedal Edema (mild), Leg Pain (posterior right calf), Limited Range of Motion, Other (able to dorsiflex and plantarflex right foot). No: Joint Swelling, Increased Warmth, Redness Neurological: Alert, Oriented Psychiatric: Anxious Skin Exam: Warm, Intact, Normal Color, Diaphoretic Lymphatic: No Adenopathy Course - Vital Signs Last Recorded V/S: Last Vital Signs Temp 97.5 F 02/19/20 21:31 Pulse 138 H 02/19/20 21:31 Resp 25 H 02/19/20 21:31 BP 122/95 H 02/19/20 21:31 Pulse Ox 96 02/19/20 21:31 - Orders/Labs/Meds Labs: Laboratory Tests 02/19/20 02/19/20 02/19/20 Range/Units 21:57 21:57 21:57 WBC 7.9 (4.5-11.0) K/uL RBC 4.71 (4.30-5.90) M/uL Hgb 15.1 H (12.0-15.0) g/dL Hct 43.8 (40.0-54.0) % MCV 93 (80-98) fL MCH 32 H (27-31) pg MCHC 35 (32-36) % Plt Count 336 (150-400) K/uL Neut % (Auto) 61 (36-66) % Lymph % (Auto) 26 (24-44) % [place] % (Auto) 10 H (2-6) % Eos % (Auto) 3 (2-4) % Baso % (Auto) 1 (0-1) % D-Dimer, Quantitative 234 (0.0-400.0) ng/mL Sodium 139 L (140-148) mmol/L Potassium 3.2 L (3.6-5.2) mmol/L Chloride 103 (100-108) mmol/L Carbon Dioxide 24 (21-32) mmol/L Anion Gap 15.2 H (5.0-14.0) mmol/L BUN 9 (7-18) mg/dL Creatinine 1.5 H (0.8-1.3) mg/dL Est Cr Clr Drug Dosing 68.94 mL/min Estimated GFR (MDRD) 52 L (>60) Glucose 141 H (74-106) mg/dL Calcium 8.2 L (8.5-10.1) mg/dL Total Bilirubin 0.3 (0.2-1.0) mg/dL AST 23 (15-37) U/L ALT 63 (12-78) U/L Alkaline Phosphatase 85 (46-116) U/L Total Protein 7.0 (6.4-8.2) g/dL Albumin 3.5 (3.4-5.0) g/dL Globulin 3.5 (2.3-3.5) g/dL Albumin/Globulin Ratio 1.0 L (1.2-2.2) - Re-Assessments/Exams Free Text/Narrative Re-Assessment/Exam: 02/19/20 22:02 patient asking for pain medications. offered him IM toradol. pt refused- states he gets nauseated with toradol. Departure - Departure Time of Disposition: 22:31 Disposition: Home, Self-Care 01 Clinical Impression: Pain of right calf, Strain of right calf muscle - Discharge Information *PRESCRIPTION DRUG MONITORING PROGRAM REVIEWED*: No *COPY OF PRESCRIPTION DRUG MONITORING REPORT IN PATIENT MIN: No Instructions: Muscle Strain, [id number] Referrals: Emily Ordoñze DO [Primary Care Provider] - Forms: ED Department Discharge Additional Instructions: Your lab work shows that you do not have a blood clot. You most likely injured your right calf muscle when you heard that POP. Rest your leg, weight bear as tolerated. Keep your leg elevated while resting. Ice to the sore area 20 minutes at a time for 4 times a day for next 3 days. You may take acetaminophen/tylenol as directed as needed for pain. You can take a max of 4000mg of acetaminophen a day. Your percocet that you have at home has 325mg of acetaminophen in each tab so calculate that into your daily acetaminophen total amount. Follow up with your PCP in 3-5 days if you are not improving. Call or return to ED with any worsening of symptoms or concerns. Sepsis Event Note (ED) - Evaluation Sepsis Screening Result: No Definite Risk - Focused Exam Vital Signs: Vital Signs Temp Pulse Resp BP Pulse Ox 02/19/20 21:31 97.5 F 138 H 25 H 122/95 H 96
== END 2020-02-19 22:59 | disposition home or self-care (01) ==
LOC: JP.ED 21:19
DX: S86.811A Strain of other muscle(s) and tendon(s) at lower leg level, right leg, initial encounter (principal); J45.909 Unspecified asthma, uncomplicated; F41.0 Panic disorder [episodic paroxysmal anxiety]; F31.9 Bipolar disorder, unspecified; E03.9 Hypothyroidism, unspecified; E66.9 Obesity, unspecified; Z87.891 Personal history of nicotine dependence; Z88.8 Allergy status to other drugs, medicaments and biological substances; Z88.0 Allergy status to penicillin; Z88.4 Allergy status to anesthetic agent; Z88.6 Allergy status to analgesic agent; Z91.09 Other allergy status, other than to drugs and biological substances; Z68.43 Body mass index [BMI] 50.0-59.9, adult; X58.XXXA Exposure to other specified factors, initial encounter
CPT/HCPCS: 36415; 80053; 85025; 85379; 99283

== ENCOUNTER 2020-03-24 09:42 | Emergency (ER) | payer BC, MEDICAID ==
[2020-03-24] MEDS ORDERED: Acetaminophen/HYDROcodone 325-5 MG Tab PO ONE ×2 (10:12→13:43)
--- NOTE | 2020-03-24 10:20 | EDM.PDOC ---
ED HPI GENERAL MEDICAL PROBLEM - General Chief Complaint: Back Pain or Injury Stated Complaint: NUMBNESS BETWEEN THIGHS, LOW BACK PAIN Time Seen by Provider: 03/24/20 10:00 Source of Information: Reports: Patient, Old Records, RN History Limitations: Reports: No Limitations - History of Present Illness INITIAL COMMENTS - FREE TEXT/NARRATIVE: 39 yo male here with increase in his chronic low back pain associated with fecal incontinence that began about a week ago. Has increased perineal and L leg leg numbness. More erectile dysfunction. No urinary incontinence. Has had 2 soft stools that he passed without knowing it. He denies any recent injury. When he called the clinic he was referred to the ED. He denies taking any of his [place] this morning. Onset: Gradual Onset Date: 03/17/20 Duration: Week(s): (1), Constant Location: Reports: Back (low back pain), Pelvis (numbness of groin) Quality: Reports: Ache (low back) Severity: Moderate Improves with: Reports: Rest Worsens with: Reports: Movement Context: Reports: Other (See HPI) Associated Symptoms: Reports: Cough (chronic, makes back pain worse). 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) (none) Lower Back Pain Score (Numeric/FACES): 6 - Related Data Allergies Allergy/AdvReac Type Severity Reaction Status Date / Time adhesive Allergy Burning Verified 02/19/20 21:32 Penicillins Allergy Pruritis Verified 02/19/20 21:32 propofol Allergy Bronchospas Verified 02/19/20 21:32 ms diclofenac AdvReac Dizziness, Verified 02/19/20 21:32 Nausea/Vomiting gabapentin AdvReac Shaking Verified 02/19/20 21:32 ibuprofen AdvReac Nausea & Verified 02/19/20 21:32 Vomiting, GI intolerance NSAIDS (Non-Steroidal AdvReac Nausea and Verified 02/19/20 21:32 Anti-Inflamma Vomiting zolpidem [From Ambien] AdvReac Sleep Verified 02/19/20 21:32 walking Dust Mite Extract Allergy Rhinitis, Uncoded 01/19/20 16:24 Cough Home Meds: Home Meds OXcarbazepine [Trileptal] 1,200 mg PO BID 01/10/14 [History] Levothyroxine 275 mcg PO ACBREAKFAST 07/24/17 [History] Dextroamphetamine/Amphetamine [Adderall 20 mg Tablet] 30 mg PO BID 05/14/18 [History] Eszopiclone 1 mg PO BEDTIME PRN 09/25/19 [History] Albuterol Sulfate [Albuterol Sulfate Hfa] 2 puff INH QID PRN 10/02/19 [History] Acetaminophen [Tylenol Extra Strength] 1,000 mg PO TID 12/09/19 [History] ALPRAZolam [Alprazolam] 1 mg PO QID PRN 12/27/19 [History] lisinopriL [Lisinopril] 20 mg PO DAILY 12/27/19 [History] buPROPion HCL [Bupropion Xl] 150 mg PO DAILY 02/25/20 [History] Hydrocodone/Acetaminophen [[place] 5-325 Tablet] 1 - 2 each PO Q6HR PRN #42 tablet 03/10/20 [Rx] Past Medical History HEENT History: Reports: Impaired Vision Cardiovascular History: Reports: Other (See Below) Other Cardiovascular History: "EKG showed partially enlarged left something" Respiratory History: Reports: Asthma, SOB Gastrointestinal History: Reports: Cholelithiasis, Diverticulosis, GERD, Other (See Below) Other Gastrointestinal History: barrets esphogeal, diverticulitis Genitourinary History: Reports: Other (See Below) Other Genitourinary History: cyst present in bladder Musculoskeletal History: Reports: Back Pain, Chronic, Neck Pain, Chronic, Other (See Below) Other Musculoskeletal History: right hip pain with labrum tear Neurological History: Reports: Headaches, Chronic Psychiatric History: Reports: ADHD, Anxiety, Bipolar, Depression, Panic Attack, Psych Hospitalization(s), PTSD, Suicide Attempt, Suicidal Ideation Other Psychiatric History: bipolar 2 Endocrine/Metabolic History: Reports: Hypothyroidism, Obesity/BMI 30+ Hematologic History: Reports: None Immunologic History: Reports: None Oncologic (Cancer) History: Reports: Thyroid Other Oncologic History: pappulary with focal variant Dermatologic History: Reports: None - Infectious Disease History Infectious Disease History: Reports: C-Difficile, Chicken Pox, Influenza - Past Surgical History Head Surgeries/Procedures: Reports: None HEENT Surgical History: Reports: Oral Surgery Cardiovascular Surgical History: Reports: None Respiratory Surgical History: Reports: None Other GI Surgeries/Procedures: 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 COLON RESECTION Male Surgical History: Reports: None Endocrine Surgical History: Reports: Thyroidectomy, Other (See Below) Other Endocrine Surgeries/Procedures: 9 lymphnodes on left side removed Neurological Surgical History: Reports: Discectomy, Laminectomy Other Musculoskeletal Surgeries/Procedures:: partial discectomy back. L ulnar nerve transposition 01/08/20 Oncologic Surgical History: Reports: Other (See Below) Other Oncologic Surgeries/Procedures: PT HAD THYROIDECTOMY Dermatological Surgical History: Reports: None Social & Family History - Family History Family Medical History: Noncontributory HEENT: Reports: Impaired Vision Cardiac: Reports: Arrhythmia GI: Reports: Cirrhosis Psychiatric: Reports: Depression Oncologic: Reports: Cervix - Caffeine Use Caffeine Use: Reports: Coffee - Recreational Drug Use Recreational Drug Use: No - Living Situation & Occupation Living situation: Reports: with Significant Other Occupation: Employed (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 Amna, 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 Denies: Shortness of Breath, Wheezing, Sputum Cardiovascular: Reports: No Symptoms Endocrine: Reports: No Symptoms GI/Abdominal: Reports: Stool Incontinence. Denies: Constipation, Diarrhea, Melena, Nausea, Vomiting : Reports: No Symptoms. Denies: Incontinence Musculoskeletal: Reports: Back Pain (acute on chronic) Skin: Reports: No Symptoms Neurological: Reports: Numbness (L leg and groin areas.) ED EXAM,LOWER BACK PAIN/INJURY - Physical Exam Exam: See Below Exam Limited By: No Limitations General Appearance: Alert, WD/WN, No Apparent Distress, Obese Eye Exam: Bilateral Eye: Normal Inspection Ears: Normal External Exam, Hearing Grossly Normal Nose: Normal Inspection, No Blood Throat/Mouth: Normal Inspection, Normal Lips, Normal Oropharynx, Normal Voice, No Airway Compromise Head: Atraumatic, Normocephalic Neck: Normal Inspection Respiratory/Chest: No Respiratory Distress, Lungs Clear, Normal Breath Sounds, N o Accessory Muscle Use, Other (dry cough) Cardiovascular: Regular Rate, Rhythm, No Edema GI/Abdominal: Normal Bowel Sounds, Soft, Non-Tender, No Distention. No: Distended, Guarding, Rigid, Rebound, Tender Back Exam: Normal Inspection. No: CVA Tenderness (R), CVA Tenderness (L) Extremities: Normal Inspection, Normal Range of Motion, Non-Tender, No Pedal Edema Neurological: Alert, Normal Mood/Affect, CN II-XII Intact, Oriented x 3. No: No Motor/Sensory Deficits (numbness of groin area, most of L leg) DTR - Lower Extremities: 1+: Knee (L), 2+: Knee (R) Psychiatric: Normal Affect, Normal Mood Skin Exam: Warm, Dry, Intact, Normal Color, No Rash Course - Vital Signs Text/Narrative:: MRI lumbar spine-some progression since 01/18, but not severe changes. Tried unsuccessfully to reach [facility], tied up in surgery. Last Recorded V/S: Last Vital Signs Temp 36.4 C 03/24/20 10:05 Pulse 101 H 03/24/20 10:05 Resp 22 H 03/24/20 10:05 BP 143/93 H 03/24/20 10:05 Pulse Ox 99 03/24/20 10:05 - Orders/Labs/Meds Meds: Medications Discontinued Medications Generic Name Dose Route Start Last Admin Trade Name Davis PRN Reason Stop Dose Admin Hydrocodone Bitart/Acetaminophen 2 tab 03/24/20 10:12 03/24/20 10:19 [place] 325-5 Mg PO 03/24/20 10:13 2 tab ONETIME ONE Administration Hydrocodone Bitart/Acetaminophen 1 tab 03/24/20 13:43 03/24/20 13:49 [place] 325-5 Mg PO 03/24/20 13:44 1 tab ONETIME ONE Administration - Radiology Interpretation Free Text/Narrative:: MRI lumbar spine- Departure - Departure Time of Disposition: 15:36 Disposition: Home, Self-Care 01 Condition: Fair Clinical Impression: Progressive neurological deficit Chronic low back pain Qualifiers: Back pain laterality: left Sciatica presence: with sciatica Sciatica laterality: sciatica of left side Qualified Code(s): M54.42 - Lumbago with sciatica, left side; G89.29 - Other chronic pain - Discharge Information *PRESCRIPTION DRUG MONITORING PROGRAM REVIEWED*: No *COPY OF PRESCRIPTION DRUG MONITORING REPORT IN PATIENT MIN: No Referrals: Emily Ordoñez DO [Primary Care Provider] - Forms: ED Department Discharge Additional Instructions: F/U with your provider tomorrow to formulate a pain plan and possibly a neurosurgical referral. Sepsis Event Note (ED) - Evaluation Sepsis Screening Result: No Definite Risk - Focused Exam Vital Signs: Vital Signs Temp Pulse Resp BP Pulse Ox 03/24/20 10:05 36.4 C 101 H 22 H 143/93 H 99 03/24/20 10:03 36.4 C 101 H 22 H 143/93 H 99
--- NOTE | 2020-03-24 12:08 | MR ---
Lumbar Spine Comp wo Cont CLINICAL HISTORY: Fecal incontinence COMPARISON: July 2018 TECHNIQUE: Multiple pulse sequences were obtained through the lumbar spine in the axial and sagittal planes without the IV infusion of contrast material. All images were obtained on a 1.5 Shruthi unit. FINDINGS: Sagittal images show the lumbar vertebral configuration and signal to be normal throughout. Alignment is maintained. The conus medullaris and spinal nerve roots have a normal signal and configuration. Axial images show normal disc contour at L1-2 and L2-3. L3-4 disc has a normal contour. There is concentric disc bulging at L4-5 with some mild central posterior broad-based disc protrusion encroaching on the anterior thecal sac. There is facet osteoarthropathy. There is also encroachment on the lateral recesses and both neural foramina. This is similar to prior study. There is concentric disc bulging at L5-S1 as well as facet osteoarthropathy. There is mild left and moderate right neural foraminal encroachment. There is right lateral recess encroachment. IMPRESSION: Degenerative disc changes in the lower lumbar spine with facet osteoarthropathy. There is lateral recess and neural foraminal encroachment described above. Configuration is similar to the study of 2019
== END 2020-03-24 15:45 | disposition home or self-care (01) ==
LOC: JP.ED 09:42
DX: M54.42 Lumbago with sciatica, left side (principal); R29.818 Other symptoms and signs involving the nervous system; R05 Cough; J45.909 Unspecified asthma, uncomplicated; F41.9 Anxiety disorder, unspecified; F31.9 Bipolar disorder, unspecified; E03.9 Hypothyroidism, unspecified; E66.9 Obesity, unspecified; Z68.43 Body mass index [BMI] 50.0-59.9, adult; Z88.0 Allergy status to penicillin; Z88.8 Allergy status to other drugs, medicaments and biological substances; Z88.6 Allergy status to analgesic agent; Z91.048 Other nonmedicinal substance allergy status; Z79.899 Other long term (current) drug therapy
CPT/HCPCS: 72148; 99284; A9270

== ENCOUNTER 2020-04-13 02:40 | Emergency (ER) | payer BC, MEDICAID ==
[2020-04-13] MEDS ORDERED: HYDROmorphone 1 MG/ML Syringe IM ONE (03:40)
--- NOTE | 2020-04-13 03:51 | EDM.PDOC ---
ED HPI GENERAL MEDICAL PROBLEM - General Chief Complaint: Lower Extremity Injury/Pain Stated Complaint: RIGHT HIP/BACK PAIN Time Seen by Provider: 04/13/20 03:20 Source of Information: Reports: Patient, Family History Limitations: Reports: No Limitations - History of Present Illness INITIAL COMMENTS - FREE TEXT/NARRATIVE: 39-year-old male woke up tonight with severe low back and right hip pain unable to get back to sleep. He is going to see neurosurgery tomorrow to talk about his last MRI of his back, he has been cleared by cardiology according to the patient to have hip surgery by Dr. Arevalo. He has numbness in his thighs which is positional, comes and goes. I reviewed his records and there very extensive, there appears to be psychosomatic component to his symptoms as they are just too numerous to all be objective. I reviewed his last MRI of his lumbar spine, it is no worse than 2019. Onset: Unknown/Unsure Associated Symptoms: Denies: Chest Pain, Nausea/Vomiting, Shortness of Breath Right Hip Pain Score (Numeric/FACES): 10 - Related Data Allergies Allergy/AdvReac Type Severity Reaction Status Date / Time adhesive Allergy Burning Verified 04/13/20 02:57 Penicillins Allergy Pruritis Verified 04/13/20 02:57 propofol Allergy Bronchospas Verified 04/13/20 02:57 ms diclofenac AdvReac Dizziness, Verified 04/13/20 02:57 Nausea/Vomiting gabapentin AdvReac Shaking Verified 04/13/20 02:57 ibuprofen AdvReac Nausea & Verified 04/13/20 02:57 Vomiting, GI intolerance NSAIDS (Non-Steroidal AdvReac Nausea and Verified 04/13/20 02:57 Anti-Inflamma Vomiting zolpidem [From Ambien] AdvReac Sleep Verified 04/13/20 02:57 walking Dust Mite Extract Allergy Rhinitis, Uncoded 04/13/20 02:57 Cough Home Meds: Home Meds OXcarbazepine [Trileptal] 1,200 mg PO BID 01/10/14 [History] Levothyroxine 275 mcg PO ACBREAKFAST 07/24/17 [History] Eszopiclone 1 mg PO BEDTIME PRN 09/25/19 [History] Albuterol Sulfate [Albuterol Sulfate Hfa] 2 puff INH QID PRN 10/02/19 [History] Acetaminophen [Tylenol Extra Strength] 1,000 mg PO TID 12/09/19 [History] lisinopriL [Lisinopril] 10 mg PO DAILY 12/27/19 [History] buPROPion HCL [Bupropion Xl] 300 mg PO DAILY 02/25/20 [History] Aspirin [Halfprin] 81 mg PO DAILY 04/09/20 [History] Nitroglycerin 0.4 mg SL [id number] PRN 04/09/20 [History] amLODIPine [Norvasc] 2.5 mg PO DAILY 04/09/20 [History] clonazePAM [Clonazepam] 1 mg PO QID 04/09/20 [History] Past Medical History HEENT History: Reports: Impaired Vision Cardiovascular History: Reports: Hypertension, Other (See Below) Other Cardiovascular History: microvascular disease Respiratory History: Reports: Asthma, SOB Gastrointestinal History: Reports: Cholelithiasis, Diverticulosis, GERD, Other (See Below) Other Gastrointestinal History: barrets esphogeal, diverticulitis Genitourinary History: Reports: Other (See Below) Other Genitourinary History: cyst present in bladder Musculoskeletal History: Reports: Back Pain, Chronic, Neck Pain, Chronic, Other (See Below) Other Musculoskeletal History: right hip pain with labrum tear Neurological History: Reports: Headaches, Chronic Psychiatric History: Reports: ADHD, Anxiety, Bipolar, Depression, Panic Attack, Psych Hospitalization(s), PTSD, Suicide Attempt, Suicidal Ideation Other Psychiatric History: bipolar 2 Endocrine/Metabolic History: Reports: Hypothyroidism, Obesity/BMI 30+ Hematologic History: Reports: None Immunologic History: Reports: None Oncologic (Cancer) History: Reports: Thyroid Other Oncologic History: pappulary with focal variant Dermatologic History: Reports: None - Infectious Disease History Infectious Disease History: Reports: C-Difficile, Chicken Pox, Influenza - Past Surgical History Head Surgeries/Procedures: Reports: None HEENT Surgical History: Reports: Oral Surgery Cardiovascular Surgical History: Reports: None Respiratory Surgical History: Reports: None GI Surgical History: Reports: Appendectomy, Cholecystectomy, Colon, Colonoscopy, EGD, Hernia Repair/Other Other GI Surgeries/Procedures: 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 COLON RESECTION Male Surgical History: Reports: None Endocrine Surgical History: Reports: Thyroidectomy, Other (See Below) Other Endocrine Surgeries/Procedures: 9 lymphnodes on left side removed Neurological Surgical History: Reports: Discectomy, Laminectomy Other Musculoskeletal Surgeries/Procedures:: partial discectomy back. L ulnar nerve transposition 01/08/20 Oncologic Surgical History: Reports: Other (See Below) Other Oncologic Surgeries/Procedures: PT HAD THYROIDECTOMY Dermatological Surgical History: Reports: None Social & Family History - Family History Family Medical History: Noncontributory HEENT: Reports: Impaired Vision Cardiac: Reports: Arrhythmia GI: Reports: Cirrhosis Psychiatric: Reports: Depression Oncologic: Reports: Cervix - Tobacco Use Smoking Status *Q: Former Smoker Used Tobacco, but Quit: Yes Month/Year Tobacco Last Used: october 2019 - Caffeine Use Caffeine Use: Reports: Coffee - Recreational Drug Use Recreational Drug Use: No - Living Situation & Occupation Living situation: Reports: with Significant Other Occupation: Employed (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 Amna, works at [employer] in [place] for [employer].) Review of Systems - Review of Systems Review Of Systems: See Below Constitutional: Denies: Fever Respiratory: Reports: Shortness of Breath (Shortness of breath with activity) Cardiovascular: Reports: Other (Recent cardiology consultation said he has coronary artery disease). Denies: Chest Pain Neurological: Reports: Paresthesia (Intermittent paresthesias of the groin and thighs, some persistent numbness in the ulnar distribution of the left hand) Psychiatric: Reports: Depression ED EXAM, GENERAL - Physical Exam Exam: See Below Exam Limited By: No Limitations General Appearance: Alert, No Apparent Distress, Other (Fairly comfortable when laying on his left side) Head: Atraumatic Respiratory/Chest: No Respiratory Distress Back Exam: Paraspinal Tenderness (Mild paraspinous tenderness to palpation over the lumbar spine) Extremities: Other (Patient is able to lift his right leg off of the bed against gravity and keep it in the air without difficulty. Moderate discomfort with internal and external rotation of the right hip) Neurological: Alert, Oriented Course - Vital Signs Last Recorded V/S: Last Vital Signs Temp 97.0 F 04/13/20 03:06 Pulse 86 04/13/20 03:06 Resp 22 H 04/13/20 03:06 BP 129/77 04/13/20 03:06 Pulse Ox 95 04/13/20 03:06 - Orders/Labs/Meds Meds: Medications Discontinued Medications Generic Name Dose Route Start Last Admin Trade Name Freq PRN Reason Stop Dose Admin Hydromorphone HCl 1 mg 10/12/20 03:40 04/13/20 03:54 Dilaudid IM 04/13/20 03:41 1 mg ONETIME ONE Administration - Re-Assessments/Exams Free Text/Narrative Re-Assessment/Exam: 04/13/20 03:51 I had a long discussion with this patient about the exaggerated subjective presentations of his physical ailments over the past couple of years. I will give him 1 mg of IM Dilaudid and he needs to follow up with his appointments as scheduled. I do not feel in good conscience I can treat him with narcotics in the future for these exacerbations of pain that occur at night as they occur with everybody, and his main problem is his increasing weight and lack of mobility. Departure - Departure Time of Disposition: 03:59 Disposition: Home, Self-Care 01 Clinical Impression: Right hip pain Chronic low back pain Qualifiers: Back pain laterality: right - Discharge Information Instructions: Hip Pain, Chronic Pain, Adult Referrals: PCP,None [Primary Care Provider] - Forms: ED Department Discharge Care Plan Goals: Continue your current medications and follow-up with your consultations as scheduled. Try to increase activity as tolerated. Sepsis Event Note (ED) - Evaluation Sepsis Screening Result: No Definite Risk - Focused Exam Vital Signs: Vital Signs Temp Pulse Resp BP Pulse Ox 04/13/20 03:06 97.0 F 86 22 H 129/77 95 04/13/20 03:03 97.0 F 86 22 H 129/77 95
== END 2020-04-13 04:00 | disposition home or self-care (01) ==
LOC: JP.ED 02:40
DX: G89.29 Other chronic pain (principal); M54.5 Low back pain; M25.551 Pain in right hip; I10 Essential (primary) hypertension; J45.909 Unspecified asthma, uncomplicated; F31.9 Bipolar disorder, unspecified; F41.9 Anxiety disorder, unspecified; E03.9 Hypothyroidism, unspecified; E66.9 Obesity, unspecified; Z68.43 Body mass index [BMI] 50.0-59.9, adult; Z91.048 Other nonmedicinal substance allergy status; Z88.0 Allergy status to penicillin; Z88.4 Allergy status to anesthetic agent; Z88.6 Allergy status to analgesic agent; Z88.8 Allergy status to other drugs, medicaments and biological substances; Z79.82 Long term (current) use of aspirin; Z79.899 Other long term (current) drug therapy; Z87.891 Personal history of nicotine dependence
CPT/HCPCS: 96372; 99283; J1170

== ENCOUNTER 2020-04-19 19:38 | Emergency (ER) | payer BC, MEDICAID ==
--- NOTE | 2020-04-19 20:14 | EDM.PDOC ---
ED HPI GENERAL MEDICAL PROBLEM - General Chief Complaint: Lower Extremity Injury/Pain Stated Complaint: HURT RIGHT FOOT Time Seen by Provider: 04/19/20 20:05 Source of Information: Reports: Patient, Family, RN Notes Reviewed History Limitations: Reports: No Limitations - History of Present Illness INITIAL COMMENTS - FREE TEXT/NARRATIVE: Elmo presents today for complaints of pain to right foot. He reports he went to stand up and his right foot after it fell asleep, his foot twisted, he heard a crack in causing him pain then fell to the floor. He states his foot hurts too much to walk on it. He denies any other injury or trauma, hitting his head or any LOC. He denies any fever, chills, nausea, vomiting or other concerns. - Related Data Allergies Allergy/AdvReac Type Severity Reaction Status Date / Time adhesive Allergy Burning Verified 04/19/20 19:56 Penicillins Allergy Pruritis Verified 04/19/20 19:56 propofol Allergy Bronchospas Verified 04/19/20 19:56 ms diclofenac AdvReac Dizziness, Verified 04/19/20 19:56 Nausea/Vomiting gabapentin AdvReac Shaking Verified 04/19/20 19:56 ibuprofen AdvReac Nausea & Verified 04/19/20 19:56 Vomiting, GI intolerance NSAIDS (Non-Steroidal AdvReac Nausea and Verified 04/19/20 19:56 Anti-Inflamma Vomiting zolpidem [From Ambien] AdvReac Sleep Verified 04/19/20 19:56 walking Dust Mite Extract Allergy Rhinitis, Uncoded 04/19/20 19:56 Cough Home Meds: Home Meds OXcarbazepine [Trileptal] 1,200 mg PO BID 01/10/14 [History] Levothyroxine 275 mcg PO ACBREAKFAST 07/24/17 [History] Eszopiclone 1 mg PO BEDTIME PRN 09/25/19 [History] Albuterol Sulfate [Albuterol Sulfate Hfa] 2 puff INH QID PRN 10/02/19 [History] Acetaminophen [Tylenol Extra Strength] 1,000 mg PO TID 12/09/19 [History] lisinopriL [Lisinopril] 10 mg PO DAILY 12/27/19 [History] buPROPion HCL [Bupropion Xl] 300 mg PO DAILY 02/25/20 [History] Aspirin [Halfprin] 81 mg PO DAILY 04/09/20 [History] Nitroglycerin 0.4 mg SL .[id number] PRN 04/09/20 [History] amLODIPine [Norvasc] 2.5 mg PO DAILY 04/09/20 [History] clonazePAM [Clonazepam] 1 mg PO QID 04/09/20 [History] oxyCODONE HCl/Acetaminophen [Percocet 5-325 mg Tablet] 1 each PO TID PRN #21 tablet 04/14/20 [Rx] Past Medical History HEENT History: Reports: Impaired Vision Cardiovascular History: Reports: Hypertension, Other (See Below) Other Cardiovascular History: microvascular disease Respiratory History: Reports: Asthma, SOB Gastrointestinal History: Reports: Cholelithiasis, Diverticulosis, GERD, Other (See Below) Other Gastrointestinal History: barrets esphogeal, diverticulitis Genitourinary History: Reports: Other (See Below) Other Genitourinary History: cyst present in bladder Musculoskeletal History: Reports: Back Pain, Chronic, Neck Pain, Chronic, Other (See Below) Other Musculoskeletal History: right hip pain with labrum tear Neurological History: Reports: Headaches, Chronic Psychiatric History: Reports: ADHD, Anxiety, Bipolar, Depression, Panic Attack, Psych Hospitalization(s), PTSD, Suicide Attempt, Suicidal Ideation Other Psychiatric History: bipolar 2 Endocrine/Metabolic History: Reports: Hypothyroidism, Obesity/BMI 30+ Hematologic History: Reports: None Immunologic History: Reports: None Oncologic (Cancer) History: Reports: Thyroid Other Oncologic History: pappulary with focal variant Dermatologic History: Reports: None - Infectious Disease History Infectious Disease History: Reports: C-Difficile, Chicken Pox, Influenza - Past Surgical History Head Surgeries/Procedures: Reports: None HEENT Surgical History: Reports: Oral Surgery Cardiovascular Surgical History: Reports: None Respiratory Surgical History: Reports: None GI Surgical History: Reports: Appendectomy, Cholecystectomy, Colon, Colonoscopy, EGD, Hernia Repair/Other Other GI Surgeries/Procedures: 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 COLON RESECTION Male Surgical History: Reports: None Endocrine Surgical History: Reports: Thyroidectomy, Other (See Below) Other Endocrine Surgeries/Procedures: 9 lymphnodes on left side removed Neurological Surgical History: Reports: Discectomy, Laminectomy Other Musculoskeletal Surgeries/Procedures:: partial discectomy back. L ulnar nerve transposition 01/08/20 Oncologic Surgical History: Reports: Other (See Below) Other Oncologic Surgeries/Procedures: PT HAD THYROIDECTOMY Dermatological Surgical History: Reports: None Social & Family History - Family History Family Medical History: Noncontributory HEENT: Reports: Impaired Vision Cardiac: Reports: Arrhythmia GI: Reports: Cirrhosis Psychiatric: Reports: Depression Oncologic: Reports: Cervix - Tobacco Use Tobacco Use Status *Q: Never Tobacco User - Caffeine Use Caffeine Use: Reports: Coffee - Living Situation & Occupation Living situation: Reports: with Significant Other Occupation: Employed (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 Amna, works at [employer] in [place] for [employer].) Review of Systems - Review of Systems Review Of Systems: See Below Constitutional: Reports: No Symptoms Respiratory: Reports: No Symptoms Cardiovascular: Reports: No Symptoms Musculoskeletal: Reports: Other (right foot pain, edema and bruising after fall today at 1700 when he twisted his foot while trying to stand. ) Skin: Reports: Bruising (to dorsum of right midfoot with edema). Denies: Rash, Erythema, Wound Neurological: Reports: No Symptoms Psychiatric: Reports: No Symptoms ED EXAM, GENERAL - Physical Exam Exam: See Below Exam Limited By: No Limitations General Appearance: Alert, WD/WN, No Apparent Distress Respiratory/Chest: No Respiratory Distress, Lungs Clear, Normal Breath Sounds, No Accessory Muscle Use, Chest Non-Tender. No: Crackles, Rales, Rhonchi, Wheezing Cardiovascular: Normal Peripheral Pulses, Regular Rate, Rhythm, No Edema, No Gallop, No Murmur, No Rub Peripheral Pulses: 4+: Dorsalis Pedis (L), Dorsalis Pedis (R) Extremities: Normal Capillary Refill, Limited Range of Motion (to right foot due to pain, ecchymosis and trace edema to right dorsal mid-foot). No: Joint Swelling, Redness Neurological: Alert, Normal Cognition, Normal Reflexes, No Motor/Sensory Deficits Psychiatric: Normal Affect, Normal Mood Skin Exam: Warm, Dry, Intact, No Rash, Ecchymosis Lymphatic: No Adenopathy ED TRAUMA EXTREMITY PROCEDURES - Splinting Right Lower Extremity Pre-Procedure NV Status: Normal Post-Procedure NV Status: Normal Splint Material: Boot Orthotic Applied & Form Fitted By: Nurse Provider Post-Splint Application NV Check: NV Status Normal, Good Position Complications: No Course - Vital Signs Last Recorded V/S: Last Vital Signs Temp 37.7 C 04/19/20 20:03 Pulse 111 H 04/19/20 20:03 Resp 16 04/19/20 20:03 BP 138/78 04/19/20 20:03 Pulse Ox 95 04/19/20 20:03 - Orders/Labs/Meds Orders: Active Orders 24 hr Category Date Time Status Foot Comp Min 3V Rt [CR] Stat Exams 04/19/20 20:04 Taken Meds: Medications Discontinued Medications Generic Name Dose Route Start Last Admin Trade Name Davis PRN Reason Stop Dose Admin Acetaminophen 1,000 mg 04/19/20 20:37 Tylenol Extra Strength PO 04/19/20 20:38 ONETIME ONE Ibuprofen 800 mg 04/19/20 20:37 Motrin PO 04/19/20 20:38 ONETIME ONE - Radiology Interpretation Free Text/Narrative:: X-rays of right foot wet read and reviewed, no acute findings noted. Radiologist read pending. Patient will be placed in a walking boot for stability, use of crutches to assist with pain. Rest, ice, elevate to help with pain. Acetaminophen as needed for pain. Departure - Departure Time of Disposition: 20:40 Disposition: Home, Self-Care 01 Condition: Good Clinical Impression: Right foot sprain - Discharge Information *PRESCRIPTION DRUG MONITORING PROGRAM REVIEWED*: No *COPY OF PRESCRIPTION DRUG MONITORING REPORT IN PATIENT MIN: No Instructions: Foot Sprain Referrals: Emily Ordoñez DO [Primary Care Provider] - Forms: ED Department Discharge Care Plan Goals: You have been evaluated and treated for right foot sprain. Use walking boot for stability, use of crutches to assist with pain. Rest, ice, elevate to help with pain. Acetaminophen as needed for pain, you can take 1000mg by mouth three times a day. Follow up with orthopedics in 7 to 10 days for a recheck. Return for any worsening, issues or concerns. Sepsis Event Note (ED) - Evaluation Sepsis Screening Result: No Definite Risk - Focused Exam Vital Signs: Vital Signs Temp Pulse Resp BP Pulse Ox 04/19/20 20:03 37.7 C 111 H 16 138/78 95 04/19/20 19:54 37.7 C 111 H 16 138/78 95 - My Orders Last 24 Hours: My Active Orders 04/19/20 20:04 Foot Comp Min 3V Rt [CR] Stat - Assessment/Plan Last 24 Hours: My Active Orders 04/19/20 20:04 Foot Comp Min 3V Rt [CR] Stat Assessment:: Right foot sprain Plan: Patient evaluated and treated for right foot sprain. Use walking boot for stability, use of crutches to assist with pain. Rest, ice, elevate to help with pain. Acetaminophen as needed for pain, you can take 1000mg by mouth three times a day. Follow up with orthopedics in 7 to 10 days for a recheck. Return for any worsening, issues or concerns.
[2020-04-19] MEDS ORDERED: Acetaminophen 500 MG Tab PO ONE (20:37)
[2020-04-19] MEDS ORDERED: Ibuprofen 800 MG Tab PO ONE (20:37)
--- NOTE | 2020-04-20 10:09 | CR ---
Foot Comp Min 3V Rt CLINICAL HISTORY: Injury FINDINGS: There is no acute fracture or dislocation within the foot. No destructive changes are present. IMPRESSION: No acute bony process.
== END 2020-04-19 20:59 | disposition home or self-care (01) ==
LOC: JP.ED 19:38
DX: S93.601A Unspecified sprain of right foot, initial encounter (principal); I10 Essential (primary) hypertension; J45.909 Unspecified asthma, uncomplicated; F41.9 Anxiety disorder, unspecified; E66.9 Obesity, unspecified; E03.9 Hypothyroidism, unspecified; Z88.0 Allergy status to penicillin; Z88.6 Allergy status to analgesic agent; Z88.4 Allergy status to anesthetic agent; Z91.09 Other allergy status, other than to drugs and biological substances; Z88.8 Allergy status to other drugs, medicaments and biological substances; Z79.82 Long term (current) use of aspirin; Z79.899 Other long term (current) drug therapy; Z68.43 Body mass index [BMI] 50.0-59.9, adult; X50.1XXA Overexertion from prolonged static or awkward postures, initial encounter
CPT/HCPCS: 73630; 99283; A9270

== ENCOUNTER 2020-04-29 09:04 | Day surgery (SDC) | payer BC, MEDICAID ==
[~2020-04-29 09:04] MED LIST changes: -Acetaminophen/oxyCODONE 325-5 MG Tab PO PRN; -Etomidate 2 MG/ML 10 ML SDV ONE; +Lactated Ringers 1,000 ML IV SCH; -Morphine 2 MG/ML SYRINGE IVPUSH ONE; -Succinylcholine 200 MG/10 ML MDV ONE; -ceFAZolin 2 GM in Premix Bag 1 BAG IV ONE; -fentaNYL 100 MCG/2 ML SDV IVPUSH ONE
[2020-04-29] MEDS ORDERED: ceFAZolin 2 GM in Premix Bag 1 BAG IV ONE (10:00)
[2020-04-29] MEDS ORDERED: Lactated Ringers 1,000 ML IV SCH (10:00)
[2020-04-29] MEDS ORDERED: Etomidate 2 MG/ML 10 ML SDV ONE (10:09)
[2020-04-29] MEDS ORDERED: Succinylcholine 200 MG/10 ML MDV ONE (10:11)
[2020-04-29] MEDS ORDERED: Rocuronium 50 MG/5 ML Vial ONE (11:15)
[2020-04-29] MEDS ORDERED: Phenylephrine 1% 10 MG/ML SDV ONE (11:15)
[2020-04-29] MEDS ORDERED: Sodium Chloride 0.9% 10 ML ONE (11:15)
[2020-04-29] MEDS ORDERED: hydrOXYzine HCL 100 MG/2 ML SDV IM ONE (12:06)
[2020-04-29] MEDS ORDERED: Morphine 2 MG/ML SYRINGE IVPUSH ONE (12:30)
[2020-04-29] MEDS ORDERED: Acetaminophen/oxyCODONE 325-5 MG Tab PO PRN (12:48)
--- NOTE | 2020-05-06 15:54 | OR ---
DATE OF PROCEDURE: 04/29/2020 SURGEON: Dre Arevalo MD PREOPERATIVE DIAGNOSES: 1. Anterior labral tear, right hip. 2. Snapping hip syndrome, iliopsoas tendon, right hip. POSTOPERATIVE DIAGNOSES: 1. Small labral tear with very mild chondrolabral junction delamination. 2. Snapping hip syndrome, iliopsoas, right hip. PROCEDURE: 1. Arthroscopy, right hip, with debridement of labrum. 2. Iliopsoas tendon release from the lesser trochanter, right hip. ANESTHESIA: General. INDICATIONS: Elmo is a 39-year-old male with a history of chronic right hip pain with intermittent snapping and sensation of locking. He has failed conservative treatment with physical therapy and injections. 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 An MRI shows mild irregularity of the anterior labrum. He does not have significant femoral acetabular impingement. He was taken to the operating room today for arthroscopic release of the iliopsoas tendon and evaluation of the labrum for debridement, possible repair. Risks, benefits, potential complications of the procedure were discussed. DESCRIPTION OF PROCEDURE: After adequate anesthesia was obtained, the patient was placed on the fracture table. The large padded perineal post was utilized. Both feet are placed into the traction boots. Left hip was brought out into slight abduction with some countertraction. Right hip was then prepped and draped in a sterile fashion. Using fluoroscopic guidance, a long spinal needle was advanced from the anterolateral portal to the joint and traction was then placed on the joint with the spinal needle releasing the vacuum seal allowing approximately 1 cm of distraction. Needle was then removed and placed more inferior approaching the joint below the labrum. Position was confirmed using fluoroscopy. A guide pin was placed through the spinal needle and the needle was removed. A small stab incision was made in the skin and scope cannula was then advanced over the wire into the joint. A 70-degree scope was placed and this does show some mild fraying of the anterior labrum. The capsule was visualized just inferior to the labrum and an accessory anterolateral portal was then established using combination of fluoroscopy and direct visualization of the joint with a long spinal needle. A guide pin was placed. A small skin incision was made. The scope cannula was advanced into the anterior hip capsule. A long banana blade was then placed through the cannula and cannula was removed, and an anterior capsulotomy was performed. Camera switched from the lateral to the accessory anterolateral portal and the capsulotomy was continued laterally. The remainder of the hip joint was evaluated with intact articular cartilage in the acetabulum and in the femoral head. The lateral and posterior labrum were intact. Again, the anterior labrum showed some fraying without a romeo tear and no separation from the rim of the acetabulum. Working through the accessory anterolateral portal, the labrum was debrided using a combination of shaver and the flexible radiofrequency ablation. Minimal amount of labrum was resected. Long probe was then utilized to further evaluate the joint. A very mild wave sign was noted at the chondrolabral junction without any full thickness delamination. No other abnormalities were identified. Traction was released just over half hour of traction time. The remaining labrum provided a good seal around the femoral head. There did not appear to be any significant cam deformity. The scope was withdrawn from the hip. Using fluoroscopic guidance and working through the accessory anterolateral port site, spinal needle was advanced down onto the lesser trochanter with the hip rotated externally. Camera was then introduced. A second portal was established and the shaver was introduced. Small amount of soft tissue and bursa overlying the iliopsoas tendon was debrided and the iliopsoas tendon was directly visualized. Using the radiofrequency ablation, tendon was divided off the lesser trochanter. Complete release was confirmed visually. The scope was then withdrawn. A long spinal needle was used to inject 0.5% Marcaine into the portals and around the hip capsule. Port sites were then closed with 3-0 Monocryl and Steri-Strips. Light dressing was applied. The patient tolerated the procedure very well. There were no complications. Taken from the operating room in stable condition. Dre Arevalo MD /[id number]
== END 2020-04-29 14:00 | disposition home or self-care (01) ==
LOC: JP.SDS 09:04
PROVIDERS: ATTEND Specialist
DX: S73.101A Unspecified sprain of right hip, initial encounter (principal); M24.851 Other specific joint derangements of right hip, not elsewhere classified; M76.31 Iliotibial band syndrome, right leg; G89.29 Other chronic pain; F17.200 Nicotine dependence, unspecified, uncomplicated; K21.9 Gastro-esophageal reflux disease without esophagitis; E66.01 Morbid (severe) obesity due to excess calories; Z88.8 Allergy status to other drugs, medicaments and biological substances; Z68.43 Body mass index [BMI] 50.0-59.9, adult
CPT/HCPCS: 36415; 76000; 80053; 85027; A9270-GY; C1769; J0330; J0690; J1100; J2270; J2370; J2405; J2704; J2710; J3010; J3410; J3490; J7120

== ENCOUNTER 2020-06-12 05:58 | Day surgery (SDC) | payer BC, MEDICAID ==
[2020-06-12] MEDS ORDERED: Dextrose 5%-Lactated Ringers 1,000 ML IV SCH (06:30)
[2020-06-12] MEDS ORDERED: fentaNYL 100 MCG/2 ML SDV ONE (07:25)
[2020-06-12] MEDS ORDERED: Etomidate 2 MG/ML 10 ML SDV ONE (07:25)
[2020-06-12] MEDS ORDERED: Midazolam 1 MG/ML 2 ML SDV ONE ×2 (07:25→07:38)
[2020-06-12] MEDS ORDERED: Famotidine 20 MG/2 ML SDV IVPUSH ONE (08:30)
--- NOTE | 2020-06-17 16:32 | OR ---
DATE OF PROCEDURE: 06/12/2020 SURGEON: Robe Dietz MD PREOPERATIVE DIAGNOSIS: Gastroesophageal reflux disease. POSTOPERATIVE DIAGNOSES: 1. Small hiatal hernia with markedly active gastroesophageal reflux disease. 2. Mild antral gastritis. OPERATIVE PROCEDURE: Esophagogastroduodenoscopy with biopsy of esophagogastric junction for histologic evaluation. ANESTHESIA: IV sedation. INDICATION FOR PROCEDURE: A 39-year-old male with morbid obesity, presenting with worsening reflux symptoms. He is now with some bile in his throat and coughing intermittently. He is status post radiofrequency ablation of the esophagogastric junction previously, but continues to have active reflux as noted above. He has been unable to take proton pump inhibitors due to medication interaction. The plan is to proceed with an upper GI endoscopy with biopsies as indicated. Potential risks including bleeding and perforation were discussed, and the patient wishes to proceed. DETAILS OF PROCEDURE: The patient was taken to the operating room and placed in the left lateral decubitus position. IV sedation was administered, after which the upper GI endoscope was passed orally through the length of the esophagus into the stomach with retroflexion view of the fundus, and thereafter, through the pyloric channel into the proximal duodenum. Findings included some redness in the hypopharynx and larynx consistent with the ongoing reflux to that level. The upper esophageal sphincter and esophageal body were otherwise unremarkable. At the EG junction, there was quite active reflux finding with some linear ulcers present extending up from a small hiatal hernia. There was no plaquing or stricturing, i.e., no suggestion of neoplastic change within the stomach apart from the hiatal hernia. There was some patchy redness in the antrum. Pyloric channel and the duodenum at the junction of 3rd and 4th portions were unremarkable. At this point, biopsies were obtained from the esophagogastric junction and sent for histologic evaluation. Minimal bleeding from the biopsy site was seen, and the procedure was then concluded. At this point, we will try the patient on Pepcid 40 mg daily. He has not been on H2 blockers in the past, but the patient overall is in relatively urgent need to proceed with the gastric bypass. This will take care of his reflux problem as well as a host of other weight-related comorbidities, and he will continue perhaps the preparation for the gastric bypass. Rboe Dietz MD /[id number]
== END 2020-06-12 08:57 | disposition home or self-care (01) ==
LOC: JP.SDS 05:58
PROVIDERS: ATTEND Surgery
DX: K29.70 Gastritis, unspecified, without bleeding (principal); K44.9 Diaphragmatic hernia without obstruction or gangrene; K21.00 Gastro-esophageal reflux disease with esophagitis, without bleeding; I10 Essential (primary) hypertension; E66.01 Morbid (severe) obesity due to excess calories; Z88.8 Allergy status to other drugs, medicaments and biological substances; Z68.42 Body mass index [BMI] 45.0-49.9, adult
CPT/HCPCS: 43239; J2250; J3010; J3490; J7121

== ENCOUNTER 2020-06-20 01:23 | Emergency (ER) | payer BC, MEDICAID ==
--- NOTE | 2020-06-20 04:10 | EDM.PDOC ---
ED HPI GENERAL MEDICAL PROBLEM - General Chief Complaint: Abdominal Pain Stated Complaint: ABD PAIN Time Seen by Provider: 06/20/20 03:59 Source of Information: Reports: Patient History Limitations: Reports: No Limitations - History of Present Illness INITIAL COMMENTS - FREE TEXT/NARRATIVE: Patient presents for evaluation of right lower quadrant abdominal pain persistent over some time now. He has been seen in a number of settings for this pain recently, the most recent was his primary care team yesterday, 19 June following completion of a CT scan of the abdomen pelvis on 18 June. He currently is on 2 antibiotics for diverticulitis which were prescribed after an emergency department visit for the same pain in [place]. He has had consultations with surgeons in the area and he states that he now is being recommended to [facility] to get more of a handle on the cause of his pain. He does not recall the findings of the CT scan on Jun emb. He currently takes 2 antibiotics for diverticulitis as well as cephalexin and Septra for some soft tissue boils/infection. He came tonight because he had to gut puller in his vehicle and vomit while driving around tonight. Nothing has helped his pain. He is on multiple medications for multiple conditions but other than antibiotics, has not had anything new recently. Onset: Gradual, Unknown/Unsure Duration: Week(s): (Many weeks) Location: Reports: Abdomen (Right lower quadrant.) Quality: Reports: Ache, Burning, Stabbing Severity: Moderate Improves with: Reports: None Worsens with: Reports: Eating, Immobilization, Rest, Movement Associated Symptoms: Reports: Nausea/Vomiting (Twice tonight prior to arrival.) right side abdomen Pain Score (Numeric/FACES): 7 - Related Data Allergies Allergy/AdvReac Type Severity Reaction Status Date / Time adhesive Allergy Burning Verified 06/12/20 06:40 Penicillins Allergy Pruritis Verified 06/12/20 06:40 propofol Allergy Bronchospas Verified 06/12/20 06:40 ms diclofenac AdvReac Dizziness, Verified 06/12/20 06:40 Nausea/Vomiting gabapentin AdvReac Shaking Verified 06/12/20 06:40 ibuprofen AdvReac Nausea & Verified 06/12/20 06:40 Vomiting, GI intolerance NSAIDS (Non-Steroidal AdvReac Nausea and Verified 06/12/20 06:40 Anti-Inflamma Vomiting zolpidem [From Ambien] AdvReac Sleep Verified 06/12/20 06:40 walking Dust Mite Extract Allergy Rhinitis, Uncoded 04/29/20 09:19 Cough Home Meds: Home Meds OXcarbazepine [Trileptal] 1,200 mg PO BID 01/10/14 [History] Levothyroxine 275 mcg PO ACBREAKFAST 07/24/17 [History] Eszopiclone 1 mg PO BEDTIME PRN 09/25/19 [History] Albuterol Sulfate [Albuterol Sulfate Hfa] 2 puff INH QID PRN 10/02/19 [History] Acetaminophen [Tylenol Extra Strength] 1,000 mg PO TID 12/09/19 [History] lisinopriL [Lisinopril] 20 mg PO DAILY 12/27/19 [History] buPROPion HCL [Bupropion Xl] 300 mg PO DAILY 02/25/20 [History] Aspirin [Halfprin] 81 mg PO DAILY 04/09/20 [History] Nitroglycerin 0.4 mg SL [id number] PRN 04/09/20 [History] amLODIPine [Norvasc] 2.5 mg PO DAILY 04/09/20 [History] Warfarin [Coumadin] 7.5 mg PO DAILY 05/14/20 [History] ALPRAZolam [Xanax] 1 mg PO QID PRN 06/10/20 [History] Diclofenac Sodium [Voltaren Arthritis Pain] 1 cm TP QID 06/10/20 [History] Sildenafil [Viagra] 50 mg PO BEDTIME PRN 06/10/20 [History] Triamcinolone Acetonide [Triamcinolone Acetonide 0.5%] 1 cm TOP BID 06/10/20 [History] Ciprofloxacin [Ciprofloxacin HCl] 500 mg PO BID 06/20/20 [History] Ondansetron [Ondansetron ODT] 1 tab PO Q6H PRN 06/20/20 [History] Pantoprazole Sodium [Protonix] 40 mg PO DAILY 06/20/20 [History] Sulfamethoxazole/Trimethoprim [Sulfamethoxazole-Tmp Ds Tablet] 1 each PO BID 06/20/20 [History] cephALEXin [Cephalexin] 500 mg PO Q6H 06/20/20 [History] metroNIDAZOLE [Flagyl] 500 mg PO BID 06/20/20 [History] predniSONE 40 mg PO DAILY 06/20/20 [History] Past Medical History HEENT History: Reports: Impaired Vision Cardiovascular History: Reports: Hypertension, Other (See Below) Other Cardiovascular History: microvascular disease Respiratory History: Reports: Asthma, SOB Gastrointestinal History: Reports: Cholelithiasis, Diverticulosis, GERD, Other (See Below) Other Gastrointestinal History: barrets esphogeal, diverticulitis Genitourinary History: Reports: Other (See Below) Other Genitourinary History: cyst present in bladder Musculoskeletal History: Reports: Back Pain, Chronic, Neck Pain, Chronic, Other (See Below) Other Musculoskeletal History: right hip pain with labrum tear, right foot sprain. R foot pain Neurological History: Reports: Headaches, Chronic Psychiatric History: Reports: ADHD, Anxiety, Bipolar, Depression, Panic Attack, Psych Hospitalization(s), PTSD, Suicide Attempt, Suicidal Ideation Other Psychiatric History: bipolar 2 Endocrine/Metabolic History: Reports: Hypothyroidism, Obesity/BMI 30+ Hematologic History: Reports: None Immunologic History: Reports: None Oncologic (Cancer) History: Reports: Thyroid Other Oncologic History: pappulary with focal variant Dermatologic History: Reports: None - Infectious Disease History Infectious Disease History: Reports: Chicken Pox - Past Surgical History Head Surgeries/Procedures: Reports: None HEENT Surgical History: Reports: Oral Surgery Other HEENT Surgeries/Procedures: barretts esophagus surgery Cardiovascular Surgical History: Reports: Other (See Below) Other Cardiovascular Surgeries/Procedures: angiogram, wore a heart monitor Respiratory Surgical History: Reports: None GI Surgical History: Reports: Appendectomy, Cholecystectomy, Colon, Colonoscopy, EGD, Hernia Repair/Other Other GI Surgeries/Procedures: 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 COLON RESECTION Male Surgical History: Reports: None Endocrine Surgical History: Reports: Thyroidectomy, Other (See Below) Other Endocrine Surgeries/Procedures: 9 lymphnodes on left side removed Neurological Surgical History: Reports: Discectomy, Laminectomy Other Neurological Surgeries/Procedures: partial lami/discectomy near L4 Musculoskeletal Surgical History: Reports: Other (See Below) Other Musculoskeletal Surgeries/Procedures:: partial discectomy back. L ulnar nerve transposition 01/08/20. right hip scope 04/29/20 Oncologic Surgical History: Reports: Other (See Below) Other Oncologic Surgeries/Procedures: PT HAD THYROIDECTOMY Dermatological Surgical History: Reports: None Social & Family History - Family History Family Medical History: No Pertinent Family History HEENT: Reports: Impaired Vision Cardiac: Reports: Arrhythmia GI: Reports: Cirrhosis Psychiatric: Reports: Depression Oncologic: Reports: Cervix - Tobacco Use Tobacco Use Status *Q: Never Tobacco User Second Hand Smoke Exposure: Yes - Caffeine Use Caffeine Use: Reports: Coffee, Soda - Recreational Drug Use Recreational Drug Use: No - Living Situation & Occupation Living situation: Reports: with Significant Other Occupation: Employed (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 Amna, works at [employer] in [employer]) ED ROS GENERAL - Review of Systems Review Of Systems: See Below Constitutional: Reports: Decreased Appetite, Weight Loss. Denies: Fever, Chills, Weight Gain HEENT: Reports: No Symptoms Respiratory: Reports: No Symptoms Cardiovascular: Reports: No Symptoms GI/Abdominal: Reports: Abdominal Pain (Right lower quadrant, persistent.). Denies: Constipation, Diarrhea Musculoskeletal: Denies: Neck Pain Skin: Reports: Diaphoresis. Denies: Cyanosis Neurological: Reports: No Symptoms Psychiatric: Reports: Anxiety Hematologic/Lymphatic: Reports: No Symptoms ED EXAM, GI/ABD - Physical Exam Exam: See Below Text/Narrative:: When I entered the room for evaluation, he is sleeping supine with his left leg crossed at the knee on top of the right leg. Exam Limited By: No Limitations General Appearance: Alert Respiratory/Chest: No Respiratory Distress GI/Abdominal Exam: Normal Bowel Sounds, Soft, No Distention. No: Guarding, Rigid, Hernia Back Exam: Normal Inspection Course - Vital Signs Last Recorded V/S: Last Vital Signs Temp 36.7 C 06/20/20 02:01 Pulse 71 06/20/20 04:39 Resp 20 06/20/20 04:39 BP 109/70 06/20/20 04:39 Pulse Ox 95 06/20/20 02:30 - Orders/Labs/Meds Meds: Medications Discontinued Medications Generic Name Dose Route Start Last Admin Trade Name Davis PRN Reason Stop Dose Admin Dicyclomine HCl 20 mg 06/20/20 04:22 06/20/20 04:35 Bentyl PO 06/20/20 04:23 Not Given ONETIME ONE - Re-Assessments/Exams Free Text/Narrative Re-Assessment/Exam: 06/20/20 05:59 I discussed with him that given his recent CT scan of the abdomen and pelvis, it did not make sense to repeat any imaging. I will look at the images personally and review the radiologist report. After doing so, his scan had a few incidental findings but that was it. There was nothing demonstrable as an obvious cause of persistent right lower quadrant abdominal pain. His vital signs are unremarkable and he would fall asleep in between trips to the room. He is on multiple medications at this time. He is on 2 antibiotics for diverticulitis however none was noted on his CT scan from the . I do not see any indication for repeat imaging nor for other laboratory investigations as he has had many of those done recently. I will have him try dicyclomine for his cramping. We attempted to give him a 20 mg dose here but he declined the medication and the actual prescription for same. He left the department unhappily but was not in acute distress. I attempted to encourage him to use primary care as his coordinating source. He left without final discussion with me. Departure - Departure Time of Disposition: 04:25 Disposition: Home, Self-Care 01 Clinical Impression: Abdominal pain Qualifiers: Abdominal location: right lower quadrant Qualified Code(s): R10.31 - Right lower quadrant pain - Discharge Information Instructions: Abdominal Pain, Adult, Pain Without a Known Cause Referrals: Emily Ordoñez DO [Primary Care Provider] - Forms: ED Department Discharge Additional Instructions: Continue current medications. Try the dicyclomine for the abdominal pain you are having. Your CT scan done on the fortunately did not show any alarming findings. Recheck with Dr. Ordoñez to help coordinate the rest of your care and referrals. With no diverticulitis on your scan from the , you may not need to continue the metronidazole and Cipro. In at least one third of the people who take those antibiotics, they get nausea and cramping and that could be 1 reason why you have felt the way you have recently. Sepsis Event Note (ED) - Evaluation Sepsis Screening Result: No Definite Risk - Focused Exam Vital Signs: Vital Signs Temp Pulse Resp BP Pulse Ox 06/20/20 04:39 71 20 109/70 06/20/20 03:30 77 14 117/67 06/20/20 03:00 83 16 117/60 06/20/20 02:30 78 16 110/55 L 95 12/19/20 02:01 36.7 C 87 20 114/81 95 06/20/20 01:50 36.7 C 87 20 114/81 95
[2020-06-20] MEDS ORDERED: Dicyclomine 10 MG Cap PO ONE (04:22)
== END 2020-06-20 04:35 | disposition home or self-care (01) ==
LOC: JP.ED 01:23
DX: R10.31 Right lower quadrant pain (principal); R11.2 Nausea with vomiting, unspecified; I10 Essential (primary) hypertension; J45.909 Unspecified asthma, uncomplicated; K21.9 Gastro-esophageal reflux disease without esophagitis; E03.9 Hypothyroidism, unspecified; F41.9 Anxiety disorder, unspecified; F31.9 Bipolar disorder, unspecified; Z88.0 Allergy status to penicillin; Z88.4 Allergy status to anesthetic agent; Z88.8 Allergy status to other drugs, medicaments and biological substances; Z79.01 Long term (current) use of anticoagulants; Z79.82 Long term (current) use of aspirin; Z79.899 Other long term (current) drug therapy; Z90.49 Acquired absence of other specified parts of digestive tract; Z68.43 Body mass index [BMI] 50.0-59.9, adult
CPT/HCPCS: 99283; 99284-25

== ENCOUNTER 2020-06-26 14:05 | Emergency (ER) | payer BC, MEDICAID ==
[2020-06-26] MEDS ORDERED: Ondansetron 4 MG/2 ML SDV IVPUSH ONE (15:19)
[2020-06-26] MEDS ORDERED: HYDROmorphone 0.5 MG/0.5 ML Syringe IVPUSH ONE ×2 (15:19→17:20)
[2020-06-26] MEDS ORDERED: Sodium Chloride 0.9% 1,000 ML IV SCH (15:30)
[2020-06-26] MEDS ORDERED: Sodium Chloride 0.9% 10 ML Syringe FLUSH ONE (16:30)
[2020-06-26] MEDS ORDERED: Iopamidol 612 MG/ML 500 ML Multipack Bottle IV ONE (16:30)
--- NOTE | 2020-06-26 17:33 | CRLCT ---
Indication: Lower abdominal pain Technique: CT abdomen pelvis under 50 mL [id number] Comparison: CT abdomen pelvis 11/19/2019 Findings: Calcified left hilar mediastinal nodes heart size is normal no pericardial effusion. Left lower lobe granuloma lung bases appear clear. Left hepatic cyst. Splenic granulomas. Cholecystectomy. Biliary dilatation which can be seen post cholecystectomy. Symmetric enhancement of both kidneys which appear unremarkable. No abdominal aortic aneurysm. Pancreas adrenal glands are unremarkable. Sigmoid anastomosis. Diverticulosis. Minimal bowel wall thickening pericolonic inflammatory change proximal descending colon. No free air or abscess. Urinary bladder decompressed unremarkable. Prostate gland is mildly enlarged. No suspicious bony lesions. Impression: 1. Diverticulitis involving the proximal descending colon. Please note that all CT scans at this facility use dose modulation, iterative reconstruction, and/or weight-based dosing when appropriate to reduce radiation dose to as low as reasonably achievable. Dictated by Connie Carmen MD @ Jun 26 2020 5:26PM Signed by Dr. Connie Carmen @ Jun 26 2020 5:32PM
[2020-06-26] MEDS ORDERED: Meropenem 1 GM in Sodium Chloride 0.9% 100 ML IV SCH (18:00)
--- NOTE | 2020-06-26 18:11 | EDM.PDOC ---
ED HPI GENERAL MEDICAL PROBLEM - General Chief Complaint: Abdominal Pain Stated Complaint: SHORTNESS BREATH/ABDOMINAL PAIN Time Seen by Provider: 06/26/20 14:20 Source of Information: Reports: Patient History Limitations: Reports: No Limitations - History of Present Illness INITIAL COMMENTS - FREE TEXT/NARRATIVE: pt arrived with diarrhea and left lower abdomanal pain. He is concerned that he may have clost diff because he has been on antibiotics. He has been on cipro and flagyl for about 8 days. The pain has increased in the last 2 days and the diarrhea has increased. Onset: Gradual, Other ( worse the last 2 days. ) Duration: Hour(s): Location: Reports: Abdomen, Generalized Associated Symptoms: Reports: Other ( pt has diarrhea, with no blood. ) - Related Data Allergies Allergy/AdvReac Type Severity Reaction Status Date / Time adhesive Allergy Burning Verified 06/12/20 06:40 Penicillins Allergy Pruritis Verified 06/12/20 06:40 propofol Allergy Bronchospas Verified 06/12/20 06:40 ms diclofenac AdvReac Dizziness, Verified 06/12/20 06:40 Nausea/Vomiting gabapentin AdvReac Shaking Verified 06/12/20 06:40 ibuprofen AdvReac Nausea & Verified 06/12/20 06:40 Vomiting, GI intolerance NSAIDS (Non-Steroidal AdvReac Nausea and Verified 06/12/20 06:40 Anti-Inflamma Vomiting zolpidem [From Ambien] AdvReac Sleep Verified 06/12/20 06:40 walking Dust Mite Extract Allergy Rhinitis, Uncoded 04/29/20 09:19 Cough Home Meds: Home Meds OXcarbazepine [Trileptal] 1,200 mg PO BID 01/10/14 [History] Levothyroxine 275 mcg PO ACBREAKFAST 07/24/17 [History] Eszopiclone 1 mg PO BEDTIME PRN 09/25/19 [History] Albuterol Sulfate [Albuterol Sulfate Hfa] 2 puff INH QID PRN 10/02/19 [History] Acetaminophen [Tylenol Extra Strength] 1,000 mg PO TID 12/09/19 [History] lisinopriL [Lisinopril] 20 mg PO DAILY 12/27/19 [History] buPROPion HCL [Bupropion Xl] 300 mg PO DAILY 02/25/20 [History] Aspirin [Halfprin] 81 mg PO DAILY 04/09/20 [History] Nitroglycerin 0.4 mg SL .[id number] PRN 04/09/20 [History] amLODIPine [Norvasc] 2.5 mg PO DAILY 04/09/20 [History] Warfarin [Coumadin] 7.5 mg PO DAILY 05/14/20 [History] ALPRAZolam [Xanax] 1 mg PO QID PRN 06/10/20 [History] Diclofenac Sodium [Voltaren Arthritis Pain] 1 cm TP QID 06/10/20 [History] Sildenafil [Viagra] 50 mg PO BEDTIME PRN 06/10/20 [History] Triamcinolone Acetonide [Triamcinolone Acetonide 0.5%] 1 cm TOP BID 06/10/20 [History] Ciprofloxacin [Ciprofloxacin HCl] 500 mg PO BID 06/20/20 [History] Ondansetron [Ondansetron ODT] 1 tab PO Q6H PRN 06/20/20 [History] Pantoprazole Sodium [Protonix] 40 mg PO DAILY 06/20/20 [History] Sulfamethoxazole/Trimethoprim [Sulfamethoxazole-Tmp Ds Tablet] 1 each PO BID 06/20/20 [History] metroNIDAZOLE [Flagyl] 500 mg PO BID 06/20/20 [History] predniSONE 40 mg PO DAILY 06/20/20 [History] Ciprofloxacin [Ciprofloxacin HCl] 500 mg PO BID 06/26/20 [History] Dicyclomine [Bentyl] 10 mg PO QID 06/26/20 [History] Past Medical History HEENT History: Reports: Impaired Vision Cardiovascular History: Reports: Hypertension, Other (See Below) Other Cardiovascular History: microvascular disease Respiratory History: Reports: Asthma, SOB Gastrointestinal History: Reports: Cholelithiasis, Diverticulosis, GERD, Other (See Below) Other Gastrointestinal History: barrets esphogeal, diverticulitis Genitourinary History: Reports: Other (See Below) Other Genitourinary History: cyst present in bladder Musculoskeletal History: Reports: Back Pain, Chronic, Neck Pain, Chronic, Other (See Below) Other Musculoskeletal History: right hip pain with labrum tear, right foot sprain. R foot pain Neurological History: Reports: Headaches, Chronic Psychiatric History: Reports: ADHD, Anxiety, Bipolar, Depression, Panic Attack, Psych Hospitalization(s), PTSD, Suicide Attempt, Suicidal Ideation Other Psychiatric History: bipolar 2 Endocrine/Metabolic History: Reports: Hypothyroidism, Obesity/BMI 30+ Hematologic History: Reports: None Immunologic History: Reports: None Oncologic (Cancer) History: Reports: Thyroid Other Oncologic History: pappulary with focal variant Dermatologic History: Reports: None - Infectious Disease History Infectious Disease History: Reports: Chicken Pox - Past Surgical History Head Surgeries/Procedures: Reports: None HEENT Surgical History: Reports: Oral Surgery Other HEENT Surgeries/Procedures: barretts esophagus surgery Cardiovascular Surgical History: Reports: Other (See Below) Other Cardiovascular Surgeries/Procedures: angiogram, wore a heart monitor Respiratory Surgical History: Reports: None GI Surgical History: Reports: Appendectomy, Cholecystectomy, Colon, Colonoscopy, EGD, Hernia Repair/Other Other GI Surgeries/Procedures: 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 COLON RESECTION Male Surgical History: Reports: None Endocrine Surgical History: Reports: Thyroidectomy, Other (See Below) Other Endocrine Surgeries/Procedures: 9 lymphnodes on left side removed Neurological Surgical History: Reports: Discectomy, Laminectomy Other Neurological Surgeries/Procedures: partial lami/discectomy near L4 Musculoskeletal Surgical History: Reports: Other (See Below) Other Musculoskeletal Surgeries/Procedures:: partial discectomy back. L ulnar nerve transposition 01/08/20. right hip scope 04/29/20 Oncologic Surgical History: Reports: Other (See Below) Other Oncologic Surgeries/Procedures: PT HAD THYROIDECTOMY Dermatological Surgical History: Reports: None Social & Family History - Family History Family Medical History: No Pertinent Family History HEENT: Reports: Impaired Vision Cardiac: Reports: Arrhythmia GI: Reports: Cirrhosis Psychiatric: Reports: Depression Oncologic: Reports: Cervix - Tobacco Use Tobacco Use Status *Q: Never Tobacco User - Caffeine Use Caffeine Use: Reports: Coffee, Soda - Recreational Drug Use Recreational Drug Use: No - Living Situation & Occupation Living situation: Reports: with Significant Other Occupation: Employed (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 Amna, 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 ) : Reports: Frequency Musculoskeletal: Reports: No Symptoms Skin: Reports: No Symptoms ED EXAM, GI/ABD - Physical Exam Exam: See Below Text/Narrative:: pt arrived with left lower abdomanal pain. He has had diarrhea. Exam Limited By: No Limitations General Appearance: Alert, Anxious, Moderate Distress Ears: Normal TMs Nose: Normal Inspection Throat/Mouth: Normal Inspection Head: Atraumatic Neck: Normal Inspection Respiratory/Chest: No Respiratory Distress Cardiovascular: Regular Rate, Rhythm GI/Abdominal Exam: Tender, Other ( slight guarding. ) (Male) Exam: Deferred Rectal (Males) Exam: Deferred Back Exam: Normal Inspection Extremities: Normal Inspection Neurological: Alert, Oriented, Normal Cognition Course - Vital Signs Last Recorded V/S: Last Vital Signs Temp 36.3 C 06/26/20 14:20 Pulse 83 06/26/20 17:29 Resp 16 06/26/20 17:29 BP 112/45 L 06/26/20 17:29 Pulse Ox 95 06/26/20 17:29 - Orders/Labs/Meds Orders: Active Orders 24 hr Category Date Time Status Patient Status Manage Transfer [TRANSFER] Routine ADT 06/26/20 18:36 Active CULTURE URINE [RM] Stat Lab 06/26/20 16:31 Received Cefdinir [Omnicef] Med 06/27/20 18:56 Once 600 mg PO DAILY ONE Meropenem [Merrem] 1 gm Med 06/26/20 18:00 Active Sodium Chloride 0.9% [Normal Saline] 100 ml IV Q8H Sodium Chloride 0.9% [Normal Saline] 1,000 ml Med 06/26/20 15:30 Active IV ASDIRECTED Sodium Chloride 0.9% [Normal Saline] 85 ml Med 06/26/20 16:30 Active IV ASDIRECTED Resuscitation Status Routine Resus Stat 06/26/20 18:40 Ordered Medication Orders Cefdinir (Omnicef) 600 mg PO DAILY ONE Stop: 06/27/20 18:57 Sodium Chloride (Normal Saline) 1,000 mls @ 500 mls/hr IV ASDIRECTED YUSUF Last Admin: 06/26/20 15:29 Dose: 500 mls/hr Documented by: [id number] Sodium Chloride (Normal Saline) 85 mls @ 3.5 mls/sec IV ASDIRECTED YUSUF Last Admin: 06/26/20 16:49 Dose: 3 mls/sec Documented by: CONCHA Meropenem 1 gm/ Sodium (Chloride) 100 mls @ 200 mls/hr IV Q8H [facility] Labs: Laboratory Tests 06/26/20 06/26/20 06/26/20 Range/Units 15:15 15:15 15:16 WBC 8.6 (4.5-11.0) K/uL RBC 4.94 (4.30-5.90) M/uL Hgb 15.6 H (12.0-15.0) g/dL Hct 46.0 (40.0-54.0) % MCV 93 (80-98) fL MCH 32 H (27-31) pg MCHC 34 (32-36) % Plt Count 294 (150-400) K/uL Neut % (Auto) 67 H (36-66) % Lymph % (Auto) 16 L (24-44) % Graves % (Auto) 14 H (2-6) % Eos % (Auto) 2 (2-4) % Baso % (Auto) 0 (0-1) % Sodium 136 L (140-148) mmol/L Potassium 3.7 (3.6-5.2) mmol/L Chloride 102 (100-108) mmol/L Carbon Dioxide 24 (21-32) mmol/L Anion Gap 13.7 (5.0-14.0) mmol/L BUN 9 (7-18) mg/dL Creatinine 1.1 (0.8-1.3) mg/dL Est Cr Clr Drug Dosing 94.02 mL/min Estimated GFR (MDRD) > 60 (>60) Glucose 84 (74-106) mg/dL Calcium 8.3 L (8.5-10.1) mg/dL Total Bilirubin 0.3 (0.2-1.0) mg/dL AST 18 (15-37) U/L ALT 51 (12-78) U/L Alkaline Phosphatase 89 (46-116) U/L C-Reactive Protein 6.37 H (0.0-0.3) mg/dL Total Protein 7.0 (6.4-8.2) g/dL Albumin 3.4 (3.4-5.0) g/dL Globulin 3.6 H (2.3-3.5) g/dL Albumin/Globulin Ratio 0.9 L (1.2-2.2) Urine Color (YELLOW) Urine Appearance (CLEAR) Urine pH (5.0-8.0) Ur Specific [place] (1.008-1.030) Urine Protein (NEGATIVE) mg/dL Urine Glucose (UA) (NEGATIVE) mg/dL Urine Ketones (NEGATIVE) mg/dL Urine Occult Blood (NEGATIVE) Urine Nitrite (NEGATIVE) Urine Bilirubin (NEGATIVE) Urine Urobilinogen (0.2-1.0) EU/dL Ur Leukocyte Esterase (NEGATIVE) Urine RBC (0-5) Urine WBC (0-5) Ur Epithelial Cells Amorphous Sediment Urine Bacteria Urine Mucus 06/26/20 Range/Units 16:11 WBC (4.5-11.0) K/uL RBC (4.30-5.90) M/uL Hgb (12.0-15.0) g/dL Hct (40.0-54.0) % MCV (80-98) fL MCH (27-31) pg MCHC (32-36) % Plt Count (150-400) K/uL Neut % (Auto) (36-66) % Lymph % (Auto) (24-44) % Graves % (Auto) (2-6) % Eos % (Auto) (2-4) % Baso % (Auto) (0-1) % Sodium (140-148) mmol/L Potassium (3.6-5.2) mmol/L Chloride (100-108) mmol/L Carbon Dioxide (21-32) mmol/L Anion Gap (5.0-14.0) mmol/L BUN (7-18) mg/dL Creatinine (0.8-1.3) mg/dL Est Cr Clr Drug Dosing mL/min Estimated GFR (MDRD) (>60) Glucose (74-106) mg/dL Calcium (8.5-10.1) mg/dL Total Bilirubin (0.2-1.0) mg/dL AST (15-37) U/L ALT (12-78) U/L Alkaline Phosphatase (46-116) U/L C-Reactive Protein (0.0-0.3) mg/dL Total Protein (6.4-8.2) g/dL Albumin (3.4-5.0) g/dL Globulin (2.3-3.5) g/dL Albumin/Globulin Ratio (1.2-2.2) Urine Color Yellow (YELLOW) Urine Appearance Slightly cloudy A (CLEAR) Urine pH 6.0 (5.0-8.0) Ur Specific [place] >= 1.030 (1.008-1.030) Urine Protein 100 H (NEGATIVE) mg/dL Urine Glucose (UA) Negative (NEGATIVE) mg/dL Urine Ketones Negative (NEGATIVE) mg/dL Urine Occult Blood Moderate H (NEGATIVE) Urine Nitrite Negative (NEGATIVE) Urine Bilirubin Moderate H (NEGATIVE) Urine Urobilinogen 1.0 (0.2-1.0) EU/dL Ur Leukocyte Esterase Negative (NEGATIVE) Urine RBC 40-50 H (0-5) Urine WBC 0-5 (0-5) Ur Epithelial Cells Few Amorphous Sediment Not seen Urine Bacteria Moderate Urine Mucus Many Meds: Medications Generic Name Dose Route Start Last Admin Trade Name Davis PRN Reason Stop Dose Admin Cefdinir 600 mg 06/27/20 18:56 Omnicef PO 06/27/20 18:57 DAILY ONE Sodium Chloride 1,000 mls @ 500 mls/hr 06/26/20 15:30 06/26/20 15:29 Normal Saline IV 500 mls/hr ASDIRECTED YUSUF Administration Sodium Chloride 85 mls @ 3.5 mls/sec 06/26/20 16:30 06/26/20 16:49 Normal Saline IV 3 mls/sec ASDIRECTED YUSUF Administration Meropenem 1 gm/ Sodium 100 mls @ 200 mls/hr 06/26/20 18:00 Chloride IV Q8H YUSUF Discontinued Medications Generic Name Dose Route Start Last Admin Trade Name Davis PRN Reason Stop Dose Admin Hydromorphone HCl 0.5 mg 06/26/20 15:19 06/26/20 15:32 Dilaudid IVPUSH 06/26/20 15:20 0.5 mg ONETIME ONE Administration Hydromorphone HCl 0.5 mg 06/26/20 17:20 06/26/20 17:28 Dilaudid IVPUSH 06/26/20 17:21 0.5 mg ONETIME ONE Administration Iopamidol 150 ml 06/26/20 16:30 06/26/20 16:49 Isovue-300 (61%) IV 06/26/20 16:31 150 ml ONETIME ONE Administration Ondansetron HCl 4 mg 06/26/20 15:19 06/26/20 15:29 Zofran IVPUSH 06/26/20 15:20 4 mg ONETIME ONE Administration Sodium Chloride 10 ml 06/26/20 16:30 06/26/20 16:49 Saline Flush FLUSH 06/26/20 16:31 10 ml ONETIME ONE Administration - Re-Assessments/Exams Free Text/Narrative Re-Assessment/Exam: 06/26/20 18:15 pt had a normal wbc and his crp is greater than 6. He had a repeat cat scan which did show wall thickening of the proximal decending colon. He has had 8 days of antibiotics. Departure - Departure Time of Disposition: 18:17 Disposition: Home, Self-Care 01 Condition: Fair Clinical Impression: Diverticulitis, UTI (urinary tract infection), Dehydration - Discharge Information Referrals: Emily Ordoñez DO [Primary Care Provider] - Forms: ED Department Discharge Care Plan Goals: pt was to be admitted but pt was not able to find anyone to care for his children,. will switch his antibiotics and he should follow in 2-3 day with his provider. Stop flagyl, cipro and keflex, switch to omicef and clindomycin. tylenol and motrin for pain norco 5/325 q6h prn for pain #6 use probiotic or yogurt regularly. Sepsis Event Note (ED) - Evaluation Sepsis Screening Result: No Definite Risk - Focused Exam Vital Signs: Vital Signs Temp Pulse Resp BP Pulse Ox 06/26/20 17:29 83 16 112/45 L 95 06/26/20 14:20 36.3 C 107 H 16 119/66 96 06/26/20 14:18 36.3 C 107 H 16 119/66 96 - My Orders Last 24 Hours: My Active Orders 06/26/20 15:30 Sodium Chloride 0.9% [Normal Saline] 1,000 ml IV ASDIRECTED 06/26/20 16:30 Sodium Chloride 0.9% [Normal Saline] 85 ml IV ASDIRECTED 06/26/20 16:31 CULTURE URINE [RM] Stat 06/27/20 18:56 Cefdinir [Omnicef] 600 mg PO DAILY ONE - Assessment/Plan Last 24 Hours: My Active Orders 06/26/20 15:30 Sodium Chloride 0.9% [Normal Saline] 1,000 ml IV ASDIRECTED 06/26/20 16:30 Sodium Chloride 0.9% [Normal Saline] 85 ml IV ASDIRECTED 06/26/20 16:31 CULTURE URINE [RM] Stat 06/27/20 18:56 Cefdinir [Omnicef] 600 mg PO DAILY ONE
--- NOTE | 2020-06-26 18:46 | PCM.HP.2 ---
H&P History of Present Illness - General Date of Service: 06/26/20 Admit Problem/Dx: Admission Diagnosis/Problem Admission Diagnosis/Problem Diverticulitis Source of Information: Patient - Related Data Allergies/Adverse Reactions: Allergies Allergy/AdvReac Type Severity Reaction Status Date / Time adhesive Allergy Burning Verified 06/12/20 06:40 Penicillins Allergy Pruritis Verified 06/12/20 06:40 propofol Allergy Bronchospas Verified 06/12/20 06:40 ms diclofenac AdvReac Dizziness, Verified 06/12/20 06:40 Nausea/Vomiting gabapentin AdvReac Shaking Verified 06/12/20 06:40 ibuprofen AdvReac Nausea & Verified 06/12/20 06:40 Vomiting, GI intolerance NSAIDS (Non-Steroidal AdvReac Nausea and Verified 06/12/20 06:40 Anti-Inflamma Vomiting zolpidem [From Ambien] AdvReac Sleep Verified 06/12/20 06:40 walking Dust Mite Extract Allergy Rhinitis, Uncoded 04/29/20 09:19 Cough Home Medications: Home Meds OXcarbazepine [Trileptal] 1,200 mg PO BID 01/10/14 [History] Levothyroxine 275 mcg PO ACBREAKFAST 07/24/17 [History] Eszopiclone 1 mg PO BEDTIME PRN 09/25/19 [History] Albuterol Sulfate [Albuterol Sulfate Hfa] 2 puff INH QID PRN 10/02/19 [History] Acetaminophen [Tylenol Extra Strength] 1,000 mg PO TID 12/09/19 [History] lisinopriL [Lisinopril] 20 mg PO DAILY 12/27/19 [History] buPROPion HCL [Bupropion Xl] 300 mg PO DAILY 02/25/20 [History] Aspirin [Halfprin] 81 mg PO DAILY 04/09/20 [History] Nitroglycerin 0.4 mg SL [id number] PRN 04/09/20 [History] amLODIPine [Norvasc] 2.5 mg PO DAILY 04/09/20 [History] Warfarin [Coumadin] 7.5 mg PO DAILY 05/14/20 [History] ALPRAZolam [Xanax] 1 mg PO QID PRN 06/10/20 [History] Diclofenac Sodium [Voltaren Arthritis Pain] 1 cm TP QID 06/10/20 [History] Sildenafil [Viagra] 50 mg PO BEDTIME PRN 06/10/20 [History] Triamcinolone Acetonide [Triamcinolone Acetonide 0.5%] 1 cm TOP BID 06/10/20 [History] Ciprofloxacin [Ciprofloxacin HCl] 500 mg PO BID 06/20/20 [History] Ondansetron [Ondansetron ODT] 1 tab PO Q6H PRN 06/20/20 [History] Pantoprazole Sodium [Protonix] 40 mg PO DAILY 06/20/20 [History] Sulfamethoxazole/Trimethoprim [Sulfamethoxazole-Tmp Ds Tablet] 1 each PO BID 06/20/20 [History] metroNIDAZOLE [Flagyl] 500 mg PO BID 06/20/20 [History] predniSONE 40 mg PO DAILY 06/20/20 [History] Ciprofloxacin [Ciprofloxacin HCl] 500 mg PO BID 06/26/20 [History] Dicyclomine [Bentyl] 10 mg PO QID 06/26/20 [History] Past Medical History HEENT History: Reports: Impaired Vision Cardiovascular History: Reports: Hypertension, Other (See Below) Other Cardiovascular History: microvascular disease Respiratory History: Reports: Asthma, SOB Gastrointestinal History: Reports: Cholelithiasis, Diverticulosis, GERD, Other (See Below) Other Gastrointestinal History: barrets esphogeal, diverticulitis Genitourinary History: Reports: Other (See Below) Other Genitourinary History: cyst present in bladder Musculoskeletal History: Reports: Back Pain, Chronic, Neck Pain, Chronic, Other (See Below) Other Musculoskeletal History: right hip pain with labrum tear, right foot sprain. R foot pain Neurological History: Reports: Headaches, Chronic Psychiatric History: Reports: ADHD, Anxiety, Bipolar, Depression, Panic Attack, Psych Hospitalization(s), PTSD, Suicide Attempt, Suicidal Ideation Other Psychiatric History: bipolar 2 Endocrine/Metabolic History: Reports: Hypothyroidism, Obesity/BMI 30+ Hematologic History: Reports: None Immunologic History: Reports: None Oncologic (Cancer) History: Reports: Thyroid Other Oncologic History: pappulary with focal variant Dermatologic History: Reports: None - Infectious Disease History Infectious Disease History: Reports: Chicken Pox - Past Surgical History Head Surgeries/Procedures: Reports: None HEENT Surgical History: Reports: Oral Surgery Other HEENT Surgeries/Procedures: barretts esophagus surgery Cardiovascular Surgical History: Reports: Other (See Below) Other Cardiovascular Surgeries/Procedures: angiogram, wore a heart monitor Respiratory Surgical History: Reports: None GI Surgical History: Reports: Appendectomy, Cholecystectomy, Colon, Colonoscopy, EGD, Hernia Repair/Other Other GI Surgeries/Procedures: radiofrequency ablation to esophagus d/t barre tt's esophagus colon resection in 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 COLON RESECTION Male Surgical History: Reports: None Endocrine Surgical History: Reports: Thyroidectomy, Other (See Below) Other Endocrine Surgeries/Procedures: 9 lymphnodes on left side removed Neurological Surgical History: Reports: Discectomy, Laminectomy Other Neurological Surgeries/Procedures: partial lami/discectomy near L4 Musculoskeletal Surgical History: Reports: Other (See Below) Other Musculoskeletal Surgeries/Procedures:: partial discectomy back. L ulnar nerve transposition 01/08/20. right hip scope 04/29/20 Oncologic Surgical History: Reports: Other (See Below) Other Oncologic Surgeries/Procedures: PT HAD THYROIDECTOMY Dermatological Surgical History: Reports: None Social & Family History - Family History Family Medical History: No Pertinent Family History HEENT: Reports: Impaired Vision Cardiac: Reports: Arrhythmia GI: Reports: Cirrhosis Psychiatric: Reports: Depression Oncologic: Reports: Cervix - Tobacco Use Tobacco Use Status *Q: Never Tobacco User - Caffeine Use Caffeine Use: Reports: Coffee, Soda - Recreational Drug Use Recreational Drug Use: No - Living Situation & Occupation Living situation: Reports: with Significant Other Occupation: Employed (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 Amna, 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[employer]) Exam - Vital Signs Vital Signs: Last Vital Signs Temp 97.4 F 06/26/20 14:20 Pulse 83 06/26/20 17:29 Resp 16 06/26/20 17:29 BP 112/45 L 06/26/20 17:29 Pulse Ox 95 06/26/20 17:29 Weight: 348 lb 12.34 oz - Patient Data Lab Results Last 24 hrs: Laboratory Results - last 24 hr 06/26/20 06/26/20 06/26/20 Range/Units 15:15 15:15 15:16 WBC 8.6 (4.5-11.0) K/uL RBC 4.94 (4.30-5.90) M/uL Hgb 15.6 H (12.0-15.0) g/dL Hct 46.0 (40.0-54.0) % MCV 93 (80-98) fL MCH 32 H (27-31) pg MCHC 34 (32-36) % Plt Count 294 (150-400) K/uL Neut % (Auto) 67 H (36-66) % Lymph % (Auto) 16 L (24-44) % [place] % (Auto) 14 H (2-6) % Eos % (Auto) 2 (2-4) % Baso % (Auto) 0 (0-1) % Sodium 136 L (140-148) mmol/L Potassium 3.7 (3.6-5.2) mmol/L Chloride 102 (100-108) mmol/L Carbon Dioxide 24 (21-32) mmol/L Anion Gap 13.7 (5.0-14.0) mmol/L BUN 9 (7-18) mg/dL Creatinine 1.1 (0.8-1.3) mg/dL Est Cr Clr Drug Dosing 94.02 mL/min Estimated GFR (MDRD) > 60 (>60) Glucose 84 (74-106) mg/dL Calcium 8.3 L (8.5-10.1) mg/dL Total Bilirubin 0.3 (0.2-1.0) mg/dL AST 18 (15-37) U/L ALT 51 (12-78) U/L Alkaline Phosphatase 89 (46-116) U/L C-Reactive Protein 6.37 H (0.0-0.3) mg/dL Total Protein 7.0 (6.4-8.2) g/dL Albumin 3.4 (3.4-5.0) g/dL Globulin 3.6 H (2.3-3.5) g/dL Albumin/Globulin Ratio 0.9 L (1.2-2.2) Urine Color (YELLOW) Urine Appearance (CLEAR) Urine pH (5.0-8.0) Ur Specific [place] (1.008-1.030) Urine Protein (NEGATIVE) mg/dL Urine Glucose (UA) (NEGATIVE) mg/dL Urine Ketones (NEGATIVE) mg/dL Urine Occult Blood (NEGATIVE) Urine Nitrite (NEGATIVE) Urine Bilirubin (NEGATIVE) Urine Urobilinogen (0.2-1.0) EU/dL Ur Leukocyte Esterase (NEGATIVE) Urine RBC (0-5) Urine WBC (0-5) Ur Epithelial Cells Amorphous Sediment Urine Bacteria Urine Mucus 12/25/20 Range/Units 16:11 WBC (4.5-11.0) K/uL RBC (4.30-5.90) M/uL Hgb (12.0-15.0) g/dL Hct (40.0-54.0) % MCV (80-98) fL MCH (27-31) pg MCHC (32-36) % Plt Count (150-400) K/uL Neut % (Auto) (36-66) % Lymph % (Auto) (24-44) % [place] % (Auto) (2-6) % Eos % (Auto) (2-4) % Baso % (Auto) (0-1) % Sodium (140-148) mmol/L Potassium (3.6-5.2) mmol/L Chloride (100-108) mmol/L Carbon Dioxide (21-32) mmol/L Anion Gap (5.0-14.0) mmol/L BUN (7-18) mg/dL Creatinine (0.8-1.3) mg/dL Est Cr Clr Drug Dosing mL/min Estimated GFR (MDRD) (>60) Glucose (74-106) mg/dL Calcium (8.5-10.1) mg/dL Total Bilirubin (0.2-1.0) mg/dL AST (15-37) U/L ALT (12-78) U/L Alkaline Phosphatase (46-116) U/L C-Reactive Protein (0.0-0.3) mg/dL Total Protein (6.4-8.2) g/dL Albumin (3.4-5.0) g/dL Globulin (2.3-3.5) g/dL Albumin/Globulin Ratio (1.2-2.2) Urine Color Yellow (YELLOW) Urine Appearance Slightly cloudy A (CLEAR) Urine pH 6.0 (5.0-8.0) Ur Specific [place] >= 1.030 (1.008-1.030) Urine Protein 100 H (NEGATIVE) mg/dL Urine Glucose (UA) Negative (NEGATIVE) mg/dL Urine Ketones Negative (NEGATIVE) mg/dL Urine Occult Blood Moderate H (NEGATIVE) Urine Nitrite Negative (NEGATIVE) Urine Bilirubin Moderate H (NEGATIVE) Urine Urobilinogen 1.0 (0.2-1.0) EU/dL Ur Leukocyte Esterase Negative (NEGATIVE) Urine RBC 40-50 H (0-5) Urine WBC 0-5 (0-5) Ur Epithelial Cells Few Amorphous Sediment Not seen Urine Bacteria Moderate Urine Mucus Many Result Diagrams: 06/26/20 15:15 06/26/20 15:15 James Results Last 24 hrs: Microbiology 06/26/20 15:40 Clostridioides difficile (PCR) - Final Stool / Feces - Stool, Liquid Sepsis Event Note - Evaluation Sepsis Screening Result: No Definite Risk - Focused Exam Vital Signs: Vital Signs Temp Pulse Resp BP Pulse Ox 06/26/20 17:29 83 16 112/45 L 95 06/26/20 14:20 97.4 F 107 H 16 119/66 96 06/26/20 14:18 97.4 F 107 H 16 119/66 96 Orders Last 24hrs: Active Orders 24 hr Category Date Time Status Patient Status Manage Transfer [TRANSFER] Routine ADT 06/26/20 18:36 Active CULTURE URINE [RM] Stat Lab 06/26/20 16:31 Received Meropenem [Merrem] 1 gm Med 06/26/20 18:45 Ordered Sodium Chloride 0.9% [Normal Saline] 100 ml IV Q8H Sodium Chloride 0.9% [Normal Saline] 1,000 ml Med 06/26/20 15:30 Active IV ASDIRECTED Sodium Chloride 0.9% [Normal Saline] 85 ml Med 06/26/20 16:30 Active IV ASDIRECTED Resuscitation Status Routine Resus Stat 06/26/20 18:40 Ordered Medication Orders Sodium Chloride (Normal Saline) 1,000 mls @ 500 mls/hr IV ASDIRECTED [facility] Last Admin: 06/26/20 15:29 Dose: 500 mls/hr Documented by: KRISHAN Sodium Chloride (Normal Saline) 85 mls @ 3.5 mls/sec IV ASDIRECTED YUSU[facility] Last Admin: 06/26/20 16:49 Dose: 3 mls/sec Documented by: CONCHA Meropenem 1 gm/ Sodium (Chloride) 100 mls @ 200 mls/hr IV Q8H [facility]
[2020-06-27] MEDS ORDERED: Cefdinir 300 MG Cap PO ONE (18:56)
== END 2020-06-26 19:40 | disposition home or self-care (01) ==
LOC: JP.ED 14:05
DX: K57.32 Diverticulitis of large intestine without perforation or abscess without bleeding (principal); E86.0 Dehydration; N39.0 Urinary tract infection, site not specified; I10 Essential (primary) hypertension; K21.9 Gastro-esophageal reflux disease without esophagitis; F41.9 Anxiety disorder, unspecified; F31.9 Bipolar disorder, unspecified; E03.9 Hypothyroidism, unspecified; E66.9 Obesity, unspecified; Z68.43 Body mass index [BMI] 50.0-59.9, adult; Z91.048 Other nonmedicinal substance allergy status; Z88.0 Allergy status to penicillin; Z88.4 Allergy status to anesthetic agent; Z88.6 Allergy status to analgesic agent; Z88.8 Allergy status to other drugs, medicaments and biological substances; Z79.82 Long term (current) use of aspirin; Z79.01 Long term (current) use of anticoagulants; Z79.899 Other long term (current) drug therapy
CPT/HCPCS: 36415; 74177; 80053; 81001; 85025; 86140; 87086; 87493; 96374; 96375; 96376; 99285; J1170; J2185; J2405; J7030; Q9967

== ENCOUNTER 2020-06-28 17:14 | Emergency (ER) | payer BC, MEDICAID ==
--- NOTE | 2020-06-28 18:08 | EDM.PDOC ---
ED HPI GENERAL MEDICAL PROBLEM - General Chief Complaint: Abdominal Pain Stated Complaint: DIVERTICULITIS/ANTIBIOTICS NOT HELPING Time Seen by Provider: 06/28/20 18:04 Source of Information: Reports: Patient History Limitations: Reports: No Limitations - History of Present Illness INITIAL COMMENTS - FREE TEXT/NARRATIVE: pt arrived with ongoing abdomanal pain. He had a cat scan on which showed mild diverticulitis. He was to be admitted on but he had his kids and he could not find anyone to care for them. He was switched on his antibiotics at that time and placed on clindomycin and omnicef. He feels these are not helping. Onset: Gradual Duration: Day(s): Location: Reports: Abdomen Associated Symptoms: Reports: Loss of Appetite - Related Data Allergies Allergy/AdvReac Type Severity Reaction Status Date / Time adhesive Allergy Burning Verified 06/12/20 06:40 Penicillins Allergy Pruritis Verified 06/12/20 06:40 propofol Allergy Bronchospas Verified 06/12/20 06:40 ms diclofenac AdvReac Dizziness, Verified 06/12/20 06:40 Nausea/Vomiting gabapentin AdvReac Shaking Verified 06/12/20 06:40 ibuprofen AdvReac Nausea & Verified 06/12/20 06:40 Vomiting, GI intolerance NSAIDS (Non-Steroidal AdvReac Nausea and Verified 06/12/20 06:40 Anti-Inflamma Vomiting zolpidem [From Ambien] AdvReac Sleep Verified 06/12/20 06:40 walking Dust Mite Extract Allergy Rhinitis, Uncoded 04/29/20 09:19 Cough Home Meds: Home Meds OXcarbazepine [Trileptal] 1,200 mg PO BID 01/10/14 [History] Levothyroxine 275 mcg PO ACBREAKFAST 07/24/17 [History] Eszopiclone 1 mg PO BEDTIME PRN 09/25/19 [History] Albuterol Sulfate [Albuterol Sulfate Hfa] 2 puff INH QID PRN 10/02/19 [History] Acetaminophen [Tylenol Extra Strength] 1,000 mg PO TID 12/09/19 [History] lisinopriL [Lisinopril] 20 mg PO DAILY 12/27/19 [History] buPROPion HCL [Bupropion Xl] 300 mg PO DAILY 02/25/20 [History] Aspirin [Halfprin] 81 mg PO DAILY 04/09/20 [History] Nitroglycerin 0.4 mg SL [id number] PRN 04/09/20 [History] amLODIPine [Norvasc] 2.5 mg PO DAILY 04/09/20 [History] Warfarin [Coumadin] 7.5 mg PO DAILY 05/14/20 [History] ALPRAZolam [Xanax] 1 mg PO QID PRN 06/10/20 [History] Diclofenac Sodium [Voltaren Arthritis Pain] 1 cm TP QID 06/10/20 [History] Sildenafil [Viagra] 50 mg PO BEDTIME PRN 06/10/20 [History] Triamcinolone Acetonide [Triamcinolone Acetonide 0.5%] 1 cm TOP BID 06/10/20 [History] Ondansetron [Ondansetron ODT] 1 tab PO Q6H PRN 06/20/20 [History] Pantoprazole Sodium [Protonix] 40 mg PO DAILY 06/20/20 [History] metroNIDAZOLE [Flagyl] 500 mg PO BID 06/20/20 [History] Dicyclomine [Bentyl] 10 mg PO QID 06/26/20 [History] Cefdinir 300 mg PO BID 06/28/20 [History] Clindamycin HCl 300 mg PO TID 06/28/20 [History] Hydrocodone/Acetaminophen [Hydrocodon-Acetaminophen 5-325] 1 tab PO ASDIRECTED PRN 06/28/20 [History] Past Medical History HEENT History: Reports: Impaired Vision Cardiovascular History: Reports: Hypertension, Other (See Below) Other Cardiovascular History: microvascular disease Respiratory History: Reports: Asthma, SOB Gastrointestinal History: Reports: Cholelithiasis, Diverticulosis, GERD, Other (See Below) Other Gastrointestinal History: barrets esphogeal, diverticulitis Genitourinary History: Reports: Other (See Below) Other Genitourinary History: cyst present in bladder Musculoskeletal History: Reports: Back Pain, Chronic, Neck Pain, Chronic, Other (See Below) Other Musculoskeletal History: right hip pain with labrum tear, right foot spr ain. R foot pain Neurological History: Reports: Headaches, Chronic Psychiatric History: Reports: ADHD, Anxiety, Bipolar, Depression, Panic Attack, Psych Hospitalization(s), PTSD, Suicide Attempt, Suicidal Ideation Other Psychiatric History: bipolar 2 Endocrine/Metabolic History: Reports: Hypothyroidism, Obesity/BMI 30+ Hematologic History: Reports: None Immunologic History: Reports: None Oncologic (Cancer) History: Reports: Thyroid Other Oncologic History: pappulary with focal variant Dermatologic History: Reports: None - Infectious Disease History Infectious Disease History: Reports: Chicken Pox - Past Surgical History Head Surgeries/Procedures: Reports: None HEENT Surgical History: Reports: Oral Surgery Other HEENT Surgeries/Procedures: barretts esophagus surgery Cardiovascular Surgical History: Reports: Other (See Below) Other Cardiovascular Surgeries/Procedures: angiogram, wore a heart monitor Respiratory Surgical History: Reports: None GI Surgical History: Reports: Appendectomy, Cholecystectomy, Colon, Colonoscopy, EGD, Hernia Repair/Other Other GI Surgeries/Procedures: 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 COLON RESECTION Male Surgical History: Reports: None Endocrine Surgical History: Reports: Thyroidectomy, Other (See Below) Other Endocrine Surgeries/Procedures: 9 lymphnodes on left side removed Neurological Surgical History: Reports: Discectomy, Laminectomy Other Neurological Surgeries/Procedures: partial lami/discectomy near L4 Musculoskeletal Surgical History: Reports: Other (See Below) Other Musculoskeletal Surgeries/Procedures:: partial discectomy back. L ulnar nerve transposition 01/08/20. right hip scope 04/29/20 Oncologic Surgical History: Reports: Other (See Below) Other Oncologic Surgeries/Procedures: PT HAD THYROIDECTOMY Dermatological Surgical History: Reports: None Social & Family History - Family History Family Medical History: No Pertinent Family History HEENT: Reports: Impaired Vision Cardiac: Reports: Arrhythmia GI: Reports: Cirrhosis Psychiatric: Reports: Depression Oncologic: Reports: Cervix - Tobacco Use Tobacco Use Status *Q: Never Tobacco User - Caffeine Use Caffeine Use: Reports: Coffee, Soda - Recreational Drug Use Recreational Drug Use: No - Living Situation & Occupation Living situation: Reports: with Significant Other 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: 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 (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, 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[employer]) ED ROS GENERAL - Review of Systems Review Of Systems: See Below Constitutional: Reports: Chills, Malaise, Weakness, Night Sweats, Decreased Appetite HEENT: Reports: No Symptoms Respiratory: Reports: No Symptoms Cardiovascular: Reports: No Symptoms Endocrine: Reports: No Symptoms GI/Abdominal: Reports: Abdominal Pain, Diarrhea, Nausea, Other (pt feels the pain is not better) : Reports: Other ( voided once) Musculoskeletal: Reports: No Symptoms Skin: Reports: No Symptoms Neurological: Reports: No Symptoms Psychiatric: Reports: No Symptoms ED EXAM, GI/ABD - Physical Exam Exam: See Below Text/Narrative:: pt arrived with left sided abdomanal pain. He has had 2 courses of antibiotics for diverticulitis. his last cat scan was on the Jun which revealed mild diverticulitis. He had a repeat cat scan on the which showed persitent diverticulitis of the decending colon. Today he returns with pain and dizziness. He has fallen twice. He feels he is not tolerating the omnicef. He feels very lite headed after he takes that. He is also on clindomycin. He is not having a good oral intaked Exam Limited By: No Limitations General Appearance: Alert, Anxious, Mild Distress, Other (pupils equal and reactive. ) Ears: Normal TMs Nose: Normal Inspection Throat/Mouth: Normal Inspection Head: Atraumatic Neck: Normal Inspection Respiratory/Chest: No Respiratory Distress Cardiovascular: Regular Rate, Rhythm GI/Abdominal Exam: Other (pt is tender in the left lower abdoman. He is not guarded. He is having diarrhea. ) (Male) Exam: Deferred Rectal (Males) Exam: Deferred Back Exam: Other (pt is having some numbness in the rt leg. ) Extremities: Normal Inspection Neurological: Alert, Oriented, Normal Cognition Psychiatric: Anxious Course - Vital Signs Last Recorded V/S: Last Vital Signs Temp 36.1 C 06/28/20 18:02 Pulse 82 06/28/20 18:02 Resp 16 06/28/20 18:02 BP 109/65 06/28/20 18:02 Pulse Ox 96 06/28/20 18:02 - Orders/Labs/Meds Orders: Active Orders 24 hr Category Date Time Status UA W/MICROSCOPIC [URIN] Urgent Lab 06/28/20 19:26 Ordered Sodium Chloride 0.9% [Normal Saline] 1,000 ml Med 06/28/20 18:30 Active IV ASDIRECTED Sodium Chloride 0.9% [Normal Saline] 1,000 ml Med 06/28/20 19:15 Active IV ASDIRECTED Medication Orders Sodium Chloride (Normal Saline) 1,000 mls @ 999 mls/hr IV ASDIRECTED [facility] Last Admin: 06/28/20 18:33 Dose: 999 mls/hr Documented by: [id number] Sodium Chloride (Normal Saline) 1,000 mls @ 999 mls/hr IV ASDIRECTED [facility] Last Admin: 06/28/20 19:18 Dose: 999 mls/hr Documented by: KENRICK Labs: Laboratory Tests 06/28/20 06/28/20 06/28/20 Range/Units 18:33 18:33 18:33 WBC 6.2 (4.5-11.0) K/uL RBC 4.45 (4.30-5.90) M/uL Hgb 14.5 (12.0-15.0) g/dL Hct 42.8 (40.0-54.0) % MCV 96 (80-98) fL MCH 33 H (27-31) pg MCHC 34 (32-36) % Plt Count 291 (150-400) K/uL Neut % (Auto) 58 (36-66) % Lymph % (Auto) 25 (24-44) % [place] % (Auto) 12 H (2-6) % Eos % (Auto) 5 H (2-4) % Baso % (Auto) 1 (0-1) % Sodium 139 L (140-148) mmol/L Potassium 4.4 (3.6-5.2) mmol/L Chloride 103 (100-108) mmol/L Carbon Dioxide 28 (21-32) mmol/L Anion Gap 12.4 (5.0-14.0) mmol/L BUN 7 (7-18) mg/dL Creatinine 0.8 (0.8-1.3) mg/dL Est Cr Clr Drug Dosing TNP Estimated GFR (MDRD) > 60 (>60) Glucose 84 (74-106) mg/dL Lactic Acid (0.4-2.0) mmol/L Calcium 8.2 L (8.5-10.1) mg/dL Total Bilirubin 0.2 (0.2-1.0) mg/dL AST 20 (15-37) U/L ALT 46 (12-78) U/L Alkaline Phosphatase 82 (46-116) U/L C-Reactive Protein 3.57 H (0.0-0.3) mg/dL Total Protein 6.7 (6.4-8.2) g/dL Albumin 3.2 L (3.4-5.0) g/dL Globulin 3.5 (2.3-3.5) g/dL Albumin/Globulin Ratio 0.9 L (1.2-2.2) 06/28/20 Range/Units 18:33 WBC (4.5-11.0) K/uL RBC (4.30-5.90) M/uL Hgb (12.0-15.0) g/dL Hct (40.0-54.0) % MCV (80-98) fL MCH (27-31) pg MCHC (32-36) % Plt Count (150-400) K/uL Neut % (Auto) (36-66) % Lymph % (Auto) (24-44) % [place] % (Auto) (2-6) % Eos % (Auto) (2-4) % Baso % (Auto) (0-1) % Sodium (140-148) mmol/L Potassium (3.6-5.2) mmol/L Chloride (100-108) mmol/L Carbon Dioxide (21-32) mmol/L Anion Gap (5.0-14.0) mmol/L BUN (7-18) mg/dL Creatinine (0.8-1.3) mg/dL Est Cr Clr Drug Dosing Estimated GFR (MDRD) (>60) Glucose (74-106) mg/dL Lactic Acid 1.5 (0.4-2.0) mmol/L Calcium (8.5-10.1) mg/dL Total Bilirubin (0.2-1.0) mg/dL AST (15-37) U/L ALT (12-78) U/L Alkaline Phosphatase (46-116) U/L C-Reactive Protein (0.0-0.3) mg/dL Total Protein (6.4-8.2) g/dL Albumin (3.4-5.0) g/dL Globulin (2.3-3.5) g/dL Albumin/Globulin Ratio (1.2-2.2) Meds: Medications Generic Name Dose Route Start Last Admin Trade Name Freq PRN Reason Stop Dose Admin Sodium Chloride 1,000 mls @ 999 mls/hr 06/28/20 18:30 06/28/20 18:33 Normal Saline IV 999 mls/hr ASDIRECTED YUSUF Administration Sodium Chloride 1,000 mls @ 999 mls/hr 06/28/20 19:15 06/28/20 19:18 Normal Saline IV 999 mls/hr ASDIRECTED YUSUF Administration Discontinued Medications Generic Name Dose Route Start Last Admin Trade Name [place] PRN Reason Stop Dose Admin Hydromorphone HCl 0.5 mg 06/28/20 19:12 06/28/20 19:17 Dilaudid IVPUSH 06/28/20 19:13 0.5 mg ONETIME ONE Administration Ondansetron HCl 4 mg 06/28/20 18:20 06/28/20 18:33 Zofran IVPUSH 06/28/20 18:21 4 mg ONETIME ONE Administration - Re-Assessments/Exams Free Text/Narrative Re-Assessment/Exam: 06/28/20 19:52 pt has a normal wbc, his lactic acid was normal. Crp is down from 6 to 3 . He does not have a fever. Pt is nauseated. He has been been hydrated with 2 liters of fluid today. He was given zoforan. No beds are available in [place]. He was accepted for admission to [place]. Departure - Departure Time of Disposition: 19:56 Disposition: DC/Tfer to Acute Hospital 02 Condition: Fair Clinical Impression: Diverticulitis, Dehydration - Discharge Information Referrals: Emily Ordoñez DO [Primary Care Provider] - Forms: ED Department Discharge Care Plan Goals: [facility] Sepsis Event Note (ED) - Evaluation Sepsis Screening Result: No Definite Risk - Focused Exam Vital Signs: Vital Signs Temp Pulse Resp BP Pulse Ox 06/28/20 18:02 36.1 C 82 16 109/65 96 06/28/20 17:59 36.1 C 82 16 109/65 96 - My Orders Last 24 Hours: My Active Orders 06/28/20 18:30 Sodium Chloride 0.9% [Normal Saline] 1,000 ml IV ASDIRECTED 06/28/20 19:15 Sodium Chloride 0.9% [Normal Saline] 1,000 ml IV ASDIRECTED 06/28/20 19:26 UA W/MICROSCOPIC [URIN] Urgent - Assessment/Plan Last 24 Hours: My Active Orders 06/28/20 18:30 Sodium Chloride 0.9% [Normal Saline] 1,000 ml IV ASDIRECTED 06/28/20 19:15 Sodium Chloride 0.9% [Normal Saline] 1,000 ml IV ASDIRECTED 06/28/20 19:26 UA W/MICROSCOPIC [URIN] Urgent
[2020-06-28] MEDS ORDERED: Ondansetron 4 MG/2 ML SDV IVPUSH ONE (18:20)
[2020-06-28] MEDS ORDERED: Sodium Chloride 0.9% 1,000 ML IV SCH ×2 (18:30→19:15)
[2020-06-28] MEDS ORDERED: HYDROmorphone 0.5 MG/0.5 ML Syringe IVPUSH ONE ×2 (19:12→20:07)
== END 2020-06-28 21:52 ==
LOC: JP.ED 17:14
DX: K57.92 Diverticulitis of intestine, part unspecified, without perforation or abscess without bleeding (principal); E86.0 Dehydration; I10 Essential (primary) hypertension; J45.909 Unspecified asthma, uncomplicated; K21.9 Gastro-esophageal reflux disease without esophagitis; F41.9 Anxiety disorder, unspecified; F31.9 Bipolar disorder, unspecified; E03.9 Hypothyroidism, unspecified; E66.9 Obesity, unspecified; Z91.048 Other nonmedicinal substance allergy status; Z88.0 Allergy status to penicillin; Z88.4 Allergy status to anesthetic agent; Z88.8 Allergy status to other drugs, medicaments and biological substances; Z88.6 Allergy status to analgesic agent; Z79.899 Other long term (current) drug therapy; Z79.01 Long term (current) use of anticoagulants; Z79.82 Long term (current) use of aspirin
CPT/HCPCS: 36415; 80053; 81001; 83605; 85025; 86140; 87635; 96374; 96375; 96376; 99284; J1170; J2405; J7030; U0002

== ENCOUNTER 2020-07-04 22:41 | Emergency (ER) | payer BC, MEDICAID ==
[2020-07-04] MEDS ORDERED: Sodium Chloride 0.9% 10 ML Syringe FLUSH PRN (23:17)
[2020-07-04] MEDS ORDERED: Sodium Chloride 0.9% 1,000 ML IV SCH (23:45)
--- NOTE | 2020-07-04 23:56 | EDM.PDOC ---
ED HPI GENERAL MEDICAL PROBLEM - General Chief Complaint: Abdominal Pain Stated Complaint: LT SIDE ABD PAIN Time Seen by Provider: 07/04/20 23:17 Source of Information: Reports: Patient, Old Records History Limitations: Reports: No Limitations - History of Present Illness INITIAL COMMENTS - FREE TEXT/NARRATIVE: Elmo is a 39-year-old male presenting to the ED for reevaluation of ongoing left-sided abdominal pain. The patient has been undergoing antibiotic treatment for persistent diverticulitis over the last 2 to 3 weeks. He was recently hospitalized at [facility] where he was hospitalized from 06/28/2020 to 07/01/2020 receiving IV antibiotics. He was subsequently discharged on oral Levaquin 750 mg daily and Flagyl 500 mg twice daily. He saw his primary care provider in follow-up who also added on Bactrim DS 1 tablet twice daily to his antibiotics because of lack of improvement. Patient states that he was instructed by his primary care provider to present to the ED should he not have any significant improvement over the course of the next 3 to 4 days which the patient reports has not occurred. He denies any fever but has had chills. He has had diminished appetite and decreased oral intake. He has had nausea without vomiting. He has had one episode of watery stool today and states that he has continued left-sided abdominal pain despite taking Bentyl. He reports that he has been compliant with taking his oral antibiotics. The patient does have a history of a sigmoid partial colectomy due to issues with diverticulitis. He reportedly is adamant that if he requires surgery that Dr. Dietz not be the one to do it and has made this comment 3-4 times while interviewing the patient. The patient also reports that he was told by Dr. Dietz that he has a hiatal hernia with esophageal ulceration discovered on a recent endoscopy. The patient states that Dr. Dietz has been pushing for him to undergo bariatric surgery. Left Lower Abdomen Pain Score (Numeric/FACES): 7 - Related Data Allergies Allergy/AdvReac Type Severity Reaction Status Date / Time adhesive Allergy Burning Verified 07/04/20 23:15 Penicillins Allergy Pruritis Verified 07/04/20 23:15 propofol Allergy Bronchospas Verified 07/04/20 23:15 ms diclofenac AdvReac Dizziness, Verified 07/04/20 23:15 Nausea/Vomiting gabapentin AdvReac Shaking Verified 07/04/20 23:15 ibuprofen AdvReac Nausea & Verified 07/04/20 23:15 Vomiting, GI intolerance NSAIDS (Non-Steroidal AdvReac Nausea and Verified 07/04/20 23:15 Anti-Inflamma Vomiting zolpidem [From Ambien] AdvReac Sleep Verified 07/04/20 23:15 walking Dust Mite Extract Allergy Rhinitis, Uncoded 07/04/20 23:15 Cough Home Meds: Home Meds OXcarbazepine [Trileptal] 600 mg PO BID 01/10/14 [History] Levothyroxine 275 mcg PO ACBREAKFAST 07/24/17 [History] Eszopiclone 1 mg PO BEDTIME PRN 09/25/19 [History] Albuterol Sulfate [Albuterol Sulfate Hfa] 2 puff INH QID PRN 10/02/19 [History] Acetaminophen [Tylenol Extra Strength] 1,000 mg PO TID 12/09/19 [History] lisinopriL [Lisinopril] 20 mg PO DAILY 12/27/19 [History] Aspirin [Halfprin] 81 mg PO DAILY 04/09/20 [History] Nitroglycerin 0.4 mg SL .[id number] PRN 04/09/20 [History] amLODIPine [Norvasc] 2.5 mg PO DAILY 04/09/20 [History] Warfarin [Coumadin] 7.5 mg PO DAILY 05/14/20 [History] ALPRAZolam [Xanax] 1 mg PO QID PRN 06/10/20 [History] Sildenafil [Viagra] 50 mg PO BEDTIME PRN 06/10/20 [History] Triamcinolone Acetonide [Triamcinolone Acetonide 0.5%] 1 cm TOP BID PRN 06/10/20 [History] Ondansetron [Ondansetron ODT] 1 tab PO Q6H PRN 06/20/20 [History] Pantoprazole Sodium [Protonix] 40 mg PO DAILY 06/20/20 [History] metroNIDAZOLE [Flagyl] 500 mg PO BID 06/20/20 [History] Dicyclomine [Bentyl] 10 mg PO QID 06/26/20 [History] Sulfamethoxazole/Trimethoprim [Bactrim Ds Tablet] 1 each PO BID 07/04/20 [His tory] levoFLOXacin [Levaquin] 750 mg PO DAILY 07/04/20 [History] Past Medical History HEENT History: Reports: Impaired Vision Cardiovascular History: Reports: Hypertension, Other (See Below) Other Cardiovascular History: microvascular disease Respiratory History: Reports: Asthma, SOB Gastrointestinal History: Reports: Cholelithiasis, Diverticulosis, GERD, Other (See Below) Other Gastrointestinal History: barrets esphogeal, diverticulitis Genitourinary History: Reports: Other (See Below) Other Genitourinary History: cyst present in bladder Musculoskeletal History: Reports: Back Pain, Chronic, Neck Pain, Chronic, Other (See Below) Other Musculoskeletal History: right hip pain with labrum tear, right foot sprain. R foot pain Neurological History: Reports: Headaches, Chronic Psychiatric History: Reports: ADHD, Anxiety, Bipolar, Depression, Panic Attack, Psych Hospitalization(s), PTSD, Suicide Attempt, Suicidal Ideation Other Psychiatric History: bipolar 2 Endocrine/Metabolic History: Reports: Hypothyroidism, Obesity/BMI 30+ Hematologic History: Reports: None Immunologic History: Reports: None Oncologic (Cancer) History: Reports: Thyroid Other Oncologic History: pappulary with focal variant Dermatologic History: Reports: None - Infectious Disease History Infectious Disease History: Reports: Chicken Pox - Past Surgical History Head Surgeries/Procedures: Reports: None HEENT Surgical History: Reports: Oral Surgery Other HEENT Surgeries/Procedures: barretts esophagus surgery Cardiovascular Surgical History: Reports: Other (See Below) Other Cardiovascular Surgeries/Procedures: angiogram, wore a heart monitor Respiratory Surgical History: Reports: None GI Surgical History: Reports: Appendectomy, Cholecystectomy, Colon, Colonoscopy, EGD, Hernia Repair/Other Other GI Surgeries/Procedures: radiofrequency ablation to esophagus d/t bandar t's esophagus colon resection in 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 COLON RESECTION Male Surgical History: Reports: None Endocrine Surgical History: Reports: Thyroidectomy, Other (See Below) Other Endocrine Surgeries/Procedures: 9 lymphnodes on left side removed Neurological Surgical History: Reports: Discectomy, Laminectomy Other Neurological Surgeries/Procedures: partial lami/discectomy near L4 Musculoskeletal Surgical History: Reports: Other (See Below) Other Musculoskeletal Surgeries/Procedures:: partial discectomy back. L ulnar nerve transposition 01/08/20. right hip scope 04/29/20 Oncologic Surgical History: Reports: Other (See Below) Other Oncologic Surgeries/Procedures: PT HAD THYROIDECTOMY Dermatological Surgical History: Reports: None Social & Family History - Family History Family Medical History: No Pertinent Family History HEENT: Reports: Impaired Vision Cardiac: Reports: Arrhythmia GI: Reports: Cirrhosis Psychiatric: Reports: Depression Oncologic: Reports: Cervix - Tobacco Use Tobacco Use Status *Q: Former Tobacco User Years of Tobacco use: 15 Packs/Tins Daily: 0.5 Used Tobacco, but Quit: Yes Month/Year Tobacco Last Used: Second Hand Smoke Exposure: No - Caffeine Use Caffeine Use: Reports: Coffee, Soda - Recreational Drug Use Recreational Drug Use: No - Living Situation & Occupation Living situation: Reports: with Significant Other Occupation: Employed (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 Amna, works at [employer] in [employer] for [employer]) ED ROS GENERAL - Review of Systems Review Of Systems: See Below Constitutional: Reports: Chills, Malaise, Weakness, Fatigue, Decreased Appetite HEENT: Reports: No Symptoms Respiratory: Reports: No Symptoms Cardiovascular: Reports: No Symptoms Endocrine: Reports: Fatigue GI/Abdominal: Reports: Abdominal Pain (Left lower quadrant abdominal pain), Anorexia, Diarrhea, Decreased Appetite, Nausea : Reports: No Symptoms Musculoskeletal: Reports: No Symptoms Skin: Reports: No Symptoms Neurological: Reports: No Symptoms Psychiatric: Reports: No Symptoms Hematologic/Lymphatic: Reports: No Symptoms Immunologic: Reports: No Symptoms ED EXAM, GI/ABD - Physical Exam Exam: See Below Exam Limited By: No Limitations General Appearance: Alert, Mild Distress, Obese Eyes: Bilateral: EOMI Throat/Mouth: Normal Inspection, Normal Lips, Normal Teeth, Normal Gums, Normal Oropharynx, Normal Voice, No Airway Compromise Head: Atraumatic, Normocephalic Neck: Normal Inspection, Supple, Non-Tender, Full Range of Motion. No: Carotid Bruit, Lymphadenopathy (R), Lymphadenopathy (L) Respiratory/Chest: No Respiratory Distress, Lungs Clear, Normal Breath Sounds, No Accessory Muscle Use, Chest Non-Tender Cardiovascular: Normal Peripheral Pulses, Regular Rate, Rhythm, No Edema, No Gallop, No JVD, No Murmur, No Rub GI/Abdominal Exam: Normal Bowel Sounds, Soft, Guarding, Tender (Left lower quadrant), Other (Protrudent abdomen). No: Rebound (Male) Exam: Deferred Rectal (Males) Exam: Deferred Extremities: Normal Inspection, Normal Range of Motion, Non-Tender, Normal Capillary Refill, No Pedal Edema Neurological: Alert, Oriented, Normal Cognition, No Motor/Sensory Deficits Psychiatric: Normal Affect, Anxious Skin Exam: Warm, Dry Lymphatic: No Adenopathy Course - Vital Signs Last Recorded V/S: Last Vital Signs Temp 37.8 C 07/04/20 23:26 Pulse 111 H 07/04/20 23:26 Resp 20 07/04/20 23:26 BP 113/64 07/04/20 23:26 Pulse Ox 95 07/04/20 23:26 - Orders/Labs/Meds Orders: Active Orders 24 hr Category Date Time Status Sodium Chloride 0.9% [Normal Saline] 1,000 ml Med 07/04/20 23:45 Active IV ASDIRECTED Sodium Chloride 0.9% [Normal Saline] 89 ml Med 07/05/20 00:15 Active IV ASDIRECTED Sodium Chloride 0.9% [Saline Flush] Med 07/04/20 23:17 Active 10 ml FLUSH ASDIRECTED PRN Saline Lock Insert [OM.PC] Routine Oth 07/04/20 23:17 Ordered Medication Orders Sodium Chloride (Normal Saline) 1,000 mls @ 999 mls/hr IV ASDIRECTED YUSUF Last Admin: 07/04/20 23:51 Dose: 999 mls/hr Documented by: ZOYA Sodium Chloride (Normal Saline) 89 mls @ 3.5 mls/sec IV ASDIRECTED YUSUF Last Admin: 07/05/20 00:20 Dose: 3.5 mls/sec Documented by: VIKTOR Sodium Chloride (Saline Flush) 10 ml FLUSH ASDIRECTED PRN PRN Reason: Keep Vein Open Labs: Laboratory Tests 07/04/20 07/04/20 07/04/20 Range/Units 23:50 23:50 23:50 WBC 8.8 (4.5-11.0) K/uL RBC 4.84 (4.30-5.90) M/uL Hgb 15.6 H (12.0-15.0) g/dL Hct 45.4 (40.0-54.0) % MCV 94 (80-98) fL MCH 32 H (27-31) pg MCHC 34 (32-36) % Plt Count 331 (150-400) K/uL Neut % (Auto) 62 (36-66) % Lymph % (Auto) 22 L (24-44) % Spencer % (Auto) 12 H (2-6) % Eos % (Auto) 3 (2-4) % Baso % (Auto) 1 (0-1) % Sodium 141 (140-148) mmol/L Potassium 3.8 (3.6-5.2) mmol/L Chloride 106 (100-108) mmol/L Carbon Dioxide 26 (21-32) mmol/L Anion Gap 8.8 (5.0-14.0) mmol/L BUN 15 D (7-18) mg/dL Creatinine 1.1 (0.8-1.3) mg/dL Est Cr Clr Drug Dosing 94.02 mL/min Estimated GFR (MDRD) > 60 (>60) Glucose 108 H (74-106) mg/dL Lactic Acid 1.1 (0.4-2.0) mmol/L Calcium 8.6 (8.5-10.1) mg/dL Total Bilirubin 0.3 (0.2-1.0) mg/dL AST 30 (15-37) U/L ALT 79 H (12-78) U/L Alkaline Phosphatase 93 (46-116) U/L C-Reactive Protein 0.32 H (0.0-0.3) mg/dL Total Protein 6.7 (6.4-8.2) g/dL Albumin 3.4 (3.4-5.0) g/dL Globulin 3.3 (2.3-3.5) g/dL Albumin/Globulin Ratio 1.0 L (1.2-2.2) Meds: Medications Generic Name Dose Route Start Last Admin Trade Name Freq PRN Reason Stop Dose Admin Sodium Chloride 1,000 mls @ 999 mls/hr 07/04/20 23:45 07/04/20 23:51 Normal Saline IV 999 mls/hr ASDIRECTED YUSUF Administration Sodium Chloride 89 mls @ 3.5 mls/sec 07/05/20 00:15 07/05/20 00:20 Normal Saline IV 3.5 mls/sec ASDIRECTED YUSUF Administration Sodium Chloride 10 ml 07/04/20 23:17 Saline Flush FLUSH ASDIRECTED PRN Keep Vein Open Discontinued Medications Generic Name Dose Route Start Last Admin Trade Name Freq PRN Reason Stop Dose Admin Iopamidol 150 ml 07/05/20 00:05 07/05/20 00:20 Isovue-300 (61%) IV 07/05/20 00:06 150 ml . DIRECTED ONE Administration Ondansetron HCl 4 mg 07/05/20 00:02 07/05/20 00:37 Zofran IVPUSH 07/05/20 00:03 4 mg ONETIME ONE Administration - Radiology Interpretation Free Text/Narrative:: CT of the abdomen pelvis with contrast demonstrates significant improvement in diverticulitis in the proximal descending colon compared to the study on 06/28/2020. There is only faint fat stranding at this time. The patient has only mild elevation of his CRP and a normal leukocyte count. This would be indicative that the patient is improving on oral antibiotics very by negating any need to hospitalize him for IV infusion of antibiotics. Departure - Departure Time of Disposition: Disposition: Home, Self-Care 01 Condition: Good Clinical Impression: Diverticulosis large intestine w/o perforation or abscess w/o bleeding Diverticulitis large intestine Qualifiers: Diverticulitis bleeding: without bleeding Diverticulitis complication: without perforation or abscess Qualified Code(s): K57.32 - Diverticulitis of large intestine without perforation or abscess without bleeding - Discharge Information *PRESCRIPTION DRUG MONITORING PROGRAM REVIEWED*: Not Applicable *COPY OF PRESCRIPTION DRUG MONITORING REPORT IN PATIENT MIN: Not Applicable Instructions: Diverticulitis, [id number], Abdominal Pain, Adult, [id number] Referrals: Emily Ordoñez DO [Primary Care Provider] - Forms: ED Department Discharge Care Plan Goals: Your work-up has shown that you have had significant improvement in your diverticulitis with only a small remnant of inflammation in the proximal colon where you had the most recent infection. I would continue to take your oral antibiotics as prescribed. I would like you to follow-up with your primary care provider next week for recheck especially before you complete your antibiotics in case they need to be extended out. Should you have significant worsening in your symptoms we should see you back sooner. Sepsis Event Note (ED) - Evaluation Sepsis Screening Result: No Definite Risk - Focused Exam Vital Signs: Vital Signs Temp Pulse Resp BP Pulse Ox 07/04/20 23:26 37.8 C 111 H 20 113/64 95 - Problem List & Annotations (1) Diverticulitis large intestine SNOMED Code(s): 6427316 Code(s): K57.32 - DVTRCLI OF LG INT W/O PERFORATION OR ABSCESS W/O BLEEDING Status: Acute Priority: Medium Current Visit: Yes Qualifiers: Diverticulitis bleeding: without bleeding Diverticulitis complication: without perforation or abscess Qualified Code(s): K57.32 - Diverticulitis of large intestine without perforation or abscess without bleeding (2) Diverticulosis large intestine w/o perforation or abscess w/o bleeding SNOMED Code(s): 402364482 Code(s): K57.30 - DVRTCLOS OF LG INT W/O PERFORATION OR ABSCESS W/O BLEEDING Status: Acute Priority: High Current Visit: Yes - Problem List Review Problem List Initiated/Reviewed/Updated: Yes - My Orders Last 24 Hours: My Active Orders 07/04/20 23:17 Sodium Chloride 0.9% [Saline Flush] 10 ml FLUSH ASDIRECTED PRN Saline Lock Insert [OM.PC] Routine 07/04/20 23:45 Sodium Chloride 0.9% [Normal Saline] 1,000 ml IV ASDIRECTED 07/05/20 00:15 Sodium Chloride 0.9% [Normal Saline] 89 ml IV ASDIRECTED - Assessment/Plan Last 24 Hours: My Active Orders 07/04/20 23:17 Sodium Chloride 0.9% [Saline Flush] 10 ml FLUSH ASDIRECTED PRN Saline Lock Insert [OM.PC] Routine 07/04/20 23:45 Sodium Chloride 0.9% [Normal Saline] 1,000 ml IV ASDIRECTED 07/05/20 00:15 Sodium Chloride 0.9% [Normal Saline] 89 ml IV ASDIRECTED
[2020-07-05] MEDS ORDERED: Ondansetron 4 MG/2 ML SDV IVPUSH ONE (00:02)
[2020-07-05] MEDS ORDERED: Iopamidol 612 MG/ML 150 ML Bottle IV ONE (00:05)
--- NOTE | 2020-07-05 00:48 | CRLCT ---
INDICATION: Quadrant pain TECHNIQUE: CT abdomen and pelvis acquired with 150 cc Isovue 300 IV contrast. COMPARISON: June 26, 2020 FINDINGS: Lower chest: Calcified granuloma in the left infrahilar region. Calcified granuloma in the left lower lobe. Liver: Simple cyst in the left hepatic lobe. Spleen: Subcentimeter calcified granuloma. Pancreas: Unremarkable. Gallbladder and bile ducts: S/p cholecystectomy. Adrenal glands: Unremarkable. Kidneys: Unremarkable. GI tract: Colonic diverticulosis. Faint fat stranding around the proximal descending colon, decreased compared to the prior exam. Anastomotic suture in the midsigmoid colon. Appendix is surgically absent. Vascular structures: Unremarkable. Lymph nodes: Unremarkable. Miscellaneous: Unremarkable. No free air or significant free fluid. Pelvic Organs: Unremarkable. Bones: Unremarkable for age. IMPRESSION: Minimal residual fat stranding around the proximal descending colon consistent with resolving diverticulitis. No evidence for abscess. Status post cholecystectomy and appendectomy. Please note that all CT scans at this facility use dose modulation, iterative reconstruction, and/or weight-based dosing when appropriate to reduce radiation dose to as low as reasonably achievable. Dictated by Marisel Chaidez MD @ Jul 05 2020 12:47AM Signed by Dr. Marisel Chaidez @ Jul 05 2020 12:47AM
== END 2020-07-05 01:38 | disposition home or self-care (01) ==
LOC: JP.ED 22:41
DX: K57.32 Diverticulitis of large intestine without perforation or abscess without bleeding (principal); K57.30 Diverticulosis of large intestine without perforation or abscess without bleeding; I10 Essential (primary) hypertension; J45.909 Unspecified asthma, uncomplicated; K21.9 Gastro-esophageal reflux disease without esophagitis; F41.9 Anxiety disorder, unspecified; F31.9 Bipolar disorder, unspecified; E03.9 Hypothyroidism, unspecified; E66.9 Obesity, unspecified; Z87.891 Personal history of nicotine dependence; Z91.048 Other nonmedicinal substance allergy status; Z88.0 Allergy status to penicillin; Z88.4 Allergy status to anesthetic agent; Z88.8 Allergy status to other drugs, medicaments and biological substances; Z88.6 Allergy status to analgesic agent; Z79.82 Long term (current) use of aspirin; Z79.01 Long term (current) use of anticoagulants; Z79.899 Other long term (current) drug therapy
CPT/HCPCS: 36415; 74177; 80053; 83605; 85025; 86140; 96374; 99284; J2405; J7030; Q9967; 99283

== ENCOUNTER 2020-07-07 11:52 | Emergency (ER) | payer BC, MEDICAID ==
[2020-07-07] MEDS ORDERED: Sodium Chloride 0.9% 10 ML Syringe FLUSH PRN (13:27)
[2020-07-07] MEDS ORDERED: fentaNYL 100 MCG/2 ML SDV IVPUSH ONE (13:28)
[2020-07-07] MEDS ORDERED: Ondansetron 4 MG/2 ML SDV IVPUSH ONE (13:28)
[2020-07-07] MEDS ORDERED: Lactated Ringers 1,000 ML IV SCH (13:30)
--- NOTE | 2020-07-07 13:31 | EDM.PDOC ---
ED HPI GENERAL MEDICAL PROBLEM - General Chief Complaint: Abdominal Pain Time Seen by Provider: 07/07/20 13:15 Source of Information: Reports: Patient, Old Records, RN Notes Reviewed History Limitations: Reports: No Limitations - History of Present Illness INITIAL COMMENTS - FREE TEXT/NARRATIVE: 39-year-old gentleman presents emergency department with a complaint of abdominal pain, he has been dealing with diverticulitis with hospital admission as well as frequent ER visits over the last couple weeks. He has completed courses of antibiotics he is using Tylenol for pain without any relief has been evaluated by his primary he returns to the emergency department on 04 July 3 days prior for same complaint CT scan and work-up at the time were unremarkable CT scan showed improvement of the diverticulitis he does have a history of abscess with colon resection secondary to diverticular disease. He returns today with complaints of increasing abdominal pain with nausea and vomiting pain is primarily in the left lower quadrant Abdominal Pain Score (Numeric/FACES): 6 - Related Data Allergies Allergy/AdvReac Type Severity Reaction Status Date / Time adhesive Allergy Burning Verified 07/07/20 12:51 Penicillins Allergy Pruritis Verified 07/07/20 12:51 propofol Allergy Bronchospas Verified 07/07/20 12:51 ms diclofenac AdvReac Dizziness, Verified 07/07/20 12:51 Nausea/Vomiting gabapentin AdvReac Shaking Verified 07/07/20 12:51 ibuprofen AdvReac Nausea & Verified 07/07/20 12:51 Vomiting, GI intolerance NSAIDS (Non-Steroidal AdvReac Nausea and Verified 07/07/20 12:51 Anti-Inflamma Vomiting zolpidem [From Ambien] AdvReac Sleep Verified 07/07/20 12:51 walking Dust Mite Extract Allergy Rhinitis, Uncoded 07/07/20 12:51 Cough Home Meds: Home Meds OXcarbazepine [Trileptal] 600 mg PO BID 01/10/14 [History] Levothyroxine 275 mcg PO ACBREAKFAST 07/24/17 [History] Eszopiclone 1 mg PO BEDTIME PRN 09/25/19 [History] Albuterol Sulfate [Albuterol Sulfate Hfa] 2 puff INH QID PRN 10/02/19 [History] Acetaminophen [Tylenol Extra Strength] 1,000 mg PO TID 12/09/19 [History] lisinopriL [Lisinopril] 20 mg PO DAILY 12/27/19 [History] Aspirin [Halfprin] 81 mg PO DAILY 04/09/20 [History] Nitroglycerin 0.4 mg SL [id number] PRN 04/09/20 [History] amLODIPine [Norvasc] 2.5 mg PO DAILY 04/09/20 [History] Warfarin [Coumadin] 7.5 mg PO DAILY 05/14/20 [History] ALPRAZolam [Xanax] 1 mg PO QID PRN 06/10/20 [History] Sildenafil [Viagra] 50 mg PO BEDTIME PRN 06/10/20 [History] Triamcinolone Acetonide [Triamcinolone Acetonide 0.5%] 1 cm TOP BID PRN 06/10/20 [History] Ondansetron [Ondansetron ODT] 1 tab PO Q6H PRN 06/20/20 [History] Pantoprazole Sodium [Protonix] 40 mg PO DAILY 06/20/20 [History] metroNIDAZOLE [Flagyl] 500 mg PO BID 06/20/20 [History] Dicyclomine [Bentyl] 10 mg PO QID 06/26/20 [History] Sulfamethoxazole/Trimethoprim [Bactrim Ds Tablet] 1 each PO BID 07/04/20 [History] levoFLOXacin [Levaquin] 750 mg PO DAILY 07/04/20 [History] Past Medical History HEENT History: Reports: Impaired Vision Cardiovascular History: Reports: Hypertension, Other (See Below) Other Cardiovascular History: microvascular disease Respiratory History: Reports: Asthma, SOB Gastrointestinal History: Reports: Cholelithiasis, Diverticulosis, GERD, Other (See Below) Other Gastrointestinal History: barrets esphogeal, diverticulitis Genitourinary History: Reports: Other (See Below) Other Genitourinary History: cyst present in bladder Musculoskeletal History: Reports: Back Pain, Chronic, Neck Pain, Chronic, Other (See Below) Other Musculoskeletal History: right hip pain with labrum tear, right foot sprain. R foot pain Neurological History: Reports: Headaches, Chronic Psychiatric History: Reports: ADHD, Anxiety, Bipolar, Depression, Panic Attack, Psych Hospitalization(s), PTSD, Suicide Attempt, Suicidal Ideation Other Psychiatric History: bipolar 2 Endocrine/Metabolic History: Reports: Hypothyroidism, Obesity/BMI 30+ Hematologic History: Reports: None Immunologic History: Reports: None Oncologic (Cancer) History: Reports: Thyroid Other Oncologic History: pappulary with focal variant Dermatologic History: Reports: None - Infectious Disease History Infectious Disease History: Reports: Chicken Pox - Past Surgical History Head Surgeries/Procedures: Reports: None HEENT Surgical History: Reports: Oral Surgery Other HEENT Surgeries/Procedures: barretts esophagus surgery Cardiovascular Surgical History: Reports: Other (See Below) Other Cardiovascular Surgeries/Procedures: angiogram, wore a heart monitor Respiratory Surgical History: Reports: None GI Surgical History: Reports: Appendectomy, Cholecystectomy, Colon, Colonoscopy, EGD, Hernia Repair/Other Other GI Surgeries/Procedures: 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 COLON RESECTION Male Surgical History: Reports: None Endocrine Surgical History: Reports: Thyroidectomy, Other (See Below) Other Endocrine Surgeries/Procedures: 9 lymphnodes on left side removed Neurological Surgical History: Reports: Discectomy, Laminectomy Other Neurological Surgeries/Procedures: partial lami/discectomy near L4 Musculoskeletal Surgical History: Reports: Other (See Below) Other Musculoskeletal Surgeries/Procedures:: partial discectomy back. L ulnar nerve transposition 01/08/20. right hip scope 04/29/20 Oncologic Surgical History: Reports: Other (See Below) Other Oncologic Surgeries/Procedures: PT HAD THYROIDECTOMY Dermatological Surgical History: Reports: None Social & Family History - Family History Family Medical History: No Pertinent Family History HEENT: Reports: Impaired Vision Cardiac: Reports: Arrhythmia GI: Reports: Cirrhosis Psychiatric: Reports: Depression Oncologic: Reports: Cervix - Tobacco Use Tobacco Use Status *Q: Former Tobacco User Used Tobacco, but Quit: Yes Month/Year Tobacco Last Used: 10/03/2019 - Caffeine Use Caffeine Use: Reports: Coffee, Soda - Recreational Drug Use Recreational Drug Use: No - Living Situation & Occupation Living situation: Reports: with Significant Other Occupation: Employed (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 Amna, 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 Denies: Fever, Chills HEENT: Reports: No Symptoms Respiratory: Reports: No Symptoms Cardiovascular: Reports: No Symptoms GI/Abdominal: Reports: Abdominal Pain, Flatus, Nausea, Vomiting. Denies: Constipation, Diarrhea : Reports: No Symptoms ED EXAM, GI/ABD - Physical Exam Exam: See Below Exam Limited By: No Limitations General Appearance: Alert, WD/WN, No Apparent Distress Respiratory/Chest: No Respiratory Distress, Lungs Clear, Normal Breath Sounds, No Accessory Muscle Use, Chest Non-Tender Cardiovascular: Regular Rate, Rhythm, No Murmur GI/Abdominal Exam: Soft, Tender (Left lower quadrant) Course - Vital Signs Last Recorded V/S: Last Vital Signs Temp 98.2 F 07/07/20 12:49 Pulse 85 07/07/20 12:49 Resp 20 07/07/20 12:49 BP 126/69 07/07/20 12:49 Pulse Ox 97 07/07/20 12:49 - Orders/Labs/Meds Orders: Active Orders 24 hr Category Date Time Status Peripheral IV Care [RC] . DIRECTED Care 07/07/20 13:27 Active DRUG SCREEN, URINE [URCHEM] Urgent Lab 07/07/20 13:27 Ordered UA W/MICROSCOPIC [URIN] Urgent Lab 07/07/20 13:27 Ordered Lactated Ringers [Ringers, Lactated] 1,000 ml Med 07/07/20 13:30 Active IV ASDIRECTED Sodium Chloride 0.9% [Saline Flush] Med 07/07/20 13:27 Active 10 ml FLUSH ASDIRECTED PRN Peripheral IV Insertion Adult [OM.PC] Urgent Oth 07/07/20 13:27 Ordered Medication Orders Lactated Ringer's (Ringers, Lactated) 1,000 mls @ 999 mls/hr IV ASDIRECTED YUSUF Last Admin: 07/07/20 14:06 Dose: 999 mls/hr Documented by: PREILOR Sodium Chloride (Saline Flush) 10 ml FLUSH ASDIRECTED PRN PRN Reason: Keep Vein Open Last Admin: 07/07/20 14:20 Dose: 10 ml Documented by: PREILOR Labs: Laboratory Tests 07/07/20 07/07/20 07/07/20 Range/Units 13:43 13:43 13:43 WBC 5.6 (4.5-11.0) K/uL RBC 4.48 (4.30-5.90) M/uL Hgb 14.4 (12.0-15.0) g/dL Hct 42.9 (40.0-54.0) % MCV 96 (80-98) fL MCH 32 H (27-31) pg MCHC 34 (32-36) % Plt Count 276 (150-400) K/uL Neut % (Auto) 60 (36-66) % Lymph % (Auto) 24 (24-44) % [place] % (Auto) 12 H (2-6) % Eos % (Auto) 4 (2-4) % Baso % (Auto) 0 (0-1) % Sodium 139 L (140-148) mmol/L Potassium 4.5 (3.6-5.2) mmol/L Chloride 105 (100-108) mmol/L Carbon Dioxide 26 (21-32) mmol/L Anion Gap 12.5 (5.0-14.0) mmol/L BUN 12 (7-18) mg/dL Creatinine 0.7 L (0.8-1.3) mg/dL Est Cr Clr Drug Dosing 147.74 mL/min Estimated GFR (MDRD) > 60 (>60) Glucose 94 (74-106) mg/dL Lactic Acid 1.0 (0.4-2.0) mmol/L Calcium 8.2 L (8.5-10.1) mg/dL Total Bilirubin 0.2 (0.2-1.0) mg/dL AST 20 (15-37) U/L ALT 61 (12-78) U/L Alkaline Phosphatase 81 (46-116) U/L Troponin I < 0.017 (0.000-0.056) ng/mL Total Protein 6.8 (6.4-8.2) g/dL Albumin 3.2 L (3.4-5.0) g/dL Globulin 3.6 H (2.3-3.5) g/dL Albumin/Globulin Ratio 0.9 L (1.2-2.2) Lipase 169 (73-393) U/L Meds: Medications Generic Name Dose Route Start Last Admin Trade Name Freq PRN Reason Stop Dose Admin Lactated Ringer's 1,000 mls @ 999 mls/hr 07/07/20 13:30 07/07/20 14:06 Ringers, Lactated IV 999 mls/hr ASDIRECTED YUSUF Administration Sodium Chloride 10 ml 07/07/20 13:27 07/07/20 14:20 Saline Flush FLUSH 10 ml ASDIRECTED PRN Administration Keep Vein Open Discontinued Medications Generic Name Dose Route Start Last Admin Trade Name Freq PRN Reason Stop Dose Admin Fentanyl 50 mcg 07/07/20 13:28 07/07/20 14:11 Sublimaze IVPUSH 07/07/20 13:29 50 mcg ONETIME ONE Administration Ondansetron HCl 4 mg 07/07/20 13:28 07/07/20 14:07 Zofran IVPUSH 07/07/20 13:29 4 mg ONETIME ONE Administration Departure - Departure Time of Disposition: 14:47 Disposition: Home, Self-Care 01 Condition: Fair Clinical Impression: Functional constipation - Discharge Information Instructions: Constipation, Adult Referrals: Emily Ordoñez DO [Primary Care Provider] - Forms: ED Department Discharge Additional Instructions: Try the colonoscopy prep, continue with your regular medications, please f ollowup with your primary care provider in 3-5 days if not better, please call return to the emergency department with worsening of symptoms. Sepsis Event Note (ED) - Evaluation Sepsis Screening Result: No Definite Risk - Focused Exam Vital Signs: Vital Signs Temp Pulse Resp BP Pulse Ox 07/07/20 12:49 98.2 F 85 20 126/69 97 07/07/20 12:47 98.2 F 85 20 126/69 97 - My Orders Last 24 Hours: My Active Orders 07/07/20 13:27 Peripheral IV Care [RC] . DIRECTED DRUG SCREEN, URINE [URCHEM] Urgent UA W/MICROSCOPIC [URIN] Urgent Sodium Chloride 0.9% [Saline Flush] 10 ml FLUSH ASDIRECTED PRN Peripheral IV Insertion Adult [OM.PC] Urgent 07/07/20 13:30 Lactated Ringers [Ringers, Lactated] 1,000 ml IV ASDIRECTED - Assessment/Plan Last 24 Hours: My Active Orders 07/07/20 13:27 Peripheral IV Care [RC] . DIRECTED DRUG SCREEN, URINE [URCHEM] Urgent UA W/MICROSCOPIC [URIN] Urgent Sodium Chloride 0.9% [Saline Flush] 10 ml FLUSH ASDIRECTED PRN Peripheral IV Insertion Adult [OM.PC] Urgent 07/07/20 13:30 Lactated Ringers [Ringers, Lactated] 1,000 ml IV ASDIRECTED Plan: Assessment Acuity = acute Site and laterality = functional constipation complicated patient with history of recent bout of diverticulitis Etiology = slow transit time Manifestations = abdominal pain Location of injury = Home Lab values = CBC CMP unremarkable troponin is negative plain film the abdomen does show nonspecific bowel gas pattern however I do appreciate a fair amount of stool and gas in the large colon Plan Recommend colonoscopy prep follow-up primary care 3 to 5 days for further evaluation This note was dictated using [employer] voice recognition software please call with any questions on syntax or grammar.
--- NOTE | 2020-07-07 14:41 | CR ---
Abdomen 1V Upright CLINICAL HISTORY: Abdominal pain FINDINGS: There is breathing motion and scanning some detail. No free air is identified. Small intestinal configuration is nonacute. There is gas and feces throughout the colon. There are surgical clips in right upper quadrant and right inguinal region.. IMPRESSION: Nonspecific intestinal gas pattern
--- NOTE | 2020-07-08 16:12 | PCM.SN.2 ---
- Free Text/Narrative Note: I did call his primary care provider I was unable to speak to Dr. Ordoñez directly so I did consult with her nurse. My concern for this gentleman is that he is having drug-seeking behavior he states that none of the treatments provided for him provide any relief except for narcotic medication he was hospitalized end of June 2020 for a bout of diverticulitis still continues to complain of excruciating pain he has had follow-up with his primary care and been in the emergency department on 2 separate occasions both lab work and repeat CT scan showed resolution of the diverticulitis with normal blood work but still complains of excruciating pain. Review of old records with [facility] show that he is states the only thing that helps his pain is narcotic medication.
== END 2020-07-07 14:59 | disposition home or self-care (01) ==
LOC: JP.ED 11:52
DX: K59.04 Chronic idiopathic constipation (principal); I10 Essential (primary) hypertension; J45.909 Unspecified asthma, uncomplicated; K21.9 Gastro-esophageal reflux disease without esophagitis; F41.9 Anxiety disorder, unspecified; F31.9 Bipolar disorder, unspecified; E03.9 Hypothyroidism, unspecified; E66.9 Obesity, unspecified; Z68.42 Body mass index [BMI] 45.0-49.9, adult; Z87.891 Personal history of nicotine dependence; Z88.8 Allergy status to other drugs, medicaments and biological substances; Z88.0 Allergy status to penicillin; Z88.4 Allergy status to anesthetic agent; Z88.6 Allergy status to analgesic agent; Z91.048 Other nonmedicinal substance allergy status; Z79.82 Long term (current) use of aspirin; Z79.01 Long term (current) use of anticoagulants; Z79.899 Other long term (current) drug therapy
CPT/HCPCS: 36415; 74018; 80053; 83605; 83690; 84484; 85025; 96374; 96375; 99284; J2405; J3010; J7120

== ENCOUNTER 2020-07-08 18:32 | Emergency (ER) | payer BC, MEDICAID ==
[2020-07-08] MEDS ORDERED: Na Phos,M-B/Na Phos,DI-B 60 ML, Mineral Oil 50 ML, Docusate Sodium 400 MG, Magnesium Ci... RECTAL ONE ×4 (19:21)
--- NOTE | 2020-07-08 19:31 | EDM.PDOC ---
ED HPI GENERAL MEDICAL PROBLEM - General Chief Complaint: Abdominal Pain Stated Complaint: ABD PAIN Time Seen by Provider: 07/08/20 19:20 Source of Information: Reports: Patient, Old Records History Limitations: Reports: No Limitations - History of Present Illness INITIAL COMMENTS - FREE TEXT/NARRATIVE: Elmo is a 31-year-old male who is known to me from a visit earlier this week who presents to the ED for ongoing issues of constipation and abdominal pain. Patient is having left lower quadrant abdominal pain that he attributes to diverticulitis, however, work-up earlier this week showed resolution of his diverticulitis with a normal CT and blood work. Patient reports that he has been trying to move his bowels and has gone as far as taking a full bottle of MiraLAX and mixing it with 32 ounces of Gatorade and consuming the entire amount. He has had 2-3 watery stools today but has not had any significant output otherwise. He still having significant abdominal pain and distention. He denies any nausea, vomiting, but does have eructation. He has had a diminished appetite. Denies any fever, chills, loss of taste or smell, cough or shortness of breath. Left Abdomen Pain Score (Numeric/FACES): 7 - Related Data Allergies Allergy/AdvReac Type Severity Reaction Status Date / Time adhesive Allergy Burning Verified 07/08/20 18:59 Penicillins Allergy Pruritis Verified 07/08/20 18:59 propofol Allergy Bronchospas Verified 07/08/20 18:59 ms diclofenac AdvReac Dizziness, Verified 07/08/20 18:59 Nausea/Vomiting gabapentin AdvReac Shaking Verified 07/08/20 18:59 ibuprofen AdvReac Nausea & Verified 07/08/20 18:59 Vomiting, GI intolerance NSAIDS (Non-Steroidal AdvReac Nausea and Verified 07/08/20 18:59 Anti-Inflamma Vomiting zolpidem [From Ambien] AdvReac Sleep Verified 07/08/20 18:59 walking Dust Mite Extract Allergy Rhinitis, Uncoded 07/08/20 20:34 Cough Home Meds: Home Meds OXcarbazepine [Trileptal] 600 mg PO BID 01/10/14 [History] Levothyroxine 275 mcg PO ACBREAKFAST 07/24/17 [History] Eszopiclone 1 mg PO BEDTIME PRN 09/25/19 [History] Albuterol Sulfate [Albuterol Sulfate Hfa] 2 puff INH QID PRN 10/02/19 [History] Acetaminophen [Tylenol Extra Strength] 1,000 mg PO TID 12/09/19 [History] lisinopriL [Lisinopril] 20 mg PO DAILY 12/27/19 [History] Aspirin [Halfprin] 81 mg PO DAILY 04/09/20 [History] Nitroglycerin 0.4 mg SL .[id number] PRN 04/09/20 [History] amLODIPine [Norvasc] 2.5 mg PO DAILY 04/09/20 [History] Warfarin [Coumadin] 7.5 mg PO DAILY 05/14/20 [History] ALPRAZolam [Xanax] 1 mg PO QID PRN 06/10/20 [History] Sildenafil [Viagra] 50 mg PO BEDTIME PRN 06/10/20 [History] Triamcinolone Acetonide [Triamcinolone Acetonide 0.5%] 1 cm TOP BID PRN 06/10/20 [History] Ondansetron [Ondansetron ODT] 1 tab PO Q6H PRN 06/20/20 [History] Pantoprazole Sodium [Protonix] 40 mg PO DAILY 06/20/20 [History] metroNIDAZOLE [Flagyl] 500 mg PO BID 06/20/20 [History] Dicyclomine [Bentyl] 10 mg PO QID 06/26/20 [History] Sulfamethoxazole/Trimethoprim [Bactrim Ds Tablet] 1 each PO BID 07/04/20 [History] levoFLOXacin [Levaquin] 750 mg PO DAILY 07/04/20 [History] Past Medical History HEENT History: Reports: Impaired Vision Cardiovascular History: Reports: Hypertension, Other (See Below) Other Cardiovascular History: microvascular disease Respiratory History: Reports: Asthma, SOB Gastrointestinal History: Reports: Cholelithiasis, Diverticulosis, GERD, Other (See Below) Other Gastrointestinal History: barrets esphogeal, diverticulitis Genitourinary History: Reports: Other (See Below) Other Genitourinary History: cyst present in bladder Musculoskeletal History: Reports: Back Pain, Chronic, Neck Pain, Chronic, Other (See Below) Other Musculoskeletal History: right hip pain with labrum tear, right foot sprain. R foot pain Neurological History: Reports: Headaches, Chronic Psychiatric History: Reports: ADHD, Anxiety, Bipolar, Depression, Panic Attack, Psych Hospitalization(s), PTSD, Suicide Attempt, Suicidal Ideation Other Psychiatric History: bipolar 2 Endocrine/Metabolic History: Reports: Hypothyroidism, Obesity/BMI 30+ Hematologic History: Reports: None Immunologic History: Reports: None Oncologic (Cancer) History: Reports: Thyroid Other Oncologic History: pappulary with focal variant Dermatologic History: Reports: None - Infectious Disease History Infectious Disease History: Reports: Chicken Pox - Past Surgical History Head Surgeries/Procedures: Reports: None HEENT Surgical History: Reports: Oral Surgery Other HEENT Surgeries/Procedures: barretts esophagus surgery Cardiovascular Surgical History: Reports: Other (See Below) Other Cardiovascular Surgeries/Procedures: angiogram, wore a heart monitor Respiratory Surgical History: Reports: None GI Surgical History: Reports: Appendectomy, Cholecystectomy, Colon, Colonoscopy, EGD, Hernia Repair/Other Other GI Surgeries/Procedures: 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 COLON RESECTION Male Surgical History: Reports: None Endocrine Surgical History: Reports: Thyroidectomy, Other (See Below) Other Endocrine Surgeries/Procedures: 9 lymphnodes on left side removed Neurological Surgical History: Reports: Discectomy, Laminectomy Other Neurological Surgeries/Procedures: partial lami/discectomy near L4 Musculoskeletal Surgical History: Reports: Other (See Below) Other Musculoskeletal Surgeries/Procedures:: partial discectomy back. L ulnar nerve transposition 01/08/20. right hip scope 04/29/20 Oncologic Surgical History: Reports: Other (See Below) Other Oncologic Surgeries/Procedures: PT HAD THYROIDECTOMY Dermatological Surgical History: Reports: None Social & Family History - Family History Family Medical History: No Pertinent Family History HEENT: Reports: Impaired Vision Cardiac: Reports: Arrhythmia GI: Reports: Cirrhosis Psychiatric: Reports: Depression Oncologic: Reports: Cervix - Tobacco Use Tobacco Use Status *Q: Former Tobacco User Years of Tobacco use: 15 Packs/Tins Daily: 0.5 Used Tobacco, but Quit: Yes Month/Year Tobacco Last Used: 10/2019 - Caffeine Use Caffeine Use: Reports: Energy Drinks, Soda - Recreational Drug Use Recreational Drug Use: No - Living Situation & Occupation Living situation: Reports: with Significant Other Occupation: Employed (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 Amna, works at [employer] [place] in [employer] for [employer]) ED ROS GENERAL - Review of Systems Review Of Systems: See Below Constitutional: Reports: Decreased Appetite HEENT: Reports: No Symptoms Respiratory: Reports: No Symptoms Cardiovascular: Reports: No Symptoms Endocrine: Reports: No Symptoms GI/Abdominal: Reports: Abdominal Pain, Constipation, Distension : Reports: No Symptoms Musculoskeletal: Reports: No Symptoms Skin: Reports: No Symptoms Neurological: Reports: No Symptoms Psychiatric: Reports: No Symptoms Hematologic/Lymphatic: Reports: No Symptoms Immunologic: Reports: No Symptoms ED EXAM, GI/ABD - Physical Exam Exam: See Below Exam Limited By: No Limitations General Appearance: Alert, Mild Distress Throat/Mouth: Normal Inspection, Normal Lips, Normal Oropharynx, Normal Voice Head: Atraumatic, Normocephalic Neck: Normal Inspection, Supple. No: Lymphadenopathy (R), Lymphadenopathy (L) Respiratory/Chest: No Respiratory Distress, Lungs Clear, Normal Breath Sounds, No Accessory Muscle Use, Chest Non-Tender Cardiovascular: Normal Peripheral Pulses, Regular Rate, Rhythm, No JVD, No Murmur GI/Abdominal Exam: Normal Bowel Sounds, Distended, Guarding, Tender (Left upper and lower quadrant tenderness to palpation.), Other (Tympany to percussion throughout the abdomen but especially over the transverse colon distribution.). No: Rigid, Rebound Extremities: Normal Inspection, Normal Range of Motion, No Pedal Edema Neurological: Alert, Oriented, Normal Cognition, No Motor/Sensory Deficits Psychiatric: Anxious Skin Exam: Warm, Dry, Intact Lymphatic: No Adenopathy Course - Vital Signs Last Recorded V/S: Last Vital Signs Temp 36.7 C 07/08/20 18:59 Pulse 94 07/08/20 18:59 Resp 18 07/08/20 18:59 BP 142/83 H 07/08/20 18:59 Pulse Ox 98 07/08/20 18:59 - Orders/Labs/Meds Orders: Active Orders 24 hr Category Date Time Status Enema [RC] ASDIRECTED Care 07/08/20 19:57 Active Abdomen 2V AP Flat Upright [CR] Stat Exams 07/08/20 18:50 Taken Meds: Medications Discontinued Medications Generic Name Dose Route Start Last Admin Trade Name Freq PRN Reason Stop Dose Admin Sodium Biphosphate/Sodium 0 ml 07/08/20 19:21 Phosphate 60 ml/ Mineral Oil RECTAL 07/08/20 19:22 50 ml/ Docusate Sodium 400 mg/ ONETIME ONE Magnesium Citrate 150 ml - Radiology Interpretation Free Text/Narrative:: 2 view x-ray of the abdomen reveals copious amount of colonic stool without evidence for obstruction. There is a mix of stool and flatus throughout the colon which appears to be somewhat distended. There is no free air in the abdomen. Impression: Constipation. - Re-Assessments/Exams Free Text/Narrative Re-Assessment/Exam: 07/08/20 20:56 patient underwent a soapsuds enema (1500 cc) with minimal results and reports that he only passed liquid. The patient is still complaining of significant crampy abdominal pain. Patient is adamant that he has diverticulitis and is on 3 antibiotics. Recent imaging of his abdomen this weekend was performed by me showed no evidence of acute diverticulitis in fact resolution of the previous diverticulitis was noted. The patient does have a generous amount of stool and flatus throughout the abdomen. His lab work on Monday was unremarkable for infection. It is unclear why he is still on antibiotics with resolution of the diverticulitis. There is also a question of whether there may be some drug-seeking behavior here with seeking pain medicine. The patient is adamant about not having another enema and at this time is requesting discharge. I am happy to oblige. Encouraged him to follow-up with his primary care provider in the clinic in the morning. My concern is being on the antibiotics without diverticulitis could lead to see the difficile colitis. Departure - Departure Time of Disposition: 20:50 Disposition: Home, Self-Care 01 Condition: Good Clinical Impression: Diverticulosis, History of diverticulitis of colon, Constipation by delayed colonic transit Abdominal pain Qualifiers: Abdominal location: generalized Qualified Code(s): R10.84 - Generalized abdominal pain - Discharge Information Instructions: Abdominal Pain, Adult, [id number] Referrals: PCP,None [Primary Care Provider] - Forms: ED Department Discharge Care Plan Goals: Follow-up with your primary care provider in the morning. Continue to push fluids. Sepsis Event Note (ED) - Evaluation Sepsis Screening Result: No Definite Risk - Focused Exam Vital Signs: Vital Signs Temp Pulse Resp BP Pulse Ox 07/08/20 18:59 36.7 C 94 18 142/83 H 98 - Problem List & Annotations (1) Abdominal pain SNOMED Code(s): 85470911 Code(s): R10.9 - UNSPECIFIED ABDOMINAL PAIN Status: Chronic Priority: Medium Current Visit: Yes Qualifiers: Abdominal location: generalized Qualified Code(s): R10.84 - Generalized ab dominal pain (2) Constipation by delayed colonic transit SNOMED Code(s): 03141231 Code(s): K59.01 - SLOW TRANSIT CONSTIPATION Status: Acute Priority: Medium Current Visit: Yes (3) Diverticulosis SNOMED Code(s): 344743666 Code(s): K57.90 - DVRTCLOS OF INTEST, PART UNSP, W/O PERF OR ABSCESS W/O BLEED Status: Chronic Priority: Medium Current Visit: Yes (4) History of diverticulitis of colon SNOMED Code(s): 798316675906482 Code(s): Z87.19 - PERSONAL HISTORY OF OTHER DISEASES OF THE DIGESTIVE SYSTEM Status: Chronic Priority: Medium Current Visit: Yes - Problem List Review Problem List Initiated/Reviewed/Updated: Yes - My Orders Last 24 Hours: My Active Orders 07/08/20 18:50 Abdomen 2V AP Flat Upright [CR] Stat 07/08/20 19:57 Enema [RC] ASDIRECTED - Assessment/Plan Last 24 Hours: My Active Orders 07/08/20 18:50 Abdomen 2V AP Flat Upright [CR] Stat 07/08/20 19:57 Enema [RC] ASDIRECTED
--- NOTE | 2020-07-09 10:14 | CR ---
Abdomen 2V AP Flat Upright CLINICAL HISTORY: Abdominal pain, constipation FINDINGS: No free air is identified. Small intestinal configuration is nonacute. There is gas and feces throughout the colon. There is been previous right inguinal hernia repair. IMPRESSION: Nonacute intestinal gas pattern There is some fecal retention
== END 2020-07-08 21:04 | disposition home or self-care (01) ==
LOC: JP.ED 18:32
DX: K59.01 Slow transit constipation (principal); K57.90 Diverticulosis of intestine, part unspecified, without perforation or abscess without bleeding; I10 Essential (primary) hypertension; J45.909 Unspecified asthma, uncomplicated; K21.9 Gastro-esophageal reflux disease without esophagitis; F41.9 Anxiety disorder, unspecified; F31.9 Bipolar disorder, unspecified; E03.9 Hypothyroidism, unspecified; E66.9 Obesity, unspecified; Z68.43 Body mass index [BMI] 50.0-59.9, adult; Z87.891 Personal history of nicotine dependence; Z88.6 Allergy status to analgesic agent; Z88.8 Allergy status to other drugs, medicaments and biological substances; Z91.048 Other nonmedicinal substance allergy status; Z88.0 Allergy status to penicillin; Z88.4 Allergy status to anesthetic agent; Z79.82 Long term (current) use of aspirin; Z79.01 Long term (current) use of anticoagulants; Z79.899 Other long term (current) drug therapy
CPT/HCPCS: 74019; 74019-26; 99284

== ENCOUNTER 2020-07-15 01:07 | Emergency (ER) | payer BC, MEDICAID ==
[2020-07-15] MEDS ORDERED: Ketorolac 60 MG/2 ML SDV IM ONE (01:48)
--- NOTE | 2020-07-15 01:56 | EDM.PDOC ---
ED HPI GENERAL MEDICAL PROBLEM - General Chief Complaint: General Stated Complaint: PAIN Time Seen by Provider: 07/15/20 01:35 Source of Information: Reports: Patient, Old Records, RN History Limitations: Reports: No Limitations - History of Present Illness INITIAL COMMENTS - FREE TEXT/NARRATIVE: 39 yo male frequent visitor to our ER returns a week after he was here for this same complaint, that being left sided abdominal pain. He has had diverticulitis in the past and is convinced that this is diverticulitis. When he was here last time he was on 3 antibiotics, currently he is on none. Describes about 5 small volume loose stools today with the more recent stools containing blood. No fever or vomiting. He also reports leg weakness which he reported to his primary 2 days ago and nothing was done about it. At his last work up a week ago there was no evidence upon testing of diverticulitis. He reports that he was given a referral to see a general surgeon at the [facility] by his primary and that appt is in a few days. Says that the loose stool is more or less chronic. Onset: Unknown/Unsure Duration: Week(s):, Waxing/Waning Location: Reports: Abdomen (L sided) Quality: Reports: Ache Severity: Moderate Improves with: Reports: None Worsens with: Reports: Other (unsure) Context: Reports: Other (See HPI) Associated Symptoms: Reports: Other (loose stools, hematochezia). Denies: Fever/Chills, Nausea/Vomiting Treatments TIRE FINISHER: Reports: Other (see below) (none) abd pain Pain Score (Numeric/FACES): 6 - Related Data Allergies Allergy/AdvReac Type Severity Reaction Status Date / Time adhesive Allergy Burning Verified 07/15/20 01:28 Penicillins Allergy Pruritis Verified 07/08/20 18:59 propofol Allergy Bronchospas Verified 07/08/20 18:59 ms diclofenac AdvReac Dizziness, Verified 07/08/20 18:59 Nausea/Vomiting gabapentin AdvReac Shaking Verified 07/08/20 18:59 ibuprofen AdvReac Nausea & Verified 07/08/20 18:59 Vomiting, GI intolerance NSAIDS (Non-Steroidal AdvReac Nausea and Verified 07/08/20 18:59 Anti-Inflamma Vomiting zolpidem [From Ambien] AdvReac Sleep Verified 07/08/20 18:59 walking Dust Mite Extract Allergy Rhinitis, Uncoded 07/08/20 20:34 Cough Home Meds: Home Meds OXcarbazepine [Trileptal] 600 mg PO BEDTIME 01/10/14 [History] Levothyroxine 275 mcg PO ACBREAKFAST 07/24/17 [History] Eszopiclone 1 mg PO BEDTIME PRN 09/25/19 [History] Albuterol Sulfate [Albuterol Sulfate Hfa] 2 puff INH QID PRN 10/02/19 [History] Acetaminophen [Tylenol Extra Strength] 1,000 mg PO TID 12/09/19 [History] lisinopriL [Lisinopril] 20 mg PO DAILY 12/27/19 [History] Aspirin [Halfprin] 81 mg PO DAILY 04/09/20 [History] Nitroglycerin 0.4 mg SL [id number] PRN 04/09/20 [History] amLODIPine [Norvasc] 2.5 mg PO DAILY 04/09/20 [History] ALPRAZolam [Xanax] 1 mg PO QID PRN 06/10/20 [History] Sildenafil [Viagra] 50 mg PO BEDTIME PRN 06/10/20 [History] Triamcinolone Acetonide [Triamcinolone Acetonide 0.5%] 1 cm TOP BID PRN 06/10/20 [History] Ondansetron [Ondansetron ODT] 1 tab PO Q6H PRN 06/20/20 [History] Pantoprazole Sodium [Protonix] 40 mg PO DAILY 06/20/20 [History] Dicyclomine [Bentyl] 10 mg PO QID 06/26/20 [History] OXcarbazepine [Trileptal] 300 mg PO DAILY 07/15/20 [History] Past Medical History HEENT History: Reports: Impaired Vision Cardiovascular History: Reports: Hypertension, Other (See Below) Other Cardiovascular History: microvascular disease Respiratory History: Reports: Asthma, SOB Gastrointestinal History: Reports: Cholelithiasis, Diverticulosis, GERD, Other (See Below) Other Gastrointestinal History: barrets esphogeal, diverticulitis Genitourinary History: Reports: Other (See Below) Other Genitourinary History: cyst present in bladder Musculoskeletal History: Reports: Back Pain, Chronic, Neck Pain, Chronic, Other (See Below) Other Musculoskeletal History: right hip pain with labrum tear, right foot sprain. R foot pain Neurological History: Reports: Headaches, Chronic Psychiatric History: Reports: ADHD, Anxiety, Bipolar, Depression, Panic Attack, Psych Hospitalization(s), PTSD, Suicide Attempt, Suicidal Ideation Other Psychiatric History: bipolar 2 Endocrine/Metabolic History: Reports: Hypothyroidism, Obesity/BMI 30+ Hematologic History: Reports: None Immunologic History: Reports: None Oncologic (Cancer) History: Reports: Thyroid Other Oncologic History: pappulary with focal variant Dermatologic History: Reports: None - Infectious Disease History Infectious Disease History: Reports: Chicken Pox - Past Surgical History Head Surgeries/Procedures: Reports: None HEENT Surgical History: Reports: Oral Surgery Other HEENT Surgeries/Procedures: barretts esophagus surgery Cardiovascular Surgical History: Reports: Other (See Below) Other Cardiovascular Surgeries/Procedures: angiogram, wore a heart monitor Respiratory Surgical History: Reports: None GI Surgical History: Reports: Appendectomy, Cholecystectomy, Colon, Colonoscopy, EGD, Hernia Repair/Other Other GI Surgeries/Procedures: 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 COLON RESECTION Male Surgical History: Reports: None Endocrine Surgical History: Reports: Thyroidectomy, Other (See Below) Other Endocrine Surgeries/Procedures: 9 lymphnodes on left side removed Neurological Surgical History: Reports: Discectomy, Laminectomy Other Neurological Surgeries/Procedures: partial lami/discectomy near L4 Musculoskeletal Surgical History: Reports: Other (See Below) Other Musculoskeletal Surgeries/Procedures:: partial discectomy back. L ulnar nerve transposition 01/08/20. right hip scope 04/29/20 Oncologic Surgical History: Reports: Other (See Below) Other Oncologic Surgeries/Procedures: PT HAD THYROIDECTOMY Dermatological Surgical History: Reports: None Social & Family History - Family History Family Medical History: No Pertinent Family History HEENT: Reports: Impaired Vision Cardiac: Reports: Arrhythmia GI: Reports: Cirrhosis Psychiatric: Reports: Depression Oncologic: Reports: Cervix - Tobacco Use Tobacco Use Status *Q: Current Every Day Tobacco User Years of Tobacco use: 15 Packs/Tins Daily: 0.5 - Caffeine Use Caffeine Use: Reports: Coffee, Soda - Recreational Drug Use Recreational Drug Use: No - Living Situation & Occupation Living situation: Reports: with Significant Other Occupation: Employed (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 Amna, 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 Denies: Fever, Chills, Diaphoresis HEENT: Reports: No Symptoms Respiratory: Reports: No Symptoms Cardiovascular: Reports: No Symptoms Endocrine: Reports: No Symptoms GI/Abdominal: Reports: Abdominal Pain, Bloody Stool, Diarrhea, Hematochezia. Denies: Anorexia, Black Stool, Constipation, Hematemesis, Melena, Nausea, Vomiting : Reports: No Symptoms Musculoskeletal: Reports: No Symptoms Skin: Reports: No Symptoms Neurological: Reports: No Symptoms Psychiatric: Reports: No Symptoms ED EXAM, GENERAL - Physical Exam Exam: See Below Exam Limited By: No Limitations General Appearance: Alert, WD/WN, No Apparent Distress, Obese Eye Exam: Bilateral Eye: Normal Inspection Ears: Normal External Exam, Normal Canal, Hearing Grossly Normal Ear Exam: Bilateral Ear: Auricle Normal, Canal Normal Nose: Normal Inspection, No Blood Throat/Mouth: Normal Inspection, Normal Lips, Normal Oropharynx, Normal Voice, N o Airway Compromise Head: Atraumatic, Normocephalic Neck: Normal Inspection Respiratory/Chest: No Respiratory Distress, Lungs Clear, Normal Breath Sounds, No Accessory Muscle Use Cardiovascular: Regular Rate, Rhythm, No Edema GI/Abdominal: Normal Bowel Sounds, Soft, No Distention, Tender (mild L sided tenderness on palpation), Other (Obese. Rectal exam: no palpable stool in rectum. Light almost yellow stool on glove. No blood on glove. ). No: Non- Tender, Distended, Guarding, Rigid, Rebound Extremities: Normal Inspection, Normal Range of Motion, Non-Tender Neurological: Alert, Oriented, CN II-XII Intact, Normal Cognition, No Motor/Sensory Deficits Psychiatric: Normal Affect, Normal Mood Skin Exam: Warm, Dry, Intact, Normal Color, No Rash Course - Vital Signs Last Recorded V/S: Last Vital Signs Temp 36.4 C 07/15/20 01:33 Pulse 97 07/15/20 01:33 Resp 20 07/15/20 01:33 BP 147/86 H 07/15/20 01:33 Pulse Ox 97 07/15/20 01:33 - Orders/Labs/Meds Orders: Active Orders 24 hr Category Date Time Status Abdomen 1V Flat [CR] Stat Exams 07/15/20 01:59 Taken Labs: Laboratory Tests 07/15/20 07/15/20 Range/Units 01:55 01:55 WBC 6.9 (4.5-11.0) K/uL RBC 4.20 L (4.30-5.90) M/uL Hgb 13.2 (12.0-15.0) g/dL Hct 40.4 (40.0-54.0) % MCV 96 (80-98) fL MCH 31 (27-31) pg MCHC 33 (32-36) % Plt Count 300 (150-400) K/uL C-Reactive Protein 0.43 H (0.0-0.3) mg/dL Meds: Medications Discontinued Medications Generic Name Dose Route Start Last Admin Trade Name Freq PRN Reason Stop Dose Admin Acetaminophen 1,000 mg 07/15/20 02:49 07/15/20 03:17 Tylenol Extra Strength PO 07/15/20 02:50 Not Given ONETIME ONE Ketorolac Tromethamine 60 mg 07/15/20 01:48 07/15/20 01:56 Toradol IM 07/15/20 01:49 60 mg ONETIME ONE Administration Ondansetron HCl 4 mg 07/15/20 02:48 07/15/20 02:56 Zofran Odt PO 07/15/20 02:49 4 mg ONETIME ONE Administration - Radiology Interpretation Free Text/Narrative:: single view abdominal X-ray- Departure - Departure Time of Disposition: 04:01 Disposition: Home, Self-Care 01 Condition: Fair Clinical Impression: Left sided abdominal pain, Hematochezia Diarrhea Qualifiers: Diarrhea type: unspecified type Qualified Code(s): R19.7 - Diarrhea, unspecified - Discharge Information *PRESCRIPTION DRUG MONITORING PROGRAM REVIEWED*: Not Applicable *COPY OF PRESCRIPTION DRUG MONITORING REPORT IN PATIENT MIN: Not Applicable Instructions: Abdominal Pain, Adult, [id number], Chronic Diarrhea Referrals: PCP,None [Primary Care Provider] - Forms: ED Department Discharge Additional Instructions: Discuss with your provider a treatment plan going forward. Use the Zofran as needed for nausea control. Keep your appt with the [facility] surgeon. Sepsis Event Note (ED) - Evaluation Sepsis Screening Result: No Definite Risk - Focused Exam Vital Signs: Vital Signs Temp Pulse Resp BP Pulse Ox 07/15/20 01:33 36.4 C 97 20 147/86 H 97 07/15/20 01:25 36.4 C 97 20 147/86 H 97 - My Orders Last 24 Hours: My Active Orders 07/15/20 01:59 Abdomen 1V Flat [CR] Stat - Assessment/Plan Last 24 Hours: My Active Orders 07/15/20 01:59 Abdomen 1V Flat [CR] Stat
[2020-07-15] MEDS ORDERED: Ondansetron 4 MG Tab.DIS PO ONE (02:48)
[2020-07-15] MEDS: Acetaminophen 500 MG Tab PO ONE ×2 (02:57→03:17)
--- NOTE | 2020-07-15 08:54 | CR ---
Abdomen 1V Flat CLINICAL HISTORY: Left-sided abdominal pain FINDINGS: There is some elevation right hemidiaphragm. This is likely chronic. Small intestinal gas pattern is nonacute. There is gas and feces throughout the colon. There are surgical clips in the right inguinal region. Impression: Nonacute intestinal gas pattern
== END 2020-07-15 04:38 | disposition home or self-care (01) ==
LOC: JP.ED 01:07
DX: K92.1 Melena (principal); R19.7 Diarrhea, unspecified; I10 Essential (primary) hypertension; J45.909 Unspecified asthma, uncomplicated; K21.9 Gastro-esophageal reflux disease without esophagitis; E03.9 Hypothyroidism, unspecified; E66.9 Obesity, unspecified; Z68.42 Body mass index [BMI] 45.0-49.9, adult; Z91.048 Other nonmedicinal substance allergy status; Z88.0 Allergy status to penicillin; Z88.6 Allergy status to analgesic agent; Z88.8 Allergy status to other drugs, medicaments and biological substances; Z79.82 Long term (current) use of aspirin; Z79.899 Other long term (current) drug therapy; Z72.0 Tobacco use
CPT/HCPCS: 36415; 74018; 85027; 86140; 87493; 96372; 99284; A9270; J1885

== ENCOUNTER 2020-08-04 13:14 | Emergency (ER) | payer BC, MEDICAID ==
[2020-08-04] MEDS ORDERED: Ketorolac 60 MG/2 ML SDV IM ONE (14:06)
--- NOTE | 2020-08-04 14:18 | EDM.PDOC ---
ED HPI GENERAL MEDICAL PROBLEM - General Chief Complaint: Back Pain or Injury Stated Complaint: LOWER BACK PAIN Time Seen by Provider: 08/04/20 13:55 Source of Information: Reports: Patient History Limitations: Reports: No Limitations - History of Present Illness INITIAL COMMENTS - FREE TEXT/NARRATIVE: 39-year-old male who has a variety of chronic pain syndromes, arrives with lower back discomfort. He is seeing his primary provider about this and has a neurosurgical consult set up for tomorrow, but today he had a spasm of pain so bad that he lost continence so came in. No additional trauma. Onset: Unknown/Unsure Duration: Chronic Associated Symptoms: Reports: Other (Bowel incontinence) Lower Back Pain Score (Numeric/FACES): 6 - Related Data Allergies Allergy/AdvReac Type Severity Reaction Status Date / Time adhesive Allergy Burning Verified 08/04/20 13:56 Penicillins Allergy Pruritis Verified 08/04/20 13:56 propofol Allergy Bronchospas Verified 08/04/20 13:56 ms diclofenac AdvReac Dizziness, Verified 08/04/20 13:56 Nausea/Vomiting gabapentin AdvReac Shaking Verified 08/04/20 13:56 ibuprofen AdvReac Nausea & Verified 08/04/20 13:56 Vomiting, GI intolerance NSAIDS (Non-Steroidal AdvReac Nausea and Verified 08/04/20 13:56 Anti-Inflamma Vomiting zolpidem [From Ambien] AdvReac Sleep Verified 08/04/20 13:56 walking Dust Mite Extract Allergy Rhinitis, Uncoded 08/04/20 13:56 Cough Home Meds: Home Meds Levothyroxine 275 mcg PO ACBREAKFAST 07/24/17 [History] Eszopiclone 2 mg PO BEDTIME PRN 09/25/19 [History] Albuterol Sulfate [Albuterol Sulfate Hfa] 2 puff INH QID PRN 10/02/19 [History] Acetaminophen [Tylenol Extra Strength] 1,000 mg PO TID 12/09/19 [History] lisinopriL [Lisinopril] 20 mg PO DAILY 12/27/19 [History] Aspirin [Halfprin] 81 mg PO DAILY 04/09/20 [History] Nitroglycerin 0.4 mg SL [id number] PRN 04/09/20 [History] amLODIPine [Norvasc] 2.5 mg PO DAILY 04/09/20 [History] ALPRAZolam [Xanax] 1 mg PO QID PRN 06/10/20 [History] Sildenafil [Viagra] 50 mg PO BEDTIME PRN 06/10/20 [History] Triamcinolone Acetonide [Triamcinolone Acetonide 0.5%] 1 cm TOP BID PRN 06/10/20 [History] Ondansetron [Ondansetron ODT] 1 tab PO Q6H PRN 06/20/20 [History] Pantoprazole Sodium [Protonix] 40 mg PO DAILY 06/20/20 [History] Dicyclomine [Bentyl] 10 mg PO QID 06/26/20 [History] Pregabalin 50 mg PO TID 08/04/20 [History] lamoTRIgine [Lamictal] 50 mg PO DAILY 08/04/20 [History] Past Medical History HEENT History: Reports: Impaired Vision Cardiovascular History: Reports: Hypertension, Other (See Below) Other Cardiovascular History: microvascular disease Respiratory History: Reports: Asthma, SOB Gastrointestinal History: Reports: Cholelithiasis, Diverticulosis, GERD, Other (See Below) Other Gastrointestinal History: barrets esphogeal, diverticulitis Genitourinary History: Reports: Other (See Below) Other Genitourinary History: cyst present in bladder Musculoskeletal History: Reports: Back Pain, Chronic, Neck Pain, Chronic, Other (See Below) Other Musculoskeletal History: right hip pain with labrum tear, right foot sprain. R foot pain Neurological History: Reports: Headaches, Chronic Psychiatric History: Reports: ADHD, Anxiety, Bipolar, Depression, Panic Attack, Psych Hospitalization(s), PTSD, Suicide Attempt, Suicidal Ideation Other Psychiatric History: bipolar 2 Endocrine/Metabolic History: Reports: Hypothyroidism, Obesity/BMI 30+ Hematologic History: Reports: None Immunologic History: Reports: None Oncologic (Cancer) History: Reports: Thyroid Other Oncologic History: pappulary with focal variant Dermatologic History: Reports: None - Infectious Disease History Infectious Disease History: Reports: Chicken Pox - Past Surgical History Head Surgeries/Procedures: Reports: None HEENT Surgical History: Reports: Oral Surgery Other HEENT Surgeries/Procedures: barretts esophagus surgery Cardiovascular Surgical History: Reports: Other (See Below) Other Cardiovascular Surgeries/Procedures: angiogram, wore a heart monitor GI Surgical History: Reports: Appendectomy, Cholecystectomy, Colon, Colonoscopy, EGD, Hernia Repair/Other Other GI Surgeries/Procedures: 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 COLON RESECTION Endocrine Surgical History: Reports: Thyroidectomy, Other (See Below) Other Endocrine Surgeries/Procedures: 9 lymphnodes on left side removed Neurological Surgical History: Reports: Discectomy, Laminectomy Other Neurological Surgeries/Procedures: partial lami/discectomy near L4 Musculoskeletal Surgical History: Reports: Other (See Below) Other Musculoskeletal Surgeries/Procedures:: partial discectomy back. L ulnar nerve transposition 01/08/20. right hip scope 04/29/20 Oncologic Surgical History: Reports: Other (See Below) Other Oncologic Surgeries/Procedures: PT HAD THYROIDECTOMY Social & Family History - Family History Family Medical History: No Pertinent Family History HEENT: Reports: Impaired Vision Cardiac: Reports: Arrhythmia GI: Reports: Cirrhosis Psychiatric: Reports: Depression Oncologic: Reports: Cervix - Tobacco Use Tobacco Use Status *Q: Never Tobacco User - Caffeine Use Caffeine Use: Reports: Energy Drinks - Recreational Drug Use Recreational Drug Use: No - Living Situation & Occupation Living situation: Reports: with Significant Other Occupation: Employed (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 Amna, 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[employer]) ED ROS GENERAL - Review of Systems Review Of Systems: See Below Constitutional: Denies: Fever, Chills Respiratory: Denies: Shortness of Breath Cardiovascular: Denies: Chest Pain GI/Abdominal: Denies: Nausea, Vomiting : Reports: No Symptoms Musculoskeletal: Reports: Back Pain, Other (Also awaiting an MRI in his right foot) ED EXAM,LOWER BACK PAIN/INJURY - Physical Exam Exam: See Below Exam Limited By: No Limitations General Appearance: Alert, No Apparent Distress, Other (Patient is lying on his left side, looks fairly comfortable) Head: Atraumatic Respiratory/Chest: No Respiratory Distress, Lungs Clear Back Exam: Other (Some mild tenderness to palpation of the SI joint area and lower lumbar spine) Neurological: Alert, Normal Mood/Affect, Oriented x 3 Psychiatric: Flat Affect Skin Exam: Warm, Dry Course - Vital Signs Last Recorded V/S: Last Vital Signs Temp 98.4 F 08/04/20 13:55 Pulse 95 08/04/20 13:55 Resp 20 08/04/20 13:55 BP 118/80 08/04/20 13:55 Pulse Ox 98 08/04/20 13:55 - Orders/Labs/Meds Meds: Medications Discontinued Medications Generic Name Dose Route Start Last Admin Trade Name Davis PRN Reason Stop Dose Admin Ketorolac Tromethamine 60 mg 08/04/20 14:06 08/04/20 14:19 Toradol IM 08/04/20 14:07 60 mg ONETIME ONE Administration - Re-Assessments/Exams Free Text/Narrative Re-Assessment/Exam: 08/04/20 14:17 Patient was given 60 mg of IM Toradol, recheck tomorrow with neurosurgery as planned. Departure - Departure Time of Disposition: 14:25 Disposition: Home, Self-Care 01 Clinical Impression: Low back pain Qualifiers: Chronicity: chronic Back pain laterality: bilateral Sciatica presence: without sciatica Qualified Code(s): M54.5 - Low back pain - Discharge Information Instructions: Chronic Back Pain, [id number] Referrals: Emily Ordoñez DO [Primary Care Provider] - Forms: ED Department Discharge Care Plan Goals: Recheck with neurosurgery tomorrow as scheduled. Continue your regular medications. Sepsis Event Note (ED) - Evaluation Sepsis Screening Result: No Definite Risk - Focused Exam Vital Signs: Vital Signs Temp Pulse Resp BP Pulse Ox 08/04/20 13:55 98.4 F 95 20 118/80 98 08/04/20 13:41 98.4 F 95 20 118/80 98
== END 2020-08-04 14:25 | disposition home or self-care (01) ==
LOC: JP.ED 13:14
DX: M54.5 Low back pain (principal); G89.29 Other chronic pain; J45.909 Unspecified asthma, uncomplicated; K21.9 Gastro-esophageal reflux disease without esophagitis; I10 Essential (primary) hypertension; E03.9 Hypothyroidism, unspecified; E66.9 Obesity, unspecified; Z68.43 Body mass index [BMI] 50.0-59.9, adult; Z91.048 Other nonmedicinal substance allergy status; Z88.0 Allergy status to penicillin; Z88.6 Allergy status to analgesic agent; Z88.8 Allergy status to other drugs, medicaments and biological substances; Z79.82 Long term (current) use of aspirin; Z79.899 Other long term (current) drug therapy
CPT/HCPCS: 96372; 99283; J1885

== ENCOUNTER 2021-05-04 02:14 | Emergency (ER) | payer MEDICAID ==
--- NOTE | 2021-05-04 03:18 | EDM.PDOC ---
ED HPI GENERAL MEDICAL PROBLEM - General Chief Complaint: General Stated Complaint: NECK PAIN/CONFUSION Time Seen by Provider: 05/04/21 03:07 Source of Information: Reports: Patient History Limitations: Reports: No Limitations - History of Present Illness INITIAL COMMENTS - FREE TEXT/NARRATIVE: Elmo is a 40-year-old male with a history significant for chronic neck and low back pain who is followed by Dr. Ordoñez in the [facility] and is on a chronic narcotic pain contract who presents to the ED tonight for uncontrolled cervical pain preventing him from sleeping. Patient states that he is woken up 3 times from sleep with excruciating neck pain and is taken all of his prescribed pain medicine but cannot get his pain under control. The patient has a history significant for degenerative disc disease and has a bulging disc in the lower cervical spine causing some encroachment on the thecal sac and mild to moderate spinal stenosis. He is currently being managed with oxycodone 10 mg every 4 hours for pain which she has been on for a number of years. Neck Pain Score (Numeric/FACES): 7 - Related Data Allergies Allergy/AdvReac Type Severity Reaction Status Date / Time adhesive Allergy Burning Verified 08/04/20 13:56 Penicillins Allergy Pruritis Verified 08/04/20 13:56 propofol Allergy Bronchospas Verified 08/04/20 13:56 ms diclofenac AdvReac Dizziness, Verified 08/04/20 13:56 Nausea/Vomiting gabapentin AdvReac Shaking Verified 08/04/20 13:56 ibuprofen AdvReac Nausea & Verified 08/04/20 13:56 Vomiting, GI intolerance NSAIDS (Non-Steroidal AdvReac Nausea and Verified 08/04/20 13:56 Anti-Inflamma Vomiting zolpidem [From Ambien] AdvReac Sleep Verified 08/04/20 13:56 walking Dust Mite Extract Allergy Rhinitis, Uncoded 08/04/20 13:56 Cough Home Meds: Home Meds Levothyroxine 275 mcg PO ACBREAKFAST 07/24/17 [History] Eszopiclone 2 mg PO BEDTIME PRN 09/25/19 [History] Albuterol Sulfate [Albuterol Sulfate Hfa] 2 puff INH QID PRN 10/02/19 [History] Acetaminophen [Tylenol Extra Strength] 1,000 mg PO TID 12/09/19 [History] Nitroglycerin 0.4 mg SL [id number] PRN 04/09/20 [History] amLODIPine [Norvasc] 2.5 mg PO DAILY 04/09/20 [History] ALPRAZolam [Xanax] 1 mg PO QID PRN 06/10/20 [History] Sildenafil [Viagra] 50 mg PO BEDTIME PRN 06/10/20 [History] Triamcinolone Acetonide [Triamcinolone Acetonide 0.5%] 1 cm TOP BID PRN 06/10/20 [History] Ondansetron [Ondansetron ODT] 1 tab PO Q6H PRN 06/20/20 [History] Pantoprazole Sodium [Protonix] 40 mg PO DAILY 06/20/20 [History] Pregabalin 50 mg PO TID 08/04/20 [History] lamoTRIgine [Lamictal] 150 mg PO DAILY 08/04/20 [History] oxyCODONE [oxyCODONE 20 MG/ML Soln] 10 ml PO Q4H 05/04/21 [History] Past Medical History HEENT History: Reports: Impaired Vision Cardiovascular History: Reports: Hypertension, Other (See Below) Other Cardiovascular History: microvascular disease Respiratory History: Reports: Asthma, SOB Gastrointestinal History: Reports: Cholelithiasis, Diverticulosis, GERD, Other (See Below) Other Gastrointestinal History: barrets esphogeal, diverticulitis Genitourinary History: Reports: Other (See Below) Other Genitourinary History: cyst present in bladder Musculoskeletal History: Reports: Back Pain, Chronic, Neck Pain, Chronic, Other (See Below) Other Musculoskeletal History: right hip pain with labrum tear, right foot sprain. R foot pain Neurological History: Reports: Headaches, Chronic Psychiatric History: Reports: ADHD, Anxiety, Bipolar, Depression, Panic Attack, Psych Hospitalization(s), PTSD, Suicide Attempt, Suicidal Ideation Other Psychiatric History: bipolar 2 Endocrine/Metabolic History: Reports: Hypothyroidism, Obesity/BMI 30+ Hematologic History: Reports: None Immunologic History: Reports: None Oncologic (Cancer) History: Reports: Thyroid Other Oncologic History: pappulary with focal variant Dermatologic History: Reports: None - Infectious Disease History Infectious Disease History: Reports: Chicken Pox - Past Surgical History Head Surgeries/Procedures: Reports: None HEENT Surgical History: Reports: Oral Surgery Other HEENT Surgeries/Procedures: barretts esophagus surgery Cardiovascular Surgical History: Reports: Other (See Below) Other Cardiovascular Surgeries/Procedures: angiogram, wore a heart monitor Respiratory Surgical History: Reports: None GI Surgical History: Reports: Appendectomy, Cholecystectomy, Colon, Colonoscopy, EGD, Hernia Repair/Other Other GI Surgeries/Procedures: radiofrequency ablation to esophagus d/t ba rrett's esophagus colon resection in 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 COLON RESECTION Male Surgical History: Reports: None Endocrine Surgical History: Reports: Thyroidectomy, Other (See Below) Other Endocrine Surgeries/Procedures: 9 lymphnodes on left side removed Neurological Surgical History: Reports: Discectomy, Laminectomy Other Neurological Surgeries/Procedures: partial lami/discectomy near L4 Musculoskeletal Surgical History: Reports: Other (See Below) Other Musculoskeletal Surgeries/Procedures:: partial discectomy back. L ulnar nerve transposition 01/08/20. right hip scope 04/29/20 Oncologic Surgical History: Reports: Other (See Below) Other Oncologic Surgeries/Procedures: PT HAD THYROIDECTOMY Dermatological Surgical History: Reports: None Social & Family History - Family History Family Medical History: No Pertinent Family History HEENT: Reports: Impaired Vision Cardiac: Reports: Arrhythmia GI: Reports: Cirrhosis Psychiatric: Reports: Depression Oncologic: Reports: Cervix - Tobacco Use Tobacco Use Status *Q: Never Tobacco User - Caffeine Use Caffeine Use: Reports: None - Recreational Drug Use Recreational Drug Use: No - Living Situation & Occupation Living situation: Reports: with Significant Other Occupation: Employed (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 Increased muscle spasm. Patient denies any injury.) Skin: Reports: No Symptoms Neurological: Reports: Headache Psychiatric: Reports: No Symptoms Hematologic/Lymphatic: Reports: No Symptoms Immunologic: Reports: No Symptoms ED EXAM, GENERAL - Physical Exam Exam: See Below Exam Limited By: No Limitations General Appearance: Alert, Anxious, Moderate Distress Eye Exam: Bilateral Eye: EOMI, PERRL Neck: Limited Range of Motion (Secondary to pain), Tender Lateral. No: Tender Midline Neurological: Alert, Oriented, Normal Cognition, No Motor/Sensory Deficits (No new deficits) Psychiatric: Anxious Skin Exam: Warm, Dry, Intact Course - Vital Signs Last Recorded V/S: Last Vital Signs Temp 36.1 C 05/04/21 02:58 Pulse 120 H 05/04/21 02:58 Resp 16 05/04/21 02:58 BP 133/94 H 05/04/21 02:58 Pulse Ox 97 05/04/21 02:58 - Orders/Labs/Meds Meds: Medications Discontinued Medications Generic Name Dose Route Start Last Admin Trade Name Davis PRN Reason Stop Dose Admin Ketamine HCl 25 mg 05/04/21 03:19 Ketamine 500 Mg/5 Ml Mdv IM 05/04/21 03:20 ONETIME ONE - Re-Assessments/Exams Free Text/Narrative Re-Assessment/Exam: 05/04/21 03:27 there are not many options to treat Elmo's pain as he is already on a substantial amount of opiates with oxycodone 10 mg every 4 hours. He is intolerant to p.o. NSAIDs due to his gastric sleeve and states that he cannot do IM NSAIDs especially Toradol due to the same which does not necessarily make sense as its not taken orally, however, we did discuss that he is on a controlled substance agreement and that I would not be prescribing anything outside of the ED. 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 This leaves ketamine at 0.1 to 0.2 mg/kg IM for pain control. Onset is 15 to 20 minutes and the patient lives 3 [address] away so I think it would be worthwhile to give him an IM injection and discharge him home before the medication kicks in. I instructed him to follow-up with Dr. Ordoñez's office in the morning to discuss other treatment modalities. He is set up to see physical therapy on 06 May and may benefit from traction therapy. Departure - Departure Time of Disposition: :21 Disposition: Home, Self-Care 01 Clinical Impression: Chronic neck pain, Morbid obesity - Discharge Information Instructions: Chronic Back Pain, [id number] Referrals: PCP,None [Primary Care Provider] - Forms: ED Department Discharge Care Plan Goals: Follow-up in the morning with Dr. Ordoñez's office concerning your worsening neck pain and management of your symptoms. Do not drive after receiving the ketamine IM. Please note that you should ambulate as little as possible once receiving the ketamine as it does make you a fall risk and the onset of time from injection to symptoms is less than 10 minutes. Sepsis Event Note (ED) - Evaluation Sepsis Screening Result: No Definite Risk - Focused Exam Vital Signs: Vital Signs Temp Pulse Resp BP Pulse Ox 05/04/21 02:58 36.1 C 120 H 16 133/94 H 97 - Problem List & Annotations (1) Chronic neck pain SNOMED Code(s): 0761759527343 Code(s): M54.2 - CERVICALGIA; G89.29 - OTHER CHRONIC PAIN Status: Chronic Priority: Medium Current Visit: Yes - Problem List Review Problem List Initiated/Reviewed/Updated: Yes
[2021-05-04] MEDS ORDERED: Ketamine 500 MG/5 ML MDV IM ONE (03:19)
== END 2021-05-04 03:34 | disposition home or self-care (01) ==
LOC: JP.ED 02:14
DX: G89.29 Other chronic pain (principal); M54.2 Cervicalgia; I10 Essential (primary) hypertension; K21.9 Gastro-esophageal reflux disease without esophagitis; E03.9 Hypothyroidism, unspecified; E66.01 Morbid (severe) obesity due to excess calories; Z88.0 Allergy status to penicillin; Z91.048 Other nonmedicinal substance allergy status; Z88.4 Allergy status to anesthetic agent; Z88.8 Allergy status to other drugs, medicaments and biological substances; Z79.899 Other long term (current) drug therapy; Z68.41 Body mass index [BMI] 40.0-44.9, adult
CPT/HCPCS: 96372; 99283

== ENCOUNTER 2021-05-04 21:10 | Emergency (ER) | payer MEDICAID ==
--- NOTE | 2021-05-04 21:36 | EDM.PDOC ---
<Ubaldo Landis - Last Filed: 05/05/21 05:58> ED HPI GENERAL MEDICAL PROBLEM - General Chief Complaint: General Stated Complaint: MEDICAL [facility]IA [facility] Time Seen by Provider: 05/04/21 21:17 Source of Information: Reports: Patient, EMS History Limitations: Reports: No Limitations - History of Present Illness INITIAL COMMENTS - FREE TEXT/NARRATIVE: Is a 40-year-old male who presents to the ED via [facility] with complaint of dissociative dysfunction due to taking pregabalin today in addition to his oxycodone 10 mg every 4 hours. Patient has a history for chronic neck and low back pain and is on a pain contract with Dr. Ordoñez. He was seen last night and given ketamine to bridge him until he could contact her today for additional pain management. She apparently put him on pregabalin without modifying his oxycodone. He took 2 doses today and it has resulted in him having no ability to ambulate and he feels like his head is not connected to his body. Patient has varied loss of fine motor control of his upper extremities and is unable to lift his legs off the bed. I discussed the case with poison control who basically stated that there was no antidote for the pregabalin and that it probably should not have been administered along with the opiates as they do not tend to behave well together. She recommended that we observe the patient for 5 half-lives which is approximately 30 hours or until he is able to ambulate on his own again. We will have to be very careful about what medications we give him during this recovery phase which will make controlling his pain extremely difficult because he is intolerant to NSAIDs due to his gastric sleeve and has Lyrica on board which will cause problems with opiate pain medication. Patient is also very concerned that he will not be able to use a sleeping medicine tonight but will look for interaction with that in the drug compatibility software. - Related Data Allergies Allergy/AdvReac Type Severity Reaction Status Date / Time adhesive Allergy Burning Verified 05/04/21 22:11 Penicillins Allergy Pruritis Verified 05/04/21 22:11 propofol Allergy Bronchospas Verified 05/04/21 22:11 ms diclofenac AdvReac Dizziness, Verified 05/04/21 22:11 Nausea/Vomiting gabapentin AdvReac Shaking Verified 05/04/21 22:11 ibuprofen AdvReac Nausea & Verified 05/04/21 22:11 Vomiting, GI intolerance NSAIDS (Non-Steroidal AdvReac Nausea and Verified 05/04/21 22:11 Anti-Inflamma Vomiting zolpidem [From Ambien] AdvReac Sleep Verified 05/04/21 22:11 walking Dust Mite Extract Allergy Rhinitis, Uncoded 05/04/21 22:11 Cough Home Meds: Home Meds Levothyroxine 275 mcg PO ACBREAKFAST 07/24/17 [History] Eszopiclone 2 mg PO BEDTIME PRN 09/25/19 [History] Albuterol Sulfate [Albuterol Sulfate Hfa] 2 puff INH QID PRN 10/02/19 [History] Acetaminophen [Tylenol Extra Strength] 1,000 mg PO TID 12/09/19 [History] Nitroglycerin 0.4 mg SL [id number] PRN 04/09/20 [History] amLODIPine [Norvasc] 2.5 mg PO DAILY 04/09/20 [History] ALPRAZolam [Xanax] 1 mg PO QID PRN 06/10/20 [History] Sildenafil [Viagra] 50 mg PO BEDTIME PRN 06/10/20 [History] Triamcinolone Acetonide [Triamcinolone Acetonide 0.5%] 1 cm TOP BID PRN 06/10/20 [History] Ondansetron [Ondansetron ODT] 1 tab PO Q6H PRN 06/20/20 [History] Pantoprazole Sodium [Protonix] 40 mg PO DAILY 06/20/20 [History] Pregabalin 50 mg PO TID 08/04/20 [History] lamoTRIgine [Lamictal] 150 mg PO DAILY 08/04/20 [History] oxyCODONE HCl [Oxycodone HCl] 5 mg PO ASDIRECTED 05/05/21 [History] Past Medical History HEENT History: Reports: Impaired Vision Cardiovascular History: Reports: Hypertension, Other (See Below) Other Cardiovascular History: microvascular disease Respiratory History: Reports: Asthma, SOB Gastrointestinal History: Reports: Cholelithiasis, Diverticulosis, GERD, Other (See Below) Other Gastrointestinal History: barrets esphogeal, diverticulitis Genitourinary History: Reports: Other (See Below) Other Genitourinary History: cyst present in bladder Musculoskeletal History: Reports: Back Pain, Chronic, Neck Pain, Chronic, Other (See Below) Other Musculoskeletal History: right hip pain with labrum tear, right foot sprain. R foot pain Neurological History: Reports: Headaches, Chronic Psychiatric History: Reports: ADHD, Anxiety, Bipolar, Depression, Panic Attack, Psych Hospitalization(s), PTSD, Suicide Attempt, Suicidal Ideation Other Psychiatric History: bipolar 2 Endocrine/Metabolic History: Reports: Hypothyroidism, Obesity/BMI 30+ Hematologic History: Reports: None Immunologic History: Reports: None Oncologic (Cancer) History: Reports: Thyroid Other Oncologic History: pappulary with focal variant Dermatologic History: Reports: None - Infectious Disease History Infectious Disease History: Reports: Chicken Pox - Past Surgical History Head Surgeries/Procedures: Reports: None HEENT Surgical History: Reports: Oral Surgery Other HEENT Surgeries/Procedures: barretts esophagus surgery Cardiovascular Surgical History: Reports: Other (See Below) Other Cardiovascular Surgeries/Procedures: angiogram, wore a heart monitor Respiratory Surgical History: Reports: None GI Surgical History: Reports: Appendectomy, Cholecystectomy, Colon, Colonoscopy, EGD, Hernia Repair/Other Other GI Surgeries/Procedures: 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 COLON RESECTION Male Surgical History: Reports: None Endocrine Surgical History: Reports: Thyroidectomy, Other (See Below) Other Endocrine Surgeries/Procedures: 9 lymphnodes on left side removed Neurological Surgical History: Reports: Discectomy, Laminectomy Other Neurological Surgeries/Procedures: partial lami/discectomy near L4 Musculoskeletal Surgical History: Reports: Other (See Below) Other Musculoskeletal Surgeries/Procedures:: partial discectomy back. L ulnar nerve transposition 01/08/20. right hip scope 04/29/20 Oncologic Surgical History: Reports: Other (See Below) Other Oncologic Surgeries/Procedures: PT HAD THYROIDECTOMY Dermatological Surgical History: Reports: None Social & Family History - Family History Family Medical History: No Pertinent Family History HEENT: Reports: Impaired Vision Cardiac: Reports: Arrhythmia GI: Reports: Cirrhosis Psychiatric: Reports: Depression Oncologic: Reports: Cervix - Caffeine Use Caffeine Use: Reports: None - Living Situation & Occupation Living situation: Reports: with Significant Other Occupation: Employed (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 Amna, 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 The patient states that he feels like his head is not attached to his body anymore and he is not able to ambulate, lift his legs, or have any fine motor skills. They recommended avoiding opiates in the situation as it will exacerbate the pregabalin and prolong the recovery. They recommended observing the patient for 5 half-lives which is approximately 30 hours or if he is able to get up and ambulate as normal signifying recovery from this reaction. There is no antidote to the pregabalin. This was all discussed in detail with Elmo who is inquiring about getting his oxycodone and sleeping medicine. I did discuss with him that that was likely not can happen because of what poison control had recommended. I did offer him ketamine as a pain measure which he refused. He states the injection we gave him last night did nothing but make him sleep. 05/05/21 01:16 is to ask for pain medicine and I explained to him that with the Lyrica on board and his reaction that he is having to out with his oxycodone that is on board that the recommendation from poison control is that he should be observed but likely should not get additional opiates as this will exacerbate the reaction with Lyrica and clearance of Lyrica. This was explained to him in detail. I again offered him the ketamine that he received last night which he refused. 05/05/21 04:19 Elmo is getting frustrated because we have not been able to give any of his pain medication and he wants to leave AGAINST MEDICAL ADVICE. He tried to get out of bed and nearly fell on the floor 3 times because he is not able to coordinate and ambulate. We did talk him into getting back into bed. Elmo is made several statements that he wants to get off the opiates understanding that he is on the maximum amount of oxycodone he can possibly take a day. He is unable to take NSAIDs, has not tolerated gabapentin and now is not able to tolerate pregabalin severely limiting treatment options. He states that the ketamine just made him sleepy but did not do anything for his pain. I am certain at this time he is probably withdrawing from not getting his oxycodone for over 6 hours. As narcotics are contraindicated with Lyrica, an alternative would to be give him ketamine at 1 mg/kg IM which would come out to 128 mg which is 5 times the dose I gave him yesterday. This would be a much safer option although there are some risk even with ketamine but it should cause less [employer] SU[employer] depression then opiates. However, if it is not sufficient to get his pain under some semblance of control, then we will have to give him Dilaudid 1 mg to 2 mg IM and closely monitor his respirations. This is really a difficult situation with the Lyrica as it interacts with benzodiazepines and opiates and can result in severe [employer] SU[employer] depression or respiratory failure. 05/05/21 05:58 Elmo has continued to refuse the ketamine 128 mg IM. We will give him Dilaudid 1 mg IM and closely monitor him. Departure - Departure Disposition: Home, Self-Care 01 Clinical Impression: Medication adverse effect Qualifiers: Encounter type: initial encounter Qualified Code(s): T50.905A - Adverse effect of unspecified drugs, medicaments and biological substances, initial encounter - Discharge Information Referrals: PCP,None [Primary Care Provider] - Forms: ED Department Discharge Additional Instructions: Please follow-up with your primary care for further evaluation <OfficerSean - Last Filed: 05/05/21 17:09> ED ROS GENERAL - Review of Systems Review Of Systems: See Below Reason Not Obtained: See prior note for details Course - Vital Signs Last Recorded V/S: Last Vital Signs Temp 98.0 F 05/04/21 21:48 Pulse 90 05/05/21 12:15 Resp 11 L 05/05/21 12:15 BP 104/74 05/05/21 12:15 Pulse Ox 97 05/05/21 12:15 - Orders/Labs/Meds Orders: Active Orders 24 hr Category Date Time Status Peripheral IV Care [RC] . DIRECTED Care 05/05/21 08:05 Active Sodium Chloride 0.9% [Saline Flush] Med 05/05/21 08:05 Active 10 ml FLUSH ASDIRECTED PRN Peripheral IV Insertion Adult [OM.PC] Urgent Oth 05/05/21 08:05 Ordered Medication Orders Sodium Chloride (Sodium Chloride 0.9% 10 Ml Syringe) 10 ml FLUSH ASDIRECTED PRN PRN Reason: Keep Vein Open Last Admin: 05/05/21 09:00 Dose: 10 ml Documented by: NICOLE Meds: Medications Generic Name Dose Route Start Last Admin Trade Name Davis PRN Reason Stop Dose Admin Sodium Chloride 10 ml 05/05/21 08:05 05/05/21 09:00 Sodium Chloride 0.9% 10 Ml Syringe FLUSH 10 ml ASDIRECTED PRN Administration Keep Vein Open Discontinued Medications Generic Name Dose Route Start Last Admin Trade Name Davis PRN Reason Stop Dose Admin Hydromorphone HCl 1 mg 05/05/21 05:58 05/05/21 06:14 Hydromorphone 1 Mg/Ml Syringe IM 05/05/21 05:59 1 mg ONETIME ONE Administration Hydromorphone HCl 1 mg 05/05/21 08:05 05/05/21 09:00 Hydromorphone 1 Mg/Ml Syringe IVPUSH 05/05/21 08:06 1 mg ONETIME ONE Administration Hydromorphone HCl 0.5 mg 05/05/21 12:21 05/05/21 12:36 Hydromorphone 0.5 Mg/0.5 Ml Syringe IVPUSH 05/05/21 12:22 0.5 mg ONETIME ONE Administration Ketamine HCl 128 mg 05/05/21 04:28 05/05/21 07:06 Ketamine 500 Mg/5 Ml Mdv IM 05/05/21 04:29 Not Given ONETIME ONE Levothyroxine Sodium 275 mcg 05/05/21 05:01 05/05/21 07:49 Levothyroxine 112 Mcg Tab PO 05/05/21 05:02 275 mcg ONETIME ONE Administration - Re-Assessments/Exams Free Text/Narrative Re-Assessment/Exam: 05/05/21 08:32 Continues to complain of pain, he did have breakfast this morning attempted to evaluate his ability to sit stand and walk unfortunately he was unsteady sitting in bed. IV was placed he was given 1 mg Dilaudid instructed that he will have to wait until the Lyrica wears off before we see any improvement. Departure - Departure Time of Disposition: 17:08 Sepsis Event Note (ED) - Focused Exam Vital Signs: Vital Signs Pulse Resp BP Pulse Ox 05/05/21 12:15 90 11 L 104/74 97 05/05/21 10:15 98 12 123/63 93 L 05/05/21 08:45 96 24 H 136/75 95 05/05/21 07:45 84 18 104/61 97 05/05/21 06:45 78 112/67 - My Orders Last 24 Hours: My Active Orders 05/05/21 08:05 Peripheral IV Care [RC] . DIRECTED Sodium Chloride 0.9% [Saline Flush] 10 ml FLUSH ASDIRECTED PRN Peripheral IV Insertion Adult [OM.PC] Urgent - Assessment/Plan Last 24 Hours: My Active Orders 05/05/21 08:05 Peripheral IV Care [RC] . DIRECTED Sodium Chloride 0.9% [Saline Flush] 10 ml FLUSH ASDIRECTED PRN Peripheral IV Insertion Adult [OM.PC] Urgent Plan: Assessment Acuity = acute Site and laterality = adverse reaction to Lyrica Etiology = combination Lyrica oxycodone Manifestations = weakness difficulty ambulating now improved Location of injury = Home Lab values = none Plan He was able to demonstrate that he could walk he was able to get out of bed he is still somewhat unstable on his feet but he request to go home. He has become somewhat belligerent here in the emergency department he has had multiple altercations with the nursing staff remains to hit his call light multiple times he is also became aggressive with the tech because the meal that was brought him for him for dinner was very similar to the meal that he had for lunch. At this time we will discharge him to home he can follow-up with his primary care To continue on his pain contract This note was dictated using [employer] voice recognition software please call with any questions on syntax or grammar.
[2021-05-05] MEDS ORDERED: Ketamine 500 MG/5 ML MDV IM ONE (04:28)
[2021-05-05] MEDS ORDERED: Levothyroxine 112 MCG Tab PO ONE (05:01)
[2021-05-05] MEDS ORDERED: HYDROmorphone 1 MG/ML Syringe IM ONE (05:58)
[2021-05-05] MEDS ORDERED: Sodium Chloride 0.9% 10 ML Syringe FLUSH PRN (08:05)
[2021-05-05] MEDS ORDERED: HYDROmorphone 1 MG/ML Syringe IVPUSH ONE (08:05)
[2021-05-05] MEDS ORDERED: HYDROmorphone 0.5 MG/0.5 ML Syringe IVPUSH ONE (12:21)
== END 2021-05-05 17:30 | disposition home or self-care (01) ==
LOC: JP.ED 21:10
DX: M54.2 Cervicalgia (principal); M54.50 Low back pain, unspecified; T42.75XA Adverse effect of unspecified antiepileptic and sedative-hypnotic drugs, initial encounter; T40.2X5A Adverse effect of other opioids, initial encounter; I10 Essential (primary) hypertension; E03.9 Hypothyroidism, unspecified; K21.9 Gastro-esophageal reflux disease without esophagitis; E66.9 Obesity, unspecified; Z88.0 Allergy status to penicillin; Z88.4 Allergy status to anesthetic agent; Z88.8 Allergy status to other drugs, medicaments and biological substances; Z79.899 Other long term (current) drug therapy; Z68.41 Body mass index [BMI] 40.0-44.9, adult
CPT/HCPCS: 96372; 96374; 96376; 99284; A9270; J1170

== ENCOUNTER 2021-05-23 02:17 | Emergency (ER) | payer MEDICAID ==
[2021-05-23] MEDS ORDERED: Lidocaine 5% 700 MG Patch TRDERM ONE (02:44)
--- NOTE | 2021-05-23 02:44 | EDM.PDOC ---
ED HPI GENERAL MEDICAL PROBLEM - General Chief Complaint: Neck Problem Stated Complaint: DIZZY Time Seen by Provider: 05/23/21 02:25 Source of Information: Reports: Patient History Limitations: Reports: No Limitations - History of Present Illness INITIAL COMMENTS - FREE TEXT/NARRATIVE: 40-year-old male with chronic multiple somatic complaints, is already heavily medicated for chronic neck pain. Tonight he is in because when he stands up his neck hurts and he gets dizzy, he feels like he is going to pass out. This is been worked up multiple times and he has actually had some fairly significant polysubstance side effects causing more problems. He is not febrile, he did not initially have any other complaints until I told him that he just needs to continue his medications and he says he thinks he has "diverticulitis again". He did not mention abdominal pain until he realized it was not going to pursue his dizziness after his orthostatics were normal. Onset: Unknown/Unsure Associated Symptoms: Reports: Headaches, Malaise, Weakness. Denies: Fever/Chills Neck Pain Score (Numeric/FACES): 7 - Related Data Allergies Allergy/AdvReac Type Severity Reaction Status Date / Time adhesive Allergy Burning Verified 05/23/21 02:23 Penicillins Allergy Pruritis Verified 05/23/21 02:23 pregabalin Allergy Confusion Verified 05/23/21 02:36 propofol Allergy Bronchospas Verified 05/23/21 02:23 ms diclofenac AdvReac Dizziness, Verified 05/23/21 02:23 Nausea/Vomiting gabapentin AdvReac Shaking Verified 05/23/21 02:23 ibuprofen AdvReac Nausea & Verified 05/23/21 02:23 Vomiting, GI intolerance NSAIDS (Non-Steroidal AdvReac Nausea and Verified 05/23/21 02:23 Anti-Inflamma Vomiting zolpidem [From Ambien] AdvReac Sleep Verified 05/23/21 02:23 walking Dust Mite Extract Allergy Rhinitis, Uncoded 05/23/21 02:23 Cough Home Meds: Home Meds Levothyroxine 275 mcg PO ACBREAKFAST 07/24/17 [History] Albuterol Sulfate [Albuterol Sulfate Hfa] 2 puff INH QID PRN 10/02/19 [History] Acetaminophen [Tylenol Extra Strength] 1,000 mg PO TID 12/09/19 [History] Nitroglycerin 0.4 mg SL [id number] PRN 04/09/20 [History] amLODIPine [Norvasc] 2.5 mg PO DAILY 04/09/20 [History] ALPRAZolam [Xanax] 1 mg PO TID 06/10/20 [History] Sildenafil [Viagra] 50 mg PO BEDTIME PRN 06/10/20 [History] Triamcinolone Acetonide [Triamcinolone Acetonide 0.5%] 1 cm TOP BID PRN 06/10/20 [History] Ondansetron [Ondansetron ODT] 1 tab PO Q6H PRN 06/20/20 [History] Pantoprazole Sodium [Protonix] 40 mg PO DAILY 06/20/20 [History] lamoTRIgine [Lamictal] 150 mg PO DAILY 08/04/20 [History] HYDROmorphone [Dilaudid 1 MG/ML Soln] 3 ml PO Q3H PRN 05/23/21 [History] Sulfamethoxazole/Trimethoprim [Sulfamethoxazole-Tmp Susp] 1 dose PO ASDIRECTED 05/23/21 [History] Zolpidem Tartrate 1 tab PO BEDTIME 05/23/21 [History] Past Medical History HEENT History: Reports: Impaired Vision Cardiovascular History: Reports: Hypertension, Other (See Below) Other Cardiovascular History: microvascular disease Respiratory History: Reports: Asthma, SOB Gastrointestinal History: Reports: Cholelithiasis, Diverticulosis, GERD, Other (See Below) Other Gastrointestinal History: barrets esphogeal, diverticulitis Genitourinary History: Reports: Other (See Below) Other Genitourinary History: cyst present in bladder Musculoskeletal History: Reports: Back Pain, Chronic, Neck Pain, Chronic, Other (See Below) Other Musculoskeletal History: right hip pain with labrum tear, right foot sprain. R foot pain Neurological History: Reports: Headaches, Chronic Psychiatric History: Reports: ADHD, Anxiety, Bipolar, Depression, Panic Attack, Psych Hospitalization(s), PTSD, Suicide Attempt, Suicidal Ideation Other Psychiatric History: bipolar 2 Endocrine/Metabolic History: Reports: Hypothyroidism, Obesity/BMI 30+ Hematologic History: Reports: None Immunologic History: Reports: None Oncologic (Cancer) History: Reports: Thyroid Other Oncologic History: pappulary with focal variant Dermatologic History: Reports: None - Infectious Disease History Infectious Disease History: Reports: Chicken Pox - Past Surgical History Head Surgeries/Procedures: Reports: None HEENT Surgical History: Reports: Oral Surgery Other HEENT Surgeries/Procedures: barretts esophagus surgery Cardiovascular Surgical History: Reports: Other (See Below) Other Cardiovascular Surgeries/Procedures: angiogram, wore a heart monitor Respiratory Surgical History: Reports: None GI Surgical History: Reports: Appendectomy, Cholecystectomy, Colon, Colonoscopy, EGD, Hernia Repair/Other Other GI Surgeries/Procedures: 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 COLON RESECTION Male Surgical History: Reports: None Endocrine Surgical History: Reports: Thyroidectomy, Other (See Below) Other Endocrine Surgeries/Procedures: 9 lymphnodes on left side removed Neurological Surgical History: Reports: Discectomy, Laminectomy Other Neurological Surgeries/Procedures: partial lami/discectomy near L4 Musculoskeletal Surgical History: Reports: Other (See Below) Other Musculoskeletal Surgeries/Procedures:: partial discectomy back. L ulnar nerve transposition 01/08/20. 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[employer]) ED ROS GENERAL - Review of Systems Review Of Systems: See Below Constitutional: Denies: Fever, Chills HEENT: Denies: Throat Pain Respiratory: Denies: Shortness of Breath GI/Abdominal: Reports: Abdominal Pain : Reports: No Symptoms Musculoskeletal: Reports: Neck Pain Neurological: Reports: Dizziness, Headache, Weakness ED EXAM, GENERAL - Physical Exam Exam: See Below Exam Limited By: No Limitations General Appearance: Alert, No Apparent Distress Eye Exam: Bilateral Eye: Normal Inspection, PERRL Respiratory/Chest: No Respiratory Distress, Lungs Clear Cardiovascular: Regular Rate, Rhythm GI/Abdominal: Normal Bowel Sounds, Soft, Tender (Reacts with some tenderness to palpation over the epigastric area along the left abdomen and left lower abdomen but no guarding) Neurological: Alert, Oriented Psychiatric: Flat Affect Skin Exam: Warm, Dry Course - Vital Signs Last Recorded V/S: Last Vital Signs Temp 97.5 F 05/23/21 02:36 Pulse 133 H 05/23/21 02:40 Resp 18 05/23/21 02:40 BP 129/60 05/23/21 02:40 Pulse Ox 97 05/23/21 02:40 - Orders/Labs/Meds Meds: Medications Discontinued Medications Generic Name Dose Route Start Last Admin Trade Name Dvais PRN Reason Stop Dose Admin Lidocaine 700 mg 05/23/21 02:44 05/23/21 03:01 Lidocaine 5% 700 Mg Patch TRDERM 05/23/21 02:45 700 mg ONETIME ONE Administration - Re-Assessments/Exams Free Text/Narrative Re-Assessment/Exam: 05/23/21 02:41 This patient gets multiple extensive work-ups for symptoms which are almost universally negative. He is overtreated and overmedicated and I told him I do not want to add to any more problems with more medications and more testing. I asked him to use a heating pad to his neck, he said that "made it worse" so I asked him to use ice. Topical lidocaine patches may be worthwhile. 05/23/21 02:43 When the patient understood that I was not going to work-up his dizziness, he complained of some abdominal pain and I reassured him that he is afebrile and his exam is not consistent with diverticulitis. He then said he has headache is real bad and he is maxed out on all his medications, he did not comment on headache or abdominal pain when he first came in. A lidocaine patch will be placed to the patient's neck and he can return as needed. Departure - Departure Time of Disposition: 03:14 Disposition: Home, Self-Care 01 Clinical Impression: Chronic neck pain, Dizziness Headache Qualifiers: Headache type: unspecified Headache chronicity pattern: episodic headache Intractability: not intractable Qualified Code(s): R51.9 - Headache, unspecified - Discharge Information Instructions: Dizziness, [id number] Referrals: PCP,None [Primary Care Provider] - Forms: ED Department Discharge Care Plan Goals: Continue your current medications, let the lidocaine patch work for the next 24 hours and recheck on Monday if not improving satisfactorily. Sepsis Event Note (ED) - Evaluation Sepsis Screening Result: No Definite Risk
== END 2021-05-23 03:15 | disposition home or self-care (01) ==
LOC: JP.ED 02:17
DX: G89.29 Other chronic pain (principal); M54.2 Cervicalgia; R51.9 Headache, unspecified; R42 Dizziness and giddiness; I10 Essential (primary) hypertension; J45.909 Unspecified asthma, uncomplicated; K21.9 Gastro-esophageal reflux disease without esophagitis; E03.9 Hypothyroidism, unspecified; E66.9 Obesity, unspecified; Z68.41 Body mass index [BMI] 40.0-44.9, adult; Z91.048 Other nonmedicinal substance allergy status; Z88.0 Allergy status to penicillin; Z88.8 Allergy status to other drugs, medicaments and biological substances; Z88.4 Allergy status to anesthetic agent; Z88.6 Allergy status to analgesic agent; Z79.899 Other long term (current) drug therapy
CPT/HCPCS: 99283; A9270

== ENCOUNTER 2021-05-23 04:13 | Emergency (ER) | payer MEDICAID ==
--- NOTE | 2021-05-23 04:53 | EDM.PDOC ---
ED HPI GENERAL MEDICAL PROBLEM - General Chief Complaint: Neck Problem Stated Complaint: [facility] Time Seen by Provider: 05/23/21 04:35 Source of Information: Reports: Patient, EMS History Limitations: Reports: No Limitations - History of Present Illness INITIAL COMMENTS - FREE TEXT/NARRATIVE: 40-year-old male who was evaluated earlier in the emergency room with normal vitals, ambulating normally and was reassured that his chronic symptoms do not need to be evaluated at this time went home and called the ambulance and was brought right back in again. He now says that when he turns his head to the left he "blacks out". He has numbness in his left face, dizzy when he stands and is starting to get agitated because we are "not doing anything for him". This is a repetitive pattern of behavior for this patient over the last 3 years. He also says his diverticulitis is flaring up. He also claims that when he left he could barely walk which is not true, he left through the emergency room and out the waiting room to go outside completely stable, upright, without any apparent weakness or instability. He did not tell EMS he was just in the emergency room. The lidocaine patch we applied 1 hour ago and taped on he says "fell off". Onset: Unknown/Unsure Associated Symptoms: Reports: Headaches, Malaise, Weakness, Other (Migrating paresthesias of the lower extremities, face, neck and chest) Neck Pain Score (Numeric/FACES): 8 - Related Data Allergies Allergy/AdvReac Type Severity Reaction Status Date / Time adhesive Allergy Burning Verified 05/23/21 02:23 Penicillins Allergy Pruritis Verified 05/23/21 02:23 pregabalin Allergy Confusion Verified 05/23/21 02:36 propofol Allergy Bronchospas Verified 05/23/21 02:23 ms diclofenac AdvReac Dizziness, Verified 05/23/21 02:23 Nausea/Vomiting gabapentin AdvReac Shaking Verified 05/23/21 02:23 ibuprofen AdvReac Nausea & Verified 05/23/21 02:23 Vomiting, GI intolerance NSAIDS (Non-Steroidal AdvReac Nausea and Verified 05/23/21 02:23 Anti-Inflamma Vomiting zolpidem [From Ambien] AdvReac Sleep Verified 05/23/21 02:23 walking Dust Mite Extract Allergy Rhinitis, Uncoded 05/23/21 02:23 Cough Home Meds: Home Meds Levothyroxine 275 mcg PO ACBREAKFAST 07/24/17 [History] Albuterol Sulfate [Albuterol Sulfate Hfa] 2 puff INH QID PRN 10/02/19 [History] Acetaminophen [Tylenol Extra Strength] 1,000 mg PO TID 12/09/19 [History] Nitroglycerin 0.4 mg SL [id number] PRN 04/09/20 [History] amLODIPine [Norvasc] 2.5 mg PO DAILY 04/09/20 [History] ALPRAZolam [Xanax] 1 mg PO TID 06/10/20 [History] Sildenafil [Viagra] 50 mg PO BEDTIME PRN 06/10/20 [History] Triamcinolone Acetonide [Triamcinolone Acetonide 0.5%] 1 cm TOP BID PRN 06/10/20 [History] Ondansetron [Ondansetron ODT] 1 tab PO Q6H PRN 06/20/20 [History] Pantoprazole Sodium [Protonix] 40 mg PO DAILY 06/20/20 [History] lamoTRIgine [Lamictal] 150 mg PO DAILY 08/04/20 [History] HYDROmorphone [Dilaudid 1 MG/ML Soln] 3 ml PO Q3H PRN 05/23/21 [History] Sulfamethoxazole/Trimethoprim [Sulfamethoxazole-Tmp Susp] 1 dose PO ASDIRECTED 05/23/21 [History] Zolpidem Tartrate 1 tab PO BEDTIME 05/23/21 [History] Past Medical History HEENT History: Reports: Impaired Vision Cardiovascular History: Reports: Hypertension, Other (See Below) Other Cardiovascular History: microvascular disease Respiratory History: Reports: Asthma, SOB Gastrointestinal History: Reports: Cholelithiasis, Diverticulosis, GERD, Other (See Below) Other Gastrointestinal History: barrets esphogeal, diverticulitis Genitourinary History: Reports: Other (See Below) Other Genitourinary History: cyst present in bladder Musculoskeletal History: Reports: Back Pain, Chronic, Neck Pain, Chronic, Other (See Below) Other Musculoskeletal History: right hip pain with labrum tear, right foot sprain. R foot pain Neurological History: Reports: Headaches, Chronic Psychiatric History: Reports: ADHD, Anxiety, Bipolar, Depression, Panic Attack, Psych Hospitalization(s), PTSD, Suicide Attempt, Suicidal Ideation Other Psychiatric History: bipolar 2 Endocrine/Metabolic History: Reports: Hypothyroidism, Obesity/BMI 30+ Hematologic History: Reports: None Immunologic History: Reports: None Oncologic (Cancer) History: Reports: Thyroid Other Oncologic History: pappulary with focal variant Dermatologic History: Reports: None - Infectious Disease History Infectious Disease History: Reports: Chicken Pox - Past Surgical History Head Surgeries/Procedures: Reports: None HEENT Surgical History: Reports: Oral Surgery Other HEENT Surgeries/Procedures: barretts esophagus surgery Cardiovascular Surgical History: Reports: Other (See Below) Other Cardiovascular Surgeries/Procedures: angiogram, wore a heart monitor Respiratory Surgical History: Reports: None GI Surgical History: Reports: Appendectomy, Cholecystectomy, Colon, Colonoscopy, EGD, Hernia Repair/Other Other GI Surgeries/Procedures: 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 COLON RESECTION Male Surgical History: Reports: None Endocrine Surgical History: Reports: Thyroidectomy, Other (See Below) Other Endocrine Surgeries/Procedures: 9 lymphnodes on left side removed Neurological Surgical History: Reports: Discectomy, Laminectomy Other Neurological Surgeries/Procedures: partial lami/discectomy near L4 Musculoskeletal Surgical History: Reports: Other (See Below) Other Musculoskeletal Surgeries/Procedures:: partial discectomy back. L ulnar n erve transposition 01/08/20. 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 Denies: Fever, Chills HEENT: Reports: Vision Change (Occasional blurry vision, his vision goes out when he turns his head) Respiratory: Reports: Shortness of Breath (Intermittent) GI/Abdominal: Reports: Nausea. Denies: Vomiting : Reports: Other (Claims he recently had "glucose in his urine" but nobody is doing anything about that) Neurological: Reports: Confusion, Dizziness, Headache, Paresthesia, Syncope, Difficulty Walking ED EXAM, GENERAL - Physical Exam Exam: See Below Exam Limited By: No Limitations General Appearance: Alert, No Apparent Distress Eye Exam: Bilateral Eye: Normal Inspection, PERRL Ears: Normal TMs Head: Atraumatic Respiratory/Chest: No Respiratory Distress, Lungs Clear Cardiovascular: Regular Rate, Rhythm Neurological: Alert, Oriented, Other (Neurologic exam is extremely difficult because of patient is not cooperating) Skin Exam: Warm, Dry Course - Vital Signs Last Recorded V/S: Last Vital Signs Temp 98.4 F 05/23/21 04:41 Pulse 106 H 05/23/21 04:41 Resp 16 05/23/21 04:41 BP 124/84 05/23/21 04:41 Pulse Ox 97 05/23/21 04:41 - Orders/Labs/Meds Labs: Laboratory Tests 05/23/21 05/23/21 Range/Units 04:10 04:10 WBC 10.8 (4.5-11.0) K/uL RBC 4.87 (4.30-5.90) M/uL Hgb 15.6 H D (12.0-15.0) g/dL Hct 44.8 (40.0-54.0) % MCV 92 (80-98) fL MCH 32 H (27-31) pg MCHC 35 (32-36) % Plt Count 297 (150-400) K/uL Neut % (Auto) 66.4 H (36-66) % Lymph % (Auto) 23.0 L (24-44) % [place]iaferro % (Auto) 8.3 H (2-6) % Eos % (Auto) 2.0 (2-4) % Baso % (Auto) 0.3 (0-1) % ESR 23 H (0-20) mm/hr Sodium 146 (140-148) mmol/L Potassium 4.3 (3.6-5.2) mmol/L Chloride 108 (100-108) mmol/L Carbon Dioxide 26 (21-32) mmol/L Anion Gap 12.0 (5.0-14.0) mmol/L BUN 8 (7-18) mg/dL Creatinine 1.0 (0.8-1.3) mg/dL Est Cr Clr Drug Dosing 105.63 mL/min Estimated GFR (MDRD) > 60 (>60) Glucose 105 (74-106) mg/dL Calcium 8.5 (8.5-10.1) mg/dL Total Bilirubin 0.4 D (0.2-1.0) mg/dL AST 14 L (15-37) U/L ALT 39 (12-78) U/L Alkaline Phosphatase 63 (46-116) U/L C-Reactive Protein 0.41 H (0.0-0.3) mg/dL Total Protein 6.8 (6.4-8.2) g/dL Albumin 3.5 (3.4-5.0) g/dL Globulin 3.3 (2.3-3.5) g/dL Albumin/Globulin Ratio 1.1 L (1.2-2.2) - Re-Assessments/Exams Free Text/Narrative Re-Assessment/Exam: 05/23/21 04:52 CBC, CMP, sed rate and CRP were obtained. 05/23/21 05:12 I explained to the patient that we are going to draw some labs to look for inflammatory markers of diverticulitis, vasculitis or neuritis. Within 10 minutes he started complaining that his right leg was burning and if he laid on his left side his whole left side was on fire. He needed something for pain. I explained to him that he has pain medication at home but he said "it is not working". I am concerned that he may have taken all of his pain medication, I did a [employer] search and he should have plenty of Dilaudid. I offered him Toradol but he said he cannot take that because he had a gastric sleeve, I told him I would give him IM Toradol and not oral Toradol but then he said he is horribly allergic to it. It has "never worked for him anyway". I am simply not can pro vide this patient with narcotics. If his labs indicate any inflammatory changes such as an elevated white count, elevated CRP or sed rate I would consider a short course of steroid or even imaging his abdomen to check for diverticulitis. 05/23/21 05:15 When pain medication was not supplied, patient became angry and insisted on leaving. He was told that he should wait for his labs to return so we could finish his work-up but he said he "could not lay here in pain". I believe he is going to sign out AMA. 05/23/21 05:39 Patient refused to sign AMA and wanted to wait for labs. These returned r aldensugavin with a normal white count, CRP 0.4 and sed rate of 23, his entire chemistry profile otherwise normal. I encouraged him to continue his regular medications and follow-up as scheduled. Departure - Departure Time of Disposition: 05:48 Disposition: Home, Self-Care 01 Clinical Impression: Chronic pain Qualifiers: Chronic pain type: chronic pain syndrome Qualified Code(s): G89.4 - Chronic pain syndrome - Discharge Information Instructions: Chronic Pain, Adult Referrals: PCP,None [Primary Care Provider] - Forms: ED Department Discharge Care Plan Goals: Continue to take your regular medications as prescribed. Increase activity as tolerated and follow-up with your primary providers as scheduled. Sepsis Event Note (ED) - Evaluation Sepsis Screening Result: No Definite Risk
== END 2021-05-23 05:52 | disposition home or self-care (01) ==
LOC: JP.ED 04:13
DX: G89.4 Chronic pain syndrome (principal); M54.2 Cervicalgia; I10 Essential (primary) hypertension; J45.909 Unspecified asthma, uncomplicated; K21.9 Gastro-esophageal reflux disease without esophagitis; E03.9 Hypothyroidism, unspecified; E66.9 Obesity, unspecified; Z68.41 Body mass index [BMI] 40.0-44.9, adult; Z91.048 Other nonmedicinal substance allergy status; Z88.0 Allergy status to penicillin; Z88.8 Allergy status to other drugs, medicaments and biological substances; Z88.4 Allergy status to anesthetic agent; Z88.6 Allergy status to analgesic agent; Z79.899 Other long term (current) drug therapy
CPT/HCPCS: 36415; 80053; 85025; 85651; 86140; 99284

== ENCOUNTER 2021-08-18 06:48 | Emergency (ER) | payer BC, MEDICAID ==
[2021-08-18] MEDS ORDERED: Sodium Chloride 0.9% 10 ML Syringe FLUSH PRN (07:33)
[2021-08-18] MEDS ORDERED: cefTRIAXone 1 GM in Sodium Chloride 0.9% 50 ML IV ONE (07:35)
[2021-08-18] MEDS ORDERED: metroNIDAZOLE/Normal Saline 500 MG in Premix Bag 1 BAG IV ONE (07:36)
[2021-08-18] MEDS ORDERED: diphenhydrAMINE 50 MG/ML SDV IVPUSH ONE (07:36)
[2021-08-18] MEDS ORDERED: fentaNYL 100 MCG/2 ML SDV IVPUSH ONE (07:37)
[2021-08-18] MEDS ORDERED: Sodium Chloride 0.9% 75 ML IV SCH (07:45)
[2021-08-18] MEDS ORDERED: Iopamidol 612 MG/ML 100 ML Bottle IV ONE (07:45)
[2021-08-18] MEDS ORDERED: oxyCODONE 5 MG Tab PO ONE (08:47)
== END 2021-08-18 10:26 | disposition home or self-care (01) ==
LOC: JP.ED 06:48
DX: K04.7 Periapical abscess without sinus (principal); I10 Essential (primary) hypertension; J45.909 Unspecified asthma, uncomplicated; E03.9 Hypothyroidism, unspecified; E66.9 Obesity, unspecified; Z68.41 Body mass index [BMI] 40.0-44.9, adult; Z88.0 Allergy status to penicillin; Z91.048 Other nonmedicinal substance allergy status; Z88.4 Allergy status to anesthetic agent; Z88.5 Allergy status to narcotic agent; Z79.899 Other long term (current) drug therapy
CPT/HCPCS: 36415; 70491; 80048; 85025; 86140; 87070; 87075; 87077; 87205; 96365; 96367; 96375; 99284; A9270; J0696; J1200; J3010; J3490; Q9967

== ENCOUNTER 2021-10-07 13:16 | Emergency (ER) | payer MEDICAID | END 2021-10-07 15:38 | disposition home or self-care (01) | LOC: JP.ED 13:16 | DX: K52.9 Noninfective gastroenteritis and colitis, unspecified (principal); I10 Essential (primary) hypertension; E03.9 Hypothyroidism, unspecified; K21.9 Gastro-esophageal reflux disease without esophagitis; E66.9 Obesity, unspecified; Z68.41 Body mass index [BMI] 40.0-44.9, adult; Z88.0 Allergy status to penicillin; Z88.4 Allergy status to anesthetic agent; Z91.040 Latex allergy status; Z88.8 Allergy status to other drugs, medicaments and biological substances; Z79.899 Other long term (current) drug therapy; Z91.048 Other nonmedicinal substance allergy status; Z87.891 Personal history of nicotine dependence | CPT/HCPCS: 36415; 80053; 83690; 85025; 99282; 99284 ==

== ENCOUNTER 2022-04-19 14:51 | Emergency (ER) | payer MEDICAID ==
[2022-04-19] MEDS ORDERED: HYDROmorphone 1 MG/ML Syringe IM ONE (16:15)
== END 2022-04-19 17:32 | disposition home or self-care (01) ==
LOC: JP.ED 14:51
DX: R13.10 Dysphagia, unspecified (principal); I10 Essential (primary) hypertension; E03.9 Hypothyroidism, unspecified; E66.9 Obesity, unspecified; Z68.41 Body mass index [BMI] 40.0-44.9, adult; Z79.899 Other long term (current) drug therapy; Z88.0 Allergy status to penicillin; Z91.048 Other nonmedicinal substance allergy status; Z88.8 Allergy status to other drugs, medicaments and biological substances; Z87.891 Personal history of nicotine dependence
CPT/HCPCS: 96372; 99283; J1170

== ENCOUNTER 2022-04-20 09:20 | Emergency (ER) | payer MEDICAID ==
[2022-04-20] MEDS ORDERED: LORazepam 2 MG/ML SDV IM ONE (09:52)
[2022-04-20] MEDS ORDERED: HYDROmorphone 1 MG/ML Syringe IM ONE (09:52)
[2022-04-20] MEDS ORDERED: Ondansetron 4 MG/2 ML SDV IVPUSH ONE (10:55)
== END 2022-04-20 11:15 ==
LOC: JP.ED 09:20
DX: R13.10 Dysphagia, unspecified (principal); J45.909 Unspecified asthma, uncomplicated; I10 Essential (primary) hypertension; E66.9 Obesity, unspecified; Z68.41 Body mass index [BMI] 40.0-44.9, adult; Z91.048 Other nonmedicinal substance allergy status; Z88.1 Allergy status to other antibiotic agents; Z88.0 Allergy status to penicillin; Z88.8 Allergy status to other drugs, medicaments and biological substances; Z88.6 Allergy status to analgesic agent; Z79.899 Other long term (current) drug therapy; Z90.49 Acquired absence of other specified parts of digestive tract
CPT/HCPCS: 96372; 99285; J1170; J2060; J2405

== ENCOUNTER 2022-05-08 18:16 | Emergency (ER) | payer MEDICAID ==
[2022-05-08 19:15] LABS: ESTIMATED GFR 111 mL/min (>60)
== END 2022-05-08 19:38 | disposition home or self-care (01) ==
LOC: JP.ED 18:16
DX: R53.1 Weakness (principal); T40.2X5A Adverse effect of other opioids, initial encounter; T42.6X5A Adverse effect of other antiepileptic and sedative-hypnotic drugs, initial encounter; T42.4X5A Adverse effect of benzodiazepines, initial encounter; I10 Essential (primary) hypertension; J45.909 Unspecified asthma, uncomplicated; E03.9 Hypothyroidism, unspecified; E66.9 Obesity, unspecified; Z88.6 Allergy status to analgesic agent; Z88.5 Allergy status to narcotic agent; Z88.8 Allergy status to other drugs, medicaments and biological substances; Z91.048 Other nonmedicinal substance allergy status; Z88.0 Allergy status to penicillin; Z88.4 Allergy status to anesthetic agent; Z79.899 Other long term (current) drug therapy
CPT/HCPCS: 36415; 80048; 85025; 99285

== ENCOUNTER 2022-06-14 18:37 | Emergency (ER) | payer MEDICAID ==
[2022-06-14 20:30] LABS: CORONAVIRUS COVID-19 NAA NEGATIVE (NEGATIVE)
== END 2022-06-14 20:53 | disposition home or self-care (01) ==
LOC: JP.ED 18:37
DX: R10.84 Generalized abdominal pain (principal); R10.32 Left lower quadrant pain; R19.7 Diarrhea, unspecified; R11.2 Nausea with vomiting, unspecified; I10 Essential (primary) hypertension; K21.9 Gastro-esophageal reflux disease without esophagitis; E03.9 Hypothyroidism, unspecified; E66.9 Obesity, unspecified; Z20.822 Contact with and (suspected) exposure to COVID-19; Z88.4 Allergy status to anesthetic agent; Z88.6 Allergy status to analgesic agent; Z88.8 Allergy status to other drugs, medicaments and biological substances; Z79.899 Other long term (current) drug therapy; Z68.41 Body mass index [BMI] 40.0-44.9, adult
CPT/HCPCS: 0241U; 36415; 80048; 85025; 86140; 99284

== ENCOUNTER 2022-06-15 17:12 | Emergency (ER) | payer MEDICAID ==
[2022-06-15] MEDS ORDERED: Sodium Chloride 0.9% 10 ML Syringe FLUSH PRN (18:30)
[2022-06-15] MEDS ORDERED: Iopamidol 612 MG/ML 100 ML Bottle IV SCH (18:45)
[2022-06-15] MEDS ORDERED: Sodium Chloride 0.9% 75 ML IV SCH (18:45)
[2022-06-15 19:32] LABS: ESTIMATED GFR 111 mL/min (>60)
[2022-06-15] MEDS ORDERED: Potassium Chloride 20 MEQ Tab.ER PO ONE (19:39)
[2022-06-15] MEDS ORDERED: HYDROmorphone 0.5 MG/0.5 ML Syringe IM ONE (19:56)
[2022-06-15] MEDS ORDERED: metroNIDAZOLE 250 MG Tab PO ONE (20:24)
[2022-06-15] MEDS ORDERED: Ciprofloxacin 500 MG Tab PO ONE (20:24)
== END 2022-06-15 20:52 | disposition home or self-care (01) ==
LOC: JP.ED 17:12
DX: K57.32 Diverticulitis of large intestine without perforation or abscess without bleeding (principal); I10 Essential (primary) hypertension; J45.909 Unspecified asthma, uncomplicated; K21.9 Gastro-esophageal reflux disease without esophagitis; E03.9 Hypothyroidism, unspecified; E66.9 Obesity, unspecified; Z68.41 Body mass index [BMI] 40.0-44.9, adult; Z87.891 Personal history of nicotine dependence; Z88.8 Allergy status to other drugs, medicaments and biological substances; Z88.4 Allergy status to anesthetic agent; Z88.6 Allergy status to analgesic agent; Z88.5 Allergy status to narcotic agent; Z91.048 Other nonmedicinal substance allergy status; Z88.1 Allergy status to other antibiotic agents; Z88.0 Allergy status to penicillin; Z79.899 Other long term (current) drug therapy
CPT/HCPCS: 36415; 74177; 80053; 85025; 86140; 96372; 99284; A9270; J1170; J3490; Q9967

== ENCOUNTER 2022-09-19 20:04 | Emergency (ER) | payer OTHER, MEDICAID ==
[2022-09-19] MEDS ORDERED: HYDROmorphone 1 MG/ML Syringe IVPUSH ONE (20:31)
[2022-09-19] MEDS ORDERED: Iopamidol 612 MG/ML 200 ML Bottle IV SCH (20:45)
[2022-09-19] MEDS ORDERED: Sodium Chloride 0.9% 50 ML IV SCH (20:45)
[2022-09-19] MEDS ORDERED: Acetaminophen 325 MG Tab PO ONE (21:32)
== END 2022-09-19 21:56 | disposition left against medical advice (07) ==
LOC: JP.ED 20:04
DX: M54.2 Cervicalgia (principal); M54.6 Pain in thoracic spine; M54.50 Low back pain, unspecified; Z76.5 Malingerer [conscious simulation]; R20.2 Paresthesia of skin; I10 Essential (primary) hypertension; K21.9 Gastro-esophageal reflux disease without esophagitis; J45.909 Unspecified asthma, uncomplicated; E66.9 Obesity, unspecified; Z68.41 Body mass index [BMI] 40.0-44.9, adult; Z91.048 Other nonmedicinal substance allergy status; Z88.1 Allergy status to other antibiotic agents; Z88.0 Allergy status to penicillin; Z88.8 Allergy status to other drugs, medicaments and biological substances; Z88.4 Allergy status to anesthetic agent; Z88.6 Allergy status to analgesic agent; Z88.5 Allergy status to narcotic agent; Z79.899 Other long term (current) drug therapy
CPT/HCPCS: 36415; 70450; 72125; 72128; 74177; 76377; 80048; 96374; 99284; J1170; J3490; Q9967

== ENCOUNTER 2022-11-01 11:41 | Emergency (ER) | payer MEDICAID | END 2022-11-01 12:28 | disposition left against medical advice (07) | LOC: JP.ED 11:41 | DX: Z53.21 Procedure and treatment not carried out due to patient leaving prior to being seen by health care provider (principal) ==

== ENCOUNTER 2022-11-01 15:44 | Emergency (ER) | payer MEDICAID | END 2022-11-01 16:51 | disposition left against medical advice (07) | LOC: JP.ED 15:44 | DX: Z53.21 Procedure and treatment not carried out due to patient leaving prior to being seen by health care provider (principal) ==

== ENCOUNTER 2022-11-01 18:07 | Emergency (ER) | payer MEDICAID ==
[2022-11-01 19:12] LABS: ESTIMATED GFR 111 mL/min (>60)
[2022-11-01] MEDS ORDERED: Ondansetron 4 MG/2 ML SDV IVPUSH ONE (19:19)
[2022-11-01] MEDS ORDERED: Sodium Chloride 0.9% 50 ML IV SCH (19:30)
[2022-11-01] MEDS ORDERED: Iopamidol 612 MG/ML 150 ML Bottle IV SCH (19:30)
== END 2022-11-01 21:02 | disposition home or self-care (01) ==
LOC: JP.ED 18:07
DX: K52.9 Noninfective gastroenteritis and colitis, unspecified (principal); I10 Essential (primary) hypertension; E66.9 Obesity, unspecified; Z68.41 Body mass index [BMI] 40.0-44.9, adult; Z88.0 Allergy status to penicillin; Z88.1 Allergy status to other antibiotic agents; Z91.048 Other nonmedicinal substance allergy status; Z88.4 Allergy status to anesthetic agent; Z88.6 Allergy status to analgesic agent; Z79.899 Other long term (current) drug therapy; Z90.49 Acquired absence of other specified parts of digestive tract; Z87.891 Personal history of nicotine dependence
CPT/HCPCS: 36415; 74177; 80053; 83690; 85025; 86140; 96374; 99285; J2405; J3490; Q9967

== ENCOUNTER 2022-12-25 04:27 | Emergency (ER) | payer MEDICAID | END 2022-12-25 07:10 | disposition home or self-care (01) | LOC: JP.ED 04:27 | DX: Z76.5 Malingerer [conscious simulation] (principal); F31.9 Bipolar disorder, unspecified; M54.2 Cervicalgia; G89.29 Other chronic pain; I10 Essential (primary) hypertension; J45.909 Unspecified asthma, uncomplicated; K21.9 Gastro-esophageal reflux disease without esophagitis; E66.9 Obesity, unspecified; Z91.048 Other nonmedicinal substance allergy status; Z88.0 Allergy status to penicillin; Z88.4 Allergy status to anesthetic agent; Z79.899 Other long term (current) drug therapy; Z86.73 Personal history of transient ischemic attack (TIA), and cerebral infarction without residual deficits; Z68.41 Body mass index [BMI] 40.0-44.9, adult | CPT/HCPCS: 72125; 76377; 99284; A9270 ==

== ENCOUNTER 2023-02-14 17:30 | Emergency (ER) | payer MEDICAID ==
[2023-02-14 18:35] LABS: BASOPHILS ABSOLUTE AUTO 0.07 K/uL (0.00-0.10); BASOPHILS PERCENT AUTO 0.6 % (0.1-1.3); EOSINOPHILS ABSOLUTE AUTO 0.12 K/uL (0.00-0.40); HEMATOCRIT 39.3 % (38.4-49.7); HEMOGLOBIN 14.5 g/dL (12.9-16.9); IMMATURE GRAN ABSOLUTE AUTO 0.03 K/uL (0.00-0.23); IMMATURE GRAN PERCENT AUTO 0.3 % (0.0-0.7); LYMPHOCYTES ABSOLUTE AUTO 2.42 K/uL (0.8-3.3); LYMPHOCYTES PERCENT AUTO 20.3 % (11.4-47.7); MEAN CORPUSCULAR HEMOGLOBIN 33.1 pg (31.6-35.5); MEAN CORPUSCULAR HGB CONC 36.9 g/dL (31.6-35.5); MEAN CORPUSCULAR VOLUME 89.7 fL (81.4-99.0); MONOCYTES ABSOLUTE AUTO 0.93 K/uL (0.20-0.90); MONOCYTES PERCENT AUTO 7.8 % (3.3-12.6); NEUTROPHILS ABSOLUTE AUTO 8.37 K/uL (1.0-7.6); PLATELET COUNT,PLT 330 K/uL (130-375); RED BLOOD CELL COUNT 4.38 M/uL (4.14-5.76); WHITE BLOOD CELL COUNT,WBC 11.9 K/uL (3.2-11.0)
[2023-02-14 18:58] LABS: CALCIUM 8.9 mg/dL (8.5-10.1); CREATININE 1.1 mg/dL (0.8-1.3); EST CRCL DRUG DOSING (CG) 91.25 mL/min; TROPONIN I HIGH SENSITIVITY 5.3 pg/mL (<=60.3)
[2023-02-14] MEDS ORDERED: Acetaminophen 325 MG Tab PO ONE (18:58)
[2023-02-14] MEDS ORDERED: Potassium Chloride 20 MEQ Tab.ER PO ONE (19:22)
[2023-02-14] MEDS ORDERED: Lactated Ringers 1,000 ML IV SCH (19:30)
== END 2023-02-14 19:43 | disposition home or self-care (01) ==
LOC: JP.ED 17:30
DX: E87.6 Hypokalemia (principal); E66.9 Obesity, unspecified; J45.909 Unspecified asthma, uncomplicated; Z88.4 Allergy status to anesthetic agent; Z88.8 Allergy status to other drugs, medicaments and biological substances; Z88.0 Allergy status to penicillin; Z91.09 Other allergy status, other than to drugs and biological substances; Z79.899 Other long term (current) drug therapy
CPT/HCPCS: 36415; 71046; 71046-26; 80048; 84484; 85025; 85379; 93010; 99284; 99285; A9270-GY

== ENCOUNTER 2023-04-05 06:35 | Day surgery (SDC) | payer OTHER, MEDICAID ==
[2023-04-05] MEDS ORDERED: Bupivacaine 0.5% 30 ML SDV ONE (06:53)
[2023-04-05] MEDS ORDERED: Nozin Nasal Sanitizer NASBOTH ONE (07:00)
[2023-04-05 07:02] LABS: HEMATOCRIT 40.4 % (38.4-49.7); HEMOGLOBIN 14.3 g/dL (12.9-16.9); MEAN CORPUSCULAR HEMOGLOBIN 33.6 pg (31.6-35.5); MEAN CORPUSCULAR HGB CONC 35.4 g/dL (31.6-35.5); MEAN CORPUSCULAR VOLUME 94.8 fL (81.4-99.0); RED BLOOD CELL COUNT 4.26 M/uL (4.14-5.76); WHITE BLOOD CELL COUNT,WBC 7.8 K/uL (3.2-11.0)
[2023-04-05 07:22] LABS: A/G RATIO 1.1 (1.2-2.2); ALANINE AMINOTRANSFERASE,ALT 40 U/L (12-78); ALBUMIN 3.7 g/dL (3.4-5.0); ALKALINE PHOSPHATASE 65 U/L (46-116); ASPARTATE AMNIOTRANSFERASE,AST 21 U/L (15-37); BILIRUBIN TOTAL 0.5 mg/dL (0.2-1.0); BLOOD UREA NITROGEN,BUN 9 mg/dL (7-18); CALCIUM 8.4 mg/dL (8.5-10.1); CARBON DIOXIDE,CO2 27 mmol/L (21-32); CHLORIDE,CL 101 mmol/L (100-108); CREATININE 0.8 mg/dL (0.8-1.3); EST CRCL DRUG DOSING (CG) 125.47 mL/min; ESTIMATED GFR 114 mL/min (>60); GLUCOSE RANDOM 125 mg/dL (74-106); POTASSIUM,K 3.2 mmol/L (3.6-5.2); PROTEIN TOTAL,TP 7.2 g/dL (6.4-8.2); SODIUM,NA 141 mmol/L (140-148)
[2023-04-05 07:25] LABS: ANION GAP 16.2 mmol/L (5.0-14.0)
[2023-04-05] MEDS ORDERED: Propofol 200 MG/20 ML SDV ONE (07:27)
[2023-04-05] MEDS ORDERED: Neostigmine Methylsulfate 1 MG/ML 5 ML Syringe ONE (07:27)
[2023-04-05] MEDS ORDERED: Succinylcholine 200 MG/10 ML MDV ONE (07:27)
[2023-04-05] MEDS ORDERED: Rocuronium 50 MG/5 ML Vial ONE (07:27)
[2023-04-05] MEDS ORDERED: Glycopyrrolate 0.2 MG/ML 5 ML MDV ONE (07:27)
[2023-04-05] MEDS ORDERED: fentaNYL 250 MCG/5 ML SDV ONE ×2 (07:27→09:10)
[2023-04-05] MEDS ORDERED: Dexamethasone 4 MG/ML SDV ONE (07:27)
[2023-04-05] MEDS ORDERED: Ondansetron 4 MG/2 ML SDV ONE (07:27)
[2023-04-05] MEDS ORDERED: Lactated Ringers 1,000 ML IV SCH (08:00)
[2023-04-05] MEDS ORDERED: ceFAZolin 1 GM in Premix Bag 1 BAG IV ONE (08:15)
[2023-04-05] MEDS ORDERED: Etomidate 2 MG/ML 10 ML SDV ONE (08:56)
[2023-04-05] MEDS ORDERED: Acetaminophen/HYDROcodone 325-5 MG Tab PO PRN (10:42)
== END 2023-04-05 11:40 | disposition home or self-care (01) ==
LOC: JP.SDS 06:35
PROVIDERS: ATTEND Specialist
DX: G56.21 Lesion of ulnar nerve, right upper limb (principal); J45.909 Unspecified asthma, uncomplicated; F31.9 Bipolar disorder, unspecified; I77.74 Dissection of vertebral artery; E66.01 Morbid (severe) obesity due to excess calories; F17.200 Nicotine dependence, unspecified, uncomplicated; Z88.8 Allergy status to other drugs, medicaments and biological substances; Z98.84 Bariatric surgery status; Z88.0 Allergy status to penicillin; Z85.850 Personal history of malignant neoplasm of thyroid
CPT/HCPCS: 36415; 64718; 80053; 85027; A9270; J0330; J0690; J1100; J2405; J2710; J3010; J3490; J7120; J2704

== ENCOUNTER 2023-08-23 08:24 | Day surgery (SDC) | payer MEDICAID, MEDICARE, OTHER ==
[2023-08-23] MEDS: Lactated Ringers 1,000 ML IV SCH (09:14)
[2023-08-23] MEDS ORDERED: Midazolam 1 MG/ML 2 ML SDV ONE (10:02)
[2023-08-23] MEDS ORDERED: Etomidate 2 MG/ML 10 ML SDV ONE (10:02)
[2023-08-23] MEDS ORDERED: fentaNYL 100 MCG/2 ML SDV ONE (10:02)
== END 2023-08-23 11:34 | disposition home or self-care (01) ==
LOC: JP.SDS 08:24
PROVIDERS: ATTEND Student in an Organized Health Care Education/Training Program
DX: K29.50 Unspecified chronic gastritis without bleeding (principal); K21.9 Gastro-esophageal reflux disease without esophagitis; J45.909 Unspecified asthma, uncomplicated; I10 Essential (primary) hypertension; F31.9 Bipolar disorder, unspecified; E03.9 Hypothyroidism, unspecified; E66.01 Morbid (severe) obesity due to excess calories; Z68.41 Body mass index [BMI] 40.0-44.9, adult; Z79.899 Other long term (current) drug therapy; Z79.890 Hormone replacement therapy; Z88.8 Allergy status to other drugs, medicaments and biological substances; Z88.0 Allergy status to penicillin; Z91.09 Other allergy status, other than to drugs and biological substances; Z91.038 Other insect allergy status; Z91.048 Other nonmedicinal substance allergy status; Z88.6 Allergy status to analgesic agent
CPT/HCPCS: 43239; 88305; J2250; J3010; J3490; J7120

== ENCOUNTER 2023-09-11 08:14 | Day surgery (SDC) | payer MEDICARE ==
[2023-09-11] MEDS ORDERED: fentaNYL 100 MCG/2 ML SDV ONE (08:25)
[2023-09-11] MEDS ORDERED: Propofol 200 MG/20 ML SDV ONE (08:25)
[2023-09-11] MEDS ORDERED: Midazolam 1 MG/ML 2 ML SDV ONE (08:25)
[2023-09-11] MEDS ORDERED: Bupivacaine 0.5% 30 ML SDV ONE (08:27)
[2023-09-11 08:30] LABS: HEMATOCRIT 42.9 % (38.4-49.7); HEMOGLOBIN 15.3 g/dL (12.9-16.9); MEAN CORPUSCULAR HEMOGLOBIN 32.6 pg (31.6-35.5); MEAN CORPUSCULAR HGB CONC 35.7 g/dL (31.6-35.5); MEAN CORPUSCULAR VOLUME 91.3 fL (81.4-99.0); RED BLOOD CELL COUNT 4.7 M/uL (4.14-5.76); WHITE BLOOD CELL COUNT,WBC 11.2 K/uL (3.2-11.0)
[2023-09-11] MEDS: Nozin Nasal Sanitizer NASBOTH ONE (08:34)
[2023-09-11] MEDS: Lactated Ringers 1,000 ML IV SCH (08:37)
[2023-09-11 08:51] LABS: A/G RATIO 1.1 (1.2-2.2); ALANINE AMINOTRANSFERASE,ALT 28 U/L (12-78); ALKALINE PHOSPHATASE 68 U/L (46-116); ASPARTATE AMNIOTRANSFERASE,AST 14 U/L (15-37); BILIRUBIN TOTAL 0.7 mg/dL (0.2-1.0); BLOOD UREA NITROGEN,BUN 19 mg/dL (7-18); CALCIUM 8.7 mg/dL (8.5-10.1); CARBON DIOXIDE,CO2 27 mmol/L (21-32); CHLORIDE,CL 100 mmol/L (100-108); CREATININE 0.9 mg/dL (0.8-1.3); ESTIMATED GFR 110 mL/min (>60); GLUCOSE RANDOM 99 mg/dL (74-106); PROTEIN TOTAL,TP 7.8 g/dL (6.4-8.2); SODIUM,NA 140 mmol/L (140-148)
[2023-09-11 08:52] LABS: ANION GAP 15.9 mmol/L (5.0-14.0); POTASSIUM,K 2.9 mmol/L (3.6-5.2)
[2023-09-11] MEDS ORDERED: ceFAZolin 2 GM in Premix Bag 1 BAG IV ONE (09:00)
== END 2023-09-11 10:20 | disposition home or self-care (01) ==
LOC: JP.SDS 08:14
PROVIDERS: ATTEND Specialist
DX: S43.431A Superior glenoid labrum lesion of right shoulder, initial encounter (principal); Z53.8 Procedure and treatment not carried out for other reasons
CPT/HCPCS: 36415; 80053; 85027; 99204; A9270; J0665; J2250; J2704; J3010; J7120

== ENCOUNTER → 2023-09-27 | Day surgery (SDC) | payer OTHER, MEDICARE ==
[~2023-09-27] MED LIST changes: +Acetaminophen Soln 160 MG/5 ML UD Cup PO ONE; +Etomidate 2 MG/ML 10 ML SDV ONE; -Lactated Ringers 1,000 ML IV SCH; +Midazolam 1 MG/ML 2 ML SDV ONE; -Neostigmine Methylsulfate 1 MG/ML 5 ML Syringe ONE; +Neostigmine Methylsulfate 10 MG/10 ML MDV ONE; -Nozin Nasal Sanitizer NASBOTH ONE; -Propofol 200 MG/20 ML SDV ONE; +Sodium Chloride 0.9% 10 ML ONE; +Succinylcholine 200 MG/10 ML MDV ONE; +ePHEDrine 50 MG/ML SDV ONE
[2023-09-27 06:56] LABS: HEMATOCRIT 39.7 % (38.4-49.7); HEMOGLOBIN 13.6 g/dL (12.9-16.9); MEAN CORPUSCULAR HEMOGLOBIN 33.2 pg (31.6-35.5); MEAN CORPUSCULAR HGB CONC 34.3 g/dL (31.6-35.5); MEAN CORPUSCULAR VOLUME 96.8 fL (81.4-99.0); RED BLOOD CELL COUNT 4.1 M/uL (4.14-5.76); WHITE BLOOD CELL COUNT,WBC 6.5 K/uL (3.2-11.0)
[2023-09-27] MEDS: Lactated Ringers 1,000 ML IV SCH (07:05)
[2023-09-27] MEDS: Nozin Nasal Sanitizer NASBOTH ONE (07:06)
[2023-09-27 07:18] LABS: ALANINE AMINOTRANSFERASE,ALT 34 U/L (12-78); ALBUMIN 3.6 g/dL (3.4-5.0); ALKALINE PHOSPHATASE 73 U/L (46-116); ANION GAP 10.7 mmol/L (5.0-14.0); ASPARTATE AMNIOTRANSFERASE,AST 18 U/L (15-37); BILIRUBIN TOTAL 0.2 mg/dL (0.2-1.0); BLOOD UREA NITROGEN,BUN 19 mg/dL (7-18); CALCIUM 8.6 mg/dL (8.5-10.1); CARBON DIOXIDE,CO2 28 mmol/L (21-32); CHLORIDE,CL 103 mmol/L (100-108); CREATININE 0.9 mg/dL (0.8-1.3); EST CRCL DRUG DOSING (CG) 111.53 mL/min; ESTIMATED GFR 110 mL/min (>60); GLUCOSE RANDOM 114 mg/dL (74-106); POTASSIUM,K 4.3 mmol/L (3.6-5.2); PROTEIN TOTAL,TP 7.1 g/dL (6.4-8.2); SODIUM,NA 142 mmol/L (140-148)
[2023-09-27] MEDS: Clindamycin in 0.9 % Sod Chlor 900 MG in Premix Bag 1 BAG IV ONE (07:50)
[2023-09-27] MEDS: oxyCODONE 5 MG Tab PO ONE (10:52)
[2023-09-27] MEDS: Acetaminophen Soln 650 MG/20.3 ML UD Cup PO ONE (10:53)
== END ==
LOC: JP.SDS 06:45
PROVIDERS: ATTEND Specialist
DX: S43.431A Superior glenoid labrum lesion of right shoulder, initial encounter (principal); M19.011 Primary osteoarthritis, right shoulder; M94.211 Chondromalacia, right shoulder; I10 Essential (primary) hypertension; F41.1 Generalized anxiety disorder; F31.9 Bipolar disorder, unspecified; E66.9 Obesity, unspecified; X58.XXXA Exposure to other specified factors, initial encounter
CPT/HCPCS: 29807; 36415; 80053; 85027; A9270; C1713; J0330; J0665; J0736; J1100; J2250; J2405; J3010; J3490; J7120; J2710

== ENCOUNTER 2024-02-04 17:25 | Emergency (ER) | payer MEDICAID, MEDICARE, OTHER ==
[2024-02-04 18:45] LABS: BASOPHILS ABSOLUTE AUTO 0.04 K/uL (0.00-0.10); BASOPHILS PERCENT AUTO 0.5 % (0.1-1.3); EOSINOPHILS ABSOLUTE AUTO 0.38 K/uL (0.00-0.40); EOSINOPHILS PERCENT AUTO 5.1 % (0.0-5.4); HEMATOCRIT 36.5 % (38.4-49.7); IMMATURE GRAN PERCENT AUTO 0.3 % (0.0-0.7); LYMPHOCYTES ABSOLUTE AUTO 2.02 K/uL (0.8-3.3); LYMPHOCYTES PERCENT AUTO 27.3 % (11.4-47.7); MEAN CORPUSCULAR HEMOGLOBIN 32.6 pg (31.6-35.5); MEAN CORPUSCULAR HGB CONC 35.6 g/dL (31.6-35.5); MEAN CORPUSCULAR VOLUME 91.5 fL (81.4-99.0); MONOCYTES ABSOLUTE AUTO 0.59 K/uL (0.20-0.90); NEUTROPHILS ABSOLUTE AUTO 4.36 K/uL (1.0-7.6); NEUTROPHILS PERCENT AUTO 58.8 % (40.0-78.1); PLATELET COUNT,PLT 277 K/uL (130-375); RED BLOOD CELL COUNT 3.99 M/uL (4.14-5.76); WHITE BLOOD CELL COUNT,WBC 7.4 K/uL (3.2-11.0)
[2024-02-04 18:46] LABS: IMMATURE GRAN ABSOLUTE AUTO 0.02 K/uL (0.00-0.23)
[2024-02-04 19:00] LABS: CALCIUM 8.5 mg/dL (8.5-10.1); CREATININE 0.8 mg/dL (0.8-1.3); EST CRCL DRUG DOSING (CG) 124.2 mL/min; POTASSIUM,K 3.9 mmol/L (3.6-5.2)
[2024-02-04 19:24] LABS: LYME AB IgG Negative (Negative); LYME AB IgM Negative (Negative)
== END 2024-02-04 19:34 | disposition home or self-care (01) ==
LOC: JP.ED 17:25
DX: S93.402A Sprain of unspecified ligament of left ankle, initial encounter (principal); R42 Dizziness and giddiness; I10 Essential (primary) hypertension; K21.9 Gastro-esophageal reflux disease without esophagitis; E03.9 Hypothyroidism, unspecified; E66.9 Obesity, unspecified; Z90.49 Acquired absence of other specified parts of digestive tract; Z79.890 Hormone replacement therapy; Z79.899 Other long term (current) drug therapy; Z88.6 Allergy status to analgesic agent; Z88.8 Allergy status to other drugs, medicaments and biological substances; Z91.048 Other nonmedicinal substance allergy status; Z88.0 Allergy status to penicillin; Z88.1 Allergy status to other antibiotic agents; Z88.4 Allergy status to anesthetic agent; Z68.38 Body mass index [BMI] 38.0-38.9, adult; X58.XXXA Exposure to other specified factors, initial encounter
CPT/HCPCS: 36415; 80048; 85025; 86618; 99284; U0002

== ENCOUNTER 2024-03-03 20:38 | Emergency (ER) | payer MEDICAID | END 2024-03-03 21:46 | disposition home or self-care (01) | LOC: JP.ED 20:38 | DX: S39.012A Strain of muscle, fascia and tendon of lower back, initial encounter (principal); I10 Essential (primary) hypertension; K21.9 Gastro-esophageal reflux disease without esophagitis; E03.9 Hypothyroidism, unspecified; E66.9 Obesity, unspecified; Z90.49 Acquired absence of other specified parts of digestive tract; Z87.891 Personal history of nicotine dependence; Z79.899 Other long term (current) drug therapy; Z79.890 Hormone replacement therapy; Z88.0 Allergy status to penicillin; Z88.1 Allergy status to other antibiotic agents; Z91.048 Other nonmedicinal substance allergy status; Z88.6 Allergy status to analgesic agent; Z88.8 Allergy status to other drugs, medicaments and biological substances; Z68.38 Body mass index [BMI] 38.0-38.9, adult; X58.XXXA Exposure to other specified factors, initial encounter | CPT/HCPCS: 99283 ==